=== PATIENT | female | born 1950 | race Caucasian/White ===

== ENCOUNTER → 2017-08-19 09:34 | Outpatient (CLI) | payer MEDICARE, SELFPAY ==
[2017-08-19 14:44] LABS: Absolute Lymphocyte Count 1.45 X10^3/ul (0.83-4.51); Absolute Neutrophil Count 2.8 X10^3/uL (2.0-7.7); Basophil# 0.02 X10^3/uL; Basophil% 0.4 % (0-1); Eosinophils% 2.1 % (0-5); Hematocrit 45.2 % (37-47); Hemoglobin 14.9 g/dl (12.0-15.0); Lymphocyte # 1.45 X10^3/ul (4.0); Lymphocyte % 30.1 % (19-41); Mean Corpuscular Volume 94.2 fL (81-99); Mean Platelet Vol. 11.3 fl (6.2-12.0); Monocyte# 0.48 X10^3/uL; Neutrophil # 2.75 X10^3/uL (2.7-7.7); Platelet Count 160 K/mm3 (150-450); RBC Distribution Width CV 14.2 % (11.6-14.6); RBC Distribution Width SD 47.1 fl (35.1-43.9); White Blood Count 4.8 K/mm3 (4.4-11.0)
[2017-08-19 14:47] LABS: POSITIVE COUNT NO; POSITIVE DIFFERENTIAL NO; POSITIVE MORPHOLOGY NO
[2017-08-19 15:00] LABS: Vitamin D,25 Hydroxy 31.3 ng/mL (19.95-100.01)
[2017-08-19 15:03] LABS: BUN 12 mg/dL (7-18); Creatinine, Serum 0.72 mg/dL (0.55-1.02); EST Glomerular Filtration Rate 86 mL/min (>60); Glucose 91 mg/dL (70-110)
[2017-08-19 15:04] LABS: ALB/GLOB Ratio 1.1 RATIO (0.9-2.4); AST(SGOT) 25 U/L (15-37); Alanine Aminotransfer ALT/SGPT 35 U/L (13-56); Albumin, Serum 3.5 g/dL (3.2-5.0); Alkaline Phosphatase 117 U/L (45-117); Anion Gap 7 (5-15); BUN/Creat Ratio 16.8 RATIO (10-20); Calcium,Total 8.7 mg/dL (8.5-10.1); Chloride 108 mmol/L (98-107); Est Glom Filt Rate - Afr Amer 104 mL/min (>60); Globulin 3.1 g/dL (2.2-4.2); Potassium 4.2 mmol/L (3.5-5.1); Protein, Total 6.6 g/dL (6.4-8.2); Sodium Level 145 mmol/L (136-145); Thyroid Stim Hormone (TSH) 0.68 uIU/mL (0.358-3.74)
[2017-08-20 12:15] LABS: Hep C Antibodies <0.1 s/co ratio (0.0-0.9)
== END ==
PROVIDERS: Family Provider Family Medicine Geriatric Medicine; PCP Family Medicine Geriatric Medicine; Visit Provider Family Medicine Geriatric Medicine
DX: R53.83 Other fatigue (principal); E55.9 Vitamin D deficiency, unspecified; Z13.89 Encounter for screening for other disorder
CPT/HCPCS: 36415; 80053; 82306; 84443; 85025; 86803

== ENCOUNTER 2017-09-09 05:15 | Observation (INO) | payer MEDICARE, SELFPAY ==
[2017-09-09] VITALS (25 sets, daily range): BP systolic 105–193; BP diastolic 58–109; PULSE 65–107; RESP 15–23; TEMP 36.3–38.2; O2SAT 93–100; BMI 29.5; BMI 29.8; BMI 29.7
--- NOTE | 2017-09-09 05:27 | ED.VISSUMM ---
- ER Visit Summary Date of Service: 09/09/17 Chief Complaint: Nausea History of Present Illness: The patient is a 66 F increasing nausea since yesterday afternoon. No vomiting. 3 days ago had diarrhea, symptoms resolving. No recent antibiotics. States that sweats. No fevers. States had mild transient left-sided abdominal pain intermittently over 3 days. No urinary symptoms. Occasional cough. Tried using Pepto-Bismol yesterday, however nausea continues. States able to sip oracio tanya. History of lap band surgery and hiatal hernia repair. Currently denies any abdominal pain. Patient is on methotrexate for history of inflammatory arthritis. Physical Examination: General: Alert and oriented ?3, mild sweats, uncomfortable HEENT: Normocephalic, atraumatic. Moist mucosa membranes Neck: supple, nontender. Cardiovascular: Regular tachycardic rate 104 and rhythm, no murmurs Respiratory: Normal breath sounds, symmetric, no distress Abdomen: Soft, nontender, nondistended. Normal bowel sounds. Negative Monson's or McBurney's tenderness. No guarding or rebound. Extremities: Nontender, no edema, pulses intact ?4 Neuro: no focal neurological deficits. Test Results: Abdominal labs normal. EKG: Sinus rate of 97, nonspecific ST depressions in V2, V3, leads I. T-wave inversion V1 to V4 and flattening in V5 V6. No ST elevations. Troponin [address] abdomen pelvis: No acute process. IVC filter in place. Emergency Department Course and Treatment: Patient presents with strictly nausea symptoms. She has no chest pains, shortness of breath, abdominal pain. IV was placed, given fluids and Zofran. Abdominal labs ordered it was normal. She had continued nausea therefore Phenergan was ordered along with a CT scan with her gastric history. Results returned negative. Noted IVC filter for which patient states she has never had a blood clot. States this was placed with her initial gastric surgery by the surgeon. Due to continued nausea symptoms, I did obtain an EKG noting new nonspecific findings however they are new changes. ST depressions anterior leads less than 1 mm. There is no elevation. Troponin was added which noted to be elevated at 0.71. Patient continues to deny any chest pains or shortness of breath. With elevated troponin, I did speak with Dr. Tan prior to report of the CT scan of the abdomen. He requested aspirin started. He said if the CT was negative for any acute pathology to start Brilinta and heparin bolus. This was started after negative read by radiology. Patient able to orally intake the medications. We discussed with cardiology, plan will be to take her to the [facility] from the emergency department. I did speak with hospitalist, Dr. Bowens for admission after cath. Treatment Plan: Heart catheterization Disposition: Admission Impression: 1. NSTEMI 2. Abnormal EKG 3. Intractable nausea This note was generated with [employer] dictation software. It may contain incorrect words, spelling, and punctuation that were not noted in review of the chart prior to signing ED Disposition - Plan for ED Patient: Disposition: Acute Care Hospital [facility] Chief Complaint: Abd Pain Diagnosis: NSTEMI (non-ST elevated myocardial infarction), Abnormal EKG, Intractable nausea Referrals: Tony Sethi Chi, MD [Primary Care Provider] -
--- NOTE | 2017-09-09 05:30 | ED.DCSUM_ITS ---
- ER Visit Summary Date of Service: 09/09/17 Chief Complaint: Nausea History of Present Illness: The patient is a 66 F increasing nausea since yesterday afternoon. No vomiting. 3 days ago had diarrhea, symptoms resolving. No recent antibiotics. States that sweats. No fevers. States had mild transient left-sided abdominal pain intermittently over 3 days. No urinary symptoms. Occasional cough. Tried using Pepto-Bismol yesterday, however nausea continues. States able to sip oracio tanya. History of lap band surgery and hiatal hernia repair. Currently denies any abdominal pain. Patient is on methotrexate for history of inflammatory arthritis. Physical Examination: General: Alert and oriented ?3, mild sweats, uncomfortable HEENT: Normocephalic, atraumatic. Moist mucosa membranes Neck: supple, nontender. Cardiovascular: Regular tachycardic rate 104 and rhythm, no murmurs Respiratory: Normal breath sounds, symmetric, no distress Abdomen: Soft, nontender, nondistended. Normal bowel sounds. Negative Monson' s or McBurney's tenderness. No guarding or rebound. Extremities: Nontender, no edema, pulses intact ?4 Neuro: no focal neurological deficits. Test Results: Abdominal labs normal. EKG: Sinus rate of 97, nonspecific ST depressions in V2, V3, leads I. T-wave inversion V1 to V4 and flattening in V5 V6. No ST elevations. Troponin [address] abdomen pelvis: No acute process. IVC filter in place. Emergency Department Course and Treatment: Patient presents with strictly nausea symptoms. She has no chest pains, shortness of breath, abdominal pain. IV was placed, given fluids and Zofran. Abdominal labs ordered it was normal. She had continued nausea therefore Phenergan was ordered along with a CT scan with her gastric history. Results returned negative. Noted IVC filter for which patient states she has never had a blood clot. States this was placed with her initial gastric surgery by the surgeon. Due to continued nausea symptoms, I did obtain an EKG noting new nonspecific findings however they are new changes. ST depressions anterior leads less than 1 mm. There is no elevation. Troponin was added which noted to be elevated at 0.71. Patient continues to deny any chest pains or shortness of breath. With elevated troponin, I did speak with Dr. Tan prior to report of the CT scan of the abdomen. He requested aspirin started. He said if the CT was negative for any acute pathology to start Brilinta and heparin bolus. This was started after negative read by radiology. Patient able to orally intake the medications. We discussed with cardiology, plan will be to take her to the [facility] from the emergency department. I did speak with hospitalist, Dr. Bowens for admission after cath. Treatment Plan: Heart catheterization Disposition: Admission Impression: 1. NSTEMI 2. Abnormal EKG 3. Intractable nausea This note was generated with [employer] dictation software. It may contain incorrect words, spelling, and punctuation that were not noted in review of the chart prior to signing ED Disposition - Plan for ED Patient: Disposition: Acute Care Hospital [facility] Chief Complaint: Abd Pain Diagnosis: NSTEMI (non-ST elevated myocardial infarction), Abnormal EKG, Intractable nausea Referrals: Tony Sethi Chi, MD [Primary Care Provider] -
[2017-09-09 05:40] LABS: Absolute Lymphocyte Count 1.01 X10^3/ul (0.83-4.51); Basophil# 0.01 X10^3/uL; Basophil% 0.1 % (0-1); Hematocrit 49.6 % (37-47); Hemoglobin 16.9 g/dl (12.0-15.0); Lymphocyte # 1.01 X10^3/ul (4.0); Lymphocyte % 13.3 % (19-41); Mean Corp Hgb Conc 34.1 g/gl (32-36); Mean Corpuscular Hgb 30.7 pg (27.0-32.0); Mean Platelet Vol. 10.5 fl (6.2-12.0); Monocyte# 0.58 X10^3/uL; Monocyte% 7.7 % (0-10); Neutrophil # 5.97 X10^3/uL (2.7-7.7); Neutrophil % 78.8 % (47-70); Platelet Count 174 K/mm3 (150-450); RBC Distribution Width CV 14.1 % (11.6-14.6); RBC Distribution Width SD 46.2 fl (35.1-43.9); Red Blood Count 5.51 M/mm3 (4.2-5.4); White Blood Count 7.6 K/mm3 (4.4-11.0)
[2017-09-09 05:41] LABS: POSITIVE COUNT NO; POSITIVE DIFFERENTIAL NO; POSITIVE MORPHOLOGY NO
[2017-09-09] MEDS: Ondansetron 4 MG/2 ML Vial IV ×2 (05:43→10:46)
[2017-09-09] MEDS: 0.9% Normal Saline 1,000 ML 1000 ML IV (05:43)
[2017-09-09 06:01] LABS: ALB/GLOB Ratio 1.1 RATIO (0.9-2.4); AST(SGOT) 31 U/L (15-37); Alanine Aminotransfer ALT/SGPT 34 U/L (13-56); Albumin, Serum 3.8 g/dL (3.2-5.0); Alkaline Phosphatase 98 U/L (45-117); Anion Gap 11 (5-15); BUN 18 mg/dL (7-18); BUN/Creat Ratio 20.6 RATIO (10-20); Calcium,Total 9.2 mg/dL (8.5-10.1); Chloride 105 mmol/L (98-107); Creatinine, Serum 0.87 mg/dL (0.55-1.02); EST Glomerular Filtration Rate 68 mL/min (>60); Est Glom Filt Rate - Afr Amer 83 mL/min (>60); Estimated Creatinine Clearance 64.68 ml/min; Globulin 3.6 g/dL (2.2-4.2); Glucose 193 mg/dL (74-106); Lipase 79 U/L (73-393); Potassium 3.5 mmol/L (3.5-5.1); Protein, Total 7.4 g/dL (6.4-8.2); Sodium Level 139 mmol/L (136-145)
--- NOTE | 2017-09-09 06:05 | CT_ITS ---
STUDY: CT ABDOMEN AND PELVIS WITHOUT CONTRAST REASON FOR EXAM: Female, 66 years old. Abdominal pain and nausea RADIATION DOSAGE (If Supplied By Facility): CTDIvol = ( 18.33 ) mGy, DLP = ( 888.42 ) mGycm TECHNIQUE: Transaxial images were obtained from the dome of the diaphragm to the symphysis pubis without oral contrast, and without intravenous contrast. Sagittal and coronal images were reconstructed. Individualized dose optimization techniques were used for this CT. COMPARISON: 04/10/2009 report only FINDINGS: The visualized lung bases are unremarkable. The visualized portions of the heart are within normal limits. Normal liver. Normal gallbladder and extrahepatic biliary system. There are multiple benign calcified granulomata of the spleen. Normal pancreas. Normal bilateral adrenal glands. Normal right kidney. Normal left kidney. A gastric banding device is present. Gaseous prominence of the stomach. Normal small intestine. There are multiple colonic diverticula consistent with diverticulosis. The appendix is visualized and appears normal. There is diffuse atherosclerotic calcification of the abdominal aorta, without a demonstrated aneurysm. There is an IVC filter in place. Normal retroperitoneum. Normal urinary bladder. Normal abdominal wall. There are diffuse degenerative changes of the visualized lumbar spine. Remote left rib trauma. CT/Abdomen/Pelvis without Cont IMPRESSION: Gaseous prominence of the stomach. No evidence of acute intestinal pathology or acute obstructive uropathy. Electronically Signed: Curt Bey MD at 6:59 EST Tel , Service support ,
--- NOTE | 2017-09-09 06:15 | EKG12_ITS ---
Test Reason : ABD PAIN Blood Pressure : / mmHG Vent. Rate : 097 BPM Atrial Rate : 097 BPM P-R Int : 196 ms QRS Dur : 096 ms QT Int : 368 ms P-R-T Axes : 033 059 067 degrees QTc Int : 467 ms Normal sinus rhythm Low voltage QRS ST & T wave abnormality, consider anterior ischemia Abnormal ECG Confirmed by LOLA ALBERT, EDVIN ([id number]), society editor [place] ([id number]) on 09/11/2017 1:07:06 PM Referred By: ESTEE Confirmed By:EDVIN DAVILA MD
--- NOTE | 2017-09-09 06:46 | NURSING ---
trop of 0.[address] Toledo
--- NOTE | 2017-09-09 06:52 | ED.RN ---
CT called to have CT read acute
[2017-09-09 07:09] LABS: Red Blood Cells-Urine 0 SEEN /hpf (0-5)
[2017-09-09] MEDS: Aspirin 81 MG TAB.CHEW 324 MG PO (07:10)
[2017-09-09] MEDS: TICAGRELOR 90 MG TABLET 180 MG PO (07:11)
[2017-09-09 07:13] LABS: Color, Urine Yellow (Yellow); Glucose, Dipstick 50 mg/dl (Normal); Leukocyte Esterase-Dipstick 25 /ul (Negative); Nitrite-Dipstick Negative (Negative); Occult Blood-Urine 50 /ul (Negative); Protein-Dipstick 100 mg/dl (Negative); Specific Gravity, Urine 1.025 (1.002-1.030); Urine Bilirubin Dipstick Negative (Negative); Urine Clarity Clear (Clear); Urine Urobilinogen Normal (Normal)
[2017-09-09] MEDS: Heparin Injection 5,000 UNITS/ML Syringe 4000 UNITS IV (07:13)
[2017-09-09 07:15] LABS: Ketone-Dipstick 150 mg/dl (Negative)
--- NOTE | 2017-09-09 07:21 | ED.RN ---
lab called with critical lab results. Urine ketones 150. Dr. Toledo made aware. no new orders at this time
[2017-09-09 07:34] LABS: White Blood Cells 0-5 SEEN /hpf (0-5)
[2017-09-09 07:35] LABS: Bacteria 2+ /hpf (None Seen); Fine Granular Cast- Urine 0-5 SEEN /lpf (0-5); Mucous, Urine 1+ /hpf (<or=2+)
[2017-09-09 07:37] LABS: Squamous Epithelial Cells - UA 0-5 SEEN /hpf (5-10)
--- NOTE | 2017-09-09 07:56 | NURSING ---
ICU [place] INTRACTABLE NAUSEA, ABNORMAL EKG, ELEVATED TROP
--- NOTE | 2017-09-09 07:57 | NURSING ---
CATHLAB [facility]
--- NOTE | 2017-09-09 08:41 | CL.D_ITS ---
Patient Name: KRIS JOHN Study Date: 09/09/2017 Performing: Omkar Tan MD Ht: 68.89 inches 175 cm : 1950 Wt: 200.62 lbs 91 kg Age: 66 Gender: female BSA: 2.07 PROCEDURE(S) PERFORMED [id number] CLINICAL PROFILE AND INDICATIONS INDICATIONS: Unstable Angina, Acute Coronary Syndrome, Unstable Angina Stress/Imaging Stress/Image Study Performed: No Angina Classification Anginal Classification w/in 2 Weeks: CCS IV CAD Presentations: Other: severe nausea with abnl EKG and abnl troponin Comorbidities/Risk Factors: Hypertension Dyslipidemia CONCLUSIONS Normal coronary arteries Normal Left Ventricular systolic function RECOMMENDATIONS Risk factor modification Management as per referring Treatment Plant Mechanic Consider surgical consult to evaluate gastric banding removal. DESCRIPTION OF PROCEDURE The patient arrived to the procedure lab. The risks and benefits of the procedure as well as a full d escription of our services here and current unavailability of surgical backup were fully explained to the patient and/or their significant other prior to the catheterization. The Timeout was completed, verifying the correct patient and procedure. The patient's procedural site was prepped and draped in the usual fashion. Local anesthetic was given subcutaneously to right groin region with Lidocaine 2%. Using a modified Seldinger technique, arterial access was obtained via the right femoral artery, a 4 Fr sheath was inserted Left Coronary Artery selective angiography was performed in multiple views us ing a 4 Fr. JL5 catheter. Right Coronary Artery selective angiography was then performed in multiple views using a 4 Fr. 3DRC catheter. Left Ventriculography was performed in BRANCH projection using a 4 Fr . Pigtail catheter. LV to AO pullback pressures were then recorded.The arterial sheath was pulled and manual compression applied until hemostasis is achieved. CORONARY ANGIOGRAPHY DOMINANCE: Right Dominant LEFT HEART ASSESSMENT Left Ventricular Ejection Fraction: by LV Gram 65 % Normal LV wall motion Normal Left Ventricular systolic function Normal Left Ventricular systolic function Normal Left Ventricular End Diastolic Pressure LEFT MAIN: Angiographically normal LEFT ANTERIOR DECENDING ARTERY: Angiographically normal CIRCUMFLEX ARTERY: Angiographically normal RIGHT CORONARY ARTERY: Angiographically normal COMPLICATIONS No Complications PROCEDURE MEDICATIONS Oxygen: 2 L/min via nasal cannula Zofran 4 mg IV 09/09/2017 08:28:42 SUMMARY OF HEMODYNAMIC DATA Time AIR REST ECG 08:11:31 AO 154/105 (129) SA 08:20:22 LV 173/-28, 1 08:26:17 LV 176/-27, 8 08:26:24 LVp 176/-30, 6 08:26:36 AOp 179/88 (126) 08:26:41 Signed By Omkar Tan MD On 09/09/2017 08:40:49 Omkar Tan MD
[2017-09-09 08:50] LABS: ACT Activated Clotting Time 158 sec (74-137)
[2017-09-09] MEDS: 0.9% Normal Saline 1,000 ML 150 ML IV (09:00)
--- NOTE | 2017-09-09 09:22 | PCM.HP.STD ---
Problem List (1) NSTEMI (non-ST elevated myocardial infarction) Status: Acute (2) Nausea Status: Acute History of Present Illness Date of Admission: 09/09/17 Chief Complaint: Nausea This is a 66F nausea who presented to the emergency room due to nausea, she reported that she has had flulike symptoms for the past 1 week, she was also started on an oral antibiotic. She denied associated abdominal pain, vomiting, diarrhea or constipation. In the emergency room her workup did not reveal any pathology to explain her intractable nausea , her troponin was elevated at 0.7 consistent with that an ST elevation myocardial infarction. The patient denies any chest pain shortness of breath palpitations or rapid heartbeat. Cardiology was consulted and the patient was taken for left heart catheterization that revealed angiographically normal coronaries the patient is being placed in the hospital for management of her symptoms. Past Medical History Allergies morphine Allergy (Verified 06/12/14 13:12) Vomiting Home Medications: Ambulatory Orders Medication Instructions Recorded ALPRAZolam [Xanax] 0.5 mg PO QHS 07/03/14 Atorvastatin Calcium [Lipitor] 40 mg PO QHS 07/03/14 Cevimeline HCl [Evoxac] 30 mg PO DAILY 07/03/14 Duloxetine Hcl [Cymbalta] 90 mg PO QHS 07/03/14 Esomeprazole Mag Trihydrate 40 mg PO DAILY 07/03/14 [Nexium] Flecainide [Tambocor] 100 mg PO BIDCM 07/03/14 Folic Acid 2 mg PO DAILY@0800 07/03/14 Methotrexate 12.5 mg PO MOTUWETHFR 07/03/14 Metoprolol(XL)Succ [Toprol Xl 50 mg PO QHS 07/03/14 (Beta Jess)] Montelukast [Singulair] 10 mg PO DAILY 07/03/14 Pregabalin [Lyrica] 150 mg PO DAILY 07/03/14 Cefadroxil Hydrate [Duricef] 500 mg PO BID #10 capsule 07/04/14 Docusate Sodium [Colace] 100 mg PO BID #30 capsule 07/04/14 Ergocalciferol [Vitamin D] 50,000 unit PO FR@1000 07/04/14 L. Acidophilus/Pectin, [place] 1 each PO BID #10 tablet 07/04/14 [Acidophilus-Pectin Captab] Oxycodone HCl/Acetaminophen 1 - 2 tablet PO QHS 09/09/17 [Percocet 5/325] Smoking Status: Never smoker VTE Information - Inpt Only VTE Present on Admission: No VTE Mechan Device Prophylaxis: SCD's VTE Pharm Prophylaxis ordered?: Yes Patient Problems: Active and Suspected Problems NSTEMI (non-ST elevated myocardial infarction) (Acute) Abnormal EKG (Acute) Nausea (Acute) - Physical Exam General: Alert, Oriented x3 HEENT: Atraumatic Oral: Moist Mucosa Neck: Supple Lungs: Clear to auscultation Cardiovascular: Regular rate, Normal S1, Normal S2 Abdomen: Bowel Sounds Present Extremities: No clubbing Vital Signs Temp Pulse Resp BP Pulse Ox 99.9 F H 76 17 173/94 H 97 09/09/17 09:00 09/09/17 09:00 09/09/17 09:00 09/09/17 09:00 09/09/17 09:00 Oxygen Flow Rate 2 Oxygen Delivery Method Nasal Cannula Weight: 90.718 kg Body Mass Index (BMI) 29.5 Laboratory Tests Past 24 Hrs 09/09/17 09/09/17 09/09/17 05:30 05:30 05:30 WBC 7.6 RBC 5.51 H Hgb 16.9 H Hct 49.6 H MCV 90.0 MCH 30.7 MCHC 34.1 RDW 14.1 RDW Differential 46.2 H Plt Count 174 MPV 10.5 Immature Gran % (Auto) 0.100 Neut % (Auto) 78.8 H Lymph % (Auto) 13.3 L [place] % (Auto) 7.7 Eos % (Auto) 0.0 Baso % (Auto) 0.1 Absolute Neuts (auto) 6.0 Absolute Lymphs (auto) 1.01 Total Counted Not Reportable Activated Clotting Time Sodium 139 Potassium 3.5 Chloride 105 Carbon Dioxide 23.0 Anion Gap 11 BUN 18 Creatinine 0.87 Estim Creat Clear Calc 64.68 Est GFR (MDRD) Af Amer 83 Est GFR (MDRD) Non-Af 68 BUN/Creatinine Ratio 20.6 H Glucose 193 H Calcium 9.2 Total Bilirubin 0.70 AST 31 ALT 34 Alkaline Phosphatase 98 Troponin I 0.71 H* Total Protein 7.4 Albumin 3.8 Globulin 3.6 Albumin/Globulin Ratio 1.1 Lipase 79 Urine Color Urine Clarity Urine pH Ur Specific [place] Urine Protein Urine Glucose (UA) Urine Ketones Urine Occult Blood Urine Nitrite Urine Bilirubin Urine Urobilinogen Ur Leukocyte Esterase Urine RBC Urine WBC Ur Squamous Epith Cells Urine Bacteria Fine Granular Casts Waxy Casts Urine Mucus 09/09/17 09/09/17 07:00 08:22 WBC RBC Hgb Hct MCV MCH MCHC RDW RDW Differential Plt Count MPV Immature Gran % (Auto) Neut % (Auto) Lymph % (Auto) [place] % (Auto) Eos % (Auto) Baso % (Auto) Absolute Neuts (auto) Absolute Lymphs (auto) Total Counted Activated Clotting Time 158 H Sodium Potassium Chloride Carbon Dioxide Anion Gap BUN Creatinine Estim Creat Clear Calc Est GFR (MDRD) Af Amer Est GFR (MDRD) Non-Af BUN/Creatinine Ratio Glucose Calcium Total Bilirubin AST ALT Alkaline Phosphatase Troponin I Total Protein Albumin Globulin Albumin/Globulin Ratio Lipase Urine Color Yellow Urine Clarity Clear Urine pH 5.0 Ur Specific [place] 1.025 Urine Protein 100 H Urine Glucose (UA) 50 H Urine Ketones 150 H Urine Occult Blood 50 H Urine Nitrite Negative Urine Bilirubin Negative Urine Urobilinogen Normal Ur Leukocyte Esterase 25 H Urine RBC 0 SEEN Urine WBC 0-5 SEEN Ur Squamous Epith Cells 0-5 SEEN Urine Bacteria 2+ Fine Granular Casts 0-5 SEEN Waxy Casts MACHINE MAINTENANCE Urine Mucus 1+ Assessment/Plan Active and Suspected Problems NSTEMI (non-ST elevated myocardial infarction) (Acute) Abnormal EKG (Acute) Nausea (Acute) 1. Intractable nausea; will place him on anti emetics and PPI, I will obtain lipase and amylase, she is status post gastric lap band and if her symptoms do not improve after 24 hours, I will have general surgery evaluate her for possible EGD. 2. Troponin elevation; likely type II NSTEMI, she actually underwent left heart catheterization that showed angiographically normal coronaries. 3. generalized weakness with nausea; likely post influenza syndrome, will continue supportive therapy for now. 4. dehydration; IV hydration. 5. DVT ppx with Lovenox. Code Visit OBSV E&M: 91383 Initial observation care L3
[2017-09-09 10:25] LABS: Lipase 76 U/L (73-393)
[2017-09-09] MEDS: ALPRAZolam 0.5 MG Tablet PO (10:42)
[2017-09-09] MEDS: Metoprolol(XL)Succ 50 MG Tablet PO ×2 (10:43→21:30)
[2017-09-09] MEDS: Losartan Potassium 25 MG Tablet PO (11:25)
[2017-09-09] MEDS: Flecainide 100 MG Tablet PO ×2 (11:25→21:32)
[2017-09-09] MEDS: Pregabalin 75 MG Capsule 150 MG PO ×2 (13:17→21:32)
[2017-09-09] MEDS: Dext 5%-0.45% NS 1,000 ML 60 ML IV (16:12)
[2017-09-09] MEDS: Atorvastatin Calcium 40 MG Tablet PO (21:31)
[2017-09-09] MEDS: DULoxetine Hcl 30 MG Capsule 90 MG PO (21:32)
[2017-09-09] MEDS: oxyCODONE 5 MG Tablet PO (21:32)
[2017-09-09] MEDS: 0.9% NaCl Peripheral Flush Adult/Peds IV (21:32)
[2017-09-10] VITALS (10 sets, daily range): BP systolic 87–116; BP diastolic 46–52; PULSE 67–82; RESP 12–18; TEMP 36.3–37.6; O2SAT 93–98
--- NOTE | 2017-09-10 04:53 | EKG12_ITS ---
Test Reason : AM EKG Blood Pressure : / mmHG Vent. Rate : 065 BPM Atrial Rate : 065 BPM P-R Int : 180 ms QRS Dur : 106 ms QT Int : 472 ms P-R-T Axes : 093 -03 072 degrees QTc Int : 490 ms Normal sinus rhythm Indeterminate axis Low voltage QRS Nonspecific T wave abnormality Prolonged QT Abnormal ECG Confirmed by LOLA ALBERT, EDVIN ([id number]), newspaper editor [place] ([id number]) on 09/11/2017 1:43:23 PM Referred By: EDEL Confirmed By:EDVIN DAVILA MD
[2017-09-10 05:06] LABS: Anion Gap 8 (5-15); BUN 11 mg/dL (7-18); BUN/Creat Ratio 18.3 RATIO (10-20); Calcium,Total 8.4 mg/dL (8.5-10.1); Chloride 107 mmol/L (98-107); EST Glomerular Filtration Rate 105 mL/min (>60); Est Glom Filt Rate - Afr Amer 128 mL/min (>60); Estimated Creatinine Clearance 56.27 ml/min; Glucose 108 mg/dL (74-106); Potassium 3.1 mmol/L (3.5-5.1); Sodium Level 142 mmol/L (136-145)
[2017-09-10] MEDS: Folic Acid 1 MG Tablet 2 MG PO (10:16)
[2017-09-10] MEDS: Pantoprazole Sodium 40 MG Tablet PO (10:17)
[2017-09-10] MEDS: Flecainide 100 MG Tablet PO (10:18)
[2017-09-10] MEDS: Pregabalin 75 MG Capsule 150 MG PO (10:24)
[2017-09-10] MEDS: 0.9% NaCl Peripheral Flush Adult/Peds IV (11:35)
--- NOTE | 2017-09-10 12:47 | DCINST_ITS ---
- Discharge Diagnoses Current Active Problems: Current Active and Chronic Problems NSTEMI (non-ST elevated myocardial infarction) (Acute) Abnormal EKG (Acute) Nausea (Acute) You will use the following diet at home:: No restrictions Discharge Activity: Return to Normal Activity Allergies/Adverse Reactions: Allergies morphine Allergy (Verified 06/12/14 13:12) Vomiting Medications to take at Discharge ALPRAZolam [Xanax] 0.5 mg PO QHS 07/03/14 Atorvastatin Calcium [Lipitor] 40 mg PO QHS 07/03/14 Cevimeline HCl [Evoxac] 30 mg PO DAILY 07/03/14 Duloxetine Hcl [Cymbalta] 90 mg PO QHS 07/03/14 Esomeprazole Mag Trihydrate [Nexium] 40 mg PO DAILY 07/03/14 Flecainide [Tambocor] 100 mg PO BIDCM 07/03/14 Folic Acid 2 mg PO DAILY@0800 07/03/14 Methotrexate 12.5 mg PO QWEEK 07/03/14 Montelukast [Singulair] 10 mg PO DAILY 07/03/14 Pregabalin [Lyrica] 150 mg PO BID 07/03/14 Docusate Sodium [Colace] 100 mg PO BID #30 capsule 07/04/14 Ergocalciferol [Vitamin D] 50,000 unit PO FR@1000 07/04/14 L. Acidophilus/Pectin, [place] [Acidophilus-Pectin Captab] 1 each PO BID #10 tablet 07/04/14 Oxycodone HCl/Acetaminophen [Percocet 5-325] 1 - 2 tablet PO QHS 09/09/17 Metoprolol(XL)Succ [Toprol Xl (Beta Jess)] 25 mg PO BID #60 tab 09/10/17 Ondansetron [Zofran Odt] 4 mg PO Q8H PRN PRN #20 tab 09/10/17 The following prescriptions were given: Ondansetron [Zofran Odt] 4 mg PO Q8H PRN PRN #20 tab PRN Reason: Nausea/Emesis Metoprolol(XL)Succ [Toprol Xl (Beta Jess)] 25 mg PO BID #60 tab Primary Care Physician: Tony Sethi Chi, MD [Primary Care Provider] - In 1 Week Proposed Discharge Date: 09/10/17
--- NOTE | 2017-09-10 12:48 | DS.PCM_ITS ---
Discharge Date and Diagnosis Date of Admission: 09/09/17 Date of Discharge: 09/10/17 - Primary Discharge Diagnosis Active and Suspected Problems NSTEMI (non-ST elevated myocardial infarction) (Acute) Abnormal EKG (Acute) Nausea (Acute) Hospital Course and Treatment Summary of Care Provided: This is a 66F nausea who presented to the emergency room due to nausea, she reported that she has had flulike symptoms for the past 1 week, she was also started on an oral antibiotic. She denied associated abdominal pain, vomiting , diarrhea or constipation. In the emergency room her workup did not reveal any pathology to explain her intractable nausea , her troponin was elevated at 0.[address] consistent with that an ST elevation myocardial infarction. The patient denies any chest pain shortness of breath palpitations or rapid heartbeat. Cardiology was consulted and the patient was taken for left heart catheterization that revealed angiographically normal coronaries the patient was placed in the hospital for management of her symptoms. She was placed on IV fluids and antibiotics, stool studies were negative for C. difficile influenza studies were negative. Her symptoms improved and she was discharged home in a stable condition. Discharge Diet: No Restrictions Discharge Activity: Return to Normal Activity Home Medications: Medications to take at Discharge RX: ALPRAZolam [Xanax] 0.5 mg PO QHS 07/03/14 RX: Atorvastatin Calcium [Lipitor] 40 mg PO QHS 07/03/14 RX: Cevimeline HCl [Evoxac] 30 mg PO DAILY 07/03/14 RX: Duloxetine Hcl [Cymbalta] 90 mg PO QHS 07/03/14 RX: Esomeprazole Mag Trihydrate [Nexium] 40 mg PO DAILY 07/03/14 RX: Flecainide [Tambocor] 100 mg PO BIDCM 07/03/14 RX: Folic Acid 2 mg PO DAILY@0800 07/03/14 RX: Methotrexate 12.5 mg PO QWEEK 07/03/14 RX: Montelukast [Singulair] 10 mg PO DAILY 07/03/14 RX: Pregabalin [Lyrica] 150 mg PO BID 07/03/14 RX: Docusate Sodium [Colace] 100 mg PO BID #30 capsule 07/04/14 RX: Ergocalciferol [Vitamin D] 50,000 unit PO FR@1000 07/04/14 RX: L. Acidophilus/Pectin, [place] [Acidophilus-Pectin [place]] 1 each PO BID #10 tablet 07/04/14 RX: Oxycodone HCl/Acetaminophen [Percocet 5-325] 1 - 2 tablet PO QHS 09/09/17 Ondansetron [Zofran Odt] 4 mg PO Q8H PRN PRN #20 tab 09/10/17 RX: Metoprolol(XL)Succ [Toprol Xl (Beta Jess)] 25 mg PO BID #60 tab 09/10/17 Following Prescrptions Were Given to Patient: Ondansetron [Zofran Odt] 4 mg PO Q8H PRN PRN #20 tab PRN Reason: Nausea/Emesis RX: Metoprolol(XL)Succ [Toprol Xl (Beta Jess)] 25 mg PO BID #60 tab Primary Care Physician: Tony Sethi Chi, MD [Primary Care Provider] - In 1 Week Meaningful Use Info Meaningful Use Diagnoses (Choose all that apply): None applicable Code Visit Inpatient E&M: 37585 Disch Hosp
--- NOTE | 2017-09-10 13:48 | CASEMGMT ---
RN CM Assessment. Pt to dc today, is independent, denies dc needs. Moy PISANON RN ACM
== END 2017-09-10 15:35 | disposition home or self-care (01) ==
LOC: ED 07:53 → CLSP 07:58 → ICU 08:40 → CLSP 09-14 13:21 → ICU 09-14 13:21
PROVIDERS: Internal Medicine Cardiovascular Disease; Admitting Provider Internal Medicine; Emergency Provider Emergency Medicine; Family Provider Family Medicine Geriatric Medicine; PCP Family Medicine Geriatric Medicine; Visit Provider Internal Medicine
DX: I21.4 Non-ST elevation (NSTEMI) myocardial infarction (principal); R94.31 Abnormal electrocardiogram [ECG] [EKG]; Z79.899 Other long term (current) drug therapy; R53.1 Weakness; I10 Essential (primary) hypertension; E78.5 Hyperlipidemia, unspecified; Z98.84 Bariatric surgery status; G47.33 Obstructive sleep apnea (adult) (pediatric); M13.88 Other specified arthritis, other site; K21.9 Gastro-esophageal reflux disease without esophagitis
CPT/HCPCS: 74176; 80048; 80053; 80299; 81001; 83690; 84484; 85025; 85347; 87804; 93005; 93458; 96361; 96365; 96366; 96375; 96376; 99218; 99284; J7030; J7040; A4216; C1769; G0378; J2405; J3490; J7799; Q9967

== ENCOUNTER → 2017-09-24 10:16 | Outpatient (CLI) | payer MEDICARE, SELFPAY ==
[2017-09-24 13:03] LABS: Absolute Lymphocyte Count 1.82 X10^3/ul (0.83-4.51); Absolute Neutrophil Count 4.3 X10^3/uL (2.0-7.7); Basophil# 0.01 X10^3/uL; Basophil% 0.1 % (0-1); Eosinophil# 0.08 X10^3/uL; Eosinophils% 1.2 % (0-5); Hematocrit 46.4 % (37-47); Hemoglobin 14.7 g/dl (12.0-15.0); Lymphocyte # 1.82 X10^3/ul (4.0); Lymphocyte % 27.1 % (19-41); Mean Corp Hgb Conc 31.7 g/gl (32-36); Mean Corpuscular Hgb 29.8 pg (27.0-32.0); Mean Corpuscular Volume 93.9 fL (81-99); Mean Platelet Vol. 10.9 fl (6.2-12.0); Monocyte# 0.53 X10^3/uL; Monocyte% 7.9 % (0-10); Neutrophil # 4.26 X10^3/uL (2.7-7.7); Neutrophil % 63.6 % (47-70); Platelet Count 178 K/mm3 (150-450); RBC Distribution Width CV 14.1 % (11.6-14.6); RBC Distribution Width SD 47.8 fl (35.1-43.9); Red Blood Count 4.94 M/mm3 (4.2-5.4); White Blood Count 6.7 K/mm3 (4.4-11.0)
[2017-09-24 13:12] LABS: POSITIVE COUNT NO; POSITIVE DIFFERENTIAL NO; POSITIVE MORPHOLOGY NO
[2017-09-24 13:42] LABS: Anion Gap 6 (5-15); BUN 10 mg/dL (7-18); BUN/Creat Ratio 15.6 RATIO (10-20); Chloride 107 mmol/L (98-107); Creatinine, Serum 0.64 mg/dL (0.55-1.02); EST Glomerular Filtration Rate 98 mL/min (>60); Est Glom Filt Rate - Afr Amer 118 mL/min (>60); Glucose 85 mg/dL (74-106); Magnesium 2.1 mg/dL (1.6-2.6); Potassium 4.4 mmol/L (3.5-5.1); Sodium Level 141 mmol/L (136-145); T4 Total, Thyroxin 9.1 ug/dL (4.8-13.9); Thyroid Stim Hormone (TSH) 0.43 uIU/mL (0.358-3.74)
== END ==
PROVIDERS: Family Provider Family Medicine Geriatric Medicine; PCP Family Medicine Geriatric Medicine; Visit Provider Physician Assistant Medical
DX: I10 Essential (primary) hypertension (principal); I48.0 Paroxysmal atrial fibrillation; R00.2 Palpitations; E78.5 Hyperlipidemia, unspecified
CPT/HCPCS: 80048; 83735; 84436; 84443; 85025

== ENCOUNTER → 2017-11-12 14:32 | Outpatient (CLI) | payer MEDICARE, SELFPAY ==
[2017-11-12 14:58] LABS: Absolute Lymphocyte Count 1.83 X10^3/ul (0.83-4.51); Absolute Neutrophil Count 3.7 X10^3/uL (2.0-7.7); Basophil# 0.01 X10^3/uL; Basophil% 0.2 % (0-1); Eosinophil# 0.14 X10^3/uL; Eosinophils% 2.3 % (0-5); Hematocrit 45.2 % (37-47); Hemoglobin 15.1 g/dl (12.0-15.0); Lymphocyte # 1.83 X10^3/ul (4.0); Lymphocyte % 29.5 % (19-41); Mean Corp Hgb Conc 33.4 g/gl (32-36); Mean Corpuscular Hgb 30.6 pg (27.0-32.0); Mean Corpuscular Volume 91.7 fL (81-99); Mean Platelet Vol. 10.8 fl (6.2-12.0); Monocyte# 0.55 X10^3/uL; Monocyte% 8.9 % (0-10); Neutrophil # 3.67 X10^3/uL (2.7-7.7); Neutrophil % 58.9 % (47-70); POSITIVE COUNT NO; POSITIVE DIFFERENTIAL NO; POSITIVE MORPHOLOGY NO; Platelet Count 154 K/mm3 (150-450); RBC Distribution Width CV 13.8 % (11.6-14.6); RBC Distribution Width SD 45.6 fl (35.1-43.9); Red Blood Count 4.93 M/mm3 (4.2-5.4); White Blood Count 6.2 K/mm3 (4.4-11.0)
[2017-11-12 15:19] LABS: ALB/GLOB Ratio 1.2 RATIO (0.9-2.4); AST(SGOT) 33 U/L (15-37); Alanine Aminotransfer ALT/SGPT 31 U/L (13-56); Albumin, Serum 3.8 g/dL (3.2-5.0); Alkaline Phosphatase 111 U/L (45-117); Anion Gap 4 (5-15); BUN 10 mg/dL (7-18); BUN/Creat Ratio 13.8 RATIO (10-20); Calcium,Total 9.4 mg/dL (8.5-10.1); Chloride 109 mmol/L (98-107); Creatinine, Serum 0.73 mg/dL (0.55-1.02); EST Glomerular Filtration Rate 84 mL/min (>60); Est Glom Filt Rate - Afr Amer 102 mL/min (>60); Globulin 3.2 g/dL (2.2-4.2); Glucose 96 mg/dL (74-106); Potassium 4.3 mmol/L (3.5-5.1); Sodium Level 140 mmol/L (136-145)
[2017-11-13 11:30] LABS: HEPATITIS B SURFACE AG Negative (Negative); Hep B Surface Antibodies Non Reactive (.)
== END ==
PROVIDERS: Family Provider Family Medicine Geriatric Medicine; PCP Family Medicine Geriatric Medicine; Visit Provider Internal Medicine Rheumatology
DX: M06.4 Inflammatory polyarthropathy (principal); M35.00 Sjogren syndrome, unspecified; M18.0 Bilateral primary osteoarthritis of first carpometacarpal joints; R51 Headache; G47.33 Obstructive sleep apnea (adult) (pediatric); M50.30 Other cervical disc degeneration, unspecified cervical region; H35.30 Unspecified macular degeneration; M72.0 Palmar fascial fibromatosis [Dupuytren]; Z79.899 Other long term (current) drug therapy
CPT/HCPCS: 36415; 80053; 85025; 86706; 87340

== ENCOUNTER → 2017-12-03 08:53 | Outpatient (CLI) | payer MEDICARE, SELFPAY ==
--- NOTE | 2017-12-03 14:12 | PFTCOMP_ITS ---
COMPLETE PULMONARY FUNCTION TEST INTERPRETATION Brief HPI: Patient is a 67 year old female, currently under the care of myself, who presents to [facility] for complete pulmonary function tests secondary to diagnosis of OLEKSANDR. Respiratory therapist reports good effort and reproducible results. Interpretation: Forced expiration spirometry shows no large airways obstructive ventilatory defect with an FEV1 of 87% predicted. There is no significant bronchodilator response by ATS criteria. Spirograms are of good quality and plateau normally. The respiratory flow volume loop shows a normal pattern. Lung volumes by body plethysmography show a decreased total lung capacity at 4.67 L, 80% predicted. All other lung volumes are reduced symmetrically. Diffusion capacity by carbon monoxide is normal at 79% predicted. The airway resistance is normal. No previous pulmonary function tests were available for review. Impression: Mild restrictive ventilatory defect with preserved diffusing capacity consistent with musculoskeletal limitation.
== END ==
PROVIDERS: Family Provider Family Medicine Geriatric Medicine; PCP Family Medicine Geriatric Medicine; Visit Provider Internal Medicine Critical Care Medicine
DX: D75.1 Secondary polycythemia (principal); G47.33 Obstructive sleep apnea (adult) (pediatric)
CPT/HCPCS: 94060; 94726; 94729

== ENCOUNTER → 2017-12-08 08:27 | Outpatient (CLI) | payer MEDICARE, SELFPAY ==
[2017-12-08 08:33] VITALS: PULSE 66; PULSE 67; PULSE 70; PULSE 72; PULSE 75; PULSE 76; O2SAT 95; O2SAT 96; O2SAT 98; O2SAT 99
--- NOTE | 2017-12-08 14:03 | WT_ITS ---
PSN 6 Minute Walk Test - 6 Minute Walk Test 6 Minute Walk Test: 6 Minute Walk Test PSN:6-Minute Walk Test Start: 12/08/17 08: 47 Freq: Status: Active Protocol: RESP.6MINW Document 12/08/17 08:33 [facility] [place] (Rec: 12/08/17 08:50 [facility] [place] [id number]) 6 Minute Walk Test Date Performed 12/08/17 Time Performed 08:33 Height 5 ft 9 in Weight: 199 lb Weight in Pounds 199.[address]: Milan Arnold Assistive device used: None Pre-test Oxygen Delivery Method Room Air Pulse Ox (%) 98 Pulse Rate (60-100 beats/min) 66 Dyspnea Rani Scale (0-10) 0 Exertion Rani Scale (6-20) 6 1st minute Oxygen Delivery Method Room Air Pulse Ox (%) 95 Pulse Rate (60-100 beats/min) 67 Number of Rests Taken 0 2nd minute Oxygen Delivery Method Room Air Pulse Ox (%) 96 Pulse Rate (60-100 beats/min) 72 Number of Rests Taken 0 3rd minute Oxygen Delivery Method Room Air Pulse Ox (%) 95 Pulse Rate (60-100 beats/min) 75 Number of Rests Taken 0 4th minute Oxygen Delivery Method Room Air Pulse Ox (%) 98 Pulse Rate (60-100 beats/min) 75 Number of Rests Taken 0 5th minute Oxygen Delivery Method Room Air Pulse Ox (%) 96 Pulse Rate (60-100 beats/min) 75 Number of Rests Taken 0 6th minute Oxygen Delivery Method Room Air Pulse Ox (%) 95 Pulse Rate (60-100 beats/min) 76 Number of Rests Taken 0 Post-test Oxygen Delivery Method Room Air Pulse Ox (%) 99 Pulse Rate (60-100 beats/min) 70 Dyspnea Rani Scale (0-10) 1 Exertion Rani Scale (6-20) 12 Full Laps Walked 14 Partial Lap, Number of Tiles Walked 17 Total Distance Walked (ft) 843 - Interpretation Interpretation: The patient ambulated 843 feet over the course of 6 minutes beginning on room air without assistive devices or breaks. Pretesting oxygen saturation was noted to be 98% on room air. With ambulation, the stephen oxygen saturation was 95%. There was no significant exertional oxygen desaturation. - Recommendations Recommendations: There is no indication for the use of supplemental oxygen at this time.
== END ==
PROVIDERS: Family Provider Family Medicine Geriatric Medicine; PCP Family Medicine Geriatric Medicine; Visit Provider Internal Medicine Critical Care Medicine
DX: D75.1 Secondary polycythemia (principal); G47.33 Obstructive sleep apnea (adult) (pediatric)
CPT/HCPCS: 94618

== ENCOUNTER → 2017-12-24 10:35 | Outpatient (CLI) | payer MEDICARE, SELFPAY ==
--- NOTE | 2017-12-24 10:35 | DT_ITS ---
This patient was seen during an EMR downtime December 21, 2017 - December 28, 2017. This patient may have a combination of paper and electronic documentation or all paper documentation. All documentation is viewable within the e-chart portion of [facility] for each patient visit.
--- NOTE | 2017-12-24 10:39 | RAD_ITS ---
STUDY: X-RAY - CERVICAL SPINE REASON FOR EXAM: Female, 67 years old. Left arm numbness. Previous neck surgery. TECHNIQUE: 5 view(s) of the cervical spine were obtained. COMPARISON: October 17, 2013. MRI cervical spine April 11, 2016. FINDINGS: Normal anterior atlantoaxial articulation. Normal odontoid process. There is straightening of the normal cervical lordosis. . Postoperative changes of anterior cervical fusion C4-5 with multilevel plate and screws. Bony fusion C5-6 and C6-7. Multilevel uncovertebral joint hypertrophy. 5 mm bony density posterior soft tissue at the level of the spinous processes of C6 and C7 compatible with an old avulsion fracture unchanged. The soft tissue structures are unremarkable. Carotid calcifications. RAD/Cerv Spine 2 or 3 Views IMPRESSION: Stable postoperative changes of the cervical spine. Electronically Signed: Jay Hardin MD at 3:55 EDT , Service support ,
--- NOTE | 2017-12-24 10:39 | RAD_ITS ---
STUDY: X-RAY - LEFT SHOULDER REASON FOR EXAM: Female, 67 years old. Left arm numbness. TECHNIQUE: 4 view(s) of the shoulder. COMPARISON: None. FINDINGS: Normal glenohumeral articulation. There is degenerative arthrosis of the acromioclavicular joint without inferior osseous spur formation. Normal acromion. Normal humeral head and visualized proximal humerus. The soft tissue structures are unremarkable. Normal visualized pulmonary apex. RAD/Shoulder min 2 Views IMPRESSION: Degenerative changes. Electronically Signed: Arlette Smith MD at 17:43 EDT Tel , Service support ,
== END ==
PROVIDERS: Family Provider Family Medicine Geriatric Medicine; PCP Family Medicine Geriatric Medicine; Visit Provider Family Medicine Geriatric Medicine
DX: M50.80 Other cervical disc disorders, unspecified cervical region (principal); M75.102 Unspecified rotator cuff tear or rupture of left shoulder, not specified as traumatic
CPT/HCPCS: 72040; 73030

== ENCOUNTER → 2018-01-07 20:18 | Outpatient (CLI) | payer MEDICARE, SELFPAY | PROVIDERS: Family Provider Family Medicine Geriatric Medicine; PCP Family Medicine Geriatric Medicine; Visit Provider Internal Medicine Critical Care Medicine | DX: G47.33 Obstructive sleep apnea (adult) (pediatric) (principal) | CPT/HCPCS: 95810 ==

== ENCOUNTER → 2018-02-08 12:32 | Outpatient (CLI) | payer MEDICARE, SELFPAY ==
[2018-02-08 13:07] LABS: Absolute Lymphocyte Count 1.73 X10^3/ul (0.83-4.51); Absolute Neutrophil Count 4.6 X10^3/uL (2.0-7.7); Basophil# 0.01 X10^3/uL; Basophil% 0.1 % (0-1); Eosinophil# 0.11 X10^3/uL; Eosinophils% 1.6 % (0-5); Hematocrit 45.9 % (37-47); Hemoglobin 15.2 g/dl (12.0-15.0); Lymphocyte # 1.73 X10^3/ul (4.0); Lymphocyte % 24.7 % (19-41); Mean Corp Hgb Conc 33.1 g/gl (32-36); Mean Corpuscular Hgb 30.6 pg (27.0-32.0); Mean Corpuscular Volume 92.5 fL (81-99); Mean Platelet Vol. 10.4 fl (6.2-12.0); Monocyte# 0.53 X10^3/uL; Monocyte% 7.6 % (0-10); Neutrophil # 4.61 X10^3/uL (2.7-7.7); Neutrophil % 65.7 % (47-70); Platelet Count 159 K/mm3 (150-450); RBC Distribution Width CV 14.4 % (11.6-14.6); RBC Distribution Width SD 47.6 fl (35.1-43.9); Red Blood Count 4.96 M/mm3 (4.2-5.4)
[2018-02-08 13:08] LABS: POSITIVE COUNT NO; POSITIVE DIFFERENTIAL NO; POSITIVE MORPHOLOGY NO
[2018-02-08 13:30] LABS: ALB/GLOB Ratio 1.1 RATIO (0.9-2.4); AST(SGOT) 32 U/L (15-37); Alanine Aminotransfer ALT/SGPT 50 U/L (13-56); Albumin, Serum 3.7 g/dL (3.2-5.0); Alkaline Phosphatase 112 U/L (45-117); Anion Gap 6 (5-15); BUN 12 mg/dL (7-18); BUN/Creat Ratio 16.5 RATIO (10-20); Calcium,Total 9.6 mg/dL (8.5-10.1); Chloride 107 mmol/L (98-107); Creatinine, Serum 0.73 mg/dL (0.55-1.02); EST Glomerular Filtration Rate 84 mL/min (>60); Est Glom Filt Rate - Afr Amer 102 mL/min (>60); Globulin 3.3 g/dL (2.2-4.2); Glucose 89 mg/dL (74-106); Potassium 4.3 mmol/L (3.5-5.1); Sodium Level 142 mmol/L (136-145)
== END ==
PROVIDERS: Family Provider Family Medicine Geriatric Medicine; PCP Family Medicine Geriatric Medicine; Visit Provider Internal Medicine Rheumatology
DX: M06.4 Inflammatory polyarthropathy (principal); M79.7 Fibromyalgia; M18.0 Bilateral primary osteoarthritis of first carpometacarpal joints; M35.00 Sjogren syndrome, unspecified; M72.0 Palmar fascial fibromatosis [Dupuytren]; H35.30 Unspecified macular degeneration; M50.30 Other cervical disc degeneration, unspecified cervical region; G47.33 Obstructive sleep apnea (adult) (pediatric); R51 Headache; Z79.899 Other long term (current) drug therapy
CPT/HCPCS: 36415; 80053; 85025

== ENCOUNTER → 2018-02-20 08:03 | Outpatient (CLI) | payer MEDICARE, SELFPAY ==
--- NOTE | 2018-02-20 08:30 | MRI_ITS ---
STUDY: MRI CERVICAL SPINE WITHOUT CONTRAST REASON FOR EXAM: Female, 67 years old. Neck pain TECHNIQUE: Standardized fat and water weighted pulse sequences were obtained in the sagittal and axial planes. COMPARISON: None FINDINGS: There is no tonsillar ectopia. This a normal cervicomedullary junction. The cervical spinal cord is normal. The cervical spine itself shows fusion at C4-C5 and C5-C6. The C4-C5 fusion is secured by a plate and screw. C2-3: Normal endplates. Normal disc height, signal and morphology. Normal central canal and intervertebral neural foramina. C3-4: Normal endplates. Normal disc height, signal and morphology. Normal central canal and intervertebral neural foramina. C4-5: Fusion of C4-C5. The procedure is secured by a plate and screws through C4 and C5. C5-6: Fused C5-C6. Old. C6-7: Normal endplates. Normal disc height, signal and morphology. Normal central canal and intervertebral neural foramina. C7-T1: Normal endplates. Normal disc height, signal and morphology. Normal central canal and intervertebral neural foramina. Normal cervical cord. Normal visualized soft tissue structures. MRI/Spine Cervical (Routine) IMPRESSION: The cervical spinal cord is normal. No tonsillar ectopia. Fusion of C4 and C5 and C5-C6.. No acute findings in the cervical spine Electronically Signed: Obey Elizabeth, at 5:46 EDT Tel , Service support ,
== END ==
PROVIDERS: Family Provider Family Medicine Geriatric Medicine; PCP Family Medicine Geriatric Medicine; Visit Provider Anesthesiology Pain Medicine
DX: M54.2 Cervicalgia (principal)
CPT/HCPCS: 72141

== ENCOUNTER → 2018-02-24 12:19 | Outpatient (CLI) | payer MEDICARE, SELFPAY ==
[2018-02-24 12:52] LABS: Absolute Lymphocyte Count 0.89 X10^3/ul (0.83-4.51); Absolute Neutrophil Count 7.6 X10^3/uL (2.0-7.7); Hematocrit 45.5 % (37-47); Lymphocyte # 0.89 X10^3/ul (4.0); Lymphocyte % 9.6 % (19-41); Mean Corpuscular Hgb 30.8 pg (27.0-32.0); Mean Corpuscular Volume 93.4 fL (81-99); Mean Platelet Vol. 10.9 fl (6.2-12.0); Monocyte# 0.84 X10^3/uL; Neutrophil # 7.56 X10^3/uL (2.7-7.7); Neutrophil % 81.3 % (47-70); Platelet Count 158 K/mm3 (150-450); RBC Distribution Width CV 14.8 % (11.6-14.6); Red Blood Count 4.87 M/mm3 (4.2-5.4); White Blood Count 9.3 K/mm3 (4.4-11.0)
[2018-02-24 13:02] LABS: POSITIVE COUNT NO; POSITIVE DIFFERENTIAL NO; POSITIVE MORPHOLOGY NO
[2018-02-24 13:29] LABS: Vitamin D,25 Hydroxy 63.5 ng/mL (29.95-100.01)
[2018-02-24 13:30] LABS: ALB/GLOB Ratio 1.1 RATIO (0.9-2.4); AST(SGOT) 28 U/L (15-37); Alanine Aminotransfer ALT/SGPT 45 U/L (13-56); Albumin, Serum 3.9 g/dL (3.2-5.0); Alkaline Phosphatase 111 U/L (45-117); Anion Gap 7 (5-15); BUN 13 mg/dL (7-18); Calcium,Total 9.6 mg/dL (8.5-10.1); Chloride 107 mmol/L (98-107); Creatinine, Serum 0.72 mg/dL (0.55-1.02); EST Glomerular Filtration Rate 85 mL/min (>60); Est Glom Filt Rate - Afr Amer 103 mL/min (>60); Globulin 3.5 g/dL (2.2-4.2); Glucose 99 mg/dL (74-106); Potassium 4.4 mmol/L (3.5-5.1); Protein, Total 7.4 g/dL (6.4-8.2); Sodium Level 144 mmol/L (136-145); Thyroid Stim Hormone (TSH) 0.23 uIU/mL (0.358-3.74)
[2018-03-01 14:19] LABS: T4 Free Direct 0.79 ng/dL (0.76-1.46)
== END ==
PROVIDERS: Family Provider Family Medicine Geriatric Medicine; PCP Family Medicine Geriatric Medicine; Visit Provider Family Medicine Geriatric Medicine
DX: E55.9 Vitamin D deficiency, unspecified (principal); R53.83 Other fatigue
CPT/HCPCS: 36415; 80053; 82306; 84439; 84443; 85025

== ENCOUNTER → 2018-03-03 11:45 | Outpatient (CLI) | payer MEDICARE, SELFPAY ==
[2018-03-03 12:51] LABS: T3 Uptake 35 % (30-39)
== END ==
PROVIDERS: Family Provider Family Medicine Geriatric Medicine; PCP Family Medicine Geriatric Medicine; Visit Provider Family Medicine Geriatric Medicine
DX: E03.9 Hypothyroidism, unspecified (principal)
CPT/HCPCS: 84479

== ENCOUNTER → 2018-05-07 08:57 | Outpatient (CLI) | payer MEDICARE, SELFPAY ==
[2018-05-07 09:39] LABS: Absolute Lymphocyte Count 1.93 X10^3/ul (0.83-4.51); Absolute Neutrophil Count 2.7 X10^3/uL (2.0-7.7); Basophil# 0.01 X10^3/uL; Basophil% 0.2 % (0-1); Eosinophil# 0.15 X10^3/uL; Eosinophils% 2.9 % (0-5); Hematocrit 47.3 % (37-47); Hemoglobin 15.5 g/dl (12.0-15.0); Lymphocyte # 1.93 X10^3/ul (4.0); Lymphocyte % 36.8 % (19-41); Mean Corp Hgb Conc 32.8 g/gl (32-36); Mean Corpuscular Hgb 31.8 pg (27.0-32.0); Mean Corpuscular Volume 96.9 fL (81-99); Mean Platelet Vol. 10.7 fl (6.2-12.0); Monocyte# 0.49 X10^3/uL; Monocyte% 9.3 % (0-10); Neutrophil # 2.65 X10^3/uL (2.7-7.7); Neutrophil % 50.4 % (47-70); Platelet Count 156 K/mm3 (150-450); RBC Distribution Width CV 14.2 % (11.6-14.6); RBC Distribution Width SD 50.2 fl (35.1-43.9); Red Blood Count 4.88 M/mm3 (4.2-5.4); White Blood Count 5.3 K/mm3 (4.4-11.0)
[2018-05-07 09:50] LABS: POSITIVE COUNT NO; POSITIVE DIFFERENTIAL NO; POSITIVE MORPHOLOGY NO
[2018-05-07 10:09] LABS: ALB/GLOB Ratio 1.1 RATIO (0.9-2.4); AST(SGOT) 30 U/L (15-37); Alanine Aminotransfer ALT/SGPT 41 U/L (13-56); Albumin, Serum 3.7 g/dL (3.2-5.0); Alkaline Phosphatase 122 U/L (45-117); Anion Gap 5 (5-15); BUN 10 mg/dL (7-18); BUN/Creat Ratio 12.8 RATIO (10-20); Calcium,Total 8.9 mg/dL (8.5-10.1); Chloride 108 mmol/L (98-107); Creatinine, Serum 0.78 mg/dL (0.55-1.02); EST Glomerular Filtration Rate 78 mL/min (>60); Est Glom Filt Rate - Afr Amer 94 mL/min (>60); Globulin 3.4 g/dL (2.2-4.2); Glucose 66 mg/dL (74-106); Potassium 3.7 mmol/L (3.5-5.1); Protein, Total 7.1 g/dL (6.4-8.2); Sodium Level 143 mmol/L (136-145)
== END ==
PROVIDERS: Family Provider Family Medicine Geriatric Medicine; PCP Family Medicine Geriatric Medicine; Referring Provider Internal Medicine Rheumatology; Visit Provider Internal Medicine Rheumatology
DX: M06.4 Inflammatory polyarthropathy (principal); M35.00 Sjogren syndrome, unspecified; M18.0 Bilateral primary osteoarthritis of first carpometacarpal joints; M72.0 Palmar fascial fibromatosis [Dupuytren]; M79.7 Fibromyalgia; Z79.899 Other long term (current) drug therapy
CPT/HCPCS: 36415; 80053; 85025

== ENCOUNTER → 2018-05-21 12:21 | Outpatient (CLI) | payer MEDICARE, SELFPAY ==
--- NOTE | 2018-05-21 13:00 | MRI_ITS ---
STUDY: MRI LUMBAR SPINE WITHOUT CONTRAST REASON FOR EXAM: Female, 67 years old. Low back pain and right leg pain TECHNIQUE: Standardized fat and water weighted pulse sequences were obtained in the sagittal and axial planes. COMPARISON: 08/11/2016 FINDINGS: T12-L1: Incompletely imaged left paracentral disc protrusion with moderate left foraminal stenosis. Normal lumbar lordosis. There is no substantial scoliosis. Normal conus medullaris that terminates at the L1 level. L1-2: Bulging annulus and bilateral facet hypertrophy with mild central canal and moderate bilateral foraminal stenoses. L2-3: Bulging annulus and bilateral facet and ligamentum flavum hypertrophy with moderate to severe central canal stenosis and moderate to severe bilateral foraminal stenoses. L3-4: Bulging annulus and bilateral facet and ligamentum flavum hypertrophy with moderate central canal stenosis and moderate to severe right and moderate left foraminal stenoses. L4-5: Disc osteophyte complex and bilateral facet hypertrophy with mild central canal stenosis, moderate bilateral lateral recess stenoses, and moderate bilateral foraminal stenoses. L5-S1: Disc osteophyte complex and bilateral facet hypertrophy with severe left lateral recess stenosis, mass effect on the transiting left S1 nerve root, and severe right and moderate to severe left foraminal stenoses. Normal visualized sacral ala. Normal visualized paraspinous soft tissue structures. MRI/Spine Lumbar (Routine) IMPRESSION: Multilevel degenerative disease as described. Severe left lateral recess stenosis at L5-S1 with mass effect on the transiting left S1 nerve root. Severe right foraminal stenosis at the L5-S1 level. Electronically Signed: Curt Bey MD at 0:59 EDT Tel , Service support ,
== END ==
PROVIDERS: Family Provider Family Medicine Geriatric Medicine; PCP Family Medicine Geriatric Medicine; Referring Provider Anesthesiology Pain Medicine; Visit Provider Anesthesiology Pain Medicine
DX: M54.9 Dorsalgia, unspecified (principal); M79.606 Pain in leg, unspecified
CPT/HCPCS: 72148

== ENCOUNTER → 2018-05-26 09:39 | Outpatient (CLI) | payer MEDICARE, SELFPAY ==
--- NOTE | 2018-05-26 13:37 | NEURO ---
NCS and/or EMG Patient Report Ordering Doctor: Tony Sethi Chi DATE OF SERVICE: 05/26/18 Va Xavier is a 67-year-old female presents for electrodiagnostic testing of the upper limbs. She reports numbness and tingling in both hands. Electrodiagnostic findings: The right median motor nerve demonstrates prolonged distal latency with normal amplitude and reduced conduction velocity. The left median motor nerve demonstrates prolonged distal latency with normal amplitude and conduction velocity. Normal ulnar motor response bilaterally. Prolonged median sensory latency bilaterally. Prolonged right and left median F waves. Needle EMG testing shows no evidence of denervation in any muscles tested in the upper limbs. Electrodiagnostic impression: This is an abnormal study in the upper limbs. 1. Electrodiagnostic findings demonstrate bilateral median mononeuropathy. This is consistent with a moderate left carpal tunnel syndrome and a moderate to advanced right carpal tunnel syndrome. If there are any further questions, please do not hesitate to contact me
== END ==
PROVIDERS: Family Provider Family Medicine Geriatric Medicine; PCP Family Medicine Geriatric Medicine; Referring Provider Family Medicine Geriatric Medicine; Visit Provider Family Medicine Geriatric Medicine
DX: G56.03 Carpal tunnel syndrome, bilateral upper limbs (principal)
CPT/HCPCS: 95886; 95912

== ENCOUNTER → 2018-07-14 15:08 | Outpatient (CLI) | payer MEDICARE, SELFPAY ==
[2018-03-15 14:58] VITALS: BMI 29.8
[2018-07-14 17:58] LABS: Absolute Lymphocyte Count 1.43 X10^3/ul (0.83-4.51); Absolute Neutrophil Count 2.3 X10^3/uL (2.0-7.7); Basophil# 0.01 X10^3/uL; Basophil% 0.2 % (0-1); Eosinophil# 0.12 X10^3/uL; Eosinophils% 2.8 % (0-5); Hematocrit 45.3 % (37-47); Hemoglobin 14.7 g/dl (12.0-15.0); Lymphocyte # 1.43 X10^3/ul (4.0); Lymphocyte % 33.5 % (19-41); Mean Corp Hgb Conc 32.5 g/gl (32-36); Mean Corpuscular Hgb 31.1 pg (27.0-32.0); Mean Platelet Vol. 11.4 fl (6.2-12.0); Monocyte% 9.4 % (0-10); Neutrophil # 2.31 X10^3/uL (2.7-7.7); Neutrophil % 54.1 % (47-70); Platelet Count 135 K/mm3 (150-450); RBC Distribution Width CV 13.6 % (11.6-14.6); RBC Distribution Width SD 47.2 fl (35.1-43.9); Red Blood Count 4.72 M/mm3 (4.2-5.4); White Blood Count 4.3 K/mm3 (4.4-11.0)
[2018-07-14 17:59] LABS: POSITIVE COUNT NO; POSITIVE DIFFERENTIAL NO; POSITIVE MORPHOLOGY NO
[2018-07-14 18:06] LABS: Anion Gap 9 (5-15); BUN 13 mg/dL (7-18); BUN/Creat Ratio 16.1 RATIO (10-20); Calcium,Total 9.7 mg/dL (8.5-10.1); Chloride 108 mmol/L (98-107); Creatinine, Serum 0.81 mg/dL (0.55-1.02); EST Glomerular Filtration Rate 75 mL/min (>60); Est Glom Filt Rate - Afr Amer 91 mL/min (>60); Glucose 83 mg/dL (74-106); Potassium 4.2 mmol/L (3.5-5.1); Sodium Level 143 mmol/L (136-145)
[2018-07-14 18:43] LABS: International Normalized Ratio 1.1; Prothrombin Time (Protime)PT. 13.8 SECONDS (11.7-14.9)
== END ==
PROVIDERS: Family Provider Family Medicine Geriatric Medicine; PCP Family Medicine Geriatric Medicine; Visit Provider Family Medicine Geriatric Medicine
DX: Z01.818 Encounter for other preprocedural examination (principal)
CPT/HCPCS: 36415; 80048; 85025; 85610

== ENCOUNTER → 2018-08-26 10:48 | Outpatient (CLI) | payer MEDICARE, SELFPAY ==
[2018-07-21 10:16] VITALS: BMI 31.6
[2018-08-26 11:54] LABS: Absolute Lymphocyte Count 0.94 X10^3/ul (0.83-4.51); Absolute Neutrophil Count 8.1 X10^3/uL (2.0-7.7); Hematocrit 46.9 % (37-47); Hemoglobin 15.5 g/dl (12.0-15.0); Lymphocyte # 0.94 X10^3/ul (4.0); Lymphocyte % 9.9 % (19-41); Mean Corpuscular Hgb 30.7 pg (27.0-32.0); Mean Corpuscular Volume 92.9 fL (81-99); Mean Platelet Vol. 11.3 fl (6.2-12.0); Monocyte# 0.43 X10^3/uL; Monocyte% 4.5 % (0-10); Neutrophil # 8.11 X10^3/uL (2.7-7.7); Neutrophil % 85.4 % (47-70); Platelet Count 184 K/mm3 (150-450); RBC Distribution Width CV 13.2 % (11.6-14.6); RBC Distribution Width SD 43.9 fl (35.1-43.9); Red Blood Count 5.05 M/mm3 (4.2-5.4); White Blood Count 9.5 K/mm3 (4.4-11.0)
[2018-08-26 11:59] LABS: POSITIVE COUNT NO; POSITIVE DIFFERENTIAL NO; POSITIVE MORPHOLOGY NO
[2018-08-26 12:50] LABS: ALB/GLOB Ratio 1.2 RATIO (0.9-2.4); AST(SGOT) 22 U/L (15-37); Alanine Aminotransfer ALT/SGPT 31 U/L (13-56); Alkaline Phosphatase 101 U/L (45-117); Anion Gap 11 (5-15); BUN 15 mg/dL (7-18); BUN/Creat Ratio 22.2 RATIO (10-20); Calcium,Total 9.5 mg/dL (8.5-10.1); Chloride 105 mmol/L (98-107); Creatinine, Serum 0.68 mg/dL (0.55-1.02); EST Glomerular Filtration Rate 92 mL/min (>60); Est Glom Filt Rate - Afr Amer 111 mL/min (>60); Globulin 3.3 g/dL (2.2-4.2); Glucose 107 mg/dL (74-106); Protein, Total 7.3 g/dL (6.4-8.2); Sodium Level 142 mmol/L (136-145); Thyroid Stim Hormone (TSH) 0.09 uIU/mL (0.358-3.74); Uric Acid 4.3 mg/dL (2.6-6.0)
== END ==
PROVIDERS: Family Provider Family Medicine Geriatric Medicine; PCP Family Medicine Geriatric Medicine; Referring Provider Internal Medicine Rheumatology; Visit Provider Internal Medicine Rheumatology
DX: M06.4 Inflammatory polyarthropathy (principal); M18.0 Bilateral primary osteoarthritis of first carpometacarpal joints; M72.0 Palmar fascial fibromatosis [Dupuytren]; M79.7 Fibromyalgia; M35.00 Sjogren syndrome, unspecified; R53.83 Other fatigue; Z79.899 Other long term (current) drug therapy
CPT/HCPCS: 36415; 80053; 84443; 84550; 85025

== ENCOUNTER → 2018-09-06 10:46 | Outpatient (CLI) | payer MEDICARE, SELFPAY ==
[2018-08-30 09:39] VITALS: BMI 31.6
[2018-09-06 11:57] LABS: Amphetamine Urine VISTA NEGATIVE (<1000 ng/mL); Barbiturate Urine VISTA NEGATIVE (< 200 ng/mL); Benzodiazepine Urine VISTA POSITIVE (< 200 ng/mL); Cocaine Urine VISTA NEGATIVE (< 300 ng/mL); Ecstacy Urine VISTA NEGATIVE (< 500 ng/mL); Methadone Urine VISTA NEGATIVE (< 300 ng/mL); PCP Urine VISTA NEGATIVE (< 25 ng/mL); THC Urine VISTA NEGATIVE (< 50 ng/mL); Vista UDS pH Range 5
== END ==
PROVIDERS: Family Provider Family Medicine Geriatric Medicine; PCP Family Medicine Geriatric Medicine; Referring Provider Anesthesiology Pain Medicine; Visit Provider Anesthesiology Pain Medicine
DX: F11.20 Opioid dependence, uncomplicated (principal)
CPT/HCPCS: 80307

== ENCOUNTER → 2018-09-14 12:31 | Outpatient (CLI) | payer MEDICARE, SELFPAY ==
[2018-08-30 09:39] VITALS: BMI 31.6
--- NOTE | 2018-09-15 13:07 | PFT ---
INTRODUCTION: The patient is a 67-year-old female that presents for pulmonary function studies secondary to a diagnosis of dyspnea. Respiratory therapy reports good patient effort. Bronchodilators were used during testing. INTERPRETATION: Forced expiration spirometry demonstrates no evidence of a large airways obstructive ventilatory defect. There was no significant response to aerosolized bronchodilators. Spirograms are of good quality and plateau normally. The respiratory flow volume loop appears normal. Body plethysmography was performed and reveals lung volumes to be within normal limits. Diffusing capacity by single breath CO is also still within normal limits at 74% of predicted. IMPRESSION: Grossly normal pulmonary function studies.
== END ==
PROVIDERS: Family Provider Family Medicine Geriatric Medicine; PCP Family Medicine Geriatric Medicine; Referring Provider Nurse Practitioner Acute Care; Visit Provider Nurse Practitioner Acute Care
DX: R06.00 Dyspnea, unspecified (principal)
CPT/HCPCS: 94060; 94726; 94729

== ENCOUNTER → 2018-09-20 13:26 | Outpatient (CLI) | payer MEDICARE, SELFPAY ==
[2018-08-30 09:39] VITALS: BMI 31.6
== END ==
PROVIDERS: Family Provider Family Medicine Geriatric Medicine; PCP Family Medicine Geriatric Medicine; Referring Provider Family Medicine Geriatric Medicine; Visit Provider Family Medicine Geriatric Medicine
DX: R68.83 Chills (without fever) (principal)
CPT/HCPCS: 87633

== ENCOUNTER → 2018-10-01 14:49 | Outpatient (CLI) | payer MEDICARE, SELFPAY ==
[2018-08-30 09:39] VITALS: BMI 31.6
[2018-10-01 16:13] LABS: Absolute Lymphocyte Count 2.11 X10^3/ul (0.83-4.51); Absolute Neutrophil Count 5.5 X10^3/uL (2.0-7.7); Basophil# 0.01 X10^3/uL; Basophil% 0.1 % (0-1); Eosinophil# 0.08 X10^3/uL; Eosinophils% 0.9 % (0-5); Hematocrit 47.1 % (37-47); Hemoglobin 15.2 g/dl (12.0-15.0); Lymphocyte # 2.11 X10^3/ul (4.0); Lymphocyte % 24.6 % (19-41); Mean Corp Hgb Conc 32.3 g/gl (32-36); Mean Corpuscular Hgb 31.1 pg (27.0-32.0); Mean Corpuscular Volume 96.3 fL (81-99); Mean Platelet Vol. 10.4 fl (6.2-12.0); Monocyte# 0.73 X10^3/uL; Monocyte% 8.5 % (0-10); Neutrophil # 5.52 X10^3/uL (2.7-7.7); Neutrophil % 64.6 % (47-70); Platelet Count 186 K/mm3 (150-450); RBC Distribution Width CV 14.5 % (11.6-14.6); RBC Distribution Width SD 49.5 fl (35.1-43.9); Red Blood Count 4.89 M/mm3 (4.2-5.4); White Blood Count 8.6 K/mm3 (4.4-11.0)
[2018-10-01 16:15] LABS: POSITIVE COUNT NO; POSITIVE DIFFERENTIAL NO; POSITIVE MORPHOLOGY NO
[2018-10-01 16:38] LABS: Anion Gap 2 (5-15); BUN 10 mg/dL (7-18); Calcium,Total 9.3 mg/dL (8.5-10.1); Chloride 106 mmol/L (98-107); Creatinine, Serum 0.72 mg/dL (0.55-1.02); EST Glomerular Filtration Rate 86 mL/min (>60); Est Glom Filt Rate - Afr Amer 104 mL/min (>60); Glucose 90 mg/dL (74-106); Sodium Level 138 mmol/L (136-145)
== END ==
PROVIDERS: Family Provider Family Medicine Geriatric Medicine; PCP Family Medicine Geriatric Medicine; Referring Provider Physician Assistant Surgical; Visit Provider Physician Assistant Surgical
DX: Z01.818 Encounter for other preprocedural examination (principal)
CPT/HCPCS: 36415; 80048; 85025

== ENCOUNTER → 2018-10-11 17:18 | Outpatient (CLI) | payer MEDICARE, SELFPAY ==
[2018-08-30 09:39] VITALS: BMI 31.6
== END ==
PROVIDERS: Family Provider Family Medicine Geriatric Medicine; PCP Family Medicine Geriatric Medicine; Referring Provider Family Medicine Geriatric Medicine; Visit Provider Family Medicine Geriatric Medicine
DX: R68.83 Chills (without fever) (principal)
CPT/HCPCS: 87633

== ENCOUNTER → 2018-11-09 10:38 | Outpatient (CLI) | payer MEDICARE, SELFPAY ==
[2018-08-30 09:39] VITALS: BMI 31.6
[2018-11-05 12:00] VITALS: BMI 31.6
[2018-11-09 11:00] VITALS: PULSE 71; PULSE 73; PULSE 77; PULSE 79; PULSE 81; PULSE 82; PULSE 83; O2SAT 95; O2SAT 96; O2SAT 97; O2SAT 98; O2SAT 99
--- NOTE | 2018-11-10 10:23 | WT_ITS ---
PSN 6 Minute Walk Test - 6 Minute Walk Test 6 Minute Walk Test: 6 Minute Walk Test PSN:6-Minute Walk Test Start: 11/09/18 11:11 Freq: Status: Active Protocol: RESP.6MINW Document 11/09/18 11:00 [facility] (Rec: 11/09/18 11:13 [facility] [id number]) 6 Minute Walk Test Date Performed 11/09/18 Time Performed 11:00 Height 5 ft 9 in Weight: 199 lb Weight in Pounds 199.[address]: Susanne Anguiano Assistive device used: None Pre-test Oxygen Delivery Method Room Air Pulse Ox (%) 99 Pulse Rate (60-100 beats/min) 71 Dyspnea Rani Scale (0-10) 0 Exertion Rani Scale (6-20) 6 1st minute Oxygen Delivery Method Room Air Pulse Ox (%) 95 Pulse Rate (60-100 beats/min) 82 Number of Rests Taken 0 2nd minute Oxygen Delivery Method Room Air Pulse Ox (%) 98 Pulse Rate (60-100 beats/min) 77 Number of Rests Taken 0 3rd minute Oxygen Delivery Method Room Air Pulse Ox (%) 96 Pulse Rate (60-100 beats/min) 79 Number of Rests Taken 0 4th minute Oxygen Delivery Method Room Air Pulse Ox (%) 98 Pulse Rate (60-100 beats/min) 81 Number of Rests Taken 0 5th minute Oxygen Delivery Method Room Air Pulse Ox (%) 96 Pulse Rate (60-100 beats/min) 83 Number of Rests Taken 0 6th minute Oxygen Delivery Method Room Air Pulse Ox (%) 97 Pulse Rate (60-100 beats/min) 81 Number of Rests Taken 0 Post-test Oxygen Delivery Method Room Air Pulse Ox (%) 98 Pulse Rate (60-100 beats/min) 73 Dyspnea Rani Scale (0-10) 1 Exertion Rani Scale (6-20) 12 Full Laps Walked 16 Partial Lap, Number of Tiles Walked 40 Total Distance Walked (ft) 984 - Interpretation Interpretation: The patient ambulated 984 feet over the course of 6 minutes beginning on room air without assistive devices or breaks. Pretesting oxygen saturation was noted to be 99% on room air. With ambulation, the stephen oxygen saturation was 95%. There was no significant exertional oxygen desaturation. - Recommendations Recommendations: There is no indication for the use of supplemental oxygen at this time.
== END ==
PROVIDERS: Family Provider Family Medicine Geriatric Medicine; PCP Family Medicine Geriatric Medicine; Referring Provider Nurse Practitioner Acute Care; Visit Provider Nurse Practitioner Acute Care
DX: R06.00 Dyspnea, unspecified (principal)
CPT/HCPCS: 94618

== ENCOUNTER 2018-11-12 05:52 | Day surgery (SDC) | payer MEDICARE, SELFPAY ==
[2018-11-05 12:00] VITALS: BMI 31.6
[2018-11-12] VITALS (8 sets, daily range): BP systolic 82–119; BP diastolic 45–104; PULSE 58–67; RESP 14–16; TEMP 36.1–36.4; O2SAT 97–100; BMI 29.5
--- NOTE | 2018-11-12 07:00 | COLBX_PTH ---
PATIENT: KRIS JOHN I LOC: EN U#:[id number] AGE/SX: 68/F ROOM: RE11/12/[address]: Dr. Thanh Cooper MD : 1950 BED: DIS: 11/12/2018 SPEC #: [id number] RECD: 11/12/18 09:58 STATUS: VANESSA REGIS #: [id number] GAGE: 11/12/18 07:[address]: Thanh Cooper DEPT: SURGICAL PATHOLOGY RECD BY: Shun Fritz ENTERED: 11/12/18 11:31 SP TYPE: COLON BX OT DR: Dr. Tony Sethi MD Tissues: Ascending colon Procedures: Surgery Specimen Level IV HEADER OPERATION: Colonoscopy (MOD) PRE-OP DIAGNOSIS: History of colon polyps; family history of colon cancer TISSUE SUBMITTED: Ascending colon polyp MICROSCOPIC DIAGNOSIS Ascending colon polyp, biopsy: Fragments of tubular adenoma. SJ:samira 11/15/18 MICROSCOPIC DESCRIPTION Slides are reviewed. GROSS DESCRIPTION Received in fixative is one container labeled with the patient's name and designated ascending colon polyp. The specimen consists of multiple irregular fragments of light gilbert soft tissue that in aggregate measure 0.8 x 0.3 x 0.2 cm. The specimen is totally submitted in one cassette. / SJ:rg 11/12/18 TC:1 CPT: 66020
--- NOTE | 2018-11-12 07:27 | OP.ENDO_ITS ---
11/12/2018 Tony Sethi MD [address] [place] [address] Re : Colonoscopy procedure for Va Xavier Dear Dr. Sethi This procedure was performed on Monday, November 12, 2018. My impressions and recommendations are as follows: Impressions : - Hemorrhoids found on perianal exam. - Diverticulosis in the sigmoid colon and in the descending colon. - One 7 mm polyp in the proximal ascending colon, removed with a hot snare. Resected and retrieved. Recommendations : - Await pathology results. - Repeat colonoscopy in 3 years for surveillance. - Telephone my office for pathology results in 1 week. - Discharge patient to home. - Resume previous diet. - Continue present medications. My findings are described in the full procedure note, which is enclosed. If I can be of further assistance, please feel free to contact me at Doctor phone number(s): Work: . Sincerely, Thanh Cooper MD 11/12/2018 7:26:42 AM This report has been signed electronically.
== END 2018-11-12 08:08 | disposition home or self-care (01) ==
LOC: EN 05:53 → AC 05:54
PROVIDERS: Family Provider Family Medicine Geriatric Medicine; PCP Family Medicine Geriatric Medicine; Referring Provider Family Medicine Geriatric Medicine; Visit Provider Surgery
PROC: 0DJD8ZZ Inspection of Lower Intestinal Tract, Via Natural or Artificial Opening Endoscopic (ICD-10-PCS; CPT 45378; principal; 2018-11-12 06:55)
DX: Z12.11 Encounter for screening for malignant neoplasm of colon (principal); D12.2 Benign neoplasm of ascending colon; K57.30 Diverticulosis of large intestine without perforation or abscess without bleeding; K64.9 Unspecified hemorrhoids; I48.0 Paroxysmal atrial fibrillation; M35.00 Sjogren syndrome, unspecified; M06.9 Rheumatoid arthritis, unspecified; I10 Essential (primary) hypertension; E78.5 Hyperlipidemia, unspecified; G47.33 Obstructive sleep apnea (adult) (pediatric); F32.9 Major depressive disorder, single episode, unspecified; Z79.899 Other long term (current) drug therapy; I25.2 Old myocardial infarction; Z78.0 Asymptomatic menopausal state; Z86.010 Personal history of colon polyps
CPT/HCPCS: 45385; 88305; 99152; 99153; J7120

== ENCOUNTER → 2018-11-23 10:37 | Outpatient (CLI) | payer MEDICARE, SELFPAY ==
[2018-11-12 06:08] VITALS: BMI 29.5
[2018-11-23 13:50] LABS: Absolute Neutrophil Count 6.1 X10^3/uL (2.0-7.7); Basophil# 0.01 X10^3/uL; Basophil% 0.1 % (0-1); Eosinophil# 0.15 X10^3/uL; Eosinophils% 1.8 % (0-5); Hematocrit 46.9 % (37-47); Hemoglobin 15.5 g/dl (12.0-15.0); Lymphocyte % 18.9 % (19-41); Mean Corpuscular Hgb 31.2 pg (27.0-32.0); Mean Corpuscular Volume 94.4 fL (81-99); Mean Platelet Vol. 10.5 fl (6.2-12.0); Monocyte# 0.65 X10^3/uL; Monocyte% 7.7 % (0-10); Neutrophil # 6.06 X10^3/uL (2.7-7.7); Neutrophil % 71.4 % (47-70); Platelet Count 171 K/mm3 (150-450); RBC Distribution Width CV 14.7 % (11.6-14.6); Red Blood Count 4.97 M/mm3 (4.2-5.4); White Blood Count 8.5 K/mm3 (4.4-11.0)
[2018-11-23 13:51] LABS: POSITIVE COUNT NO; POSITIVE DIFFERENTIAL NO; POSITIVE MORPHOLOGY NO
[2018-11-23 14:21] LABS: ALB/GLOB Ratio 1.3 RATIO (0.9-2.4); AST(SGOT) 35 U/L (15-37); Alanine Aminotransfer ALT/SGPT 34 U/L (13-56); Albumin, Serum 3.8 g/dL (3.2-5.0); Alkaline Phosphatase 99 U/L (45-117); Anion Gap 5 (5-15); BUN 15 mg/dL (7-18); Calcium,Total 9.3 mg/dL (8.5-10.1); Chloride 110 mmol/L (98-107); Creatinine, Serum 0.83 mg/dL (0.55-1.02); EST Glomerular Filtration Rate 72 mL/min (>60); Est Glom Filt Rate - Afr Amer 87 mL/min (>60); Glucose 113 mg/dL (74-106); Potassium 3.8 mmol/L (3.5-5.1); Protein, Total 6.8 g/dL (6.4-8.2); Sodium Level 142 mmol/L (136-145)
== END ==
PROVIDERS: Family Provider Family Medicine Geriatric Medicine; PCP Family Medicine Geriatric Medicine; Referring Provider Internal Medicine Rheumatology; Visit Provider Internal Medicine Rheumatology
DX: M06.4 Inflammatory polyarthropathy (principal); M79.7 Fibromyalgia; M18.0 Bilateral primary osteoarthritis of first carpometacarpal joints; M35.00 Sjogren syndrome, unspecified; M72.0 Palmar fascial fibromatosis [Dupuytren]; H35.30 Unspecified macular degeneration; M50.30 Other cervical disc degeneration, unspecified cervical region; R51 Headache; G47.33 Obstructive sleep apnea (adult) (pediatric); Z79.899 Other long term (current) drug therapy
CPT/HCPCS: 36415; 80053; 85025

== ENCOUNTER → 2018-12-09 14:02 | Outpatient (CLI) | payer MEDICARE, SELFPAY ==
[2018-07-21 10:16] VITALS: BMI 31.6
[2018-12-06 09:57] VITALS: BMI 29.9
--- NOTE | 2018-12-09 14:05 | BI_ITS ---
MAMMOGRAPHY - BILATERAL SCREENING REASON FOR EXAM: Female, 68 years old. Routine annual screening examination. PERTINENT HISTORY: Non-contributory. Remote bilateral breast reduction surgery. TECHNIQUE: Digital bilateral breast magda (3D mammographic acquisition) in the CC and MLO projections. 2-D mediolateral oblique (MLO) and craniocaudad (CC) views of both breasts were obtained. CAD: Full Field Digital Mammography with Computer Added Detection was performed. COMPARISON: Comparison is made with prior examination of September 16, 2016 and November 12, 2017. FINDINGS: Breast Composition: There are scattered areas of fibroglandular density. There are no dominant masses or suspicious calcifications. Stable appearance of the densely calcified nodules in both breasts. Stable appearance of the fat-containing bilateral axillary lymph nodes. No other significant abnormalities are identified. There has been no significant change since the prior study. BI/SCREENING MAMM (CAD), BILAT IMPRESSION: Stable bilateral screening mammogram. Yearly follow-up mammogram recommended. (A) ASSESSMENT CATEGORY: BIRADS Category 2: Benign. A letter regarding these results will be sent to the patient by the facility within 30 days. Approximately 10% of breast cancers are not detected by mammography. A normal mammogram should not delay biopsy of a clinically suspicious abnormality. [id number] Electronically Signed: Markos Purdy, at 15:20 EDT , Service support ,
== END ==
PROVIDERS: Family Provider Family Medicine Geriatric Medicine; PCP Family Medicine Geriatric Medicine; Referring Provider Family Medicine Geriatric Medicine; Visit Provider Family Medicine Geriatric Medicine
DX: Z12.31 Encounter for screening mammogram for malignant neoplasm of breast (principal)
CPT/HCPCS: 77063; 77067

== ENCOUNTER 2019-02-10 11:11 | Outpatient (RCR) | payer MEDICARE, SELFPAY ==
[2018-12-06 09:57] VITALS: BMI 29.9
[2019-02-10 11:57] LABS: Absolute Lymphocyte Count 1.85 X10^3/uL (0.83-4.51); Absolute Neutrophil Count 3.1 X10^3/uL (2.0-7.7); Basophil# 0.02 X10^3/uL; Basophil% 0.4 % (0-1); Eosinophil# 0.16 X10^3/uL; Eosinophils% 2.8 % (0-5); Hematocrit 47.4 % (37-47); Hemoglobin 15.6 g/dL (12.0-15.0); Lymphocyte # 1.85 X10^3/ul (4.0); Lymphocyte % 32.9 % (19-41); Mean Corp Hgb Conc 32.9 g/dL (32-36); Mean Corpuscular Hgb 31.5 pg (27.0-32.0); Mean Corpuscular Volume 95.6 fL (81-99); Mean Platelet Vol. 10.8 fl (6.2-12.0); Monocyte# 0.47 X10^3/uL; Monocyte% 8.4 % (0-10); NRBC Flagged by Analyzer 0 % (0-5); Neutrophil % 55.1 % (47-70); Platelet Count 165 K/mm3 (150-450); RBC Distribution Width CV 13.2 % (11.6-14.6); RBC Distribution Width SD 46.5 fl (35.1-43.9); Red Blood Count 4.96 M/mm3 (4.2-5.4); White Blood Count 5.6 K/mm3 (4.4-11.0)
[2019-02-10 12:48] LABS: ALB/GLOB Ratio 1.2 RATIO (0.9-2.4); AST(SGOT) 24 U/L (15-37); Alanine Aminotransfer ALT/SGPT 28 U/L (13-56); Albumin, Serum 3.6 g/dL (3.2-5.0); Alkaline Phosphatase 108 U/L (45-117); Anion Gap 8 (5-15); BUN 9 mg/dL (7-18); BUN/Creat Ratio 12.5 RATIO (10-20); Calcium,Total 9.2 mg/dL (8.5-10.1); Chloride 108 mmol/L (98-107); Creatinine, Serum 0.72 mg/dL (0.55-1.02); EST Glomerular Filtration Rate 85 mL/min (>60); Est Glom Filt Rate - Afr Amer 103 mL/min (>60); Glucose 96 mg/dL (74-106); Protein, Total 6.6 g/dL (6.4-8.2); Sodium Level 143 mmol/L (136-145)
== END 2019-02-16 16:00 | disposition home or self-care (01) ==
LOC: LAB 11:11
PROVIDERS: Family Provider Family Medicine Geriatric Medicine; PCP Family Medicine Geriatric Medicine; Referring Provider Internal Medicine Rheumatology; Visit Provider Internal Medicine Rheumatology
DX: M06.4 Inflammatory polyarthropathy (principal); Z79.899 Other long term (current) drug therapy; M79.7 Fibromyalgia; M35.00 Sjogren syndrome, unspecified; M18.12 Unilateral primary osteoarthritis of first carpometacarpal joint, left hand
CPT/HCPCS: 36415; 80053; 85025

== ENCOUNTER → 2019-02-24 11:19 | Outpatient (CLI) | payer MEDICARE, SELFPAY ==
[2018-12-06 09:57] VITALS: BMI 29.9
[2019-02-24 12:38] LABS: Absolute Lymphocyte Count 1.54 X10^3/uL (0.83-4.51); Absolute Neutrophil Count 3.4 X10^3/uL (2.0-7.7); Basophil# 0.02 X10^3/uL; Basophil% 0.4 % (0-1); Eosinophil# 0.12 X10^3/uL; Eosinophils% 2.2 % (0-5); Hematocrit 48.6 % (37-47); Hemoglobin 15.5 g/dL (12.0-15.0); Lymphocyte # 1.54 X10^3/ul (4.0); Lymphocyte % 27.9 % (19-41); Mean Corp Hgb Conc 31.9 g/dL (32-36); Mean Corpuscular Hgb 30.3 pg (27.0-32.0); Mean Corpuscular Volume 95.1 fL (81-99); Mean Platelet Vol. 11.3 fl (6.2-12.0); Monocyte# 0.43 X10^3/uL; Monocyte% 7.8 % (0-10); NRBC Flagged by Analyzer 0 % (0-5); Neutrophil # 3.38 X10^3/uL (2.7-7.7); Neutrophil % 61.2 % (47-70); Platelet Count 167 K/mm3 (150-450); RBC Distribution Width CV 13.4 % (11.6-14.6); RBC Distribution Width SD 46.5 fl (35.1-43.9); Red Blood Count 5.11 M/mm3 (4.2-5.4); White Blood Count 5.5 K/mm3 (4.4-11.0)
[2019-02-24 13:00] LABS: Vitamin D,25 Hydroxy 51.5 ng/mL (29.95-100.01)
[2019-02-24 13:05] LABS: ALB/GLOB Ratio 1.1 RATIO (0.9-2.4); AST(SGOT) 29 U/L (15-37); Alanine Aminotransfer ALT/SGPT 32 U/L (13-56); Albumin, Serum 3.6 g/dL (3.2-5.0); Alkaline Phosphatase 106 U/L (45-117); Anion Gap 9 (5-15); BUN 10 mg/dL (7-18); BUN/Creat Ratio 13.3 RATIO (10-20); Calcium,Total 9.1 mg/dL (8.5-10.1); Chloride 107 mmol/L (98-107); Creatinine, Serum 0.75 mg/dL (0.55-1.02); EST Glomerular Filtration Rate 81 mL/min (>60); Est Glom Filt Rate - Afr Amer 98 mL/min (>60); Globulin 3.3 g/dL (2.2-4.2); Glucose 94 mg/dL (74-106); Potassium 4.1 mmol/L (3.5-5.1); Protein, Total 6.9 g/dL (6.4-8.2); Sodium Level 144 mmol/L (136-145); Thyroid Stim Hormone (TSH) 0.62 uIU/mL (0.358-3.74); Uric Acid 5.7 mg/dL (2.6-6.0)
== END ==
PROVIDERS: Family Provider Family Medicine Geriatric Medicine; PCP Family Medicine Geriatric Medicine; Visit Provider Family Medicine Geriatric Medicine
DX: M10.9 Gout, unspecified (principal); E55.9 Vitamin D deficiency, unspecified; R53.83 Other fatigue
CPT/HCPCS: 36415; 80053; 82306; 84443; 84550; 85025

== ENCOUNTER 2019-03-21 19:41 | Emergency (ER) | payer MEDICARE, SELFPAY ==
[2019-03-17 10:12] VITALS: BMI 29.9
[2019-03-21 19:42] VITALS: BP 114/70; PULSE 88; RESP 16; TEMP 37.2; O2SAT 98; BMI 29.7
[2019-03-21 19:59] LABS: Mucous, Urine 0 SEEN /hpf (<or=2+)
[2019-03-21 20:03] LABS: Glucose, Dipstick Normal (Normal); Ketone-Dipstick Negative (Negative); Leukocyte Esterase-Dipstick 100 /ul (Negative); Nitrite-Dipstick Positive (Negative); Occult Blood-Urine 50 /ul (Negative); Protein-Dipstick 100 mg/dl (Negative); Urine Clarity Cloudy (Clear); Urine Urobilinogen 8 mg/dl (Normal)
--- NOTE | 2019-03-21 20:06 | ED.VIS.GEN ---
History of Present Illness Chief Complaint: Complaint Detail of Chief Complaint: Dysuria and frequency Informant: Patient Onset: Days - 3 days Current Severity: Mild Maximum Severity: Mild Narrative: Patient presents with urinary frequency and dysuria for the past 3 days. She is been taking Azo [id number]-[id number] to help with the burning. She denies fever or chills. She has no CVA back pain. Past Medical History - Allergies and Home Meds Allergies/Adverse Reactions: Allergies morphine Allergy (Verified 03/17/19 10:13) Vomiting Primary Care Physician: Tony Sethi Chi, MD [Primary Care Provider] - Prior records reviewed: Yes Past Medical History: - - Reviewed Lives: Spouse/ Significant Other Smoking Status: Never smoker Review of Systems General: Denies: Chills, Fever ENT: Denies: Sore throat Cardiovascular: Denies: Chest pain Respiratory: Denies: Dyspnea Gastrointestinal: Reports: Abdominal pain - Suprapubic Genitourinary: Reports: Dysuria, Frequency Musculoskeletal: Denies: Back pain Skin: Denies: Rash Neurological: Denies: Headache Allergy: Denies: Uticaria Physical Exam Vital Signs/Narrative: Vital Signs Temp Pulse Resp BP Pulse Ox 03/21/19 19:42 98.9 F 88 16 114/70 98 Inital Vital Signs reviewed: Yes General: Well nourished, Well developed Head: Normocephalic ENT: Moist mucous membranes Neck: Supple Cardiovascular: Regular rate, Tachycardia Respiratory: No distress, CTA bilaterally Abdomen: Soft, Nontender Back: Negative for: CVA tenderness Extremities: Nontender Skin: Normal color, No rash Neurological: Alert, Oriented x3 Psychological: Normal affect Diagnostic/Tx/Re-eval Laboratory Results 03/21/19 19:50 Urine Color SEE COMMENT BELOW Urine Clarity Cloudy Urine pH 5.0 Ur Specific [place] 1.030 Urine Protein 100 H Urine Glucose (UA) Normal Urine Ketones Negative Urine Occult Blood 50 H Urine Nitrite Positive H Urine Bilirubin 6 H Urine Urobilinogen 8 H Ur Leukocyte Esterase 100 H Urine RBC 5-10 SEEN Urine WBC 10-25 SEEN Ur Squamous Epith Cells 0-5 SEEN Amorphous Sediment 1+ URATE Urine Bacteria RARE Urine Mucus 0 SEEN - Medical Decision Making Patient urine was sent for culture. I reviewed labs that were obtained earlier this month with normal renal function. She will be treated with 3 days of Bactrim. ED Disposition - Plan for ED Patient: Disposition: Home or Assisted Living Diagnosis: Cystitis Instructions: Bladder Infection, Female (Adult) Prescriptions: Smz/Tmp Ds [Bactrim Ds] 1 tablet PO BID #6 tablet Referrals: Tony Sethi Chi, MD [Primary Care Provider] - 1 Week if not improving
[2019-03-21 20:14] LABS: Color, Urine SEE COMMENT BELOW (Yellow); Urine Bilirubin Dipstick 6 mg/dL (Negative)
[2019-03-21 20:20] LABS: Red Blood Cells-Urine 5-10 SEEN /hpf (0-5); Squamous Epithelial Cells - UA 0-5 SEEN /hpf (5-10); White Blood Cells 10-25 SEEN /hpf (0-5)
[2019-03-21 20:21] LABS: Amorphous Sediment 1+ URATE; Bacteria RARE /hpf (None Seen)
[2019-03-21] MEDS: Smz/Tmp Ds Tablet 1 TABLET PO (20:42)
== END 2019-03-21 20:44 | disposition home or self-care (01) ==
PROVIDERS: Emergency Provider Emergency Medicine; Family Provider Family Medicine Geriatric Medicine; PCP Family Medicine Geriatric Medicine
DX: N30.90 Cystitis, unspecified without hematuria (principal); Z79.899 Other long term (current) drug therapy; Z88.5 Allergy status to narcotic agent
CPT/HCPCS: 81001; 87086; 99281; 99282

== ENCOUNTER 2019-05-18 06:37 | Inpatient (IN) | payer MEDICARE, SELFPAY ==
[2019-05-02 11:22] VITALS: BP 119/73; PULSE 55; RESP 16; TEMP 36.4; O2SAT 100; BMI 29.9
[2019-05-02 12:50] LABS: Absolute Lymphocyte Count 1.59 X10^3/uL (0.83-4.51); Absolute Neutrophil Count 3.1 X10^3/uL (2.0-7.7); Basophil# 0.02 X10^3/uL; Basophil% 0.4 % (0-1); Eosinophils% 1.9 % (0-5); Hematocrit 46.5 % (37-47); Hemoglobin 15.4 g/dL (12.0-15.0); Lymphocyte # 1.59 X10^3/ul (4.0); Lymphocyte % 30.3 % (19-41); Mean Corp Hgb Conc 33.1 g/dL (32-36); Mean Corpuscular Hgb 31.4 pg (27.0-32.0); Mean Corpuscular Volume 94.7 fL (81-99); Mean Platelet Vol. 10.7 fl (6.2-12.0); Monocyte# 0.43 X10^3/uL; Monocyte% 8.2 % (0-10); NRBC Flagged by Analyzer 0 % (0-5); Neutrophil # 3.09 X10^3/uL (2.7-7.7); Neutrophil % 58.8 % (47-70); Platelet Count 154 K/mm3 (150-450); RBC Distribution Width CV 13.4 % (11.6-14.6); RBC Distribution Width SD 47.2 fl (35.1-43.9); Red Blood Count 4.91 M/mm3 (4.2-5.4); White Blood Count 5.3 K/mm3 (4.4-11.0)
[2019-05-02 13:16] LABS: ALB/GLOB Ratio 1.1 RATIO (0.9-2.4); AST(SGOT) 25 U/L (15-37); Alanine Aminotransfer ALT/SGPT 35 U/L (13-56); Albumin, Serum 3.6 g/dL (3.2-5.0); Alkaline Phosphatase 107 U/L (45-117); Anion Gap 3 (5-15); BUN 14 mg/dL (7-18); BUN/Creat Ratio 20.8 RATIO (10-20); Calcium,Total 9.6 mg/dL (8.5-10.1); Chloride 108 mmol/L (98-107); Creatinine, Serum 0.67 mg/dL (0.55-1.02); EST Glomerular Filtration Rate 92 mL/min (>60); Est Glom Filt Rate - Afr Amer 111 mL/min (>60); Estimated Creatinine Clearance 54.71 ml/min; Globulin 3.2 g/dL (2.2-4.2); Glucose 97 mg/dL (74-106); Potassium 3.9 mmol/L (3.5-5.1); Protein, Total 6.8 g/dL (6.4-8.2); Sodium Level 142 mmol/L (136-145)
--- NOTE | 2019-05-02 22:59 | HP.PCM_ITS ---
History and Physical Patient Name: Va Xavier : 1950 From: MIKAEL DEGROOT PA-C DATE OF SURGERY: 05/18/2019 SCHEDULED PROCEDURE: right reverse total shoulder arthroplasty with lipoma removal HISTORY OF PRESENT ILLNESS: Preoperative history and physical exam was performed on May 02, 2019. This is a 68-year-old female who has been having ongoing right shoulder pain for over 18 years. Patient was initially scheduled to undergo this procedure on October 12, 2018 but canceled for personal reasons and wishes to proceed with the surgery in the fall. Patient states her pain can still reach as high as an 8/10 with activity. Patient has had a large rotator cuff tear in the right shoulder. She has difficult time with activities overhead and reaching. Pain is over the anterior lateral shoulder. Patient has tried conservative measures consisting of oral medications as well as Percocet and when she sees pain management for the cervical/lumbar back pain. We'll obtain surgical clearance and patient's primary care physician. We also have clearance from the gun barrel finisher Dr. Ivan. Patient has medical history pertinent for fibromyalgia. Sjogren's disease, and heart arrhythmia. Right reverse total shoulder arthroplasty with lipoma removal. REVIEW OF SYSTEMS: ROS: Const: Reports anxiety, but denies anorexia, change in appetite, fever, difficulty sleeping, weight change. CV: Reports irregular heartbeat, but denies chest pain, heart murmur and peripheral vascular disease. Resp: Denies asthma, cough, pneumonia, sleep apnea, shortness of breath, tuberculosis and wheezing. GI: Reports rectal itching, but denies constipation, diarrhea, heartburn, nausea, bloody stools and vomiting. : Denies incontinence. Musculo: Reports weakness, but denies leg swelling, pain and trouble walking. Skin: Reports tattoo, but denies Raynaud's and history of shingles. Neuro: Reports difficulty with balance and dizziness but denies ambulatory dysfunction, numbness/tingling and tremor. Psych: Reports anxiety and depression, but denies insomnia, mental illness and stress. Scott/Lymph: Denies anemia, bleeding/bruising tendency and past transfusion. Reviewed, no changes. PAST MEDICAL HISTORY: Advance Care Plan: No Advance Directives Effective Date: 05/20/2018 PMH: Medical Problems: Arthritis, Fibromyalgia Sjogrens Disease - (1989) Heart Arrhythmia Accidents: RT Knee Cap Injury - (2000) Surgical Hx: Hernia Repair - 2006 & 2009 LT Foot Lap Band - 2006 & 2009 Tonsillectomy - (1954) ANN Bunion - (2009) CA & SERGIO Cervical Fusion - 1984, 1994, 2005 RT Knee Cap Repair - (2000) RT Shoulder - (2009) LT TKR - DR FROST/NORBERTO LT Foot Screw Removal - 2012 Deviated Septum - (2006) RT Foot & Toes - (2009) Bilateral Breast Reduction - (2013) Ablation - (2014) VERICOSE VEINS Breast Biopsy - (2015) Ivc Filter Removed - 08-17-2018 Carpal Tunnel Release RT - (09/07/2018) SAW@AO Anesthesia Complications: None Assistive Devices: Glasses Reviewed, no changes. SOCIAL HISTORY: SH: Marital: .Occupation: Disabled.Work Status: Not Working Currently.Hand Dominance: Right-handed. Personal Habits: Smoking: Patient has never smoked.Cigarette Use: Never Smoked Cigarettes.Smokeless Tobacco: Never Used Smokeless Tobacco.E-Cigarette Use: Never used.Alcohol: Denies use.Drug Use: Denies Use.Enjoy Exercising: Exercises 1-3 X/Week. Reviewed, no changes. VITALS: Ht: 69 Wt: 199lb Wt k.266 BMI: 29.4 BP: 132/80 Pulse: 74 Resp: 16 T: 97.0 T: 36.1C ALLERGIES: Morphine MEDICATIONS: Flecainide Acetate 100 mg 1po bid, Methotrexate 2.5 mg 4 tabs PO once weekly, Folic Acid 1 mg 2 po qdAY, Cymbalta 60 mg 1 po qdAY, Toprol XL 25 mg 1 tab PO bid, Celebrex 200 mg 1 po QDAY, Crestor 20 mg 1po qday, Singulair 10 mg 1 po qdAY, Preservision Areds 1 cap PO bid, Percocet 5-325 mg 1-2 tab S PO daily, Evoxac 30 mg 1 cap PO qam, Vitamin D (Ergocalciferol) 75431 Unit 1 cap PO once weekly, Melatonin 3 mg 1-3 caps PO qhs, Lyrica 200 mg one PO qhs, Calcium Soft Chews [id number] MG-Unt-mcg 1po qday PRE-OP EXAM: General appearance:NORMAL Other: Eyes: Conjunctivae and lids: NORMAL Pupils: ERR Ears, Nose, Mouth, and Throat: NORMAL Other: Inspection of lips, teeth and gums: NORMAL Other: Neck: Examination of neck: no masses noted. Respiratory: Assessment of respiratory effort: NORMAL Other: Auscultation of lungs: clear to auscultation no wheezes, rhonchi or rales. Cardiovascular: Auscultation of heart: regular rate and rhythm, no murmurs, gallops or rubs. Gastrointestinal: Exam of abdomen: soft, nontender, nondistended bowel sounds present. PHYSICAL EXAMINATION: Examination of the right shoulder reveals shoulder is cool to touch without erythema. Patient has active range of motion 150 on the left and 120 on the right, external rotation 10 on the right, 20 on the left, internal rotation to T7 bilaterally. There is scapular dyskinesia with range of motion. 3+/5 supraspinatus strength on the right, crepitus with range of motion. Sensation intact to light touch. There is a lipoma over the right shoulder at the upper trapezius region. IMAGING STUDIES: X-rays of the right shoulder reveal superior migration of the humeral head with mild glenohumeral wear. There is subchondral sclerosis on the lateral tuberosity and acromion consistent with chronic rotator cuff tear. Previous MRI 2013 shows a large retracted rotator cuff tear IMPRESSION: 1. Right shoulder glenohumeral osteoarthritis with chronic rotator cuff tear 2. Fibromyalgia 3. Sjogren's disease 4. Heart arrhythmia PLAN: Dr. Galdino Ross did discuss and review with the patient all treatment options including surgical versus nonsurgical options. Patient does wish to proceed with the above-stated procedure. Potential risks, benefits, and complications of the procedure were discussed in detail including but not limited to , infection, nerve and blood vessel damage, persistent pain, numbness, tingling, paresthesias, blood clot, pulmonary embolism, and requirement for possible further surgery. The patient expressed full understanding and has no further questions for the doctor. Patient does agree to proceed with the above-stated procedure and has signed the surgery consent form. This dictation was created using voice recognition software. Phonetic and/or grammatical errors may exist. ___ I have re-examined the patient. There are no clinical changes since date of exam. ___ See progress notes for changes. ___ Dictated on admission Date: Time: Signature:
[2019-05-18] VITALS (11 sets, daily range): BP systolic 93–118; BP diastolic 46–74; PULSE 63–74; RESP 14–18; TEMP 36.1–36.7; O2SAT 93–100; BMI 29.9
--- NOTE | 2019-05-18 07:05 | RAD_ITS ---
STUDY: X-RAY - RIGHT SHOULDER REASON FOR EXAM: Female, 68 years old. Right reverse shoulder replacement. TECHNIQUE: 2 view(s) of the shoulder. COMPARISON: Comparison is made with prior examination dated September 20, 2012. FINDINGS: The patient is status post right reverse shoulder replacement. There is good alignment. RAD/Shoulder min 2 Views IMPRESSION: Status post right shoulder replacement. There is good alignment. Electronically Signed: Markos Purdy, at 14:20 EDT , Service support ,
[2019-05-18] MEDS: Lactated Ringers 1,000 ML 999 ML IV (07:16)
[2019-05-18] MEDS: Magnesium Sulfate 4gm/100mL 4 GM/100 ML IV.SOLN. IV (07:16)
[2019-05-18] MEDS: Acetaminophen 500 MG Tablet 1000 MG PO ×3 (07:17→22:54)
[2019-05-18] MEDS: Celecoxib 200 MG Capsule 400 MG PO (07:17)
[2019-05-18] MEDS: Gabapentin 600 MG Tablet PO (07:18)
[2019-05-18 07:45] LABS: Bedside Glucose 101 mg/dL (70-110)
[2019-05-18] MEDS: Cefazolin 2 GM in 0.9% Normal Saline 100 ML IV (08:39)
--- NOTE | 2019-05-18 08:45 | LIP_PTH ---
PATIENT: KRIS JOHN I LOC: MS3 U#:[id number] AGE/SX: 68/F ROOM: MS311 RE05/18/[address]: Dr. Chance Kim DO : 1950 BED: 1 DIS: 05/19/2019 SPEC #: [id number] RECD: 05/18/19 16:03 STATUS: VANESSA REBisi #: [id number] GAGE: 05/18/19 08:[address]: Galdino Ross DEPT: SURGICAL PATHOLOGY RECD BY: Shun Fritz ENTERED: 05/19/19 08:56 SP TYPE: LIPOMA OTHR DR: DO Dr. Chance Breen DO Dr. 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 EMELY:samira 05/20/19 MICROSCOPIC DESCRIPTION Slides are reviewed. GROSS DESCRIPTION Received in fixative is one container labeled with the patient's name and designated right shoulder lipoma. The specimen consists of a lobulated fragment of yellow fatty tissue measuring 4 x 2 x 2 cm. Sections reveal homogenous yellow cut surfaces without areas of cyst formation, myxoid change or hemorrhage. Quarter Seamer sections are submitted in two cassettes. / AM:samira 05/19/19 TC:1 CPT: 70224
--- NOTE | 2019-05-18 10:04 | OP.PCM_ITS ---
Report of Operation Date of Procedure: 05/18/19 Pre-Operative Diagnosis: Right shoulder massive rotator cuff tear, cuff tear arthropathy. Right shoulder lipoma Post-Operative Diagnosis: Right shoulder massive rotator cuff tear, cuff tear arthropathy. Right shoulder lipoma Surgery/Procedure Performed:: Right reverse total shoulder replacement. Right shoulder lipoma resection 2 and half centimeters by 2 and half centimeters Description of Surgical Findings:: 2 and half centimeter by 2 and half centimeter lipoma was removed and sent to pathology Stable shoulder chief radiologic technologist: Jennifer Barnes Type of Anesthesia:: General Anesthesiologist: Logan Muse Special Medications: 2 g Ancef, 1 g TXA at incision, 1 g TXA closure, 10 mg Decadron, IV vancomycin Specimen's removed: Lipoma was sent for pathology, bony resections Estimated Blood Loss (mL): 250 Fluids Replaced: 1500 mL crystalloid Description of Procedure: Components used, Gary reunion reverse total shoulder 1. glenoid baseplate with 28 mm screw 2. 32 mm +2 mm mm Glenosphere 3. 32 mm, 4mm humeral liner 4. reverse TSA humeral adapter tray 4mm 5. humeral stem primary press-fit short 11 mm size Brief history/Operative indications: 68 yo f with history of r shoulder pain and cuff tear arthropathy. Patient also had chronic lipoma in the right shoulder she wished to have removed. Patient failed conservative measures as mentioned in the H&P. After discussion of risk and benefits of reverse total shoulder replacement including but not limited to blood loss, DVTs, PEs, nerve vessel damage, infection, general risk of anesthesia including loss of life, instability and stiffness patient demonstrating understanding wish to proceed was able to sign informed consent. Medical clearance was obtained. Procedure: On the date of the procedure, patient's R upper extremity was marked in the preoperative area. Patient was taken back to the operating room where they were placed on the table in the supine position. Anesthesia assumed control of the C-spine and airway, then administered anesthetic. All bony prominences were identified well-padded, the head was secured and the patient was placed in the beachchair position at about 35? inclination. Anesthesia remained in control of the C-spine airway throughout the remainder of the procedure. Patient was then appropriately fastened to the table and the R upper extremity was prepped in a sterile fashion. The surgeons then scrubbed. Upon reentering the room, the R upper extremity was draped in a sterile fashion and the incision was marked out. Timeout was called, everyone agreed upon the side, the site, the procedure to be performed, patient identity and antibiotics given. Incision was taken down through skin and subcutaneous tissue, fat down to fascia. The stripe of the deltopectoral interval and cephalic vein were identified and blunt dissection was used to retract the deltoid. The cephalic vein was retracted laterally. Clavipectoral fascia was then incised and a cobra retractor was placed in the wound. The proximal one third of the pectoralis major insertion was released. Pectoralis tendon insertion was used to tenodesed the biceps tendon which was identified in the bicipital groove. Tenodesis was done with #1 Vicryl. Proximally we followed the biceps tendon after transecting it into the rotator interval. The rotator interval was split and the arm was externally rotated. The split was 1 cm medial to the bicipital groove. Subscapularis tendon was released. We released down the anterior portion of the humeral head and a conti elevator was used to release the inferior portion of the humeral head. The arm was externally rotated and the shoulder was dislocated. The [facility] [place] humeral head cutting guide was used to make humeral cut. This was done at 20? retroversion. Once his humeral head cut was made humerus was retracted out of the way and the glenoid was exposed. After exposing the glenoid, the labrum and the remaining proximal biceps were debrided. At this time we are able to view the entire outer edge of the glenoid. A central pin was placed we sequentially reamed over this central pin to 32mm. Once this was completed the central pedicle was drilled. The glenoid baseplate was impacted into place. Wound was closely irrigated out with normal saline we then drilled sequentially for 2 screws. Screws were placed superiorly and inferiorly and tightened down the screws. a 32mm glenosphere was impacted into place engaging the Diehl taper. The central screw was then tightened into place. Attention was then turned towards the humerus. The humerus was again externally rotated exposing the proximal portion of the humerus. Central canal finder was then used to open up the canal. We reamed to a 11mm reamer. We then broached to a 11mm stem. We trialed the 4mm liner, with the 4mm humeral baseplate. We obtained an adequate reduction at this time with a nice stable shoulder. Good internal rotation to the gluteus, forward elevation to 140?, external rotation to 20?. Final components were then assembled on the back table, trials were removed and the wound was copiously irrigated with normal saline after dislocating the shoulder. Once the final components were assembled they were impacted into place. Shoulder was then reduced and found to be stable with good range of motion. Subscapularis tendon repaired with #2 FiberWire. The wound wa s then copiously irrigated out with a 1 L normal saline lavage. The deltopectoral fascia was then closed using #1 Vicryl skin was closed using 2-0 Vicryl interrupted sutures and final skin closure was done with 3-0 Monocryl. Steri-Strips are placed for final skin closure. Sterile dressing was placed patient was then placed in a sling and awakened by anesthesia. Patient was then transferred to the PACU for recovery. Postoperative plan: Patient will be admitted to the hospital overnight. They will get physical therapy starting in 2 weeks with normal postoperative regimen. Patient will be placed on aspirin daily for DVT prophylaxis. The first postoperative appointment will be in 2 weeks for wound check and initiation of phase 1 physical therapy. Grafts/Implants Used: [place] reunion reverse total shoulder - Complications No intraoperative complications - Admit VTE Documentation VTE Present on Admission: No VTE Mechan Device Prophylaxis: SCD's, Knee High RNADY Hose, Thigh High RANDY Hose VTE Pharm Prophylaxis ordered?: Yes
[2019-05-18] MEDS: Lactated Ringers 1,000 ML 125 ML IV ×2 (11:19→16:40)
--- NOTE | 2019-05-18 14:01 | PN_ITS ---
Subjective: Requested by Dr. Ross for postoperative medical management Patient underwent a right shoulder replacement as well as a lipoma resection. Postoperatively, patient is feeling well and has no pain. Vitals/I&O's: Vital Signs Temp Pulse Resp BP Pulse Ox 36.6 C 64 18 93/57 L 93 05/18/19 12:24 05/18/19 12:24 05/18/19 12:24 05/18/19 12:24 05/18/19 12:24 Oxygen Flow Rate (L/min) 6 Oxygen Delivery Method Room Air Weight: 92.2 kg Body Mass Index (BMI) 29.9 Intake and Output for Last 24 Hours 05/16/19 05/17/19 05/18/19 23:59 23:59 23:59 Intake Total 1959 Balance 1959 General: Alert, No apparent distress, - - up in bed HEENT: Atraumatic, Normocephalic Lungs: Clear to auscultation, Normal air movement, No rhonchi, No wheeze Cardiovascular: Regular rate, Regular Rhythm, Normal S1, Normal S2 Abdomen: Bowel Sounds Present, Soft, Non Tender, Non-Distended, No Hepato- splenomegaly Extremities: - - right arm immobilizer in place. Skin: No rashes, No breakdown Psych/Mental Status: Normal Affect, Appropriate Laboratory Results 05/18/19 07:13: POC Glucose 101 Current Medications Acetaminophen (Tylenol) 1,000 mg PO Q8 [facility] Aspirin (Aspirin) 325 mg PO DAILY@0800 [facility] Atorvastatin Calcium (Lipitor) 40 mg PO QHS [facility] Celecoxib (Celebrex) 200 mg PO DAILY [facility] Duloxetine HCl (Cymbalta) 60 mg PO QHS [facility] Enteral Nutritional Formula (Ensure Surgery) 237 ml PO TIDCM [facility] Last Admin: 05/18/19 13:12 Dose: Not Given Documented by: Famotidine (Pepcid) 20 mg PO DAILY [facility] Flecainide Acetate (Tambocor) 100 mg PO BID [facility] Last Admin: 05/18/19 13:11 Dose: Not Given Documented by: Folic Acid (Folic Acid) 1 mg PO DAILY@0800 [facility] Lactated Ringer's () 1,000 mls @ 125 mls/hr IV .Q8H [facility] Last Admin: 05/18/19 11:19 Dose: 125 mls/hr Documented by: Cefazolin Sodium () 1 gm in 50 mls @ 150 mls/hr IV Q8H [facility] Stop: 05/19/19 00:49 Ketorolac Tromethamine (Toradol) 15 mg IV Q6H PRN PRN PRN Reason: Pain Score 1-5/10 Stop: 05/20/19 07:06 Melatonin (Melatonin) 6 mg PO HS PRN PRN Reason: .INSOMNIA Methotrexate (Methotrexate) 15 mg PO MO [facility] Metoprolol Succinate (Toprol Xl (Beta Jess)) 25 mg PO BID [facility] Last Admin: 05/18/19 13:11 Dose: Not Given Documented by: Montelukast Sodium (Singulair) 10 mg PO QHS [facility] Non-Formulary Medication (Cevimeline Hcl) 30 mg PO DAILY [facility] Ondansetron HCl (Zofran) 4 mg IV Q8H PRN PRN PRN Reason: NAUSEA Oxycodone HCl (Oxyir) 2.5 mg PO Q4H PRN PRN PRN Reason: Pain Score 4-10/10 Pregabalin (Lyrica) 200 mg PO QHS [facility] Promethazine HCl (Phenergan) 12.5 mg IM Q6H PRN PRN; Protocol PRN Reason: NAUSEA/VOMITING Senna/Docusate Sodium (Senokot-S, Radha-Colace) 2 tablet PO BID [facility] STROKE Vital Signs/Narrative: Vital Signs Temp Pulse Resp BP Pulse Ox 05/18/19 12:24 36.6 C 64 18 93/57 L 93 05/18/19 11:45 36.6 C 67 17 100/66 100 05/18/19 11:30 67 17 100/64 100 05/18/19 11:15 67 16 99/56 L 100 05/18/19 10:58 36.6 C 66 14 96/74 100 Medical Necessity - Tobacco Use Smoking Status: Never smoker Tobacco Use: Non-smoker Assessment/Plan All Active Problems (Last Reviewed 03/17/19 @ 10:40 by Brooks Ivan MD) Sustained ventricular tachycardia (Resolved) Bronchitis (Resolved) 1. sjogren's syndrome * continue with Evoxac and eye gtt 2. s/p right shoulder replacement and lipoma resection: * mgmt per orthopaedics Thank you for the consult. The hospitalist service will follow along during the hospitalization. Medically stable for discharge when ok by the primary service. Code Visit Inpatient E&M: 44172 Subs Hosp L2
--- NOTE | 2019-05-18 14:01 | PCM.PN.HOSP ---
Subjective: Requested by Dr. Ross for postoperative medical management Patient underwent a right shoulder replacement as well as a lipoma resection. Postoperatively, patient is feeling well and has no pain. Vitals/I&O's: Vital Signs Temp Pulse Resp BP Pulse Ox 36.6 C 64 18 93/57 L 93 05/18/19 12:24 05/18/19 12:24 05/18/19 12:24 05/18/19 12:24 05/18/19 12:24 Oxygen Flow Rate (L/min) 6 Oxygen Delivery Method Room Air Weight: 92.2 kg Body Mass Index (BMI) 29.9 Intake and Output for Last 24 Hours 05/16/19 05/17/19 05/18/19 23:59 23:59 23:59 Intake Total 1959 Balance 1959 General: Alert, No apparent distress, - - up in bed HEENT: Atraumatic, Normocephalic Lungs: Clear to auscultation, Normal air movement, No rhonchi, No wheeze Cardiovascular: Regular rate, Regular Rhythm, Normal S1, Normal S2 Abdomen: Bowel Sounds Present, Soft, Non Tender, Non-Distended, No Hepato-splenomegaly Extremities: - - right arm immobilizer in place. Skin: No rashes, No breakdown Psych/Mental Status: Normal Affect, Appropriate Laboratory Results 05/18/19 07:13: POC Glucose 101 Current Medications Acetaminophen (Tylenol) 1,000 mg PO Q8 [facility] Aspirin (Aspirin) 325 mg PO DAILY@0800 [facility] Atorvastatin Calcium (Lipitor) 40 mg PO QHS [facility] Celecoxib (Celebrex) 200 mg PO DAILY [facility] Duloxetine HCl (Cymbalta) 60 mg PO QHS [facility] Enteral Nutritional Formula (Ensure Surgery) 237 ml PO TIDCM [facility] Last Admin: 05/18/19 13:12 Dose: Not Given Documented by: Famotidine (Pepcid) 20 mg PO DAILY [facility] Flecainide Acetate (Tambocor) 100 mg PO BID [facility] Last Admin: 05/18/19 13:11 Dose: Not Given Documented by: Folic Acid (Folic Acid) 1 mg PO DAILY@0800 [facility] Lactated Ringer's () 1,000 mls @ 125 mls/hr IV .Q8H [facility] Last Admin: 05/18/19 11:19 Dose: 125 mls/hr Documented by: Cefazolin Sodium () 1 gm in 50 mls @ 150 mls/hr IV Q8H [facility] Stop: 05/19/19 00:49 Ketorolac Tromethamine (Toradol) 15 mg IV Q6H PRN PRN PRN Reason: Pain Score 1-5/10 Stop: 05/20/19 07:06 Melatonin (Melatonin) 6 mg PO HS PRN PRN Reason: .INSOMNIA Methotrexate (Methotrexate) 15 mg PO MO [facility] Metoprolol Succinate (Toprol Xl (Beta Jess)) 25 mg PO BID [facility] Last Admin: 05/18/19 13:11 Dose: Not Given Documented by: Montelukast Sodium (Singulair) 10 mg PO QHS [facility] Non-Formulary Medication (Cevimeline Hcl) 30 mg PO DAILY [facility] Ondansetron HCl (Zofran) 4 mg IV Q8H PRN PRN PRN Reason: NAUSEA Oxycodone HCl (Oxyir) 2.5 mg PO Q4H PRN PRN PRN Reason: Pain Score 4-10/10 Pregabalin (Lyrica) 200 mg PO QHS [facility] Promethazine HCl (Phenergan) 12.5 mg IM Q6H PRN PRN; Protocol PRN Reason: NAUSEA/VOMITING Senna/Docusate Sodium (Senokot-S, Radha-Colace) 2 tablet PO BID [facility] STROKE Vital Signs/Narrative: Vital Signs Temp Pulse Resp BP Pulse Ox 05/18/19 12:24 36.6 C 64 18 93/57 L 93 05/18/19 11:45 36.6 C 67 17 100/66 100 05/18/19 11:30 67 17 100/64 100 05/18/19 11:15 67 16 99/56 L 100 05/18/19 10:58 36.6 C 66 14 96/74 100 Medical Necessity - Tobacco Use Smoking Status: Never smoker Tobacco Use: Non-smoker Assessment/Plan All Active Problems (Last Reviewed 03/17/19 @ 10:40 by Brooks Ivan MD) Sustained ventricular tachycardia (Resolved) Bronchitis (Resolved) 1. sjogren's syndrome continue with Evoxac and eye gtt 2. s/p right shoulder replacement and lipoma resection: mgmt per orthopaedics Thank you for the consult. The hospitalist service will follow along during the hospitalization. Medically stable for discharge when ok by the primary service. Code Visit Inpatient E&M: 37946 Subs Hosp L2
[2019-05-18] MEDS: Famotidine 20 MG Tablet PO (14:24)
[2019-05-18] MEDS: Senna/Docusate Sodium 1 Tablet 2 TABLET PO ×2 (14:24→22:48)
[2019-05-18] MEDS: Folic Acid 1 MG Tablet PO (14:24)
[2019-05-18] MEDS: Cefazolin 1 GM/50 ML BAG IV (16:41)
[2019-05-18] MEDS: Ketorolac 15 MG/ML Vial IV (16:43)
[2019-05-18] MEDS: Flecainide 100 MG Tablet PO (22:48)
[2019-05-18] MEDS: Atorvastatin Calcium 40 MG Tablet PO (22:48)
[2019-05-18] MEDS: Montelukast 10 MG Tablet PO (22:48)
[2019-05-18] MEDS: DULoxetine Hcl 60 MG Capsule PO (22:48)
[2019-05-18] MEDS: MELATONIN 3 MG TABLET 6 MG PO (22:53)
[2019-05-18] MEDS: Metoprolol(XL)Succ 25 MG Tablet PO (22:53)
[2019-05-18] MEDS: Pregabalin 50 MG Capsule 200 MG PO (22:53)
[2019-05-19] MEDS: Cefazolin 1 GM/50 ML BAG IV (00:27)
[2019-05-19] MEDS: Ketorolac 15 MG/ML Vial IV (01:52)
[2019-05-19 04:20] VITALS: BP 118/68; PULSE 56; RESP 18; TEMP 36.9; O2SAT 95
[2019-05-19] MEDS: 0.9% Saline Lock 10 ML Syringe IV ×2 (04:56→04:57)
[2019-05-19] MEDS: Acetaminophen 500 MG Tablet 1000 MG PO (05:00)
[2019-05-19 05:46] LABS: Hematocrit 40.6 % (37-47); Hemoglobin 13.2 g/dL (12.0-15.0); Mean Corp Hgb Conc 32.5 g/dL (32-36); Mean Corpuscular Hgb 30.6 pg (27.0-32.0); Mean Corpuscular Volume 94.2 fL (81-99); Mean Platelet Vol. 10.9 fl (6.2-12.0); Platelet Count 135 K/mm3 (150-450); RBC Distribution Width CV 13.2 % (11.6-14.6); RBC Distribution Width SD 45.7 fl (35.1-43.9); Red Blood Count 4.31 M/mm3 (4.2-5.4); White Blood Count 12.3 K/mm3 (4.4-11.0)
[2019-05-19 06:10] LABS: Anion Gap 7 (5-15); BUN 10 mg/dL (7-18); BUN/Creat Ratio 13.7 RATIO (10-20); Calcium,Total 8.3 mg/dL (8.5-10.1); Chloride 109 mmol/L (98-107); Creatinine, Serum 0.73 mg/dL (0.55-1.02); EST Glomerular Filtration Rate 84 mL/min (>60); Est Glom Filt Rate - Afr Amer 101 mL/min (>60); Estimated Creatinine Clearance 54.71 ml/min; Glucose 120 mg/dL (74-106); Potassium 4.1 mmol/L (3.5-5.1); Sodium Level 142 mmol/L (136-145)
[2019-05-19 08:25] VITALS: PULSE 60
[2019-05-19] MEDS: Metoprolol(XL)Succ 25 MG Tablet PO (08:25)
[2019-05-19] MEDS: Senna/Docusate Sodium 1 Tablet 2 TABLET PO (08:26)
[2019-05-19] MEDS: Flecainide 100 MG Tablet PO (08:26)
[2019-05-19] MEDS: Folic Acid 1 MG Tablet PO (08:27)
[2019-05-19] MEDS: Aspirin 325 MG Tablet PO (08:27)
[2019-05-19] MEDS: Famotidine 20 MG Tablet PO (08:27)
[2019-05-19] MEDS: Celecoxib 200 MG Capsule PO (08:27)
[2019-05-19 08:30] VITALS: PULSE 60
--- NOTE | 2019-05-19 08:54 | PN.ORTHO_ITS ---
Subjective: The patient was sitting in bedside chair upon examination. Patient denies any chest pain, shortness of breath, dizziness, lightheadedness, nausea or vomiting, or calf pain. Pain is controlled on medications. No adverse overnight events. Overall patient is doing well this morning. Her pain is well controlled. She denies any numbness and tingling in the right upper extremity. Patient does wish to try to go home today. Objective: Vital signs stable, afebrile Dressing is clean, dry, intact except with minimal drainage over the inferior one third with a few drops Ultra-sling fitting appropriately Sensation intact to axillary, radial, median, and ulnar distribution Motor intact to AIN, PIN, and ulnar nerve - Physical Exam Vitals/I&O's: Vital Signs Temp Pulse Resp BP Pulse Ox 98.4 F 60 18 118/68 95 05/19/19 04:20 05/19/19 08:25 05/19/19 04:20 05/19/19 04:20 05/19/19 04:20 Oxygen Flow Rate (L/min) 6 Oxygen Delivery Method Room Air Weight: 92.2 kg Body Mass Index (BMI) 29.9 Intake and Output for Last 24 Hours 05/17/19 05/18/19 05/19/19 23:59 23:59 23:59 Intake Total 3280.83 / 3630.83 1581.17 / 1581.17 Output Total 500 / 900 700 / 700 Balance 2780.83 / 2730.83 881.17 / 881.17 General: Alert, Oriented x3, Cooperative, No apparent distress Laboratory Results 05/19/19 05:06: WBC 12.3 H, RBC 4.31, Hgb 13.2, Hct 40.6, MCV 94.2, MCH 30.6, MCHC 32.5, RDW Std Deviation 45.7 H, RDW Coeff of Mauricio 13.2, Plt Count 135 L, MPV 10.9 05/19/19 05:06: Sodium 142, Potassium 4.1, Chloride 109 H, Carbon Dioxide 26.0, Anion Gap 7, BUN 10, Creatinine 0.73, Estim Creat Clear Calc 54.71, Est GFR (MDRD) Af Amer 101, Est GFR (MDRD) Non-Af 84, BUN/Creatinine Ratio 13.7, Glucose 120 H, Calcium 8.3 L Current Medications Acetaminophen (Tylenol) 1,000 mg PO Q8 [facility] Last Admin: 05/19/19 05:00 Dose: 1,000 mg Documented by: Aspirin (Aspirin) 325 mg PO DAILY@0800 [facility] Last Admin: 05/19/19 08:27 Dose: 325 mg Documented by: Atorvastatin Calcium (Lipitor) 40 mg PO QHS [facility] Last Admin: 05/18/19 22:48 Dose: 40 mg Documented by: Celecoxib (Celebrex) 200 mg PO DAILY [facility] Last Admin: 05/19/19 08:27 Dose: 200 mg Documented by: Duloxetine HCl (Cymbalta) 60 mg PO QHS [facility] Last Admin: 05/18/19 22:48 Dose: 60 mg Documented by: Famotidine (Pepcid) 20 mg PO DAILY [facility] Last Admin: 05/19/19 08:27 Dose: 20 mg Documented by: Flecainide Acetate (Tambocor) 100 mg PO BID [facility] Last Admin: 05/19/19 08:26 Dose: 100 mg Documented by: Folic Acid (Folic Acid) 1 mg PO DAILY@0800 [facility] Last Admin: 05/19/19 08:27 Dose: 1 mg Documented by: Sodium Chloride () 250 mls @ 15 mls/hr IV .[id number] PRN PRN Reason: Saline Flush Ketorolac Tromethamine (Toradol) 15 mg IV Q6H PRN PRN PRN Reason: Pain Score 1-5/10 Stop: 05/20/19 07:06 Last Admin: 05/19/19 01:52 Dose: 15 mg Documented by: Melatonin (Melatonin) 6 mg PO HS PRN PRN Reason: .INSOMNIA Last Admin: 05/18/19 22:53 Dose: 6 mg Documented by: Methotrexate (Methotrexate) 15 mg PO MO [facility] Metoprolol Succinate (Toprol Xl (Beta Jess)) 25 mg PO BID [facility] Last Admin: 05/19/19 08:25 Dose: 25 mg Documented by: Montelukast Sodium (Singulair) 10 mg PO QHS [facility] Last Admin: 05/18/19 22:48 Dose: 10 mg Documented by: Non-Formulary Medication (Cevimeline Hcl) 30 mg PO DAILY [facility] Ondansetron HCl (Zofran) 4 mg IV Q8H PRN PRN PRN Reason: NAUSEA Oxycodone HCl (Oxyir) 2.5 mg PO Q4H PRN PRN PRN Reason: Pain Score 4-10/10 Pregabalin (Lyrica) 200 mg PO QHS [facility] Last Admin: 05/18/19 22:53 Dose: 200 mg Documented by: Promethazine HCl (Phenergan) 12.5 mg IM Q6H PRN PRN; Protocol PRN Reason: NAUSEA/VOMITING Senna/Docusate Sodium (Senokot-S, Radha-Colace) 2 tablet PO BID [facility] Last Admin: 05/19/19 08:26 Dose: 2 tablet Documented by: Sodium Chloride () 10 - 40 ml IV UD PRN PRN Reason: SALINE FLUSH Last Admin: 05/19/19 04:57 Dose: 10 ml Documented by: Medical Necessity - Tobacco Use Smoking Status: Never smoker Tobacco Use: Non-smoker Assessment/Plan All Active Problems (Last Reviewed 03/17/19 @ 10:40 by Brooks Ivan MD) Sustained ventricular tachycardia (Resolved) Bronchitis (Resolved) 1. S/P right reverse total shoulder arthroplasty with resection of lipoma POD #1 2. Continue Pain Medications: Tylenol and OxyIR. Patient does see Dr. Malave and uses Percocet at home on occasion for neck pain and occipital headaches. 3. DVT Prophylaxis: Aspirin 325 mg once daily for 2 weeks postoperatively 4. PT/OT: Continue with UltraSling at all times. Okay for physical therapy to show elbow, wrist, hand range of motion as well as pendulum exercises only. Formal physical therapy will begin 2 weeks postoperatively. 5. H & H: 13.2/40.6, asymptomatic 6. Reactive leukocytosis: Currently 12.3, afebrile. Patient did receive Decadron intraoperatively 7. Continue postoperative medical management per medicine: Appreciate consult 8. Encouraged Incentive Spirometry 9. Disposition: Orthopedically stable, plan will be for discharge home today. Patient will have prescription attached to chart. She will follow-up per postop instructions. Outpatient formal physical therapy has already been established to begin 2 weeks postoperatively.
--- NOTE | 2019-05-19 09:06 | DCINST_ITS ---
Discharge Diet: No Restrictions Discharge Activity: May Not Drive May shower in (days): 1 Ice area for (Minutes): 20 - Every 1-2 hours while awake Weight Bearing Status: No weight bearing - Right upper extremity Call your doctor if your incision/area has: Continuous Slow Oozing, Sudden Increased Bleeding, Increased Pain/ Swelling, Increased Redness, Foul Smelling Discharge Call your doctor if you observe: Fever of 101 or Higher, Coldness, Increased Pain, Numbness or Tingling, Change in Color Additional Instructions: Follow orthopedic postop instructions Allergies/Adverse Reactions: Allergies morphine Adverse Reaction (Verified 05/18/19 07:03) Vomiting Medications to take at Discharge Cevimeline HCl [Evoxac] 30 mg PO DAILY 07/03/14 Montelukast [Singulair] 10 mg PO DAILY 07/03/14 calcium carbonate 500 mg (1,250 mg)-vitamin D3 125 unit tablet 1 tab PO BID 11/26/17 celecoxib 200 mg capsule 200 mg PO QDAY 11/26/17 ergocalciferol (vitamin D2) 50,000 unit capsule 50,000 unit PO QWEEK cap 11/26/17 folic acid 1 mg tablet 1 mg PO DAILY@0800 tab 11/26/17 methotrexate sodium 2.5 mg tablet 15 mg PO MO tab 11/26/17 vit C 150 mg-vit E 30 unit-lutein 5 wm-nyxhvnbr-qelik 3 150 mg capsule 1 cap PO BID 11/26/17 rosuvastatin 20 mg tablet 20 mg PO QHS 03/15/18 melatonin 3 mg tablet 6 mg PO HS PRN tab 06/03/18 pregabalin 200 mg capsule 200 mg PO QHS cap 08/30/18 duloxetine 60 mg capsule,delayed release 60 mg PO QHS #90 cap 03/17/19 Flecainide [Tambocor] 100 mg PO BID 05/02/19 Metoprolol(XL)Succ [Toprol Xl (Beta Jess)] 25 mg PO BID 05/02/19 Acetaminophen [Tylenol] 1,000 mg PO Q8 #100 tab 05/19/19 Aspirin 325 mg PO DAILY@0800 14 Days tablet 05/19/19 Famotidine [Pepcid] 20 mg PO DAILY #14 tab 05/19/19 Oxycodone [Oxyir] 5 mg PO Q4H PRN PRN 5 Days #30 tablet 05/19/19 The following prescriptions were given: Oxycodone [Oxyir] 5 mg PO Q4H PRN PRN 5 Days #30 tablet PRN Reason: Pain Score 4-04/28 Transmission Status: Sent to [facility] Famotidine [Pepcid] 20 mg PO DAILY #14 tab Transmission Status: Pending to [facility] Acetaminophen [Tylenol] 1,000 mg PO Q8 #100 tab Transmission Status: Pending to [facility] Primary Care Physician: Tony Sethi Chi, MD [Primary Care Provider] - Test Results: Test results from this visit will be discussed in further detail at your follow- up appointment, if applicable. Please Follow Up With: Jass Little PA-C When: 06/01/19 @ 10:30 am Please Follow Up With: [facility] When: 06/01/19 @ 11:00 am
--- NOTE | 2019-05-19 10:00 | CASEMGMT ---
RN CM Face to Face with patient for initial transition planning/care coordination assessment. RN CM introduced self and role at [facility]. Patient sitting in chair, alert and oriented, friend at bedside. Patient willing to participate in assessment and is able to answer all questions appropriately. Care providers, pharmacy, and demographics verified. Patient wishes to discharge home, denies need for home health at this time. Patient states she has no further needs or concerns at this time. CM to follow for discharge planning needs that may arise. PCP: Navdeep Specialists: [facility]; Moncho, finish painter; Meredith, banana expert; Gaudencio, ENT Preferred Pharmacy: [facility] Insurance: [facility] Prescription Benefit: yes Living Will/HPOA: yes, Jean-Paul CONNOLLY: son Living Arrangements: Patient lives with in 2 story home with with bed and bath on 2nd floor with railing. Patient able to ambulate steps. Transportation: DME/HHC: Patient states she has shower chair, raised toilet, cane, walker, grab bars at home. Disposition Plan: Patient to discharge home with family support and follow-up plans in place. Faye MATTHEWS, RN, CM
[2019-05-19 10:01] VITALS: BP 98/57; PULSE 59; RESP 18; TEMP 35.7; O2SAT 96
[2019-05-19 10:10] VITALS: O2SAT 96
[2019-05-19 10:33] VITALS: BP 97/64; PULSE 52; RESP 18; TEMP 36.9; O2SAT 96
== END 2019-05-19 11:20 | disposition home or self-care (01) | DRG 465 ==
LOC: ACINP 06:38 → MS3 07:22
PROVIDERS: Admitting Provider Specialist; Family Provider Family Medicine Geriatric Medicine; PCP Family Medicine Geriatric Medicine; Referring Provider Specialist; Visit Provider Internal Medicine
PROC: 0RRJ00Z Replacement of Right Shoulder Joint with Reverse Ball and Socket Synthetic Substitute, Open Approach (ICD-10-PCS; CPT 23472; principal; 2019-05-18 08:15)
DX: M13.811 Other specified arthritis, right shoulder (principal); M75.101 Unspecified rotator cuff tear or rupture of right shoulder, not specified as traumatic; M79.7 Fibromyalgia; M35.00 Sjogren syndrome, unspecified; Z79.899 Other long term (current) drug therapy
CPT/HCPCS: 36415; 73030; 80048; 80053; 82962; 85025; 85027; 87081; 88304; 97166; 99251; C1776; J7040; J7120; A4216; G0463; J2405

== ENCOUNTER → 2019-07-25 15:06 | Outpatient (CLI) | payer MEDICARE, SELFPAY ==
[2019-05-18 12:24] VITALS: BMI 29.9
[2019-07-25 15:29] LABS: Absolute Lymphocyte Count 1.78 X10^3/uL (0.83-4.51); Basophil# 0.02 X10^3/uL; Basophil% 0.3 % (0-1); Eosinophil# 0.13 X10^3/uL; Hematocrit 48.7 % (37-47); Hemoglobin 15.9 g/dL (12.0-15.0); Lymphocyte # 1.78 X10^3/ul (4.0); Lymphocyte % 27.1 % (19-41); Mean Corp Hgb Conc 32.6 g/dL (32-36); Mean Corpuscular Hgb 30.6 pg (27.0-32.0); Mean Corpuscular Volume 93.8 fL (81-99); Mean Platelet Vol. 10.7 fl (6.2-12.0); Monocyte# 0.62 X10^3/uL; Monocyte% 9.4 % (0-10); NRBC Flagged by Analyzer 0 % (0-5); Neutrophil # 3.99 X10^3/uL (2.7-7.7); Neutrophil % 60.6 % (47-70); Platelet Count 185 K/mm3 (150-450); RBC Distribution Width CV 13.5 % (11.6-14.6); RBC Distribution Width SD 46.1 fl (35.1-43.9); Red Blood Count 5.19 M/mm3 (4.2-5.4); White Blood Count 6.6 K/mm3 (4.4-11.0)
[2019-07-25 16:04] LABS: ALB/GLOB Ratio 1.1 RATIO (0.9-2.4); AST(SGOT) 29 U/L (15-37); Alanine Aminotransfer ALT/SGPT 36 U/L (13-56); Albumin, Serum 3.8 g/dL (3.2-5.0); Alkaline Phosphatase 126 U/L (45-117); Anion Gap 5 (5-15); BUN 11 mg/dL (7-18); BUN/Creat Ratio 13.8 RATIO (10-20); Chloride 106 mmol/L (98-107); EST Glomerular Filtration Rate 76 mL/min (>60); Est Glom Filt Rate - Afr Amer 92 mL/min (>60); Globulin 3.6 g/dL (2.2-4.2); Glucose 93 mg/dL (74-106); Potassium 4.5 mmol/L (3.5-5.1); Protein, Total 7.4 g/dL (6.4-8.2); Sodium Level 140 mmol/L (136-145)
== END ==
PROVIDERS: Family Provider Family Medicine Geriatric Medicine; PCP Family Medicine Geriatric Medicine; Referring Provider Internal Medicine Rheumatology; Visit Provider Internal Medicine Rheumatology
DX: M06.4 Inflammatory polyarthropathy (principal); M79.7 Fibromyalgia; M35.00 Sjogren syndrome, unspecified; M65.342 Trigger finger, left ring finger; M18.0 Bilateral primary osteoarthritis of first carpometacarpal joints; M72.0 Palmar fascial fibromatosis [Dupuytren]; H35.30 Unspecified macular degeneration; M50.30 Other cervical disc degeneration, unspecified cervical region; G47.33 Obstructive sleep apnea (adult) (pediatric); R51 Headache; Z79.899 Other long term (current) drug therapy
CPT/HCPCS: 36415; 80053; 85025

== ENCOUNTER → 2019-08-29 11:13 | Outpatient (CLI) | payer MEDICARE, SELFPAY ==
[2019-05-18 12:24] VITALS: BMI 29.9
[2019-08-29 12:18] LABS: Absolute Lymphocyte Count 1.53 X10^3/uL (0.83-4.51); Absolute Neutrophil Count 5.4 X10^3/uL (2.0-7.7); Basophil# 0.02 X10^3/uL; Basophil% 0.3 % (0-1); Eosinophil# 0.15 X10^3/uL; Hematocrit 49.9 % (37-47); Hemoglobin 16.2 g/dL (12.0-15.0); Lymphocyte # 1.53 X10^3/ul (4.0); Lymphocyte % 19.9 % (19-41); Mean Corp Hgb Conc 32.5 g/dL (32-36); Mean Corpuscular Hgb 30.6 pg (27.0-32.0); Mean Corpuscular Volume 94.3 fL (81-99); Mean Platelet Vol. 10.4 fl (6.2-12.0); Monocyte# 0.58 X10^3/uL; Monocyte% 7.6 % (0-10); NRBC Flagged by Analyzer 0 % (0-5); Neutrophil # 5.36 X10^3/uL (2.7-7.7); Neutrophil % 69.7 % (47-70); Platelet Count 198 K/mm3 (150-450); RBC Distribution Width CV 14.2 % (11.6-14.6); RBC Distribution Width SD 48.7 fl (35.1-43.9); Red Blood Count 5.29 M/mm3 (4.2-5.4); White Blood Count 7.7 K/mm3 (4.4-11.0)
[2019-08-29 12:37] LABS: Vitamin D,25 Hydroxy 56.3 ng/mL (29.95-100.01)
[2019-08-29 12:50] LABS: AST(SGOT) 28 U/L (15-37); Alanine Aminotransfer ALT/SGPT 57 U/L (13-56); Albumin, Serum 3.6 g/dL (3.2-5.0); Alkaline Phosphatase 116 U/L (45-117); Anion Gap 4 (5-15); BUN 12 mg/dL (7-18); Calcium,Total 9.6 mg/dL (8.5-10.1); Chloride 111 mmol/L (98-107); Creatinine, Serum 0.92 mg/dL (0.55-1.02); EST Glomerular Filtration Rate 64 mL/min (>60); Est Glom Filt Rate - Afr Amer 77 mL/min (>60); Globulin 3.7 g/dL (2.2-4.2); Glucose 95 mg/dL (74-106); Potassium 3.7 mmol/L (3.5-5.1); Protein, Total 7.3 g/dL (6.4-8.2); Sodium Level 142 mmol/L (136-145); Thyroid Stim Hormone (TSH) 0.68 uIU/mL (0.358-3.74); Uric Acid 5.7 mg/dL (2.6-6.0)
== END ==
PROVIDERS: PCP Family Medicine Geriatric Medicine; Visit Provider Family Medicine Geriatric Medicine
DX: E55.9 Vitamin D deficiency, unspecified (principal); M10.9 Gout, unspecified; R53.83 Other fatigue
CPT/HCPCS: 36415; 80053; 82306; 84443; 84550; 85025

== ENCOUNTER → 2019-10-11 11:04 | Outpatient (CLI) | payer MEDICARE, SELFPAY ==
[2019-10-11 10:22] VITALS: BMI 29.3
[2019-10-11 12:07] LABS: Absolute Lymphocyte Count 1.51 X10^3/uL (0.83-4.51); Absolute Neutrophil Count 4.7 X10^3/uL (2.0-7.7); Basophil# 0.01 X10^3/uL; Basophil% 0.1 % (0-1); Eosinophils% 1.4 % (0-5); Hematocrit 50.5 % (37-47); Hemoglobin 16.3 g/dL (12.0-15.0); Lymphocyte # 1.51 X10^3/ul (4.0); Lymphocyte % 21.5 % (19-41); Mean Corp Hgb Conc 32.3 g/dL (32-36); Mean Corpuscular Hgb 30.8 pg (27.0-32.0); Mean Corpuscular Volume 95.3 fL (81-99); Mean Platelet Vol. 10.5 fl (6.2-12.0); Monocyte# 0.65 X10^3/uL; Monocyte% 9.3 % (0-10); NRBC Flagged by Analyzer 0 % (0-5); Neutrophil % 67.1 % (47-70); Platelet Count 188 K/mm3 (150-450); RBC Distribution Width CV 14.4 % (11.6-14.6); RBC Distribution Width SD 50.2 fl (35.1-43.9)
[2019-10-11 13:09] LABS: ALB/GLOB Ratio 0.9 RATIO (0.9-2.4); AST(SGOT) 34 U/L (15-37); Alanine Aminotransfer ALT/SGPT 46 U/L (13-56); Albumin, Serum 3.5 g/dL (3.2-5.0); Alkaline Phosphatase 118 U/L (45-117); Anion Gap 6 (5-15); BUN 14 mg/dL (7-18); BUN/Creat Ratio 21.6 RATIO (10-20); Calcium,Total 9.8 mg/dL (8.5-10.1); Chloride 105 mmol/L (98-107); Creatinine, Serum 0.65 mg/dL (0.55-1.02); EST Glomerular Filtration Rate 96 mL/min (>60); Est Glom Filt Rate - Afr Amer 116 mL/min (>60); Globulin 3.7 g/dL (2.2-4.2); Glucose 103 mg/dL (74-106); Potassium 4.1 mmol/L (3.5-5.1); Protein, Total 7.2 g/dL (6.4-8.2); Sodium Level 140 mmol/L (136-145)
== END ==
PROVIDERS: PCP Family Medicine Geriatric Medicine; Visit Provider Internal Medicine Rheumatology
DX: M06.4 Inflammatory polyarthropathy (principal); M79.7 Fibromyalgia; M35.00 Sjogren syndrome, unspecified; M18.0 Bilateral primary osteoarthritis of first carpometacarpal joints; M72.0 Palmar fascial fibromatosis [Dupuytren]; H35.30 Unspecified macular degeneration; M50.30 Other cervical disc degeneration, unspecified cervical region; G47.33 Obstructive sleep apnea (adult) (pediatric); R51 Headache; Z79.899 Other long term (current) drug therapy
CPT/HCPCS: 36415; 80053; 85025

== ENCOUNTER → 2019-12-13 10:26 | Outpatient (CLI) | payer MEDICARE, SELFPAY ==
[2019-05-18 12:24] VITALS: BMI 29.9
[2019-11-29 07:43] VITALS: BMI 29.3
--- NOTE | 2019-12-13 10:28 | BI_ITS ---
MAMMOGRAPHY - BILATERAL SCREENING REASON FOR EXAM: Female, 69 years old. Routine annual screening examination. PERTINENT HISTORY: Non-contributory. History of prior bilateral breast reduction surgery as well as ultrasound-guided left breast biopsy. TECHNIQUE: Digital bilateral breast lul (3D mammographic acquisition) in the CC and MLO projections. 2-D mediolateral oblique (MLO) and craniocaudad (CC) views of both breasts were obtained. CAD: Full Field Digital Mammography with Computer Added Detection was performed. COMPARISON: Comparison is made with prior examination dated December 09, 2018 and September 16, 2016. FINDINGS: Breast Composition: There are scattered areas of fibroglandular density. There are no dominant masses or suspicious calcifications. Stable appearance of the densely calcified nodules in both breasts. No other significant abnormalities are identified. There has been no significant change since the prior study. BI/SCREEN MAMM (CAD) W/LUL BILAT IMPRESSION: Stable bilateral screening mammogram. Yearly follow-up mammogram recommended. (A) ASSESSMENT CATEGORY: BIRADS Category 2: Benign. A letter regarding these results will be sent to the patient by the facility within 30 days. Approximately 10% of breast cancers are not detected by mammography. A normal mammogram should not delay biopsy of a clinically suspicious abnormality. [id number] Electronically Signed: Markos Purdy, at 14:46 EDT , Service support ,
== END ==
PROVIDERS: PCP Family Medicine Geriatric Medicine; Referring Provider Family Medicine Geriatric Medicine; Visit Provider Family Medicine Geriatric Medicine
DX: Z12.31 Encounter for screening mammogram for malignant neoplasm of breast (principal)
CPT/HCPCS: 77063; 77067

== ENCOUNTER → 2020-01-05 10:30 | Outpatient (CLI) | payer MEDICARE, SELFPAY ==
[2019-10-11 10:22] VITALS: BMI 29.3
[2019-11-29 07:43] VITALS: BMI 29.3
[2020-01-05 10:51] LABS: Absolute Lymphocyte Count 1.71 X10^3/uL (0.83-4.51); Absolute Neutrophil Count 3.2 X10^3/uL (2.0-7.7); Basophil# 0.01 X10^3/uL; Basophil% 0.2 % (0-1); Eosinophil# 0.15 X10^3/uL; Eosinophils% 2.6 % (0-5); Hematocrit 49.1 % (37-47); Hemoglobin 15.6 g/dL (12.0-15.0); Lymphocyte # 1.71 X10^3/ul (4.0); Mean Corp Hgb Conc 31.8 g/dL (32-36); Mean Corpuscular Hgb 30.6 pg (27.0-32.0); Mean Corpuscular Volume 96.5 fL (81-99); Mean Platelet Vol. 10.7 fl (6.2-12.0); Monocyte# 0.57 X10^3/uL; NRBC Flagged by Analyzer 0 % (0-5); Neutrophil # 3.24 X10^3/uL (2.7-7.7); Neutrophil % 56.8 % (47-70); Platelet Count 179 K/mm3 (150-450); RBC Distribution Width CV 12.6 % (11.6-14.6); RBC Distribution Width SD 44.9 fl (35.1-43.9); Red Blood Count 5.09 M/mm3 (4.2-5.4); White Blood Count 5.7 K/mm3 (4.4-11.0)
[2020-01-05 11:15] LABS: ALB/GLOB Ratio 0.9 RATIO (0.9-2.4); AST(SGOT) 28 U/L (15-37); Alanine Aminotransfer ALT/SGPT 31 U/L (13-56); Albumin, Serum 3.5 g/dL (3.2-5.0); Alkaline Phosphatase 116 U/L (45-117); Anion Gap 6 (5-15); BUN 13 mg/dL (7-18); BUN/Creat Ratio 17.9 RATIO (10-20); Calcium,Total 10.3 mg/dL (8.5-10.1); Chloride 107 mmol/L (98-107); Creatinine, Serum 0.73 mg/dL (0.55-1.02); EST Glomerular Filtration Rate 84 mL/min (>60); Est Glom Filt Rate - Afr Amer 102 mL/min (>60); Globulin 3.7 g/dL (2.2-4.2); Glucose 108 mg/dL (74-106); Protein, Total 7.2 g/dL (6.4-8.2); Sodium Level 143 mmol/L (136-145)
== END ==
PROVIDERS: PCP Family Medicine Geriatric Medicine; Referring Provider Internal Medicine Rheumatology; Visit Provider Internal Medicine Rheumatology
DX: M06.4 Inflammatory polyarthropathy (principal); M79.7 Fibromyalgia; M35.00 Sjogren syndrome, unspecified; M65.341 Trigger finger, right ring finger; M18.0 Bilateral primary osteoarthritis of first carpometacarpal joints; M72.0 Palmar fascial fibromatosis [Dupuytren]; Z79.899 Other long term (current) drug therapy
CPT/HCPCS: 36415; 80053; 85025

== ENCOUNTER → 2020-01-17 11:46 | Outpatient (CLI) | payer MEDICARE, SELFPAY ==
[2019-11-29 07:43] VITALS: BMI 29.3
--- NOTE | 2020-01-17 11:49 | RAD_ITS ---
STUDY: X-RAY - RIGHT KNEE REASON FOR EXAM: Female, 69 years old. right knee pain, hx of fx patella in 2000 TECHNIQUE: 3 view(s) of the knee. COMPARISON: None. FINDINGS: There is mild medial compartment arthrosis and chondrocalcinosis. Mild lateral compartment arthrosis and chondrocalcinosis. Mild patellofemoral joint arthrosis. There are superior and inferior patellar poles spurs. Small joint effusion. No acute fracture or dislocation. The soft tissue structures are unremarkable. RAD/Knee 4 or More Views IMPRESSION: Tricompartmental mild arthrosis. Small joint effusion. Electronically Signed: Tristen Banks, at 13:28 EDT Tel , Service support ,
== END ==
PROVIDERS: PCP Family Medicine Geriatric Medicine; Referring Provider Internal Medicine Rheumatology; Visit Provider Internal Medicine Rheumatology
DX: M17.11 Unilateral primary osteoarthritis, right knee (principal); M06.4 Inflammatory polyarthropathy; M79.7 Fibromyalgia; M35.00 Sjogren syndrome, unspecified; M65.341 Trigger finger, right ring finger; M18.0 Bilateral primary osteoarthritis of first carpometacarpal joints; M72.0 Palmar fascial fibromatosis [Dupuytren]; H35.30 Unspecified macular degeneration; M50.30 Other cervical disc degeneration, unspecified cervical region; G47.33 Obstructive sleep apnea (adult) (pediatric); R51 Headache; Z79.899 Other long term (current) drug therapy
CPT/HCPCS: 73564

== ENCOUNTER → 2020-02-21 10:29 | Outpatient (CLI) | payer MEDICARE, SELFPAY ==
[2019-11-29 07:43] VITALS: BMI 29.3
[2020-02-21 11:00] VITALS: PULSE 71; PULSE 76; PULSE 78; PULSE 80; PULSE 81; PULSE 82; PULSE 83; O2SAT 93; O2SAT 94; O2SAT 95; O2SAT 96; O2SAT 98
--- NOTE | 2020-02-21 14:51 | PCM.PSN.6M ---
PSN 6 Minute Walk Test - 6 Minute Walk Test 6 Minute Walk Test: 6 Minute Walk Test PSN:6-Minute Walk Test Start: 02/21/20 11:29 Freq: Status: Active Protocol: RESP.6MINW Document 02/21/20 11:00 [facility] (Rec: 02/21/20 11:35 [facility] [id number]) 6 Minute Walk Test Date Performed 02/21/20 Time Performed 11:00 Height 5 ft 9 in Weight: 85.275 kg Weight in Pounds 188.[address]: DR POOLE Assistive device used: None Pre-test Oxygen Delivery Method Room Air Pulse Ox (%) 95 Pulse Rate (60-100 beats/min) 71 Dyspnea Rani Scale (0-10) 0 Exertion Rani Scale (6-20) 6 1st minute Oxygen Delivery Method Room Air Pulse Ox (%) 98 Pulse Rate (60-100 beats/min) 78 2nd minute Oxygen Delivery Method Room Air Pulse Ox (%) 96 Pulse Rate (60-100 beats/min) 81 3rd minute Oxygen Delivery Method Room Air Pulse Ox (%) 93 Pulse Rate (60-100 beats/min) 83 4th minute Oxygen Delivery Method Room Air Pulse Ox (%) 94 Pulse Rate (60-100 beats/min) 83 5th minute Oxygen Delivery Method Room Air Pulse Ox (%) 94 Pulse Rate (60-100 beats/min) 82 6th minute Oxygen Delivery Method Room Air Pulse Ox (%) 93 Pulse Rate (60-100 beats/min) 80 Dyspnea Rani Scale (0-10) 0.5 Exertion Rani Scale (6-20) 11 Post-test Oxygen Delivery Method Room Air Pulse Ox (%) 95 Pulse Rate (60-100 beats/min) 76 Full Laps Walked 18 Partial Lap, Number of Tiles Walked 0 Total Distance Walked (ft) 1062 - Interpretation Interpretation: The patient was able to ambulate 1062 feet over the course of 6 minutes on room air with no assistive devices or breaks. The patient did experience significant desaturation as low as 93%. No significant tachycardia was noted. These findings are consistent with a respiratory limitation exercise tolerance. - Recommendations Recommendations: No supplemental oxygen is indicated at this time.
== END ==
PROVIDERS: PCP Family Medicine Geriatric Medicine; Referring Provider Nurse Practitioner Acute Care; Visit Provider Nurse Practitioner Acute Care
DX: R06.02 Shortness of breath (principal)
CPT/HCPCS: 94618

== ENCOUNTER → 2020-02-23 09:48 | Outpatient (CLI) | payer MEDICARE, SELFPAY ==
[2019-11-29 07:43] VITALS: BMI 29.3
--- NOTE | 2020-02-23 15:30 | PFTCOMP ---
COMPLETE PULMONARY FUNCTION TEST INTERPRETATION Brief HPI: Patient is a 69 year old female, currently under the care of Susanne Anguiano, who presents to [facility] for complete pulmonary function tests secondary to diagnosis of dyspnea. Respiratory therapist reports good effort and reproducible results. Interpretation: Forced expiration spirometry shows no large airways obstructive ventilatory defect with an FEV1 of 93% predicted. There is no significant bronchodilator response by strict ATS criteria. Spirograms are of good quality and plateau normally. The respiratory flow volume loop shows a normal pattern. Lung volumes by body plethysmography show a normal total lung capacity at 5.55 L, 96% predicted. All other lung volumes are within normal limits. Diffusion capacity by carbon monoxide is normal at 76% predicted. The airway resistance is slightly elevated. Compared to previous pulmonary function tests from 09/14/2018, there has been no significant change. Impression: Grossly normal pulmonary function test with no change compared to previous.
== END ==
PROVIDERS: PCP Family Medicine Geriatric Medicine; Referring Provider Nurse Practitioner Acute Care; Visit Provider Nurse Practitioner Acute Care
DX: R06.02 Shortness of breath (principal)
CPT/HCPCS: 94060; 94726; 94729

== ENCOUNTER → 2020-02-28 11:02 | Outpatient (CLI) | payer MEDICARE, SELFPAY ==
[2019-11-29 07:43] VITALS: BMI 29.3
[2020-02-28 13:24] LABS: Absolute Lymphocyte Count 1.41 X10^3/uL (0.83-4.51); Absolute Neutrophil Count 3.5 X10^3/uL (2.0-7.7); Basophil# 0.01 X10^3/uL; Basophil% 0.2 % (0-1); Eosinophil# 0.14 X10^3/uL; Eosinophils% 2.6 % (0-5); Hematocrit 47.3 % (37-47); Hemoglobin 15.2 g/dL (12.0-15.0); Lymphocyte # 1.41 X10^3/ul (4.0); Lymphocyte % 25.7 % (19-41); Mean Corp Hgb Conc 32.1 g/dL (32-36); Mean Corpuscular Hgb 30.2 pg (27.0-32.0); Mean Platelet Vol. 10.8 fl (6.2-12.0); Monocyte# 0.41 X10^3/uL; Monocyte% 7.5 % (0-10); NRBC Flagged by Analyzer 0 % (0-5); Neutrophil # 3.48 X10^3/uL (2.7-7.7); Neutrophil % 63.3 % (47-70); Platelet Count 208 K/mm3 (150-450); RBC Distribution Width CV 13.8 % (11.6-14.6); Red Blood Count 5.03 M/mm3 (4.2-5.4); White Blood Count 5.5 K/mm3 (4.4-11.0)
[2020-02-28 13:41] LABS: Vitamin D,25 Hydroxy 71.4 ng/mL
[2020-02-28 13:49] LABS: ALB/GLOB Ratio 1.1 RATIO (0.9-2.4); AST(SGOT) 41 U/L (15-37); Alanine Aminotransfer ALT/SGPT 61 U/L (13-56); Albumin, Serum 3.5 g/dL (3.2-5.0); Alkaline Phosphatase 115 U/L (45-117); Anion Gap 7 (5-15); BUN 10 mg/dL (7-18); BUN/Creat Ratio 14.3 RATIO (10-20); Calcium,Total 9.5 mg/dL (8.5-10.1); Chloride 110 mmol/L (98-107); EST Glomerular Filtration Rate 88 mL/min (>60); Est Glom Filt Rate - Afr Amer 106 mL/min (>60); Globulin 3.3 g/dL (2.2-4.2); Glucose 115 mg/dL (74-106); Potassium 3.8 mmol/L (3.5-5.1); Protein, Total 6.8 g/dL (6.4-8.2); Sodium Level 144 mmol/L (136-145); Thyroid Stim Hormone (TSH) 0.97 uIU/mL (0.358-3.74); Uric Acid 5.6 mg/dL (2.6-6.0)
== END ==
PROVIDERS: PCP Family Medicine Geriatric Medicine; Visit Provider Family Medicine Geriatric Medicine
DX: E55.9 Vitamin D deficiency, unspecified (principal); M10.9 Gout, unspecified; R53.83 Other fatigue
CPT/HCPCS: 36415; 80053; 82306; 84443; 84550; 85025

== ENCOUNTER → 2020-04-04 12:20 | Outpatient (CLI) | payer MEDICARE, SELFPAY ==
[2020-02-29 05:49] VITALS: BMI 28.5
[2020-04-04 13:00] LABS: Absolute Lymphocyte Count 1.47 X10^3/uL (0.83-4.51); Absolute Neutrophil Count 5.4 X10^3/uL (2.0-7.7); Basophil# 0.02 X10^3/uL; Basophil% 0.3 % (0-1); Eosinophil# 0.11 X10^3/uL; Eosinophils% 1.4 % (0-5); Hematocrit 47.2 % (37-47); Lymphocyte # 1.47 X10^3/ul (4.0); Mean Corp Hgb Conc 31.8 g/dL (32-36); Mean Corpuscular Hgb 30.5 pg (27.0-32.0); Mean Corpuscular Volume 96.1 fL (81-99); Mean Platelet Vol. 10.4 fl (6.2-12.0); Monocyte# 0.71 X10^3/uL; Monocyte% 9.2 % (0-10); NRBC Flagged by Analyzer 0 % (0-5); Neutrophil # 5.37 X10^3/uL (2.7-7.7); Neutrophil % 69.5 % (47-70); Platelet Count 196 K/mm3 (150-450); RBC Distribution Width CV 14.9 % (11.6-14.6); RBC Distribution Width SD 52.9 fl (35.1-43.9); Red Blood Count 4.91 M/mm3 (4.2-5.4); White Blood Count 7.7 K/mm3 (4.4-11.0)
[2020-04-04 13:29] LABS: ALB/GLOB Ratio 1.2 RATIO (0.9-2.4); AST(SGOT) 30 U/L (15-37); Alanine Aminotransfer ALT/SGPT 57 U/L (13-56); Albumin, Serum 3.7 g/dL (3.2-5.0); Alkaline Phosphatase 105 U/L (45-117); Anion Gap 5 (5-15); BUN 10 mg/dL (7-18); BUN/Creat Ratio 13.6 RATIO (10-20); Calcium,Total 9.4 mg/dL (8.5-10.1); Chloride 106 mmol/L (98-107); Creatinine, Serum 0.74 mg/dL (0.55-1.02); EST Glomerular Filtration Rate 83 mL/min (>60); Est Glom Filt Rate - Afr Amer 100 mL/min (>60); Globulin 3.2 g/dL (2.2-4.2); Glucose 85 mg/dL (74-106); Potassium 3.6 mmol/L (3.5-5.1); Protein, Total 6.9 g/dL (6.4-8.2); Sodium Level 142 mmol/L (136-145)
== END ==
PROVIDERS: PCP Family Medicine Geriatric Medicine; Referring Provider Internal Medicine Rheumatology; Visit Provider Internal Medicine Rheumatology
DX: M06.4 Inflammatory polyarthropathy (principal); M79.7 Fibromyalgia; M35.00 Sjogren syndrome, unspecified; M65.341 Trigger finger, right ring finger; M18.0 Bilateral primary osteoarthritis of first carpometacarpal joints; M72.0 Palmar fascial fibromatosis [Dupuytren]; H35.30 Unspecified macular degeneration; M50.30 Other cervical disc degeneration, unspecified cervical region; G47.33 Obstructive sleep apnea (adult) (pediatric); R51 Headache; Z79.899 Other long term (current) drug therapy
CPT/HCPCS: 36415; 80053; 85025

== ENCOUNTER → 2020-06-04 08:56 | Outpatient (CLI) | payer MEDICARE, SELFPAY ==
[2020-05-21 14:23] VITALS: BMI 29.2
[2020-06-04 09:21] LABS: Absolute Lymphocyte Count 1.75 X10^3/uL (0.83-4.51); Absolute Neutrophil Count 3.6 X10^3/uL (2.0-7.7); Basophil# 0.02 X10^3/uL; Basophil% 0.3 % (0-1); Eosinophil# 0.14 X10^3/uL; Eosinophils% 2.3 % (0-5); Hematocrit 49.5 % (37-47); Hemoglobin 15.7 g/dL (12.0-15.0); Lymphocyte # 1.75 X10^3/ul (4.0); Lymphocyte % 28.9 % (19-41); Mean Corp Hgb Conc 31.7 g/dL (32-36); Mean Corpuscular Hgb 31.2 pg (27.0-32.0); Mean Corpuscular Volume 98.2 fL (81-99); Mean Platelet Vol. 10.5 fl (6.2-12.0); Monocyte# 0.45 X10^3/uL; Monocyte% 7.4 % (0-10); NRBC Flagged by Analyzer 0 % (0-5); Neutrophil # 3.63 X10^3/uL (2.7-7.7); Neutrophil % 60.1 % (47-70); Platelet Count 196 K/mm3 (150-450); RBC Distribution Width CV 13.7 % (11.6-14.6); RBC Distribution Width SD 48.3 fl (35.1-43.9); Red Blood Count 5.04 M/mm3 (4.2-5.4); White Blood Count 6.1 K/mm3 (4.4-11.0)
[2020-06-04 10:22] LABS: ALB/GLOB Ratio 1.1 RATIO (0.9-2.4); AST(SGOT) 26 U/L (15-37); Alanine Aminotransfer ALT/SGPT 43 U/L (13-56); Albumin, Serum 3.6 g/dL (3.2-5.0); Alkaline Phosphatase 116 U/L (45-117); Anion Gap 5 (5-15); BUN 11 mg/dL (7-18); BUN/Creat Ratio 15.6 RATIO (10-20); Calcium,Total 9.1 mg/dL (8.5-10.1); Chloride 108 mmol/L (98-107); EST Glomerular Filtration Rate 87 mL/min (>60); Est Glom Filt Rate - Afr Amer 105 mL/min (>60); Globulin 3.4 g/dL (2.2-4.2); Glucose 112 mg/dL (74-106); Potassium 3.8 mmol/L (3.5-5.1); Sodium Level 142 mmol/L (136-145)
== END ==
PROVIDERS: PCP Family Medicine Geriatric Medicine; Referring Provider Internal Medicine Rheumatology; Visit Provider Internal Medicine Rheumatology
DX: M06.4 Inflammatory polyarthropathy (principal); M35.00 Sjogren syndrome, unspecified; M17.0 Bilateral primary osteoarthritis of knee; M18.0 Bilateral primary osteoarthritis of first carpometacarpal joints; M65.341 Trigger finger, right ring finger; M72.0 Palmar fascial fibromatosis [Dupuytren]; H35.30 Unspecified macular degeneration; M50.30 Other cervical disc degeneration, unspecified cervical region; G47.33 Obstructive sleep apnea (adult) (pediatric); M79.7 Fibromyalgia; R51.9 Headache, unspecified; Z79.899 Other long term (current) drug therapy
CPT/HCPCS: 36415; 80053; 85025

== ENCOUNTER → 2020-08-10 12:48 | Outpatient (CLI) | payer MEDICARE, SELFPAY ==
[2020-05-21 14:23] VITALS: BMI 29.2
[2020-08-10 14:52] LABS: Basophil# 0.01 X10^3/uL; Basophil% 0.1 % (0-1); Eosinophil# 0.15 X10^3/uL; Eosinophils% 2.1 % (0-5); Hematocrit 50.5 % (37-47); Hemoglobin 15.7 g/dL (12.0-15.0); Lymphocyte % 20.9 % (19-41); Mean Corp Hgb Conc 31.1 g/dL (32-36); Mean Corpuscular Volume 96.4 fL (81-99); Monocyte# 0.52 X10^3/uL; Monocyte% 7.2 % (0-10); NRBC Flagged by Analyzer 0 % (0-5); Neutrophil # 4.98 X10^3/uL (2.7-7.7); Neutrophil % 69.3 % (47-70); Platelet Count 162 K/mm3 (150-450); Red Blood Count 5.24 M/mm3 (4.2-5.4); White Blood Count 7.2 K/mm3 (4.4-11.0)
[2020-08-10 15:58] LABS: ALB/GLOB Ratio 1.1 RATIO (0.9-2.4); AST(SGOT) 30 U/L (15-37); Alanine Aminotransfer ALT/SGPT 53 U/L (13-56); Albumin, Serum 3.5 g/dL (3.2-5.0); Alkaline Phosphatase 113 U/L (45-117); Anion Gap 6 (5-15); BUN 10 mg/dL (7-18); Calcium,Total 9.3 mg/dL (8.5-10.1); Chloride 106 mmol/L (98-107); Creatinine, Serum 0.72 mg/dL (0.55-1.02); EST Glomerular Filtration Rate 85 mL/min (>60); Est Glom Filt Rate - Afr Amer 103 mL/min (>60); Globulin 3.3 g/dL (2.2-4.2); Glucose 80 mg/dL (74-106); Potassium 3.5 mmol/L (3.5-5.1); Protein, Total 6.8 g/dL (6.4-8.2); Sodium Level 141 mmol/L (136-145)
== END ==
PROVIDERS: PCP Family Medicine Geriatric Medicine; Referring Provider Internal Medicine Rheumatology; Visit Provider Internal Medicine Rheumatology
DX: M06.4 Inflammatory polyarthropathy (principal); M79.7 Fibromyalgia; M35.00 Sjogren syndrome, unspecified; M25.561 Pain in right knee; M17.0 Bilateral primary osteoarthritis of knee; M18.0 Bilateral primary osteoarthritis of first carpometacarpal joints; M65.341 Trigger finger, right ring finger; M72.0 Palmar fascial fibromatosis [Dupuytren]; H35.30 Unspecified macular degeneration; M50.30 Other cervical disc degeneration, unspecified cervical region; G47.33 Obstructive sleep apnea (adult) (pediatric); R51.9 Headache, unspecified; Z79.899 Other long term (current) drug therapy
CPT/HCPCS: 36415; 80053; 85025

== ENCOUNTER → 2020-09-05 14:41 | Outpatient (CLI) | payer MEDICARE, SELFPAY ==
[2020-05-21 14:23] VITALS: BMI 29.2
[2020-09-05 17:54] LABS: Absolute Lymphocyte Count 1.65 X10^3/uL (0.83-4.51); Absolute Neutrophil Count 3.3 X10^3/uL (2.0-7.7); Basophil# 0.02 X10^3/uL; Basophil% 0.4 % (0-1); Eosinophil# 0.09 X10^3/uL; Eosinophils% 1.6 % (0-5); Hematocrit 48.7 % (37-47); Hemoglobin 15.4 g/dL (12.0-15.0); Lymphocyte # 1.65 X10^3/ul (4.0); Lymphocyte % 29.4 % (19-41); Mean Corp Hgb Conc 31.6 g/dL (32-36); Mean Corpuscular Hgb 30.3 pg (27.0-32.0); Mean Corpuscular Volume 95.9 fL (81-99); Mean Platelet Vol. 11.5 fl (6.2-12.0); Monocyte# 0.51 X10^3/uL; Monocyte% 9.1 % (0-10); NRBC Flagged by Analyzer 0 % (0-5); Neutrophil % 58.8 % (47-70); Platelet Count 213 K/mm3 (150-450); RBC Distribution Width CV 13.9 % (11.6-14.6); RBC Distribution Width SD 48.8 fl (35.1-43.9); Red Blood Count 5.08 M/mm3 (4.2-5.4); White Blood Count 5.6 K/mm3 (4.4-11.0)
[2020-09-05 18:09] LABS: Erythrocyte Sedimentation Rate 3 mm/hr (0-30)
[2020-09-05 18:12] LABS: Vitamin D,25 Hydroxy 26.6 ng/mL
[2020-09-05 18:27] LABS: AST(SGOT) 33 U/L (15-37); Alanine Aminotransfer ALT/SGPT 38 U/L (13-56); Albumin, Serum 3.4 g/dL (3.2-5.0); Alkaline Phosphatase 138 U/L (45-117); Anion Gap 6 (5-15); BUN 12 mg/dL (7-18); BUN/Creat Ratio 16.7 RATIO (10-20); CRP < 2.90 mg/L (0.0-3.0); Chloride 110 mmol/L (98-107); Creatinine, Serum 0.72 mg/dL (0.55-1.02); EST Glomerular Filtration Rate 85 mL/min (>60); Est Glom Filt Rate - Afr Amer 102 mL/min (>60); Globulin 3.3 g/dL (2.2-4.2); Glucose 99 mg/dL (74-106); Potassium 3.6 mmol/L (3.5-5.1); Protein, Total 6.7 g/dL (6.4-8.2); Sodium Level 142 mmol/L (136-145); Thyroid Stim Hormone (TSH) 0.65 uIU/mL (0.358-3.74)
== END ==
PROVIDERS: PCP Family Medicine Geriatric Medicine; Visit Provider Family Medicine Geriatric Medicine
DX: M10.9 Gout, unspecified (principal); E55.9 Vitamin D deficiency, unspecified; R53.83 Other fatigue; G50.0 Trigeminal neuralgia
CPT/HCPCS: 80053; 82306; 84443; 84550; 85025; 85652; 86140

== ENCOUNTER 2020-10-12 10:30 | Outpatient (RCR) | payer MEDICARE, SELFPAY ==
[2020-05-21 14:23] VITALS: BMI 29.2
--- NOTE | 2020-09-14 12:23 | HP.OTEVAL_ITS ---
Patient's Visit Information KRIS JOHN is a 69 year old F, referred to Occupational Therapy by Dr. Tony Sethi MD, with a diagnosis of left unilateral primary osteoarthritis of 1st carpometacarpal joint. Date of Evaluation: 09/14/20 Occupational Therapist: Caroline Bryson, ELSA/Sohail, CHT - Subjective This 69 year old female was seen for OT eval with dx with unilateral primary osteoarthritis of 1st carpometacarpal joint left hand. Pt underwent a left CMC arthroplasty 2020. pt is currently 4 weeks s/p. pt arrives with orthoplast thumb spica. she reports she is wearing it at all times. pt states she is limited with all ADls and IADLs at this time. Pt also states she watched her grandchild who is 4. pt is hopeful she will return to perform ALDs and IADls at IND. level - Pain left hand 4 Pain Intensity Range: 0, 4 - Objective Concerns: pt demo with hyperextension of left MP with general finger motion- therapist ed. pt on not to allow for MP hyperextions and reasoning behind- pt demo. understanding - ROM Wrist: left 50/ 25 right 65/55 CMC: left 15 right 20 MP: left 25 right 45 IP: left 70 right 60 Radial Abduction: left 40 right 40 - Strength Associate Creative Director: left NT right 35# Lateral Pinch: left NT right 10# Tripod Pinch: left NT right 10# Strength Comments: pts right grants director and pinch strength will be tested at later date - Sensation Sensation Comments: denies - Quick DASH-Disab of Arm,Shoulder& Hand Quick DASH Score: 34.0900 - Goals Goal:100% adherence to protocol: Yes Comment: Dr. Bright 1st CMC arthroplasty protocol Goal:Daily scar massage when approriate: Yes Goal:ROM equal to unaffected hand: Yes Goal:Associate Creative Director/Pinch strength at least 75% of unaffected hand: Yes Comment: not initiated until s/p week 10 Goal:No pain with affected hand use: Yes Goal:Full use of affected hand in daily activities including: Yes Goal:Decrease scar hypersensitivity: Yes Other Goal: pt demo understanding of joint protection and ad. devices for ADLs and IADLs. - Rehabilitation General Assessment: Pt arrives 4 weeks s/p from Dr. Bright 1st CMC arthroplasty with FCR tendon interposition and 1st dorsal compartment tenosynovectomy, partial trapezoid excision and endoscopic CTR,DOS 08/17/20 . pt demo with good ROM, pain with increase activity and limited with progression due to healing structures. pt would benefit from skilled OT services 1x week for 8 week to assist pt in following Dr. Turner, and increasing pts ROM and strength to return to PLOF with ADLs and IADLs. Today therapist ed. pt on week 4 protocol, begin MP and IP thumb flex and extension with cmc supported. Pt tends to hyperextend at MP- therapsit ed. pt on not to allow for hyperextension. pt demo understanding and agree to POC. therapist will follow orders of no carpometacarpal moiton follow prot op protocol Rehabilitation Potential: Excellent - Anticipated Interventions A/AAROM/PROM, Strengthening, Scar Care, Triggerpoint Release, Modalities, Orthoses, Joint Protection/Energy Conservation, Ergonomic Education - Visit Plan Frequency: 1x/Week Duration: 6 Weeks General Plan: WEEK 4- being MP and IP thumb Flexion and extension WITH CMC SUPPORTED. Ok for full wrist AROM. WEEK 6- begin gentle thumb CMC ROM. PROM of wrist. Prefabricated hand-based thumb orthosis of pts. choice for daytime. Begin retraining of stable thumb CMC position. week 7 - 20-30 degrees of MP flexion is adequate. Dr. Bright does NOT want hyperextension at the MP. If the is less than 20-30* of MP flexion, can begin gentle PROM of MP flexion ONLY SUPPORTING the CMC. week 10 if pt is progressing with finger and wrist motion and can demonstrate ability to maintain a stable thumb, may begin hand strengthening. if thumb stability is not achieved at this time, HOLD strengthening until 12 weeks. all strengthening is to be performed as tolerated and pain free TEXT: Thank you for the opportunity to evaluate your patient. For Medicare and Medicare HMO plans, please review the plan of care and approve it. It will need to be FAXED BACK to us at [phone] for Medicare purposes. Please let me know if there are questions or concerns regarding this plan of care. Physician Signature: Date:
--- NOTE | 2020-10-12 11:08 | HP.OTDCSUM_ITS ---
It has been my pleasure to treat KRIS JOHN under orders from Dr. Tony Sethi MD, for the diagnosis of left unilateral primary osteoarthritis of 1st carpometacarpal joint for a total of 4 visit(s). Please see the following information for a summary of their discharge status. % Improvement: 90 Objective/Function: right strength 37#. left assembler piano strength 30#. left lateral pinch 4#. left tripod pinch 5#. left wrist ROM 60/55. left CMC 25. left MP 25. left IP 75. pt has been ed. thumb postures and continues to demo with t humb instability ( MP hyper-ext with grasps) pt has been ed. to avoid such postures- she was given HEP of thumb stabilization exercises- ed. to use supportive thumb brace with heavy tasks. pt demo understanding and agree to HEP for D/C Patient Goals: Regain Mobility, Decrease Pain, Use Hand/Wrist/Arm Normally Again Goal:100% adherence to protocol: Yes Goal:Daily scar massage when approriate: Yes Goal:ROM equal to unaffected hand: Yes Goal:[place]man/Pinch strength at least 75% of unaffected hand: Yes Goal:No pain with affected hand use: Yes Goal:Full use of affected hand in daily activities including: Yes Goal:Decrease scar hypersensitivity: Yes Other Goal: pt demo understanding of joint protection and ad. devices for ADLs and IADLs. Plan: cont with CMC protocol Discharge Comments: pt is reporting 90% IND with ADLs and IADLs and would like D/C with HEP. please see above for detains on pts ROM and strength If there are questions or concerns regarding this patient's occupational therapy, please fell free to call me at [phone]. Thank you for the referral of this patient. Sincerely, Caroline Bryson, OTR/L, CHT
== END 2020-10-12 19:00 | disposition home or self-care (01) ==
LOC: OT 10:30
PROVIDERS: PCP Family Medicine Geriatric Medicine; Referring Provider Family Medicine Geriatric Medicine; Visit Provider Family Medicine Geriatric Medicine
DX: M18.12 Unilateral primary osteoarthritis of first carpometacarpal joint, left hand (principal); G56.02 Carpal tunnel syndrome, left upper limb
CPT/HCPCS: 97110; 97140; 97166; 97530

== ENCOUNTER → 2020-11-02 12:11 | Outpatient (CLI) | payer MEDICARE, SELFPAY ==
[2020-05-21 14:23] VITALS: BMI 29.2
[2020-11-02 13:17] LABS: Absolute Lymphocyte Count 1.63 X10^3/uL (0.83-4.51); Absolute Neutrophil Count 3.8 X10^3/uL (2.0-7.7); Basophil# 0.02 X10^3/uL; Basophil% 0.3 % (0-1); Eosinophil# 0.19 X10^3/uL; Lymphocyte # 1.63 X10^3/ul (0.83-4.51); Lymphocyte % 25.8 % (19-41); Mean Corp Hgb Conc 31.9 g/dL (32-36); Mean Corpuscular Hgb 30.2 pg (27.0-32.0); Mean Corpuscular Volume 94.8 fL (81-99); Monocyte# 0.64 X10^3/uL; Monocyte% 10.1 % (0-10); NRBC Flagged by Analyzer 0 % (0-5); Neutrophil # 3.82 X10^3/uL (2.7-7.7); Neutrophil % 60.5 % (47-70); Platelet Count 181 K/mm3 (150-450); RBC Distribution Width CV 13.2 % (11.6-14.6); RBC Distribution Width SD 46.3 fl (35.1-43.9); Red Blood Count 4.96 M/mm3 (4.2-5.4); White Blood Count 6.3 K/mm3 (4.4-11.0)
[2020-11-02 13:44] LABS: ALB/GLOB Ratio 1.2 RATIO (0.9-2.4); AST(SGOT) 29 U/L (15-37); Alanine Aminotransfer ALT/SGPT 36 U/L (13-56); Albumin, Serum 3.7 g/dL (3.2-5.0); Alkaline Phosphatase 107 U/L (45-117); BUN 12 mg/dL (7-18); BUN/Creat Ratio 17.4 RATIO (10-20); Calcium,Total 9.3 mg/dL (8.5-10.1); Chloride 107 mmol/L (98-107); Creatinine, Serum 0.69 mg/dL (0.55-1.02); EST Glomerular Filtration Rate 89 mL/min (>60); Est Glom Filt Rate - Afr Amer 108 mL/min (>60); Globulin 3.1 g/dL (2.2-4.2); Glucose 90 mg/dL (74-106); Potassium 3.8 mmol/L (3.5-5.1); Protein, Total 6.8 g/dL (6.4-8.2); Sodium Level 141 mmol/L (136-145)
[2020-11-02 13:45] LABS: Anion Gap 0 (5-15)
== END ==
PROVIDERS: PCP Family Medicine Geriatric Medicine; Referring Provider Internal Medicine Rheumatology; Visit Provider Internal Medicine Rheumatology
DX: M06.4 Inflammatory polyarthropathy (principal); M79.7 Fibromyalgia; M35.00 Sjogren syndrome, unspecified; M25.561 Pain in right knee; M17.0 Bilateral primary osteoarthritis of knee; M18.0 Bilateral primary osteoarthritis of first carpometacarpal joints; M65.341 Trigger finger, right ring finger; M72.0 Palmar fascial fibromatosis [Dupuytren]; H35.30 Unspecified macular degeneration; M50.30 Other cervical disc degeneration, unspecified cervical region; G47.33 Obstructive sleep apnea (adult) (pediatric); R51.9 Headache, unspecified; Z79.899 Other long term (current) drug therapy
CPT/HCPCS: 36415; 80053; 85025

== ENCOUNTER → 2020-12-14 12:00 | Outpatient (CLI) | payer MEDICARE, SELFPAY ==
[2020-11-28 12:43] VITALS: BMI 29.8
--- NOTE | 2020-12-14 12:02 | BI_ITS ---
MAMMOGRAPHY - BILATERAL SCREENING REASON FOR EXAM: Female, 70 years old. Routine annual screening examination. PERTINENT HISTORY: Non-contributory. History of prior bilateral breast reduction surgery and left ultrasound-guided breast biopsy. TECHNIQUE: Digital bilateral breast lul (3D mammographic acquisition) in the CC and MLO projections. 2-D mediolateral oblique (MLO) and craniocaudad (CC) views of both breasts were obtained. CAD: Full Field Digital Mammography with Computer Added Detection was performed. COMPARISON: Comparison is made with prior examination dated 12/13/2019 and 12/09/2018. FINDINGS: Breast Composition: The breasts are almost entirely fatty. There are no dominant masses or suspicious calcifications. Stable calcified nodules in both breasts. Stable appearance of the bilateral axillary lymph nodes. No other significant abnormalities are identified. There has been no significant change since the prior study. BI/SCRN MAMM (CAD)W/LUL BILAT IMPRESSION: Stable bilateral screening mammogram. Yearly follow-up mammogram recommended. (A) ASSESSMENT CATEGORY: BIRADS Category 2: Benign. A letter regarding these results will be sent to the patient by the facility within 30 days. Approximately 10% of breast cancers are not detected by mammography. A normal mammogram should not delay biopsy of a clinically suspicious abnormality. [id number] Electronically Signed: Markos Purdy MD at 13:08 EDT , Service support ,
== END ==
PROVIDERS: PCP Family Medicine Geriatric Medicine; Referring Provider Family Medicine Geriatric Medicine; Visit Provider Family Medicine Geriatric Medicine
DX: Z12.31 Encounter for screening mammogram for malignant neoplasm of breast (principal)
CPT/HCPCS: 77063; 77067

== ENCOUNTER → 2020-12-21 14:04 | Outpatient (CLI) | payer MEDICARE, SELFPAY ==
[2020-11-28 12:43] VITALS: BMI 29.8
== END ==
PROVIDERS: PCP Family Medicine Geriatric Medicine; Referring Provider Family Medicine Geriatric Medicine; Visit Provider Family Medicine Geriatric Medicine
DX: R68.83 Chills (without fever) (principal)
CPT/HCPCS: 87635; C9803; U0005; U0003

== ENCOUNTER → 2020-12-26 10:40 | Outpatient (CLI) | payer MEDICARE, SELFPAY ==
[2020-11-28 12:43] VITALS: BMI 29.8
--- NOTE | 2020-12-26 10:50 | EKG12_ITS ---
Test Reason : PREOP Blood Pressure : / mmHG Vent. Rate : 073 BPM Atrial Rate : 073 BPM P-R Int : 188 ms QRS Dur : 100 ms QT Int : 436 ms P-R-T Axes : 113 -47 021 degrees QTc Int : 480 ms Normal sinus rhythm Left axis deviation Nonspecific T wave abnormality Abnormal ECG Confirmed by ARTEMIO ALBERT, PURVI ([id number]), marketing editor JULIA OCONNOR ([id number]) on 12/28/2020 8:07:19 AM Referred By: Sukhjinder Peacock Confirmed By:PURVI ULLOA MD
[2020-12-26 11:31] LABS: Hematocrit 45.2 % (37-47); Hemoglobin 14.9 g/dL (12.0-15.0); Mean Corpuscular Hgb 30.3 pg (27.0-32.0); Mean Corpuscular Volume 92.1 fL (81-99); Mean Platelet Vol. 9.7 fl (6.2-12.0); Platelet Count 223 K/mm3 (150-450); RBC Distribution Width CV 13.4 % (11.6-14.6); RBC Distribution Width SD 45.7 fl (35.1-43.9); Red Blood Count 4.91 M/mm3 (4.2-5.4); White Blood Count 7.1 K/mm3 (4.4-11.0)
[2020-12-26 11:54] LABS: Anion Gap 8 (5-15); BUN 15 mg/dL (7-18); BUN/Creat Ratio 18.6 RATIO (10-20); Chloride 105 mmol/L (98-107); Creatinine, Serum 0.81 mg/dL (0.55-1.02); EST Glomerular Filtration Rate 74 mL/min (>60); Est Glom Filt Rate - Afr Amer 90 mL/min (>60); Glucose 109 mg/dL (74-106); Potassium 3.6 mmol/L (3.5-5.1); Sodium Level 141 mmol/L (136-145)
== END ==
PROVIDERS: PCP Family Medicine Geriatric Medicine; Referring Provider Physician Assistant; Visit Provider Physician Assistant
DX: Z01.818 Encounter for other preprocedural examination (principal); Z01.810 Encounter for preprocedural cardiovascular examination; R94.31 Abnormal electrocardiogram [ECG] [EKG]
CPT/HCPCS: 36415; 80048; 85027; 93005

== ENCOUNTER → 2021-02-04 12:39 | Outpatient (CLI) | payer MEDICARE, SELFPAY ==
[2020-11-28 12:43] VITALS: BMI 29.8
[2021-02-04 13:38] LABS: Absolute Lymphocyte Count 1.41 X10^3/uL (0.83-4.51); Absolute Neutrophil Count 2.9 X10^3/uL (2.0-7.7); Basophil# 0.01 X10^3/uL; Basophil% 0.2 % (0-1); Hematocrit 44.3 % (37-47); Hemoglobin 14.5 g/dL (12.0-15.0); Lymphocyte # 1.41 X10^3/ul (0.83-4.51); Lymphocyte % 27.9 % (19-41); Mean Corp Hgb Conc 32.7 g/dL (32-36); Mean Corpuscular Hgb 30.3 pg (27.0-32.0); Mean Corpuscular Volume 92.5 fL (81-99); Mean Platelet Vol. 10.7 fl (6.2-12.0); Monocyte# 0.53 X10^3/uL; Monocyte% 10.5 % (0-10); NRBC Flagged by Analyzer 0 % (0-5); Neutrophil # 2.89 X10^3/uL (2.7-7.7); Platelet Count 180 K/mm3 (150-450); RBC Distribution Width CV 14.2 % (11.6-14.6); RBC Distribution Width SD 48.2 fl (35.1-43.9); Red Blood Count 4.79 M/mm3 (4.2-5.4); White Blood Count 5.1 K/mm3 (4.4-11.0)
[2021-02-04 14:09] LABS: ALB/GLOB Ratio 1.2 RATIO (0.9-2.4); AST(SGOT) 28 U/L (15-37); Alanine Aminotransfer ALT/SGPT 25 U/L (13-56); Albumin, Serum 3.7 g/dL (3.2-5.0); Alkaline Phosphatase 107 U/L (45-117); Anion Gap 7 (5-15); BUN 12 mg/dL (7-18); BUN/Creat Ratio 17.2 RATIO (10-20); Calcium,Total 9.4 mg/dL (8.5-10.1); Chloride 107 mmol/L (98-107); EST Glomerular Filtration Rate 88 mL/min (>60); Est Glom Filt Rate - Afr Amer 106 mL/min (>60); Globulin 3.1 g/dL (2.2-4.2); Glucose 104 mg/dL (74-106); Potassium 3.4 mmol/L (3.5-5.1); Protein, Total 6.8 g/dL (6.4-8.2); Sodium Level 141 mmol/L (136-145)
== END ==
PROVIDERS: PCP Family Medicine Geriatric Medicine; Referring Provider Internal Medicine Rheumatology; Visit Provider Internal Medicine Rheumatology
DX: M06.4 Inflammatory polyarthropathy (principal); M79.7 Fibromyalgia; M35.00 Sjogren syndrome, unspecified; M17.0 Bilateral primary osteoarthritis of knee; M18.0 Bilateral primary osteoarthritis of first carpometacarpal joints; M65.341 Trigger finger, right ring finger; M72.0 Palmar fascial fibromatosis [Dupuytren]; H35.30 Unspecified macular degeneration; M50.30 Other cervical disc degeneration, unspecified cervical region; G47.33 Obstructive sleep apnea (adult) (pediatric); R51.9 Headache, unspecified; Z79.899 Other long term (current) drug therapy
CPT/HCPCS: 36415; 80053; 85025

== ENCOUNTER → 2021-03-06 11:37 | Outpatient (CLI) | payer MEDICARE, SELFPAY ==
[2021-03-06 12:53] LABS: Absolute Lymphocyte Count 1.47 X10^3/uL (0.83-4.51); Absolute Neutrophil Count 2.8 X10^3/uL (2.0-7.7); Basophil# 0.01 X10^3/uL; Basophil% 0.2 % (0-1); Eosinophil# 0.23 X10^3/uL; Eosinophils% 4.5 % (0-5); Hematocrit 44.4 % (37-47); Hemoglobin 14.3 g/dL (12.0-15.0); Lymphocyte # 1.47 X10^3/ul (0.83-4.51); Lymphocyte % 28.6 % (19-41); Mean Corp Hgb Conc 32.2 g/dL (32-36); Mean Corpuscular Hgb 30.6 pg (27.0-32.0); Mean Corpuscular Volume 94.9 fL (81-99); Mean Platelet Vol. 10.8 fl (6.2-12.0); Monocyte# 0.59 X10^3/uL; Monocyte% 11.5 % (0-10); NRBC Flagged by Analyzer 0 % (0-5); Neutrophil # 2.82 X10^3/uL (2.7-7.7); Neutrophil % 54.8 % (47-70); Platelet Count 169 K/mm3 (150-450); RBC Distribution Width CV 14.6 % (11.6-14.6); RBC Distribution Width SD 50.1 fl (35.1-43.9); Red Blood Count 4.68 M/mm3 (4.2-5.4); White Blood Count 5.1 K/mm3 (4.4-11.0)
[2021-03-06 13:23] LABS: Vitamin D,25 Hydroxy 49.6 ng/mL
[2021-03-06 13:30] LABS: ALB/GLOB Ratio 1.1 RATIO (0.9-2.4); AST(SGOT) 28 U/L (15-37); Alanine Aminotransfer ALT/SGPT 35 U/L (13-56); Albumin, Serum 3.6 g/dL (3.2-5.0); Alkaline Phosphatase 128 U/L (45-117); Anion Gap 9 (5-15); BUN 13 mg/dL (7-18); BUN/Creat Ratio 18.6 RATIO (10-20); Chloride 107 mmol/L (98-107); EST Glomerular Filtration Rate 88 mL/min (>60); Est Glom Filt Rate - Afr Amer 106 mL/min (>60); Globulin 3.2 g/dL (2.2-4.2); Glucose 96 mg/dL (74-106); Potassium 4.1 mmol/L (3.5-5.1); Protein, Total 6.8 g/dL (6.4-8.2); Sodium Level 142 mmol/L (136-145); Thyroid Stim Hormone (TSH) 0.81 uIU/mL (0.358-3.74); Uric Acid 6.4 mg/dL (2.6-6.0)
== END ==
PROVIDERS: PCP Family Medicine Geriatric Medicine; Visit Provider Family Medicine Geriatric Medicine
DX: E55.9 Vitamin D deficiency, unspecified (principal); M10.9 Gout, unspecified; R53.83 Other fatigue
CPT/HCPCS: 36415; 80053; 82306; 84443; 84550; 85025

== ENCOUNTER → 2021-04-01 12:21 | Outpatient (CLI) | payer MEDICARE, SELFPAY ==
[2021-04-01 13:56] LABS: Absolute Neutrophil Count 3.8 X10^3/uL (2.0-7.7); Basophil# 0.01 X10^3/uL; Basophil% 0.2 % (0-1); Eosinophil# 0.12 X10^3/uL; Eosinophils% 1.9 % (0-5); Hematocrit 43.6 % (37-47); Hemoglobin 14.2 g/dL (12.0-15.0); Lymphocyte % 30.7 % (19-41); Mean Corp Hgb Conc 32.6 g/dL (32-36); Mean Corpuscular Hgb 31.1 pg (27.0-32.0); Mean Corpuscular Volume 95.6 fL (81-99); Monocyte# 0.37 X10^3/uL; NRBC Flagged by Analyzer 0 % (0-5); Neutrophil # 3.75 X10^3/uL (2.7-7.7); Neutrophil % 60.7 % (47-70); Platelet Count 172 K/mm3 (150-450); RBC Distribution Width CV 13.8 % (11.6-14.6); RBC Distribution Width SD 48.5 fl (35.1-43.9); Red Blood Count 4.56 M/mm3 (4.2-5.4); White Blood Count 6.2 K/mm3 (4.4-11.0)
[2021-04-01 14:29] LABS: AST(SGOT) 22 U/L (15-37); Alanine Aminotransfer ALT/SGPT 34 U/L (13-56); Albumin, Serum 3.4 g/dL (3.2-5.0); Alkaline Phosphatase 111 U/L (45-117); Anion Gap 7 (5-15); BUN 14 mg/dL (7-18); Calcium,Total 9.1 mg/dL (8.5-10.1); Chloride 109 mmol/L (98-107); Creatinine, Serum 0.67 mg/dL (0.55-1.02); EST Glomerular Filtration Rate 93 mL/min (>60); Est Glom Filt Rate - Afr Amer 112 mL/min (>60); Globulin 3.4 g/dL (2.2-4.2); Glucose 82 mg/dL (74-106); Potassium 3.6 mmol/L (3.5-5.1); Protein, Total 6.8 g/dL (6.4-8.2); Sodium Level 142 mmol/L (136-145)
[2021-04-05 05:07] LABS: QNTFERON TB Mitogen Value > 10.00 IU/mL (.); QNTFERON TB Nil Value 0.08 IU/mL (.); QNTFERON TB1+ Ag Value 0.09 IU/mL (.); QNTFERON TB2+ Ag Value 0.05 IU/mL (.)
[2021-04-05 08:35] LABS: QNTIFERON TB Positive Criteria Negative (Negative)
== END ==
PROVIDERS: PCP Family Medicine Geriatric Medicine; Referring Provider Internal Medicine Rheumatology; Visit Provider Internal Medicine Rheumatology
DX: M06.4 Inflammatory polyarthropathy (principal); M79.7 Fibromyalgia; M35.00 Sjogren syndrome, unspecified; M17.0 Bilateral primary osteoarthritis of knee; M18.0 Bilateral primary osteoarthritis of first carpometacarpal joints; M65.341 Trigger finger, right ring finger; M72.0 Palmar fascial fibromatosis [Dupuytren]; M50.30 Other cervical disc degeneration, unspecified cervical region; H35.30 Unspecified macular degeneration; G47.33 Obstructive sleep apnea (adult) (pediatric); R51.9 Headache, unspecified; Z79.899 Other long term (current) drug therapy
CPT/HCPCS: 36415; 80053; 85025; 86480

== ENCOUNTER → 2021-06-17 08:28 | Outpatient (CLI) | payer MEDICARE, SELFPAY ==
[2021-06-17 09:10] LABS: Hemoglobin 14.8 g/dL (12.0-15.0); Mean Corp Hgb Conc 32.9 g/dL (32-36); Mean Corpuscular Hgb 31.4 pg (27.0-32.0); Mean Corpuscular Volume 95.3 fL (81-99); Mean Platelet Vol. 9.5 fl (6.2-12.0); POSITIVE COUNT YES; POSITIVE MORPHOLOGY YES; Platelet Count 212 K/mm3 (150-450); RBC Distribution Width CV 14.3 % (11.6-14.6); RBC Distribution Width SD 50.1 fl (35.1-43.9); Red Blood Count 4.72 M/mm3 (4.2-5.4); White Blood Count 8.6 K/mm3 (4.4-11.0)
[2021-06-17 09:11] LABS: Differential Indicated MANUAL DIFF
[2021-06-17 09:50] LABS: ALB/GLOB Ratio 0.7 RATIO (0.9-2.4); AST(SGOT) 28 U/L (15-37); Alanine Aminotransfer ALT/SGPT 80 U/L (13-56); Albumin, Serum 2.7 g/dL (3.2-5.0); Alkaline Phosphatase 136 U/L (45-117); Anion Gap 4 (5-15); BUN 15 mg/dL (7-18); BUN/Creat Ratio 23.7 RATIO (10-20); Calcium,Total 9.3 mg/dL (8.5-10.1); Chloride 108 mmol/L (98-107); Creatinine, Serum 0.63 mg/dL (0.55-1.02); EST Glomerular Filtration Rate 98 mL/min (>60); Est Glom Filt Rate - Afr Amer 119 mL/min (>60); Glucose 107 mg/dL (74-106); Potassium 3.9 mmol/L (3.5-5.1); Protein, Total 6.7 g/dL (6.4-8.2); Sodium Level 138 mmol/L (136-145)
[2021-06-17 09:53] LABS: Eosinophil 2 % (0-5); Lymphocyte 28 % (19-41); Metamyelocyte 1 % (0-1); Monocyte 7 % (0-10); Myelocyte 2 % (0-0); Neutrophil-Segmented 60 % (47-70); Platelet Estimate ADEQUATE (ADEQ); Red Cell Morphology NORM C+C NORMAL (NORM C&C); Total Cells Counted 100 (MANUAL DIFF)
[2021-06-17 09:54] LABS: Absolute Neutrophil Count 5.2 X10^3/uL (2.0-7.7)
[2021-06-17 15:52] LABS: Pathologist Review Reviewed
== END ==
PROVIDERS: PCP Family Medicine Geriatric Medicine; Referring Provider Internal Medicine Rheumatology; Visit Provider Internal Medicine Rheumatology
DX: M06.4 Inflammatory polyarthropathy (principal); M79.7 Fibromyalgia; M35.00 Sjogren syndrome, unspecified; M17.0 Bilateral primary osteoarthritis of knee; M18.0 Bilateral primary osteoarthritis of first carpometacarpal joints; M65.341 Trigger finger, right ring finger; M72.0 Palmar fascial fibromatosis [Dupuytren]; H35.3130 Nonexudative age-related macular degeneration, bilateral, stage unspecified; M50.30 Other cervical disc degeneration, unspecified cervical region; G47.33 Obstructive sleep apnea (adult) (pediatric); R51.9 Headache, unspecified; H43.813 Vitreous degeneration, bilateral; Z79.899 Other long term (current) drug therapy
CPT/HCPCS: 36415; 80053; 85025

== ENCOUNTER → 2021-07-04 14:01 | Outpatient (CLI) | payer MEDICARE, SELFPAY ==
[2021-07-04 15:28] LABS: Vitamin B12 389 pg/mL (211-911)
[2021-07-04 17:05] LABS: Folates, (Folic Acid) > 100.00 ng/mL (3.1-55.4)
== END ==
PROVIDERS: PCP Family Medicine Geriatric Medicine; Referring Provider Internal Medicine Rheumatology; Visit Provider Internal Medicine Rheumatology
DX: M06.4 Inflammatory polyarthropathy (principal); M79.7 Fibromyalgia; M35.00 Sjogren syndrome, unspecified; M17.0 Bilateral primary osteoarthritis of knee; M18.0 Bilateral primary osteoarthritis of first carpometacarpal joints; M65.341 Trigger finger, right ring finger; M72.0 Palmar fascial fibromatosis [Dupuytren]; H35.3130 Nonexudative age-related macular degeneration, bilateral, stage unspecified; H43.813 Vitreous degeneration, bilateral; M50.30 Other cervical disc degeneration, unspecified cervical region; G47.33 Obstructive sleep apnea (adult) (pediatric); R51.9 Headache, unspecified; Z96.652 Presence of left artificial knee joint; Z79.899 Other long term (current) drug therapy
CPT/HCPCS: 36415; 82607; 82746

== ENCOUNTER → 2021-07-10 12:07 | Outpatient (CLI) | payer MEDICARE, SELFPAY ==
[2021-07-10 13:03] LABS: AST(SGOT) 26 U/L (15-37); Alanine Aminotransfer ALT/SGPT 42 U/L (13-56); Albumin, Serum 3.8 g/dL (3.2-5.0); Alkaline Phosphatase 121 U/L (45-117); Anion Gap 10 (5-15); BUN 16 mg/dL (7-18); BUN/Creat Ratio 21.1 RATIO (10-20); Calcium,Total 9.7 mg/dL (8.5-10.1); Chloride 105 mmol/L (98-107); Creatinine, Serum 0.76 mg/dL (0.55-1.02); EST Glomerular Filtration Rate 80 mL/min (>60); Est Glom Filt Rate - Afr Amer 96 mL/min (>60); Globulin 3.7 g/dL (2.2-4.2); Glucose 98 mg/dL (74-106); Protein, Total 7.5 g/dL (6.4-8.2); Sodium Level 141 mmol/L (136-145)
== END ==
PROVIDERS: PCP Family Medicine Geriatric Medicine; Referring Provider Internal Medicine Rheumatology; Visit Provider Internal Medicine Rheumatology
DX: M06.4 Inflammatory polyarthropathy (principal); M79.7 Fibromyalgia; M35.00 Sjogren syndrome, unspecified; M17.0 Bilateral primary osteoarthritis of knee; M18.0 Bilateral primary osteoarthritis of first carpometacarpal joints; M65.341 Trigger finger, right ring finger; M72.0 Palmar fascial fibromatosis [Dupuytren]; M50.30 Other cervical disc degeneration, unspecified cervical region; G47.33 Obstructive sleep apnea (adult) (pediatric); H43.813 Vitreous degeneration, bilateral; R51.9 Headache, unspecified; Z79.899 Other long term (current) drug therapy
CPT/HCPCS: 36415; 80053

== ENCOUNTER 2021-08-20 10:19 | Outpatient (CLI) | payer MEDICARE, SELFPAY ==
--- NOTE | 2021-08-20 10:21 | MRI_ITS ---
STUDY: MRI BRAIN WITH AND WITHOUT CONTRAST (ATTENTION INTERNAL AUDITORY CANALS - I.A.C.''s) REASON FOR EXAM: Female, 70 years old. Vertigo TECHNIQUE: Standardized multiplanar fat and water weighted pulse sequences were obtained. IV 17ml Dotarem was administered for the contrast portion of the examination. COMPARISON: None. FINDINGS: Normal bilateral temporal bones. Normal bilateral internal auditory canals. There is no demonstrated intracanalicular or cisternal vestibular schwannoma (acoustic neuroma). There is no enhancement of the bilateral VIIth or VIIIth cranial nerves. Normal bilateral cochlea, vestibules and semicircular canals. There is mild cerebral atrophy with widening of the extra-axial spaces and ventricular dilatation. There are a limited number of small white matter hyperintensities, distributed throughout the deep white matter tracts of the cerebral hemispheres, consistent with mild chronic white matter ischemic changes. There is no evidence for recent intracranial ischemia or other cause of cytotoxic edema on diffusion weighted imaging (DWI). Normal bilateral basal ganglia. Normal thalami. Normal flow voids within the major intracranial circulation suggesting patency by spin echo criteria. Normal venous enhancement. There is no enhancing intra-axial or extra-axial abnormality. There is no extra-axial fluid accumulation. Normal sella turcica, pituitary gland, infundibular stalk, optic chiasm and hypothalamus. Normal tectal plate and pineal gland. There are chronic white matter ischemic changes of the renee. The midbrain and medulla are otherwise normal. Normal cerebellum. Normal basal cisterns. There are bilateral ocular lens implants with otherwise normal intraorbital contents. Normal visualized paranasal sinuses. Normal calvarium and skull base. Normal visualized soft tissue structures. Normal visualized upper cervical spine. MRI/Brain W/WO Contrast IMPRESSION: Involutional changes of the brain, as described above. Electronically Signed: Austin Navas MD at 12:45 EST ,
[2021-08-20 11:15] LABS: CREATININE FINGERSTICK < 0.6 mg/dL (0.55-1.02); EGFR FINGERSTICK > 60.0000 mL/min (>60)
== END 2021-08-20 23:59 | disposition short-term general hospital (02) ==
PROVIDERS: PCP Family Medicine Geriatric Medicine; Referring Provider Psychiatry & Neurology Neurology; Visit Provider Psychiatry & Neurology Neurology
DX: R42 Dizziness and giddiness (principal)
CPT/HCPCS: 70553; A9575

== ENCOUNTER 2021-09-12 09:28 | Outpatient (CLI) | payer MEDICARE, SELFPAY ==
[2021-09-12 10:51] LABS: Absolute Lymphocyte Count 2.05 X10^3/uL (0.83-4.51); Absolute Neutrophil Count 4.2 X10^3/uL (2.0-7.7); Basophil# 0.03 X10^3/uL; Basophil% 0.4 % (0-1); Eosinophil# 0.19 X10^3/uL; Eosinophils% 2.7 % (0-5); Hemoglobin 16.9 g/dL (12.0-15.0); Lymphocyte # 2.05 X10^3/ul (0.83-4.51); Lymphocyte % 29.2 % (19-41); Mean Corp Hgb Conc 32.5 g/dL (32-36); Mean Corpuscular Hgb 31.2 pg (27.0-32.0); Mean Corpuscular Volume 96.1 fL (81-99); Mean Platelet Vol. 10.5 fl (6.2-12.0); Monocyte# 0.51 X10^3/uL; Monocyte% 7.3 % (0-10); NRBC Flagged by Analyzer 0 % (0-5); Neutrophil % 59.8 % (47-70); Platelet Count 210 K/mm3 (150-450); RBC Distribution Width CV 13.2 % (11.6-14.6); Red Blood Count 5.41 M/mm3 (4.2-5.4)
[2021-09-12 11:23] LABS: AST(SGOT) 25 U/L (15-37); Alanine Aminotransfer ALT/SGPT 44 U/L (13-56); Albumin, Serum 3.7 g/dL (3.2-5.0); Alkaline Phosphatase 106 U/L (45-117); Anion Gap 3 (5-15); BUN 13 mg/dL (7-18); BUN/Creat Ratio 17.2 RATIO (10-20); Calcium,Total 9.7 mg/dL (8.5-10.1); Chloride 109 mmol/L (98-107); Creatinine, Serum 0.76 mg/dL (0.55-1.02); EST Glomerular Filtration Rate 80 mL/min (>60); Est Glom Filt Rate - Afr Amer 97 mL/min (>60); Globulin 3.6 g/dL (2.2-4.2); Glucose 66 mg/dL (74-106); Potassium 3.7 mmol/L (3.5-5.1); Protein, Total 7.3 g/dL (6.4-8.2); Sodium Level 141 mmol/L (136-145)
== END 2021-09-12 23:59 | disposition home or self-care (01) ==
LOC: LAB 09:31
PROVIDERS: PCP Family Medicine Geriatric Medicine; Referring Provider Internal Medicine Rheumatology; Visit Provider Internal Medicine Rheumatology
DX: M06.4 Inflammatory polyarthropathy (principal); M35.00 Sjogren syndrome, unspecified; M79.7 Fibromyalgia; M17.0 Bilateral primary osteoarthritis of knee; M18.0 Bilateral primary osteoarthritis of first carpometacarpal joints; M65.341 Trigger finger, right ring finger; M72.0 Palmar fascial fibromatosis [Dupuytren]; H35.3130 Nonexudative age-related macular degeneration, bilateral, stage unspecified; M50.30 Other cervical disc degeneration, unspecified cervical region; G47.33 Obstructive sleep apnea (adult) (pediatric); R51.9 Headache, unspecified; H43.813 Vitreous degeneration, bilateral; Z96.652 Presence of left artificial knee joint; Z79.899 Other long term (current) drug therapy
CPT/HCPCS: 36415; 80053; 85025

== ENCOUNTER 2021-09-16 13:09 | Outpatient (CLI) | payer MEDICARE, SELFPAY ==
[2021-09-16 17:21] LABS: Absolute Lymphocyte Count 1.62 X10^3/uL (0.83-4.51); Absolute Neutrophil Count 3.8 X10^3/uL (2.0-7.7); Basophil# 0.02 X10^3/uL; Basophil% 0.3 % (0-1); Eosinophil# 0.11 X10^3/uL; Eosinophils% 1.8 % (0-5); Hematocrit 48.8 % (37-47); Hemoglobin 15.9 g/dL (12.0-15.0); Lymphocyte # 1.62 X10^3/ul (0.83-4.51); Lymphocyte % 26.6 % (19-41); Mean Corp Hgb Conc 32.6 g/dL (32-36); Mean Corpuscular Hgb 30.8 pg (27.0-32.0); Mean Corpuscular Volume 94.6 fL (81-99); Mean Platelet Vol. 10.9 fl (6.2-12.0); Monocyte# 0.56 X10^3/uL; Monocyte% 9.2 % (0-10); NRBC Flagged by Analyzer 0 % (0-5); Neutrophil # 3.76 X10^3/uL (2.7-7.7); Neutrophil % 61.8 % (47-70); Platelet Count 187 K/mm3 (150-450); RBC Distribution Width CV 13.4 % (11.6-14.6); RBC Distribution Width SD 46.5 fl (35.1-43.9); Red Blood Count 5.16 M/mm3 (4.2-5.4); White Blood Count 6.1 K/mm3 (4.4-11.0)
[2021-09-16 17:56] LABS: ALB/GLOB Ratio 1.1 RATIO (0.9-2.4); AST(SGOT) 35 U/L (15-37); Alanine Aminotransfer ALT/SGPT 53 U/L (13-56); Albumin, Serum 3.7 g/dL (3.2-5.0); Alkaline Phosphatase 113 U/L (45-117); Anion Gap 4 (5-15); BUN 12 mg/dL (7-18); BUN/Creat Ratio 14.8 RATIO (10-20); Calcium,Total 9.6 mg/dL (8.5-10.1); Chloride 109 mmol/L (98-107); Creatinine, Serum 0.81 mg/dL (0.55-1.02); EST Glomerular Filtration Rate 74 mL/min (>60); Est Glom Filt Rate - Afr Amer 89 mL/min (>60); Globulin 3.5 g/dL (2.2-4.2); Glucose 88 mg/dL (74-106); Protein, Total 7.2 g/dL (6.4-8.2); Sodium Level 140 mmol/L (136-145); Thyroid Stim Hormone (TSH) 1.11 uIU/mL (0.358-3.74); Uric Acid 4.7 mg/dL (2.6-6.0)
[2021-09-16 18:15] LABS: Vitamin D,25 Hydroxy 26.5 ng/mL
== END 2021-09-16 23:59 | disposition home or self-care (01) ==
LOC: POLAB3 13:11
PROVIDERS: PCP Family Medicine Geriatric Medicine; Visit Provider Family Medicine Geriatric Medicine
DX: E55.9 Vitamin D deficiency, unspecified (principal); M10.9 Gout, unspecified; R53.83 Other fatigue
CPT/HCPCS: 36415; 80053; 82306; 84443; 84550; 85025

== ENCOUNTER 2021-09-21 09:45 | Outpatient (CLI) | payer MEDICARE, SELFPAY ==
--- NOTE | 2021-09-21 10:00 | US_ITS ---
STUDY: ABDOMINAL ULTRASOUND - RIGHT UPPER QUADRANT REASON FOR VISIT: Female, 70 years old RUQ PAIN TECHNIQUE: Ultrasound evaluation of the right upper quadrant was performed with real-time and static choudhury-scale imaging. TECHNICAL QUALITY: Adequate. COMPARISON: CT abdomen and pelvis September 09, 2017 FINDINGS: Liver: The liver measures 17.3 cm. There is an elongated appearance of the left hepatic lobe. There is normal echogenicity of the liver. The bile ducts are within normal limits. There is hepatic color flow. The direction of portal flow is hepatopetal. There is no demonstrated mass lesion. Gallbladder: Normal distended gallbladder. The gallbladder wall measures 1.6 mm. There is a negative sonographic Monson''s sign. There is no pericholecystic fluid. There are no gallstones. Common Bile Duct (C.B.D.): The common bile duct measures 6-8 mm. Pancreas: Not well-visualized due to overlying bowel gas. Right Kidney: Normal size of the right kidney. The right kidney measures 11 x 4.8 x 4.6 cm. Normal renal cortex. The right cortex measures 1.3 cm. There is no demonstrated renal mass or cyst. There is no right hydronephrosis. US/Abdomen Limited IMPRESSION: Distended gallbladder without visualized stones or evidence of cholecystitis. Borderline distention of the common duct. No hydronephrosis. Electronically Signed: Padmaja Mcfarlane MD at 12:44 EST ,
== END 2021-09-21 23:59 | disposition home or self-care (01) ==
LOC: US 09:45
PROVIDERS: PCP Family Medicine Geriatric Medicine; Visit Provider Family Medicine Geriatric Medicine
DX: R10.9 Unspecified abdominal pain (principal)
CPT/HCPCS: 76705

== ENCOUNTER 2021-10-28 14:42 | Outpatient (CLI) | payer MEDICARE, SELFPAY ==
--- NOTE | 2021-10-28 15:00 | RAD_ITS ---
STUDY: X-RAY CHEST REASON FOR EXAM: Female, 71 years old. 2 week history of cough. TECHNIQUE: PA and lateral views of the chest. COMPARISON: None. FINDINGS: There is hyperinflation of the lungs consistent with chronic obstructive lung disease (COPD). There is no demonstrated pleural abnormality. Normal size heart. Normal mediastinum and shady. Normal visualized pulmonary arteries. There is atherosclerotic calcification of the aortic arch with tortuosity. There are diffuse degenerative changes of the visualized thoracic spine. Prior right total shoulder replacement. Prior fusion of the lower cervical spine. There is no demonstrated abnormality of the visualized soft tissue structures of the upper abdomen. RAD/Chest PA and Lateral IMPRESSION: Hyperinflation. The lungs are clear. Electronically Signed: Markos Purdy MD at 14:57 EDT ,
== END 2021-10-28 23:59 | disposition home or self-care (01) ==
LOC: RAD 14:45
PROVIDERS: PCP Family Medicine Geriatric Medicine; Visit Provider Family Medicine Geriatric Medicine
DX: R05.9 Cough, unspecified (principal)
CPT/HCPCS: 71046

== ENCOUNTER 2021-10-29 09:07 | Outpatient (CLI) | payer MEDICARE, SELFPAY | END 2021-10-29 23:59 | disposition home or self-care (01) | LOC: PSN 09:09 | PROVIDERS: PCP Family Medicine Geriatric Medicine; Referring Provider Family Medicine Geriatric Medicine; Visit Provider Family Medicine Geriatric Medicine | DX: R68.83 Chills (without fever) (principal); Z20.822 Contact with and (suspected) exposure to COVID-19 | CPT/HCPCS: 87635; 87804; 87807; C9803; U0003; U0005 ==

== ENCOUNTER → 2021-12-17 | Outpatient (CLI) | payer MEDICARE, SELFPAY ==
[2021-12-17 10:26] LABS: Absolute Lymphocyte Count 2.02 X10^3/uL (0.83-4.51); Absolute Neutrophil Count 3.2 X10^3/uL (2.0-7.7); Basophil# 0.02 X10^3/uL; Basophil% 0.3 % (0-1); Eosinophil# 0.22 X10^3/uL; Eosinophils% 3.6 % (0-5); Hematocrit 46.7 % (37-47); Hemoglobin 15.4 g/dL (12.0-15.0); Lymphocyte # 2.02 X10^3/ul (0.83-4.51); Lymphocyte % 32.7 % (19-41); Mean Corpuscular Hgb 31.2 pg (27.0-32.0); Mean Corpuscular Volume 94.5 fL (81-99); Monocyte# 0.66 X10^3/uL; Monocyte% 10.7 % (0-10); NRBC Flagged by Analyzer 0 % (0-5); Neutrophil # 3.22 X10^3/uL (2.7-7.7); Neutrophil % 52.2 % (47-70); Platelet Count 179 K/mm3 (150-450); RBC Distribution Width CV 13.6 % (11.6-14.6); RBC Distribution Width SD 46.9 fl (35.1-43.9); Red Blood Count 4.94 M/mm3 (4.2-5.4); White Blood Count 6.2 K/mm3 (4.4-11.0)
[2021-12-17 11:06] LABS: ALB/GLOB Ratio 1.2 RATIO (0.9-2.4); AST(SGOT) 31 U/L (15-37); Alanine Aminotransfer ALT/SGPT 33 U/L (13-56); Albumin, Serum 3.7 g/dL (3.2-5.0); Alkaline Phosphatase 107 U/L (45-117); Anion Gap 7 (5-15); BUN 14 mg/dL (7-18); BUN/Creat Ratio 18.7 RATIO (10-20); Calcium,Total 9.8 mg/dL (8.5-10.1); Chloride 108 mmol/L (98-107); Creatinine, Serum 0.75 mg/dL (0.55-1.02); EST Glomerular Filtration Rate 81 mL/min (>60); Est Glom Filt Rate - Afr Amer 98 mL/min (>60); Globulin 3.2 g/dL (2.2-4.2); Glucose 101 mg/dL (74-106); Potassium 3.7 mmol/L (3.5-5.1); Protein, Total 6.9 g/dL (6.4-8.2); Sodium Level 140 mmol/L (136-145)
== END | disposition home or self-care (01) ==
LOC: LAB 09:14
PROVIDERS: PCP Family Medicine Geriatric Medicine; Referring Provider Internal Medicine Rheumatology; Visit Provider Internal Medicine Rheumatology
DX: M06.4 Inflammatory polyarthropathy (principal); M35.00 Sjogren syndrome, unspecified; M79.7 Fibromyalgia; M17.0 Bilateral primary osteoarthritis of knee; M18.0 Bilateral primary osteoarthritis of first carpometacarpal joints; M65.341 Trigger finger, right ring finger; M72.0 Palmar fascial fibromatosis [Dupuytren]; H35.3130 Nonexudative age-related macular degeneration, bilateral, stage unspecified; M50.30 Other cervical disc degeneration, unspecified cervical region; Z79.899 Other long term (current) drug therapy
CPT/HCPCS: 36415; 80053; 85025

== ENCOUNTER 2022-01-18 14:04 | Emergency (ER) | payer MEDICARE, SELFPAY ==
[2022-01-18 14:05] VITALS: BP 140/116; PULSE 67; RESP 14; TEMP 36.6; O2SAT 97; BMI 28.8
--- NOTE | 2022-01-18 14:21 | RAD_ITS ---
EXAM: XR LEFT WRIST COMPLETE, 3 OR MORE VIEWS CLINICAL INDICATION: trauma TECHNIQUE: Frontal, lateral and oblique views of the left wrist. This report was created using [employer] report generation technology. COMPARISON: Left hand December 19, 2013 FINDINGS: BONES/JOINTS: Surgical resection of the greater multangular noted. No acute fracture or subluxation. No sclerotic or destructive changes observed. SOFT TISSUES: Unremarkable. No soft tissue swelling or gas. No radiopaque foreign body. RAD/Wrist min 3 Views IMPRESSION: No acute abnormality. Electronically Signed: Robby Perales MD at 15:12 EDT ,
--- NOTE | 2022-01-18 14:23 | EDS_ITS ---
HPI History of Present Illness Chief Complaint: Upper Extremity Injury Informant: patient Narrative Narrative: Patient fell on her left wrist yesterday when her feet slipped in a pair of rubber shoes. These were a flip-flop in her feet just slid out of them. She fell onto her left hand. No other injury. It is sore when she rotates her wrist or bends it. Rest makes it better. She does have history of the lot of arthritis. She is not on any blood thinners. [facility] Medical History BMI 30.0-30.9,adult Bronchitis Depression Essential (primary) hypertension Family history of colon cancer GERD (gastroesophageal reflux disease) History of non-ST elevation myocardial infarction (NSTEMI) (09/09/17) HLD (hyperlipidemia) Incomplete right bundle branch block Nonsustained ventricular tachycardia OLEKSANRD (obstructive sleep apnea) Osteoarthritis Paroxysmal atrial fibrillation Personal history of colonic polyps Polycythemia secondary to hypoxia Prolonged QT interval Rheumatoid arthritis Sjogren's disease Sustained ventricular tachycardia Home Medications montelukast 10 mg tablet 10 mg PO DAILY Allergies 07/03/14 [History Last Taken 09/08/17] calcium carbonate 500 mg-vitamin D3 3.125 mcg (125 unit) tablet 1 tab PO BID supplement 11/26/17 [History Last Taken Unknown] celecoxib 200 mg capsule (Celebrex) 200 mg PO QDAY arthritis 11/26/17 [History Last Taken Unknown] folic acid 1 mg tablet 1 mg PO DAILY@0800 Supplement 11/26/17 [History Last Taken Unknown] vit C 150 mg-vit E 30 unit-lutein 5 jb-nkkzjnag-xvvca 3 150 mg capsule (Ocuvite) 1 cap PO BID eye vitamin 11/26/17 [History Last Taken Unknown] rosuvastatin 20 mg tablet (Crestor) 20 mg PO QHS cholesterol 03/15/18 [History Last Taken Unknown] pregabalin 200 mg capsule (Lyrica) 200 mg PO QHS fibromyalgia 08/30/18 [History Last Taken Unknown] duloxetine 60 mg capsule,delayed release 60 mg PO QHS fibromyalgia #90 caps 03/17/19 [History Last Taken Unknown] acetaminophen 500 mg tablet 1,000 mg PO Q8 #100 tabs 05/19/19 [Rx Last Taken Unknown] Mouth device #1 ea 04/23/20 [Rx Last Taken Unknown] flecainide 100 mg tablet See Rx Instructions .Route .COMPLEX #180 tabs 06/24/21 [Rx Last Taken Unknown] methotrexate sodium 2.5 mg tablet 15 mg PO MO arthritis 08/08/21 [History Last Taken Unknown] aspirin 81 mg tablet,delayed release 81 mg PO DAILY #30 tabs 09/19/21 [Rx Last Taken Unknown] cevimeline 30 mg capsule 30 mg PO BID Dry mouth 09/19/21 [History Last Taken Unknown] melatonin 3 mg tablet 6 mg PO HS Insomnia 09/19/21 [History Last Taken Unknown] metoprolol succinate 25 mg tablet,extended release 24 hr 25 mg PO BID bp #180 tabs 10/14/21 [Rx Last Taken Unknown] Allergy/AdvReac Type Severity Reaction Status Date / Time morphine AdvReac Vomiting Verified 01/18/22 14:07 Family History Brother Colon cancer Diabetes Hypertension Sister Hypertension Sister Diabetes Hypertension Son Afib Surgical History deviated septum repair History of electrophysiologic study (10/26/86) History of left heart catheterization (09/09/17) History of left knee replacement History of repair of hiatal hernia History of right shoulder replacement (04/2019) LAP-BAND surgery status Right knee cap repair S/P cervical spinal fusion S/P foot surgery, left S/P right rotator cuff repair Social History household members: spouse housing: house pets and animals: Yes pets and animals: dog(s) Smoking Status: Never smoker Electronic Cigarette Use: not used second hand exposure: No alcohol intake: never substance use type: does not use caffeine: No what type of physical activity do you participate in: walking frequency: 1-2 times per week duration: 15-30 minutes/day seatbelt use: always do you feel safe at home: Yes ROS ROS ED Constitutional Constitutional ED: Denies fever(s) Cardiovascular Cardiovascular: Denies chest pain Respiratory/Chest Respiratory/Chest: Denies cough Gastrointestinal Gastrointestinal: Denies nausea or vomiting Musculoskeletal Musculoskeletal: Reports other Details: Left wrist pain. See history of present illness. ; Denies back pain or neck pain Neurologic Neurologic: Denies paresthesias or weakness Hematologic/Lymphatic Hematologic/Lymphatic: Denies easy bleeding or easy bruising Allergic/Immunologic Allergic/Immunologic ED: Denies urticaria EXAM Physical Exam Const Vital Signs: 01/18/22 14:05 Temperature 97.9 F Temperature Source Temporal Pulse Rate 67 Respiratory Rate 14 Blood Pressure 140/116 H Blood Pressure Mean 124 Pulse Ox 97 Oxygen Delivery Method Room Air Positive well nourished and well developed General Appearance ED: well developed and NAD HEENT atraumatic Resp normal respiratory effort Extremity Extremity Narrative: There is some mild swelling diffusely mostly across the dorsum of her left wrist. Range of motion is actually intact. Sensation is intact. Neuro no focal motor deficits and no sensory deficits noted Sensorium / Orientation: alert Psych mental status grossly normal Skin Rashes: no rashes MDM MDM MDM Narrative Medical decision making narrative: Three-view x-ray of the wrist looked at by me and read by radiology shows arthritis but no sign of acute fracture. Patient came in with a Velcro wrist splint. She states it fits her and it helps. Since this works well for her we will continue this. She can ice and rested. If it still hurting in a week or so it might need repeat imaging to make sure there is not an occult fracture. Discharge Plan Triage Chief Complaint: Upper Extremity Injury ED Provider: Anmol Abdul Dx/Rx/DC Orders Clinical Impression: Left wrist injury, Fall from slip, trip, or stumble Instructions: ED Wrist Sprain Prescriptions: No Action vit C 150 mg-vit E 30 unit-lutein 5 vz-nunzejcx-syrkm 3 150 mg capsule [id number] uo-jtio-ll-mg capsule 1 cap PO BID celecoxib [Celebrex] 200 mg capsule 200 mg PO QDAY calcium carbonate 500 mg (1,250 mg)-vitamin D3 125 unit tablet 500 mg(1,250mg) -125 unit tablet 1 tab PO BID rosuvastatin [Crestor] 20 mg tablet 20 mg PO QHS melatonin 3 mg tablet 6 mg PO HS Lyrica 200 mg capsule 200 mg PO QHS duloxetine 60 mg capsule,delayed release(DR/EC) 60 mg PO QHS Qty: 90 aspirin 81 mg tablet,delayed release (DR/EC) 81 mg PO DAILY Qty: 30 0RF montelukast 10 MG tablet 10 mg PO DAILY Label Comments: allergies folic acid 1 mg tablet 1 mg PO DAILY@0800 Label Comments: mineral supplement methotrexate sodium 2.5 mg tablet 15 mg PO MO Label Comments: appetite simulant Pt takes on Thursday cevimeline 30 mg capsule 30 mg PO BID Label Comments: increase saliva in dry mouth acetaminophen 500 MG tablet 1,000 mg PO Q8 Qty: 100 0RF Rx Instructions: Do not exceed 3000 mg of Tylenol in 24-hour. (DME) Mouth device Qty: 1 0RF Rx Instructions: As directed flecainide 100 mg tablet See Rx Instructions .ROUTE .COMPLEX Qty: 180 3RF Dose Instruction: TAKE 1 TABLET TWICE A DAY FOR HEART Rx Instructions: TAKE 1 TABLET TWICE A DAY FOR HEART metoprolol succinate 25 mg tablet extended release 24 hr 25 mg PO BID Qty: 180 3RF Primary Care Provider: Tony Sethi Chi Referrals: Tony Sethi Chi, MD [Primary Care Provider] - 1 Week if not improving Disposition Disposition: Home, Self Care
== END 2022-01-18 15:44 | disposition home or self-care (01) ==
PROVIDERS: Emergency Provider Emergency Medicine; PCP Family Medicine Geriatric Medicine; Visit Provider Emergency Medicine
DX: S69.92XA Unspecified injury of left wrist, hand and finger(s), initial encounter (principal); M06.9 Rheumatoid arthritis, unspecified; I48.0 Paroxysmal atrial fibrillation; W01.0XXA Fall on same level from slipping, tripping and stumbling without subsequent striking against object, initial encounter; I10 Essential (primary) hypertension; I25.2 Old myocardial infarction; E78.5 Hyperlipidemia, unspecified; K21.9 Gastro-esophageal reflux disease without esophagitis; Z79.82 Long term (current) use of aspirin; Z79.899 Other long term (current) drug therapy
CPT/HCPCS: 73110; 99282

== ENCOUNTER → 2022-02-27 | Outpatient (CLI) | payer MEDICARE, SELFPAY ==
[2022-02-27 16:47] LABS: Absolute Lymphocyte Count 1.53 X10^3/uL (0.83-4.51); Absolute Neutrophil Count 4.2 X10^3/uL (2.0-7.7); Basophil# 0.01 X10^3/uL; Basophil% 0.2 % (0-1); Eosinophil# 0.15 X10^3/uL; Eosinophils% 2.4 % (0-5); Hematocrit 48.2 % (37-47); Lymphocyte # 1.53 X10^3/ul (0.83-4.51); Lymphocyte % 24.1 % (19-41); Mean Corp Hgb Conc 33.2 g/dL (32-36); Mean Corpuscular Hgb 31.2 pg (27.0-32.0); Mean Platelet Vol. 11.4 fl (6.2-12.0); Monocyte# 0.47 X10^3/uL; Monocyte% 7.4 % (0-10); NRBC Flagged by Analyzer 0 % (0-5); Neutrophil # 4.17 X10^3/uL (2.7-7.7); Neutrophil % 65.6 % (47-70); Platelet Count 149 K/mm3 (150-450); RBC Distribution Width CV 12.5 % (11.6-14.6); RBC Distribution Width SD 43.4 fl (35.1-43.9); Red Blood Count 5.13 M/mm3 (4.2-5.4); White Blood Count 6.4 K/mm3 (4.4-11.0)
[2022-02-27 17:20] LABS: ALB/GLOB Ratio 1.3 RATIO (0.9-2.4); AST(SGOT) 26 U/L (15-37); Alanine Aminotransfer ALT/SGPT 28 U/L (13-56); Albumin, Serum 3.9 g/dL (3.2-5.0); Alkaline Phosphatase 104 U/L (45-117); Anion Gap 5 (5-15); BUN 11 mg/dL (7-18); BUN/Creat Ratio 17.3 RATIO (10-20); Calcium,Total 10.6 mg/dL (8.5-10.1); Chloride 107 mmol/L (98-107); Creatinine, Serum 0.64 mg/dL (0.55-1.02); EST Glomerular Filtration Rate 98 mL/min (>60); Est Glom Filt Rate - Afr Amer 118 mL/min (>60); Globulin 3.1 g/dL (2.2-4.2); Glucose 117 mg/dL (74-106); Potassium 4.1 mmol/L (3.5-5.1); Sodium Level 140 mmol/L (136-145)
== END | disposition home or self-care (01) ==
LOC: LAB 15:40
PROVIDERS: PCP Family Medicine Geriatric Medicine; Visit Provider Internal Medicine Rheumatology
DX: M06.4 Inflammatory polyarthropathy (principal); M35.00 Sjogren syndrome, unspecified; M17.0 Bilateral primary osteoarthritis of knee; M18.0 Bilateral primary osteoarthritis of first carpometacarpal joints; M72.0 Palmar fascial fibromatosis [Dupuytren]; H35.3130 Nonexudative age-related macular degeneration, bilateral, stage unspecified; Z79.899 Other long term (current) drug therapy
CPT/HCPCS: 36415; 80053; 85025

== ENCOUNTER → 2022-03-04 | Outpatient (CLI) | payer MEDICARE, SELFPAY ==
[2022-03-04 13:48] LABS: PTHIN 65.6 pg/mL (18.4-80.1)
[2022-03-04 13:51] LABS: Vitamin D,25 Hydroxy 35.8 ng/mL
== END | disposition home or self-care (01) ==
LOC: LAB 12:45
PROVIDERS: PCP Family Medicine Geriatric Medicine; Referring Provider Internal Medicine Rheumatology; Visit Provider Internal Medicine Rheumatology
DX: M06.4 Inflammatory polyarthropathy (principal); M35.00 Sjogren syndrome, unspecified; M79.7 Fibromyalgia; M17.0 Bilateral primary osteoarthritis of knee; M18.0 Bilateral primary osteoarthritis of first carpometacarpal joints; M65.341 Trigger finger, right ring finger; M72.0 Palmar fascial fibromatosis [Dupuytren]; H35.3130 Nonexudative age-related macular degeneration, bilateral, stage unspecified; M50.30 Other cervical disc degeneration, unspecified cervical region; G47.33 Obstructive sleep apnea (adult) (pediatric); R51.9 Headache, unspecified; H43.813 Vitreous degeneration, bilateral; Z96.652 Presence of left artificial knee joint; Z79.899 Other long term (current) drug therapy
CPT/HCPCS: 36415; 82306; 83970

== ENCOUNTER → 2022-03-05 | Outpatient (CLI) | payer MEDICARE, SELFPAY ==
[2022-03-05 13:18] LABS: T3 Uptake 30 % (30-39); T4 Free Direct 0.77 ng/dL (0.76-1.46); Thyroid Stim Hormone (TSH) 0.79 uIU/mL (0.358-3.74)
== END | disposition home or self-care (01) ==
LOC: POLAB3 09:30
PROVIDERS: PCP Family Medicine Geriatric Medicine; Visit Provider Family Medicine Geriatric Medicine
DX: E04.9 Nontoxic goiter, unspecified (principal)
CPT/HCPCS: 36415; 84439; 84443; 84479

== ENCOUNTER → 2022-03-13 | Outpatient (CLI) | payer MEDICARE, SELFPAY ==
--- NOTE | 2022-03-13 13:07 | US_ITS ---
STUDY: THYROID ULTRASOUND REASON FOR EXAM: Female, 71 years old. GOITER TECHNIQUE: Ultrasound evaluation of the thyroid was performed with real-time and static choudhury-scale imaging. COMPARISON: Comparison is made with prior CT scan done earlier today. FINDINGS: RIGHT LOBE: The right lobe of the thyroid gland measures 4.4 cm x 1.5 cm x 1.4 cm. There is a heterogeneous echotexture. There is an 8 mm x 7 mm x 4 mm solid/cystic nodule in the lower pole. LEFT LOBE: The left lobe of the thyroid gland is enlarged and measures 5.6 cm x 3.4 cm x 3.3 cm. There is a heterogeneous echotexture. There is a dominant complex solid and cystic nodule measuring 3.3 cm x 3 cm x 2.6 cm in the mid inferior aspect of the left lobe. Biopsy recommended. ISTHMUS: The isthmus measures 1.1 mm. The regional lymph nodes are normal. US/Thyroid IMPRESSION: Heterogeneous appearance of both lobes of the thyroid gland. Enlargement of the left lobe of the thyroid with a dominant complex solid and cystic mass in the lower pole measuring 3.3 cm x 3 cm x 2.6 cm. Biopsy recommended. Electronically Signed: Markos Purdy MD at 14:44 EDT ,
--- NOTE | 2022-03-13 13:18 | CT_ITS ---
STUDY: CT SOFT TISSUE NECK WITH CONTRAST REASON FOR EXAM: Female, 71 years old. GOITER RADIATION DOSAGE (If Supplied By Facility): CTDIvol = ( 15.62 ) mGy, DLP = ( 460.39 ) mGycm TECHNIQUE: The patient was scanned in a multi-detector CT scanner. High resolution transaxial imaging was performed following intravenous administration of IV 75mL Isovue-370. Sagittal and coronal images were reconstructed. Individualized dose optimization techniques were used for this CT. COMPARISON: None. FINDINGS: Normal bilateral parotid glands. Normal bilateral landscaping supervisor spaces. Normal bilateral parapharyngeal spaces. Normal bilateral carotid spaces. Normal bilateral sublingual and submandibular glands and spaces. Normal visualized nasopharynx. Normal retropharyngeal space. Normal perivertebral space. Normal visualized bilateral faucial tonsils. The visualized tongue, tongue base and oropharynx are normal. There are minimally enlarged lymph nodes of the neck, with preservation of normal abran architecture, consistent with a reactive lymph hyperplasia. There is no demonstrated solid or cystic mass lesion. There is no abnormal contrast enhancement. Normal epiglottis, bilateral vallecula and hypopharynx. The pre-epiglottic and paraglottic adipose spaces are normal. Normal visualized bilateral piriform sinuses, aryepiglottic folds, vocal cords, and arytenoid-cricoid articulations. Normal subglottic trachea. Heterogeneous enlargement of the left lobe of the thyroid with a substernal extension.. There is a 2.6 cm x 2.7 cm hypodense nodule along its inferior aspect. Normal visualized pulmonary apices. Normal visualized paranasal sinuses. There is multilevel degenerative changes of the cervical spine. CT/Soft Tissue Neck WITH Contrast IMPRESSION: Heterogeneous enlargement of the left lobe of the thyroid gland with the hypodense nodule. There is a substernal extension. Electronically Signed: Markos Purdy MD at 14:14 EDT ,
== END | disposition home or self-care (01) ==
LOC: CT 13:04
PROVIDERS: PCP Family Medicine Geriatric Medicine; Referring Provider Family Medicine Geriatric Medicine; Visit Provider Family Medicine Geriatric Medicine
DX: E04.9 Nontoxic goiter, unspecified (principal)
CPT/HCPCS: 70491; 76536; Q9967

== ENCOUNTER → 2022-03-14 | Outpatient (CLI) | payer MEDICARE, SELFPAY ==
[2022-03-14 11:37] LABS: Anion Gap 4 (5-15); BUN 8 mg/dL (7-18); BUN/Creat Ratio 12.2 RATIO (10-20); Calcium,Total 9.3 mg/dL (8.5-10.1); Chloride 110 mmol/L (98-107); Creatinine, Serum 0.66 mg/dL (0.55-1.02); EST Glomerular Filtration Rate 94 mL/min (>60); Est Glom Filt Rate - Afr Amer 114 mL/min (>60); Glucose 108 mg/dL (74-106); Potassium 3.9 mmol/L (3.5-5.1); Sodium Level 143 mmol/L (136-145)
== END | disposition home or self-care (01) ==
LOC: LAB 10:45
PROVIDERS: PCP Family Medicine Geriatric Medicine; Visit Provider Family Medicine Geriatric Medicine
DX: E83.52 Hypercalcemia (principal)
CPT/HCPCS: 36415; 80048

== ENCOUNTER → 2022-03-17 | Outpatient (CLI) | payer MEDICARE, SELFPAY ==
[2022-03-17 16:30] LABS: Absolute Lymphocyte Count 1.74 X10^3/uL (0.83-4.51); Absolute Neutrophil Count 3.9 X10^3/uL (2.0-7.7); Basophil# 0.02 X10^3/uL; Basophil% 0.3 % (0-1); Eosinophil# 0.17 X10^3/uL; Eosinophils% 2.6 % (0-5); Hemoglobin 15.4 g/dL (12.0-15.0); Lymphocyte # 1.74 X10^3/ul (0.83-4.51); Lymphocyte % 26.8 % (19-41); Mean Corp Hgb Conc 32.8 g/dL (32-36); Mean Corpuscular Volume 94.8 fL (81-99); Monocyte# 0.62 X10^3/uL; Monocyte% 9.6 % (0-10); NRBC Flagged by Analyzer 0 % (0-5); Neutrophil # 3.91 X10^3/uL (2.7-7.7); Neutrophil % 60.2 % (47-70); Platelet Count 197 K/mm3 (150-450); RBC Distribution Width CV 13.5 % (11.6-14.6); RBC Distribution Width SD 46.7 fl (35.1-43.9); Red Blood Count 4.96 M/mm3 (4.2-5.4); White Blood Count 6.5 K/mm3 (4.4-11.0)
[2022-03-17 16:47] LABS: Vitamin D,25 Hydroxy 31.2 ng/mL
[2022-03-17 16:55] LABS: ALB/GLOB Ratio 1.1 RATIO (0.9-2.4); AST(SGOT) 25 U/L (15-37); Alanine Aminotransfer ALT/SGPT 29 U/L (13-56); Albumin, Serum 3.7 g/dL (3.2-5.0); Alkaline Phosphatase 100 U/L (45-117); Anion Gap 7 (5-15); BUN 12 mg/dL (7-18); BUN/Creat Ratio 17.2 RATIO (10-20); Calcium,Total 9.6 mg/dL (8.5-10.1); Chloride 108 mmol/L (98-107); EST Glomerular Filtration Rate 88 mL/min (>60); Est Glom Filt Rate - Afr Amer 106 mL/min (>60); Globulin 3.4 g/dL (2.2-4.2); Glucose 51 mg/dL (74-106); Potassium 3.9 mmol/L (3.5-5.1); Protein, Total 7.1 g/dL (6.4-8.2); Sodium Level 142 mmol/L (136-145); Thyroid Stim Hormone (TSH) 1.21 uIU/mL (0.358-3.74); Uric Acid 5.2 mg/dL (2.6-6.0)
== END | disposition home or self-care (01) ==
LOC: POLAB3 10:51
PROVIDERS: PCP Family Medicine Geriatric Medicine; Visit Provider Family Medicine Geriatric Medicine
DX: E55.9 Vitamin D deficiency, unspecified (principal); M10.9 Gout, unspecified; R53.83 Other fatigue
CPT/HCPCS: 36415; 80053; 82306; 84443; 84550; 85025

== ENCOUNTER → 2022-03-28 | Outpatient (CLI) | payer MEDICARE, SELFPAY ==
--- NOTE | 2022-03-28 18:02 | STRESSREP ---
Stress Test Report Pharmacologic myocardial perfusion stress test. 71-year-old lady with a history of atrial fibrillation. Stress protocol: Resting EKG demonstrates normal sinus rhythm with a rate of 66 bpm normal intervals are noted resting blood pressure is 142/102 mmHg. Right bundle branch block pattern is noted. 0.4 mg of regadenoson was infused per usual protocol followed by rapid intravenous saline flush injection continuous EKG monitoring was performed. The maximum heart rate attained was 77 bpm which was 52% of max impacted heart rate the maximum workload was 1 metabolic equivalent. At rest there were no ST or T wave changes noted to suggest abnormal flow reserve and at peak infusion nonspecific ST changes were noted with did not meet the criteria for ischemia. No clinical angina was noted. Myocardial perfusion protocol. 14.1 mCi of technetium 99m sestamibi was injected at rest. 0.4 mg of regadenoson was infused per usual protocol. At peak infusion 44.8 mCi of technetium 99m sestamibi was injected stress images were obtained stress and rest images were reconstructed in comparing the short axis vertical long and horizontal long axis. Gated images were also obtained. Perfusion SPECT analysis: Review of the stress images demonstrate normal uptake of tracer noted in all areas of the myocardium. The resting images similarly demonstrate normal uptake of tracer noted in all areas of the myocardium. No areas of reversibility are noted to suggest ischemia and no previous infarct is noted. Gated SPECT analysis: The gated ejection fraction is 64%. Conclusion: Normal pharmacologic myocardial perfusion stress test. Preserved ejection fraction.
== END | disposition home or self-care (01) ==
PROVIDERS: PCP Family Medicine Geriatric Medicine; Referring Provider Internal Medicine Cardiovascular Disease; Visit Provider Internal Medicine Cardiovascular Disease
DX: I45.10 Unspecified right bundle-branch block (principal); I48.0 Paroxysmal atrial fibrillation; R94.31 Abnormal electrocardiogram [ECG] [EKG]; I10 Essential (primary) hypertension; E78.00 Pure hypercholesterolemia, unspecified; Z79.899 Other long term (current) drug therapy; Z51.81 Encounter for therapeutic drug level monitoring
CPT/HCPCS: 78452; 93017; A9500; A4216; J2785

== ENCOUNTER → 2022-04-14 | Outpatient (CLI) | payer MEDICARE, SELFPAY ==
--- NOTE | 2022-04-14 13:20 | ASPS_PTH ---
PATIENT: KRIS JOHN I LOC: [facility] U#:[id number] AGE/SX: 71/F ROOM: RE04/14/[address]: Dr. Thanh Cooper MD : 1950 BED: DIS: 04/14/2022 SPEC #: [id number] RECD: 04/14/22 14:50 STATUS: VANESSA REBisi #: [id number] GAGE: 04/14/22 13:[address]: Thanh Cooper DEPT: CYTOLOGY RECD BY: Deirdre Posadas ENTERED: 04/15/22 08:49 SP TYPE: ASPIRATION OTHR DR: Dr. Tony Sethi MD Tissues: Thyroid gland, NOS Procedures: Special Stain Group II Cytology Other HEADER OPERATION: Left thyroid fine needle aspiration PRE-OP DIAGNOSIS: Left thyroid nodule TISSUE SUBMITTED: Left thyroid nodules x12 slides DIAGNOSIS CYTOLOGY Left thyroid nodule, fine needle aspiration (smears): Consistent with benign follicular/colloid nodule with focal cystic changes (Heidrick category II). Adequate for evaluation. See comment. SJ:samira 04/16/2022 COMMENT Correlation with clinical, radiologic findings and appropriate follow up are necessary. CYTOLOGY STUDY Slides are reviewed. CYTOLOGY GROSS Received are 12 smears labeled with the patient's name and designated per the requisition as left thyroid nodule. Submitted for staining. / samira 04/15/2022 TC:5 CPT: 43147
== END | disposition home or self-care (01) ==
LOC: LABSPEC 15:16
PROVIDERS: PCP Family Medicine Geriatric Medicine; Visit Provider Surgery
DX: E04.1 Nontoxic single thyroid nodule (principal)
CPT/HCPCS: 88161; 88313

== ENCOUNTER → 2022-05-05 | Outpatient (CLI) | payer MEDICARE, SELFPAY ==
[2022-05-05 13:10] LABS: Absolute Lymphocyte Count 1.34 X10^3/uL (0.83-4.51); Absolute Neutrophil Count 3.2 X10^3/uL (2.0-7.7); Basophil# 0.02 X10^3/uL; Basophil% 0.4 % (0-1); Eosinophil# 0.16 X10^3/uL; Eosinophils% 3.1 % (0-5); Hematocrit 46.2 % (37-47); Hemoglobin 15.1 g/dL (12.0-15.0); Lymphocyte # 1.34 X10^3/ul (0.83-4.51); Lymphocyte % 25.7 % (19-41); Mean Corp Hgb Conc 32.7 g/dL (32-36); Mean Corpuscular Hgb 30.3 pg (27.0-32.0); Mean Corpuscular Volume 92.8 fL (81-99); Mean Platelet Vol. 11.1 fl (6.2-12.0); Monocyte# 0.44 X10^3/uL; Monocyte% 8.4 % (0-10); NRBC Flagged by Analyzer 0 % (0-5); Neutrophil # 3.23 X10^3/uL (2.7-7.7); Platelet Count 153 K/mm3 (150-450); RBC Distribution Width CV 13.6 % (11.6-14.6); RBC Distribution Width SD 45.9 fl (35.1-43.9); Red Blood Count 4.98 M/mm3 (4.2-5.4); White Blood Count 5.2 K/mm3 (4.4-11.0)
[2022-05-05 13:32] LABS: Anion Gap 7 (5-15); BUN 12 mg/dL (7-18); BUN/Creat Ratio 18.1 RATIO (10-20); Calcium,Total 9.5 mg/dL (8.5-10.1); Chloride 109 mmol/L (98-107); Creatinine, Serum 0.66 mg/dL (0.55-1.02); EST Glomerular Filtration Rate 93 mL/min (>60); Est Glom Filt Rate - Afr Amer 112 mL/min (>60); Glucose 82 mg/dL (74-106); Potassium 3.9 mmol/L (3.5-5.1); Sodium Level 142 mmol/L (136-145)
== END | disposition home or self-care (01) ==
LOC: POLAB3 12:09
PROVIDERS: PCP Family Medicine Geriatric Medicine; Visit Provider Family Medicine Geriatric Medicine
DX: Z01.812 Encounter for preprocedural laboratory examination (principal)
CPT/HCPCS: 36415; 80048; 85025

== ENCOUNTER → 2022-05-13 | Outpatient (CLI) | payer MEDICARE, SELFPAY | END | disposition home or self-care (01) | LOC: PSN 13:47 | PROVIDERS: PCP Family Medicine Geriatric Medicine; Referring Provider Family Medicine Geriatric Medicine; Visit Provider Family Medicine Geriatric Medicine | DX: R68.83 Chills (without fever) (principal) | CPT/HCPCS: 87635; 87804; 87807; C9803; U0003; U0005 ==

== ENCOUNTER → 2022-06-02 | Outpatient (CLI) | payer MEDICARE, SELFPAY ==
[2022-06-02 10:21] LABS: Absolute Neutrophil Count 2.6 X10^3/uL (2.0-7.7); Basophil# 0.02 X10^3/uL; Basophil% 0.4 % (0-1); Eosinophil# 0.18 X10^3/uL; Eosinophils% 3.6 % (0-5); Hematocrit 46.5 % (37-47); Hemoglobin 15.3 g/dL (12.0-15.0); Lymphocyte % 34.2 % (19-41); Mean Corp Hgb Conc 32.9 g/dL (32-36); Mean Corpuscular Hgb 30.6 pg (27.0-32.0); Mean Platelet Vol. 10.6 fl (6.2-12.0); Monocyte# 0.45 X10^3/uL; Monocyte% 9.1 % (0-10); NRBC Flagged by Analyzer 0 % (0-5); Neutrophil # 2.61 X10^3/uL (2.7-7.7); Neutrophil % 52.5 % (47-70); Platelet Count 166 K/mm3 (150-450); RBC Distribution Width CV 13.5 % (11.6-14.6); RBC Distribution Width SD 45.9 fl (35.1-43.9)
[2022-06-02 11:07] LABS: ALB/GLOB Ratio 1.1 RATIO (0.9-2.4); AST(SGOT) 24 U/L (15-37); Alanine Aminotransfer ALT/SGPT 31 U/L (13-56); Albumin, Serum 3.4 g/dL (3.2-5.0); Alkaline Phosphatase 110 U/L (45-117); Anion Gap 7 (5-15); BUN 11 mg/dL (7-18); BUN/Creat Ratio 14.8 RATIO (10-20); Calcium,Total 9.1 mg/dL (8.5-10.1); Chloride 106 mmol/L (98-107); Creatinine, Serum 0.74 mg/dL (0.55-1.02); EST Glomerular Filtration Rate 82 mL/min (>60); Est Glom Filt Rate - Afr Amer 99 mL/min (>60); Globulin 3.2 g/dL (2.2-4.2); Glucose 117 mg/dL (74-106); Potassium 3.9 mmol/L (3.5-5.1); Protein, Total 6.6 g/dL (6.4-8.2); Sodium Level 141 mmol/L (136-145)
== END | disposition home or self-care (01) ==
PROVIDERS: PCP Family Medicine Geriatric Medicine; Referring Provider Internal Medicine Rheumatology; Visit Provider Internal Medicine Rheumatology
DX: M06.4 Inflammatory polyarthropathy (principal); M35.00 Sjogren syndrome, unspecified; M17.0 Bilateral primary osteoarthritis of knee; M18.0 Bilateral primary osteoarthritis of first carpometacarpal joints; M18.12 Unilateral primary osteoarthritis of first carpometacarpal joint, left hand; M18.11 Unilateral primary osteoarthritis of first carpometacarpal joint, right hand; M72.0 Palmar fascial fibromatosis [Dupuytren]; H35.3130 Nonexudative age-related macular degeneration, bilateral, stage unspecified; M50.30 Other cervical disc degeneration, unspecified cervical region; Z79.899 Other long term (current) drug therapy
CPT/HCPCS: 36415; 80053; 85025

== ENCOUNTER → 2022-06-23 | Outpatient (CLI) | payer MEDICARE, SELFPAY ==
--- NOTE | 2022-06-23 15:55 | RAD_ITS ---
STUDY: X-RAY - ABDOMEN/PELVIS REASON FOR EXAM: Female, 71 years old. DIARRHEA TECHNIQUE: AP supine and upright views of the abdomen and pelvis. COMPARISON: 09/09/2017 CT FINDINGS: Normal visualized lung bases. Midline raymundo. Lap band and tubing remain. There is a nonobstructive bowel gas pattern. There is no demonstrated free abdominal air. The visualized liver, spleen and kidneys are grossly normal in size and morphology. Normal soft tissue structures. There are diffuse degenerative changes of the visualized lumbar spine. RAD/Abd Inc Decub and/or Erect IMPRESSION: Midline raymundo. No other acute abnormal finding in the abdomen or pelvis. Electronically Signed: Boaz Mcgraw MD at 16:33 EST ,
== END | disposition home or self-care (01) ==
LOC: RAD 15:53
PROVIDERS: PCP Family Medicine Geriatric Medicine; Referring Provider Family Medicine Geriatric Medicine; Visit Provider Family Medicine Geriatric Medicine
DX: R19.7 Diarrhea, unspecified (principal); K56.41 Fecal impaction
CPT/HCPCS: 74019

== ENCOUNTER → 2022-07-08 | Outpatient (CLI) | payer MEDICARE, SELFPAY | END | disposition home or self-care (01) | LOC: PSN 12:03 | PROVIDERS: PCP Family Medicine Geriatric Medicine; Visit Provider Family Medicine Geriatric Medicine | DX: R68.83 Chills (without fever) (principal); Z20.822 Contact with and (suspected) exposure to COVID-19 | CPT/HCPCS: 87635; 87804; 87807; C9803; U0003; U0005 ==

== ENCOUNTER 2022-08-08 08:47 | Day surgery (SDC) | payer MEDICARE, SELFPAY ==
[2022-08-08] VITALS (7 sets, daily range): BP systolic 78–137; BP diastolic 45–104; PULSE 66–79; RESP 16–18; TEMP 36.1–36.4; O2SAT 94–100; BMI 27.4
--- NOTE | 2022-08-08 09:08 | HP.PCM_ITS ---
History and Physical Date of Admission: 08/08/22 Visit Reasons:?CSCOPE/CONSTIPATION Chief Complaint: cscope/constipation Is patient in pain?: No Allergies morphine Adverse Reaction (Verified 07/25/22 14:24) Vomiting Medications montelukast 10 mg tablet 10 mg PO DAILY Allergies 07/03/14 [History Confirmed 07/25/22] calcium carbonate 500 mg-vitamin D3 3.125 mcg (125 unit) tablet 1 tab PO BID supplement 11/26/17 [History Confirmed 07/25/22] folic acid 1 mg tablet 1 mg PO DAILY@0800 Supplement 11/26/17 [History Confirmed 07/25/22] vit C 150 mg-vit E 30 unit-lutein 5 eb-mlwifnqv-wjxdk 3 150 mg capsule (Ocuvite) 1 cap PO BID eye vitamin 11/26/17 [History Confirmed 07/25/22] rosuvastatin 20 mg tablet (Crestor) 20 mg PO QHS cholesterol 03/15/18 [History Confirmed 07/25/22] pregabalin 200 mg capsule (Lyrica) 200 mg PO QHS fibromyalgia 08/30/18 [History Confirmed 07/25/22] duloxetine 60 mg capsule,delayed release 60 mg PO QHS fibromyalgia #90 caps 03/17/19 [History Confirmed 07/25/22] acetaminophen 500 mg tablet 1,000 mg PO Q8 #100 tabs 05/19/19 [Rx Confirmed 07/25/22] Mouth device #1 ea 04/23/20 [Rx Confirmed 07/25/22] aspirin 81 mg tablet,delayed release 81 mg PO DAILY #30 tabs 09/19/21 [Rx Confirmed 07/25/22] cevimeline 30 mg capsule 30 mg PO BID Dry mouth 09/19/21 [History Confirmed 07/25/22] melatonin 3 mg tablet 6 mg PO HS Insomnia 09/19/21 [History Confirmed 07/25/22] metoprolol succinate 25 mg tablet,extended release 24 hr 25 mg PO BID bp #180 tabs 10/14/21 [Rx Confirmed 07/25/22] celecoxib 100 mg capsule 100 mg PO DAILY 03/04/22 [History Confirmed 07/25/22] cholecalciferol (vitamin D3) 25 mcg (1,000 unit) tablet (Vitamin D3) 25 mcg PO DAILY 03/04/22 [History Confirmed 07/25/22] methotrexate sodium 2.5 mg tablet 15 mg PO QWEEK arthritis 03/04/22 [History Confirmed 07/25/22] flecainide 100 mg tablet See Rx Instructions .Route .COMPLEX #180 tabs 06/19/22 [Rx Confirmed 07/25/22] PFSH Medical History?(Updated 07/25/22 @ 14:[address] Thanh Cooper MD) BMI 30.0-30.9,adult Bronchitis Depression Essential (primary) hypertension Family history of colon cancer GERD (gastroesophageal reflux disease) History of non-ST elevation myocardial infarction (NSTEMI) (09/09/17) HLD (hyperlipidemia) Incomplete right bundle branch block Nonsustained ventricular tachycardia OLEKSANDR (obstructive sleep apnea) Osteoarthritis Paroxysmal atrial fibrillation Peripheral vestibulopathy Personal history of colonic polyps Polycythemia secondary to hypoxia Prolonged QT interval Rheumatoid arthritis Sjogren's disease Sustained ventricular tachycardia Vertigo Surgical History? deviated septum repair History of electrophysiologic study (10/26/86) History of left heart catheterization (09/09/17) History of left knee replacement History of repair of hiatal hernia History of right shoulder replacement (04/2019) LAP-BAND surgery status Right knee cap repair S/P cervical spinal fusion S/P foot surgery, left S/P right rotator cuff repair Family History? Brother Colon cancer Diabetes HypertensionSister HypertensionSister Diabetes HypertensionSon Afib Social History? household members:? spouse housing:? house pets and animals:? Yes pets and animals: dog(s) Smoking Status:? Never smoker Electronic Cigarette Use:? not used second hand exposure:? No alcohol intake:? never substance use type:? does not use caffeine:? No what type of physical activity do you participate in:? walking frequency:? 1-2 times per week duration:? 15-30 minutes/day seatbelt use:? always do you feel safe at home:? Yes HPI HPI HPI: 71-year-old female is being referred for constipation.? She is being referred by Dr. Tony Sethi and a written copy my surgical consult recommendations will return to him.? The patient had back surgery and then constipation.? She had the spinal surgery on June 04, 2022.? She was seen by Dr. Sethi on July 08, 2022.? There was concerns about fecal impaction.? KUB was obtained and was unremarkable.It is of note that on April 14, 2022 I assisted her with a ultrasound-guided left thyroid fine-needle aspiration with cytology benign. The patient notes that she had a previous colonoscopy early in 2019.? Claims that she had a polyp at that time.? She is now noting that she has numbness of her perineum area subsequent to her back surgery.? Although she does constantly have chronic constipation this seemingly has worsened.? She states that she takes MiraLAX as needed.? She apparently that earlier this week tried a couple enemas but said that the fluid would not go anywhere.? She has no fever chills no nausea or vomiting.? No abdominal pain. Just last week she had the raymundo removed from her back surgery. ROS General General: No weight change, appetite, fatigue, colon cancer, breast cancer or weakness HEENT HEENT: No difficulty swallowing, eye injury, eye surgery, swollen glands or hoarseness Endo Endocrine: No thyroid disease, diabetes mellitus, thyroid cancer, Hair loss, heat intolerance or cold intolerance Skin Skin: No rash or changing moles Musc Musculoskeletal: Yes back problems and arthritis; No rheumatoid arthritis, gout or joint pain Cardio Cardiovascular: Yes atrial fibrillation and heart attack; No murmur, pacemaker, heart disease, high blood pressure, heart stent, palpitations, shortness of breat with exertion or chest pain Psych Psychiatric: No depression, anxiety or hearing voices Resp Respiratory: No shortness of breath, Yes sleep apnea, Yes cough, No COPD, No asthma, No emphysema and No wheezing Gastro Gastrointestinal: Yes abdominal pain, No nausea or vomiting, No diarrhea, Yes constipation, No blood in stool, No acid reflux, No hemorrhoids, No ulcers, No gallbladder problem and No black,tarry stools Scott Hematologic: No blood thinners, No blood disorders, No bleeding, No anemia and No blood clots Neuro Neurologic: No system reviewed and no additional complaints, except as documented, No as per HPI, No abnormal gait, No abnormal hearing, No abnormal movements, No abnormal speech, No behavioral changes, No burning sensations, No confusion, No convulsions, No disequilibrium, No dizziness, No localized weakness, No frequent falls, No headache(s), No lack of coordination, No loss of vision, No memory loss, No numbness, No other visual disturbances, No radicular pain, No restless legs, No sensory deficit, No syncope, No tingling, No tremor(s), No weakness and No other Exam Const General: cooperative, healthy appearing and comfortable [facility] Head: normal to inspection Chest Chest palpation & inspection: normal inspection of the chest Resp Effort & Inspection: normal respiratory effort Auscultation: clear to auscultation bilaterally Cardio Rate: regular rate Rhythm: regular rhythm GI Palpation: soft and no hepatosplenomegaly Other: Overweight Skin General: no rashes or lesions noted Neuro General: patient alert and patient awake Extrem General: no calf tenderness Psych Appearance: grossly normal Assessment and Plan Assessment and Plan (1) Constipation: ?Status:?Acute (2) Personal history of colonic polyps: ?Status:?Acute Plan Personal history of colon polyps and chronic constipation aggravated by recent spinal surgery.? Clinically I think there is a lower suspicion for colonic obstruction.? I suspect that she simply has postsurgical aggravation of her chronic condition.? It is of note that she does have a personal history of colon polyps.? She is having progressive difficulties however symptomatically with constipation so I have recommended to her colonoscopy with possible biopsy or polypectomy as indicated.? We will perform this with monitored anesthesia care.? She has had an opportunity to ask and have questions answered.? We will schedule and proceed as timing permits. Copy: Dr. Tony Cooper M.D., F.A.C.S. I have examined the patient and the H&P has been reviewed. There are no clinical changes since date of exam. Thanh Cooper M.D., F.A.C.S.
[2022-08-08] MEDS: Lactated Ringers 1,000 ML 15 ML IV (09:33)
--- NOTE | 2022-08-08 10:00 | COLBX_PTH ---
PATIENT: KRIS JOHN I LOC: [facility] U#:[id number] AGE/SX: 71/F ROOM: RE08/08/[address]: Dr. Thanh Cooper MD : 1950 BED: DIS: 08/08/2022 SPEC #: [id number] RECD: 08/08/22 12:58 STATUS: VANESSA REBisi #: [id number] GAGE: 08/08/22 10:[address]: Thanh Cooper DEPT: SURGICAL PATHOLOGY RECD BY: Deirdre Posadas ENTERED: 08/11/22 11:16 SP TYPE: COLON BX OTHR DR: Dr. Tony Sethi MD Tissues: A - Ascending colon B - Transverse colon Procedures: Surgery Specimen Level IV HEADER OPERATION: Colonoscopy with polypectomy (MAC) PRE-OP DIAGNOSIS: Constipation, history of colonic polyps TISSUE SUBMITTED: A ? Ascending colon polyp biopsy x2, B ? Mid transverse colon polyp biopsy MICROSCOPIC DIAGNOSIS A. Ascending colon polyp, biopsy: Fragments of tubular adenoma. B. Mid transverse colon polyp, biopsy: Fragments of benign colonic mucosa. See comment. AM:samira 08/12/2022 COMMENT B. Neither hyperplastic nor adenomatous change is identified. Clinical correlation is suggested. MICROSCOPIC DESCRIPTION Slides are reviewed. GROSS DESCRIPTION A - Received in fixative is one container labeled with the patient's name and designated ascending colon polyp biopsy x2. The specimen consists of two irregular fragments of light gilbert soft tissue that in aggregate measure 0.6 x 0.3 x 0.1 cm. The specimen is totally submitted in one cassette. B - Received in fixative is one container labeled with the patient's name and designated mid transverse colon polyp biopsy. The specimen consists of multiple irregular fragments of light gilbert soft tissue that in aggregate measure 0.6 x 0.4 x 0.1 cm. The specimen is totally submitted in one cassette. / SJ:samira 08/11/2022 TC:5 CPT: 81615 x2
--- NOTE | 2022-08-08 10:55 | OP.COLON_ITS ---
Patient Name: Va Xavier Procedure Date: 08/08/2022 10:14 AM Date of : 1950 Age: 71 Procedure: Colonoscopy Indications: Constipation Providers: Thanh Cooper MD Medicines: See the Anesthesia note for documentation of the administered medications Patient Profile: Last Colonoscopy: 2018. Complications: No immediate complications. Procedure: Pre-Anesthesia Assessment: - Prior to the procedure, a History and Physical was performed, and patient medications and allergies were reviewed. The patient's tolerance of previous anesthesia was also reviewed. The risks and benefits of the procedure and the sedation options and risks were discussed with the patient. All questions were answered, and informed consent was obtained. Prior Anticoagulants: The patient has taken no previous anticoagulant or antiplatelet agents. ASA Grade Assessment: III - A patient with severe systemic disease. After reviewing the risks and benefits, the patient was deemed in satisfactory condition to undergo the procedure. After I obtained informed consent, the scope was passed under direct vision. Throughout the procedure, the patient's blood pressure, pulse, and oxygen saturations were monitored continuously. The colonoscope was introduced through the anus and advanced to the cecum, identified by appendiceal orifice and ileocecal valve. The colonoscopy was somewhat difficult due to a tortuous colon. The patient tolerated the procedure well. The quality of the bowel preparation was adequate to identify polyps. The ileocecal valve and the appendiceal orifice were photographed. Scope In: 10:23:11 AM Scope Withdrawal Time 0 hours 13 minutes 27 seconds Scope Out: 10:45:33 AM Total Procedure Duration Time 0 hours 22 minutes 22 seconds Findings: The digital rectal exam findings include non-thrombosed external hemorrhoids, non-thrombosed internal hemorrhoids and internal hemorrhoids that prolapse with straining, but spontaneously regress to the resting position (Grade II). Two sessile polyps were found in the ascending colon and proximal ascending colon. The polyps were 2 to 3 mm in size. These polyps were removed with a cold biopsy forceps. Resection and retrieval were complete. Multiple diverticula were found in the sigmoid colon. A 3 mm polyp was found in the mid transverse colon. The polyp was sessile. The polyp was removed with a cold biopsy forceps. Resection and retrieval were complete. Impression: - Non-thrombosed external hemorrhoids, non-thrombosed internal hemorrhoids and internal hemorrhoids that prolapse with straining, but spontaneously regress to the resting position (Grade II) found on digital rectal exam. - Two 2 to 3 mm polyps in the ascending colon and in the proximal ascending colon, removed with a cold biopsy forceps. Resected and retrieved. Single small polyp in the mid transverse colon. Cold forcep resected. Pathology pending - Diverticulosis in the sigmoid colon. Recommendation: - Discharge patient to home. - Resume previous diet. - Continue present medications. - Telephone my office for pathology results in 1 week. - Repeat colonoscopy in 5 years for surveillance. Procedure Code(s): --- Professional --- 42717, Colonoscopy, flexible; with biopsy, single or multiple Diagnosis Code(s): --- Professional --- K64.1, Second degree hemorrhoids K64.4, Residual hemorrhoidal skin tags D12.2, Benign neoplasm of ascending colon K59.00, Constipation, unspecified K57.30, Diverticulosis of large intestine without perforation or abscess without bleeding CPT copyright 2017 [employer]. All rights reserved. The codes documented in this report are preliminary and upon paper coating supervisor review may be revised to meet current compliance requirements. Thanh Cooper MD 08/08/2022 10:54:33 AM This report has been signed electronically. Number of Addenda: 0 Note Initiated On: 08/08/2022 10:14 AM
--- NOTE | 2022-08-08 10:56 | OP.CCLET_ITS ---
08/08/2022 Tony Sethi MD [address] [place] [address] Re : Colonoscopy procedure for Va Xavier Dear Dr. Sethi This procedure was performed on Monday, August 08, 2022. My impressions and recommendations are as follows: Impressions : - Non-thrombosed external hemorrhoids, non-thrombosed internal hemorrhoids and internal hemorrhoids that prolapse with straining, but spontaneously regress to the resting position (Grade II) found on digital rectal exam. - Two 2 to 3 mm polyps in the ascending colon and in the proximal ascending colon, removed with a cold biopsy forceps. Resected and retrieved. Single small polyp in the mid transverse colon. Cold forcep resected. Pathology pending - Diverticulosis in the sigmoid colon. Recommendations : - Discharge patient to home. - Resume previous diet. - Continue present medications. - Telephone my office for pathology results in 1 week. - Repeat colonoscopy in 5 years for surveillance. My findings are described in the full procedure note, which is enclosed. If I can be of further assistance, please feel free to contact me at Doctor phone number(s): Work: . Sincerely, Thanh Cooper MD 08/08/2022 10:54:33 AM This report has been signed electronically.
== END 2022-08-08 11:40 | disposition home or self-care (01) ==
LOC: EN 08:49 → AC 08:53
PROVIDERS: PCP Family Medicine Geriatric Medicine; Referring Provider Family Medicine Geriatric Medicine; Visit Provider Surgery
PROC: 0DJD8ZZ Inspection of Lower Intestinal Tract, Via Natural or Artificial Opening Endoscopic (ICD-10-PCS; CPT 45378; principal; 2022-08-08 09:55)
DX: Z12.11 Encounter for screening for malignant neoplasm of colon (principal); I48.0 Paroxysmal atrial fibrillation; D12.2 Benign neoplasm of ascending colon; K64.1 Second degree hemorrhoids; K57.30 Diverticulosis of large intestine without perforation or abscess without bleeding; K64.4 Residual hemorrhoidal skin tags; I25.2 Old myocardial infarction; G47.33 Obstructive sleep apnea (adult) (pediatric); I10 Essential (primary) hypertension; E78.00 Pure hypercholesterolemia, unspecified; Z79.82 Long term (current) use of aspirin; Z79.899 Other long term (current) drug therapy; Z86.010 Personal history of colon polyps; Z80.0 Family history of malignant neoplasm of digestive organs
CPT/HCPCS: 45380; 88305; J7120; J2405

== ENCOUNTER → 2022-08-20 | Outpatient (CLI) | payer MEDICARE, SELFPAY ==
[2022-08-20 13:34] LABS: Absolute Lymphocyte Count 1.55 X10^3/uL (0.83-4.51); Absolute Neutrophil Count 4.1 X10^3/uL (2.0-7.7); Basophil# 0.01 X10^3/uL; Basophil% 0.2 % (0-1); Eosinophil# 0.23 X10^3/uL; Eosinophils% 3.7 % (0-5); Hematocrit 45.8 % (37-47); Hemoglobin 14.6 g/dL (12.0-15.0); Lymphocyte # 1.55 X10^3/ul (0.83-4.51); Lymphocyte % 24.7 % (19-41); Mean Corp Hgb Conc 31.9 g/dL (32-36); Mean Corpuscular Hgb 28.9 pg (27.0-32.0); Mean Corpuscular Volume 90.5 fL (81-99); Mean Platelet Vol. 11.2 fl (6.2-12.0); Monocyte# 0.42 X10^3/uL; Monocyte% 6.7 % (0-10); NRBC Flagged by Analyzer 0 % (0-5); Neutrophil # 4.05 X10^3/uL (2.7-7.7); Neutrophil % 64.5 % (47-70); Platelet Count 160 K/mm3 (150-450); RBC Distribution Width CV 13.6 % (11.6-14.6); RBC Distribution Width SD 44.8 fl (35.1-43.9); Red Blood Count 5.06 M/mm3 (4.2-5.4); White Blood Count 6.3 K/mm3 (4.4-11.0)
[2022-08-20 14:27] LABS: ALB/GLOB Ratio 1.2 RATIO (0.9-2.4); AST(SGOT) 36 U/L (15-37); Alanine Aminotransfer ALT/SGPT 38 U/L (13-56); Albumin, Serum 3.7 g/dL (3.2-5.0); Alkaline Phosphatase 117 U/L (45-117); Anion Gap 7 (5-15); BUN 8 mg/dL (7-18); BUN/Creat Ratio 11.1 RATIO (10-20); Calcium,Total 9.2 mg/dL (8.5-10.1); Chloride 110 mmol/L (98-107); Creatinine, Serum 0.72 mg/dL (0.55-1.02); EST Glomerular Filtration Rate 85 mL/min (>60); Est Glom Filt Rate - Afr Amer 102 mL/min (>60); Globulin 3.2 g/dL (2.2-4.2); Glucose 158 mg/dL (74-106); Potassium 4.5 mmol/L (3.5-5.1); Protein, Total 6.9 g/dL (6.4-8.2); Sodium Level 141 mmol/L (136-145)
== END | disposition home or self-care (01) ==
LOC: LAB 08-27 14:57
PROVIDERS: PCP Family Medicine Geriatric Medicine; Referring Provider Internal Medicine Rheumatology; Visit Provider Internal Medicine Rheumatology
DX: M06.4 Inflammatory polyarthropathy (principal); M35.00 Sjogren syndrome, unspecified; M79.7 Fibromyalgia; M17.0 Bilateral primary osteoarthritis of knee; M18.0 Bilateral primary osteoarthritis of first carpometacarpal joints; M72.0 Palmar fascial fibromatosis [Dupuytren]; H35.3130 Nonexudative age-related macular degeneration, bilateral, stage unspecified; M50.30 Other cervical disc degeneration, unspecified cervical region; G47.33 Obstructive sleep apnea (adult) (pediatric); Z79.899 Other long term (current) drug therapy
CPT/HCPCS: 36415; 80053; 85025

== ENCOUNTER → 2022-09-25 | Outpatient (CLI) | payer MEDICARE, SELFPAY | END | disposition home or self-care (01) | LOC: PSN 11:45 | PROVIDERS: PCP Family Medicine Geriatric Medicine; Visit Provider Family Medicine Geriatric Medicine | DX: R68.83 Chills (without fever) (principal) | CPT/HCPCS: 87635; 87804; 87807; C9803; U0003; U0005 ==

== ENCOUNTER → 2022-10-06 | Outpatient (CLI) | payer MEDICARE, SELFPAY ==
[2022-10-06 17:03] LABS: Absolute Lymphocyte Count 1.77 X10^3/uL (0.83-4.51); Absolute Neutrophil Count 3.2 X10^3/uL (2.0-7.7); Basophil# 0.01 X10^3/uL; Basophil% 0.2 % (0-1); Eosinophils% 3.5 % (0-5); Hematocrit 48.9 % (37-47); Hemoglobin 15.5 g/dL (12.0-15.0); Lymphocyte # 1.77 X10^3/ul (0.83-4.51); Lymphocyte % 31.3 % (19-41); Mean Corp Hgb Conc 31.7 g/dL (32-36); Mean Corpuscular Hgb 28.2 pg (27.0-32.0); Mean Corpuscular Volume 88.9 fL (81-99); Monocyte# 0.45 X10^3/uL; NRBC Flagged by Analyzer 0 % (0-5); Neutrophil % 56.6 % (47-70); Platelet Count 178 K/mm3 (150-450); RBC Distribution Width CV 14.9 % (11.6-14.6); RBC Distribution Width SD 48.7 fl (35.1-43.9); White Blood Count 5.7 K/mm3 (4.4-11.0)
[2022-10-06 17:54] LABS: ALB/GLOB Ratio 1.3 RATIO (0.9-2.4); AST(SGOT) 25 U/L (15-37); Alanine Aminotransfer ALT/SGPT 26 U/L (13-56); Albumin, Serum 3.9 g/dL (3.2-5.0); Alkaline Phosphatase 134 U/L (45-117); Anion Gap 7 (5-15); BUN 11 mg/dL (7-18); BUN/Creat Ratio 19.2 RATIO (10-20); Calcium,Total 9.6 mg/dL (8.5-10.1); Chloride 109 mmol/L (98-107); Creatinine, Serum 0.57 mg/dL (0.55-1.02); EST Glomerular Filtration Rate 110 mL/min (>60); Est Glom Filt Rate - Afr Amer 133 mL/min (>60); Glucose 98 mg/dL (74-106); Potassium 4.2 mmol/L (3.5-5.1); Protein, Total 6.9 g/dL (6.4-8.2); Sodium Level 142 mmol/L (136-145); Thyroid Stim Hormone (TSH) 0.83 uIU/mL (0.358-3.74)
== END | disposition home or self-care (01) ==
LOC: POLAB3 13:07
PROVIDERS: PCP Family Medicine Geriatric Medicine; Visit Provider Family Medicine Geriatric Medicine
DX: E55.9 Vitamin D deficiency, unspecified (principal); R53.83 Other fatigue
CPT/HCPCS: 36415; 80053; 82306; 84443; 85025

== ENCOUNTER → 2022-11-10 | Outpatient (CLI) | payer MEDICARE, SELFPAY ==
[2022-11-10 11:56] LABS: Absolute Neutrophil Count 4.4 X10^3/uL (2.0-7.7); Basophil# 0.02 X10^3/uL; Basophil% 0.3 % (0-1); Hematocrit 48.6 % (37-47); Hemoglobin 15.7 g/dL (12.0-15.0); Lymphocyte % 22.7 % (19-41); Mean Corp Hgb Conc 32.3 g/dL (32-36); Mean Corpuscular Hgb 29.1 pg (27.0-32.0); Mean Platelet Vol. 10.5 fl (6.2-12.0); Monocyte# 0.49 X10^3/uL; Monocyte% 7.4 % (0-10); NRBC Flagged by Analyzer 0 % (0-5); Neutrophil # 4.37 X10^3/uL (2.7-7.7); Neutrophil % 66.3 % (47-70); Platelet Count 173 K/mm3 (150-450); RBC Distribution Width CV 15.3 % (11.6-14.6); RBC Distribution Width SD 50.4 fl (35.1-43.9); White Blood Count 6.6 K/mm3 (4.4-11.0)
[2022-11-10 12:51] LABS: ALB/GLOB Ratio 1.2 RATIO (0.9-2.4); AST(SGOT) 22 U/L (15-37); Alanine Aminotransfer ALT/SGPT 30 U/L (13-56); Albumin, Serum 3.7 g/dL (3.2-5.0); Alkaline Phosphatase 141 U/L (45-117); Anion Gap 1 (5-15); BUN 12 mg/dL (7-18); BUN/Creat Ratio 17.6 RATIO (10-20); Calcium,Total 9.3 mg/dL (8.5-10.1); Chloride 110 mmol/L (98-107); Creatinine, Serum 0.68 mg/dL (0.55-1.02); EST Glomerular Filtration Rate 90 mL/min (>60); Est Glom Filt Rate - Afr Amer 109 mL/min (>60); Glucose 90 mg/dL (74-106); Potassium 3.7 mmol/L (3.5-5.1); Protein, Total 6.7 g/dL (6.4-8.2); Sodium Level 138 mmol/L (136-145)
== END | disposition home or self-care (01) ==
PROVIDERS: PCP Family Medicine Geriatric Medicine; Referring Provider Internal Medicine Rheumatology; Visit Provider Internal Medicine Rheumatology
DX: M06.4 Inflammatory polyarthropathy (principal); M35.00 Sjogren syndrome, unspecified; M79.7 Fibromyalgia; M17.0 Bilateral primary osteoarthritis of knee; M18.0 Bilateral primary osteoarthritis of first carpometacarpal joints; M65.341 Trigger finger, right ring finger; M72.0 Palmar fascial fibromatosis [Dupuytren]; H35.3130 Nonexudative age-related macular degeneration, bilateral, stage unspecified; M50.30 Other cervical disc degeneration, unspecified cervical region; G47.33 Obstructive sleep apnea (adult) (pediatric); Z79.899 Other long term (current) drug therapy
CPT/HCPCS: 36415; 80053; 85025

== ENCOUNTER → 2022-12-10 | Outpatient (CLI) | payer MEDICARE, SELFPAY | END | disposition home or self-care (01) | LOC: SL 20:24 | PROVIDERS: PCP Family Medicine Geriatric Medicine; Referring Provider Internal Medicine; Visit Provider Internal Medicine | DX: G47.33 Obstructive sleep apnea (adult) (pediatric) (principal) | CPT/HCPCS: 95810 ==

== ENCOUNTER → 2023-02-05 | Outpatient (CLI) | payer MEDICARE, SELFPAY ==
[2023-02-05 16:02] LABS: Absolute Lymphocyte Count 1.75 X10^3/uL (0.83-4.51); Absolute Neutrophil Count 2.4 X10^3/uL (2.0-7.7); Basophil# 0.01 X10^3/uL; Basophil% 0.2 % (0-1); Eosinophil# 0.19 X10^3/uL; Hematocrit 40.4 % (37-47); Hemoglobin 13.2 g/dL (12.0-15.0); Lymphocyte # 1.75 X10^3/ul (0.83-4.51); Lymphocyte % 36.8 % (19-41); Mean Corp Hgb Conc 32.7 g/dL (32-36); Mean Corpuscular Hgb 29.7 pg (27.0-32.0); Mean Corpuscular Volume 90.8 fL (81-99); Mean Platelet Vol. 10.6 fl (6.2-12.0); Monocyte# 0.42 X10^3/uL; Monocyte% 8.8 % (0-10); NRBC Flagged by Analyzer 0 % (0-5); Neutrophil # 2.37 X10^3/uL (2.7-7.7); Neutrophil % 49.8 % (47-70); Platelet Count 173 K/mm3 (150-450); RBC Distribution Width CV 13.7 % (11.6-14.6); RBC Distribution Width SD 45.1 fl (35.1-43.9); Red Blood Count 4.45 M/mm3 (4.2-5.4); White Blood Count 4.8 K/mm3 (4.4-11.0)
[2023-02-05 16:30] LABS: AST(SGOT) 29 U/L (15-37); Alanine Aminotransfer ALT/SGPT 24 U/L (13-56); Albumin, Serum 3.2 g/dL (3.2-5.0); Alkaline Phosphatase 123 U/L (45-117); Anion Gap 4 (5-15); BUN 11 mg/dL (7-18); BUN/Creat Ratio 16.6 RATIO (10-20); Calcium,Total 8.8 mg/dL (8.5-10.1); Chloride 112 mmol/L (98-107); Creatinine, Serum 0.66 mg/dL (0.55-1.02); EST Glomerular Filtration Rate 93 mL/min (>60); Est Glom Filt Rate - Afr Amer 112 mL/min (>60); Globulin 3.1 g/dL (2.2-4.2); Glucose 98 mg/dL (74-106); Potassium 4.3 mmol/L (3.5-5.1); Protein, Total 6.3 g/dL (6.4-8.2); Sodium Level 141 mmol/L (136-145)
== END | disposition home or self-care (01) ==
LOC: LAB 15:21
PROVIDERS: PCP Family Medicine Geriatric Medicine; Referring Provider Internal Medicine Rheumatology; Visit Provider Internal Medicine Rheumatology
DX: M06.4 Inflammatory polyarthropathy (principal); M35.00 Sjogren syndrome, unspecified; M79.7 Fibromyalgia; Z79.899 Other long term (current) drug therapy
CPT/HCPCS: 36415; 80053; 85025

== ENCOUNTER → 2023-03-31 | Outpatient (CLI) | payer MEDICARE, SELFPAY ==
[2023-03-31 12:16] LABS: Absolute Lymphocyte Count 1.35 X10^3/uL (0.83-4.51); Absolute Neutrophil Count 2.9 X10^3/uL (2.0-7.7); Basophil# 0.02 X10^3/uL; Basophil% 0.4 % (0-1); Eosinophil# 0.18 X10^3/uL; Eosinophils% 3.7 % (0-5); Hematocrit 44.9 % (37-47); Hemoglobin 14.5 g/dL (12.0-15.0); Lymphocyte # 1.35 X10^3/ul (0.83-4.51); Mean Corp Hgb Conc 32.3 g/dL (32-36); Mean Corpuscular Hgb 29.6 pg (27.0-32.0); Mean Corpuscular Volume 91.6 fL (81-99); Mean Platelet Vol. 11.5 fl (6.2-12.0); Monocyte# 0.42 X10^3/uL; Monocyte% 8.7 % (0-10); NRBC Flagged by Analyzer 0 % (0-5); Neutrophil # 2.85 X10^3/uL (2.7-7.7); Platelet Count 153 K/mm3 (150-450); RBC Distribution Width CV 13.9 % (11.6-14.6); RBC Distribution Width SD 46.9 fl (35.1-43.9); White Blood Count 4.8 K/mm3 (4.4-11.0)
[2023-03-31 12:30] LABS: Vitamin D,25 Hydroxy 33.4 ng/mL
[2023-03-31 12:52] LABS: AST(SGOT) 24 U/L (15-37); Alanine Aminotransfer ALT/SGPT 26 U/L (13-56); Albumin, Serum 3.4 g/dL (3.2-5.0); Alkaline Phosphatase 144 U/L (45-117); Anion Gap 6 (5-15); BUN 11 mg/dL (7-18); Calcium,Total 9.1 mg/dL (8.5-10.1); Chloride 108 mmol/L (98-107); Creatinine, Serum 0.61 mg/dL (0.55-1.02); EST Glomerular Filtration Rate 102 mL/min (>60); Est Glom Filt Rate - Afr Amer 123 mL/min (>60); Globulin 3.3 g/dL (2.2-4.2); Glucose 101 mg/dL (74-106); Potassium 4.2 mmol/L (3.5-5.1); Protein, Total 6.7 g/dL (6.4-8.2); Sodium Level 140 mmol/L (136-145); Thyroid Stim Hormone (TSH) 0.76 uIU/mL (0.358-3.74)
== END | disposition home or self-care (01) ==
LOC: POLAB3 10:54
PROVIDERS: PCP Family Medicine Geriatric Medicine; Visit Provider Family Medicine Geriatric Medicine
DX: E55.9 Vitamin D deficiency, unspecified (principal); R53.83 Other fatigue
CPT/HCPCS: 36415; 80053; 82306; 84443; 85025

== ENCOUNTER → 2023-04-17 | Outpatient (CLI) | payer MEDICARE, SELFPAY ==
--- NOTE | 2023-04-17 11:44 | US_ITS ---
STUDY: THYROID ULTRASOUND REASON FOR EXAM: Female, 72 years old. Thyroid nodule TECHNIQUE: Ultrasound evaluation of the thyroid was performed with real-time and static choudhury-scale imaging. COMPARISON: Comparison is made with prior study March 13, 2022. FINDINGS: RIGHT LOBE: The right lobe of the thyroid gland measures 4 cm x 1.4 cm x 1.4 cm. There is a homogeneous echotexture. Stable 8 mm x 5 mm x 7 mm solid/cystic nodule in the lower pole of the right lobe. LEFT LOBE: The left lobe of the thyroid gland measures 4.3 cm x 2.6 x 3.2 cm. There is a homogeneous echotexture. Once again, there is a dominant 3.4 cm x 3.1 cm x 2.7 cm complex solid and cystic nodule in the inferior pole of the left lobe. Biopsy is recommended if not already performed. ISTHMUS: The isthmus measures 9.5 mm. The regional lymph nodes are normal. US/Thyroid IMPRESSION: Stable complex solid and cystic nodule in the lower pole of the left lobe of the thyroid. Biopsy is recommended if not already performed. Electronically Signed: Markos Purdy MD at 15:03 EDT ,
== END | disposition home or self-care (01) ==
PROVIDERS: PCP Family Medicine Geriatric Medicine; Referring Provider Surgery; Visit Provider Surgery
DX: E04.1 Nontoxic single thyroid nodule (principal)
CPT/HCPCS: 76536

== ENCOUNTER → 2023-04-27 | Outpatient (CLI) | payer MEDICARE, SELFPAY ==
[2023-04-27 13:44] LABS: Absolute Lymphocyte Count 1.66 X10^3/uL (0.83-4.51); Absolute Neutrophil Count 2.9 X10^3/uL (2.0-7.7); Basophil# 0.01 X10^3/uL; Basophil% 0.2 % (0-1); Eosinophil# 0.16 X10^3/uL; Eosinophils% 3.1 % (0-5); Hematocrit 44.6 % (37-47); Hemoglobin 14.2 g/dL (12.0-15.0); Lymphocyte # 1.66 X10^3/ul (0.83-4.51); Lymphocyte % 32.5 % (19-41); Mean Corp Hgb Conc 31.8 g/dL (32-36); Mean Corpuscular Hgb 29.8 pg (27.0-32.0); Mean Corpuscular Volume 93.5 fL (81-99); Monocyte# 0.35 X10^3/uL; Monocyte% 6.8 % (0-10); NRBC Flagged by Analyzer 0 % (0-5); Neutrophil # 2.91 X10^3/uL (2.7-7.7); Platelet Count 144 K/mm3 (150-450); RBC Distribution Width CV 14.5 % (11.6-14.6); Red Blood Count 4.77 M/mm3 (4.2-5.4); White Blood Count 5.1 K/mm3 (4.4-11.0)
[2023-04-27 14:24] LABS: ALB/GLOB Ratio 1.3 RATIO (0.9-2.4); AST(SGOT) 21 U/L (15-37); Alanine Aminotransfer ALT/SGPT 29 U/L (13-56); Albumin, Serum 3.7 g/dL (3.2-5.0); Alkaline Phosphatase 131 U/L (45-117); Anion Gap 4 (5-15); BUN 11 mg/dL (7-18); BUN/Creat Ratio 16.6 RATIO (10-20); Calcium,Total 9.3 mg/dL (8.5-10.1); Chloride 109 mmol/L (98-107); Creatinine, Serum 0.66 mg/dL (0.55-1.02); EST Glomerular Filtration Rate 92 mL/min (>60); Est Glom Filt Rate - Afr Amer 112 mL/min (>60); Globulin 2.9 g/dL (2.2-4.2); Glucose 97 mg/dL (74-106); Potassium 3.6 mmol/L (3.5-5.1); Protein, Total 6.6 g/dL (6.4-8.2); Sodium Level 141 mmol/L (136-145)
== END | disposition home or self-care (01) ==
LOC: LAB 13:08
PROVIDERS: PCP Family Medicine Geriatric Medicine; Referring Provider Internal Medicine Rheumatology; Visit Provider Internal Medicine Rheumatology
DX: M06.4 Inflammatory polyarthropathy (principal); M79.7 Fibromyalgia; Z79.899 Other long term (current) drug therapy
CPT/HCPCS: 36415; 80053; 85025

== ENCOUNTER → 2023-05-11 | Outpatient (CLI) | payer MEDICARE, SELFPAY ==
--- NOTE | 2023-05-11 12:05 | BI_ITS ---
MAMMOGRAPHY - BILATERAL SCREENING REASON FOR EXAM: Female, 72 years old. Routine annual screening examination. PERTINENT HISTORY: Non-contributory. History of prior left ultrasound-guided breast biopsy and bilateral breast reduction surgery. TECHNIQUE: Digital bilateral breast lul (3D mammographic acquisition) in the CC and MLO projections. 2-D mediolateral oblique (MLO) and craniocaudad (CC) views of both breasts were obtained. CAD: Full Field Digital Mammography with Computer Added Detection was performed. COMPARISON: Comparison is made with prior study December 14, 2020 and December 13, 2019. FINDINGS: Breast Composition: The breasts are almost entirely fatty. Stable bilateral densely calcified nodules. Stable fat-containing bilateral axillary lymph nodes. No other significant abnormalities are identified. There has been no significant change since the prior study. BI/SCRN MAMM (CAD)W/LUL BILAT IMPRESSION: Stable bilateral screening mammogram. Yearly follow-up mammogram recommended. (A) ASSESSMENT CATEGORY: BIRADS Category 2: Benign. A letter regarding these results will be sent to the patient by the facility within 30 days. Approximately 10% of breast cancers are not detected by mammography. A normal mammogram should not delay biopsy of a clinically suspicious abnormality. [id number] Electronically Signed: Markos Purdy MD at 14:04 EDT ,
== END | disposition home or self-care (01) ==
LOC: OPBI 12:03
PROVIDERS: PCP Family Medicine Geriatric Medicine; Referring Provider Family Medicine Geriatric Medicine; Visit Provider Family Medicine Geriatric Medicine
DX: Z12.31 Encounter for screening mammogram for malignant neoplasm of breast (principal)
CPT/HCPCS: 77063; 77067

== ENCOUNTER → 2023-06-05 | Outpatient (CLI) | payer MEDICARE, SELFPAY | END | disposition home or self-care (01) | LOC: PSN 11:54 | PROVIDERS: PCP Family Medicine Geriatric Medicine; Referring Provider Family Medicine Geriatric Medicine; Visit Provider Family Medicine Geriatric Medicine | DX: R68.83 Chills (without fever) (principal) | CPT/HCPCS: 87635; 87804; 87807; C9803 ==

== ENCOUNTER → 2023-06-25 | Outpatient (CLI) | payer MEDICARE, SELFPAY | END | disposition home or self-care (01) | LOC: PSN 09:57 | PROVIDERS: PCP Family Medicine Geriatric Medicine; Referring Provider Family Medicine Geriatric Medicine; Visit Provider Family Medicine Geriatric Medicine | DX: R68.83 Chills (without fever) (principal) | CPT/HCPCS: 87635; 87804; 87807 ==

== ENCOUNTER → 2023-07-30 | Outpatient (CLI) | payer MEDICARE, SELFPAY ==
[2023-07-30 11:39] LABS: Absolute Lymphocyte Count 1.85 X10^3/uL (0.83-4.51); Absolute Neutrophil Count 4.8 X10^3/uL (2.0-7.7); Basophil# 0.04 X10^3/uL; Basophil% 0.5 % (0-1); Eosinophil# 0.14 X10^3/uL; Eosinophils% 1.8 % (0-5); Hematocrit 49.4 % (37-47); Lymphocyte # 1.85 X10^3/ul (0.83-4.51); Lymphocyte % 24.4 % (19-41); Mean Corp Hgb Conc 32.4 g/dL (32-36); Mean Corpuscular Hgb 30.1 pg (27.0-32.0); Mean Platelet Vol. 10.3 fl (6.2-12.0); Monocyte% 9.2 % (0-10); NRBC Flagged by Analyzer 0 % (0-5); Neutrophil # 4.76 X10^3/uL (2.7-7.7); Neutrophil % 62.9 % (47-70); Platelet Count 191 K/mm3 (150-450); RBC Distribution Width CV 15.1 % (11.6-14.6); RBC Distribution Width SD 51.6 fl (35.1-43.9); Red Blood Count 5.31 M/mm3 (4.2-5.4); White Blood Count 7.6 K/mm3 (4.4-11.0)
[2023-07-30 11:54] LABS: AST(SGOT) 45 U/L (15-37); Alanine Aminotransfer ALT/SGPT 97 U/L (13-56); Albumin, Serum 3.7 g/dL (3.2-5.0); Alkaline Phosphatase 140 U/L (45-117); Anion Gap 4 (5-15); BUN 18 mg/dL (7-18); Calcium,Total 10.1 mg/dL (8.5-10.1); Chloride 106 mmol/L (98-107); Creatinine, Serum 0.86 mg/dL (0.55-1.02); EST Glomerular Filtration Rate 69 mL/min (>60); Est Glom Filt Rate - Afr Amer 83 mL/min (>60); Globulin 3.7 g/dL (2.2-4.2); Glucose 97 mg/dL (74-106); Potassium 4.2 mmol/L (3.5-5.1); Protein, Total 7.4 g/dL (6.4-8.2); Sodium Level 140 mmol/L (136-145)
--- OUTSIDE RECORDS SUMMARY | 2023-07-30 12:48 | XMS RPT_ITS | CCD ---
Author Name Unknown Address [address] [place] [address] Organization [facility] Care Team Providers Care Dock Operator Name Role Phone Kerrie Jimenez Chi Primary Care Provider BARBARA, KERRIE CHI Primary Care Unavailable CHARLENE JR., HARLEY Attending Unavailable BARBARA, KERRIE CHI Primary Care Unavailable CHARLENE JR., HARLEY Attending Unavailable BARBARA, KERRIE CHI Primary Care Unavailable CHARLENE JR., HARLEY Referring Unavailable CHARLENE JR., HARLEY Admitting Unavailable CHARLENE JR., HARLEY Admitting Unavailable BARBARA, KERRIE CHI Primary Care Unavailable CAHRLENE JR., HARLEY Referring Unavailable JULIEN ALBERT, DR GEOVANY Warren Attending Tamica Piña MD, DR SYNERY Primary Care Celia JIMENEZ MD, DR SYNERY Primary Care Unavailable JULIEN ALBERT, DR GEOVANY Warren Attending Tamica Piña MD, DR FRANKLIN Primary Care Unavailable JULIEN ALBERT, DR GEOVANY Warren Attending Tamica Piña MD, [facility] Primary Care Provider Allergies Allergy Classification Reported Allergen(s) Allergy Type Date of Onset Reaction(s) Facility (7 sources) Morphine; Translations: [MORPHINE] Drug Allergy 08-22-2005 GI Upset, GI Intolerance [facility] (7 sources) rosuvastatin; Translations: [ROSUVASTATIN] Drug Allergy 11-11-2013 Myalgia, Unknown [facility] Medications Current Medications Medication Drug Class(es) Dates Sig (Normalized) Sig (Original) acetaminophen 500 mg oral tablet (2 sources) Start: 05-19-2019 acetaminophen (TYLENOL) 500 MG tablet Take 6 (six) tablets (3,000 mg total) by mouth . 0 05/19/2019 Active [id number] 200 actuat albuterol 0.09 mg/actuat metered dose inhaler (2 sources) beta2-Adrenergic Agonist Start: 08-22-2022 albuterol 90 mcg/actuation inhaler celecoxib 100 mg oral capsule (6 sources) Nonsteroidal Anti-inflammatory Drug Start: 08-22-2022 celecoxib (CELEBREX) 100 MG capsule Completed/Discontinued Medications Medication Drug Class(es) Dates Sig (Normalized) Sig (Original) cevimeline 30 mg oral capsule (4 sources) Cholinergic Receptor Agonist cevimeline (EVOXAC) 30 mg capsule Take 30 mg by mouth three times daily. Per pt - only taking once daily 0 Active Problems Active Problems Problem Classification Problem Date Documented Da te Episodic/Chronic Abdominal pain (4 sources) Abdominal pain; Translations: [Unspecified abdominal pain] 03-02-2008 Episodic Acute myocardial infarction (4 sources) Myocardial infarction; Translations: [Acute myocardial infarction, unspecified] Onset: 11-12-2017 11-12-2017 Chronic Coronary atherosclerosis and other heart disease (4 sources) Coronary atherosclerosis; Translations: [Atherosclerotic heart disease of [place] coronary artery without angina pectoris] Onset: 06-04-2018 06-04-2018 Chronic Menopausal disorders (8 sources) Atrophic vaginitis; Translations: [Postmenopausal atrophic vaginitis] Onset: 03-17-2012 03-17-2012 Chronic Nausea and vomiting (4 sources) Nausea; Translations: [Nausea] 03-02-2008 Episodic Osteoarthritis (10 sources) 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; Translations: [Post-traumatic osteoarthritis, right ankle and foot] Onset: 08-27-2022 05-27-2023 Chronic Other circulatory disease (4 sources) Inferior vena cava filter in situ; Translations: [Presence of other vascular implants and grafts] Onset: 08-05-2016 06-04-2018 Chronic Other connective tissue disease (2 sources) Dysfunction of posterior tibial tendon of left foot; Translations: [Posterior tibial tendinitis, left leg] 05-27-2023 Episodic Other connective tissue disease (1 source) Pain in left foot; Translations: [Pain in left foot] 05-27-2023 Episodic Other connective tissue disease (2 sources) Pain in right foot; Translations: [Pain in right foot] Onset: 05-27-2023 Episodic Other connective tissue disease (2 sources) Pain in left foot; Translations: [Pain in left foot] Onset: 05-27-2023 Episodic Other gastrointestinal disorders (4 sources) Dysphagia, unspecified; Translations: [Dysphagia, unspecified] 03-02-2008 Episodic Other screening for suspected conditions (not mental disorders or infectious disease) (2 sources) Patient encounter status; Translations: [Encounter for screening mammogram for malignant neoplasm of breast] Episodic Other skin disorders (4 sources) Lichen sclerosus et atrophicus; Translations: [Circumscribed scleroderma] Onset: 08-16-2012 08-16-2012 Chronic Spondylosis; intervertebral disc disorders; other back problems (5 sources) Lumbar radiculopathy; Translations: [Radiculopathy, lumbar region] Onset: 03-03-2022 Episodic Past or Other Problems Problem Classification Problem Date Documented Da te Episodic/Chronic Nonmalignant breast conditions (4 sources) Breast lump; Translations: [Unspecified lump in unspecified breast] Onset: 07-21-2015 07-21-2015 Episodic Other and unspecified benign neoplasm (4 sources) Benign neoplasm of colon; Translations: [Benign neoplasm of colon, unspecified] Onset: 02-06-2012 02-06-2012 Episodic Other and unspecified benign neoplasm (4 sources) History of polyp of colon; Translations: [Personal history of colonic polyps] Onset: 09-10-2015 09-10-2015 Episodic Other connective tissue disease (2 sources) Posterior tibial tendinitis, left leg; Translations: [Posterior tibial tendinitis, left leg] Onset: 08-27-2022 Episodic Results Test Name Value Interpretation Reference Range Facil ity Vital Signs Date Time Vital Sign Value Performing Clinician Khalidai melba 07-29-2023 10:29-0500 Body temperature 97.3 [degF] Harley Byrd Jr., DPM Work Phone: [facility] 07-29-2023 10:29-0500 Diastolic blood pressure 79 mm[Hg] Harley Byrd Jr., DPM Work Phone: [facility] 07-29-2023 10:29-0500 Heart rate 67 /min Harley Byrd Jr., DPM Work Phone: [facility] 07-29-2023 10:29-0500 Systolic blood pressure 137 mm[Hg] Harley Byrd Jr., DPM Work Phone: [facility] 05-27-2023 13:58-0500 Diastolic blood pressure 72 mm[Hg] Harley Byrd Jr., DPM Work Phone: [facility] 05-27-2023 13:58-0500 Heart rate 57 /min Harley Byrd Jr., DPM Work Phone: [facility] 05-27-2023 13:58-0500 Systolic blood pressure 120 mm[Hg] Harley Byrd Jr., DPM Work Phone: [facility] 05-27-2023 13:53-0500 Body temperature 98.2 [degF] Harley Byrd Jr., DPM Work Phone: [facility] Encounters Encounter Date Encounter Type Care Provider Facility Start: 07-29-2023 End: 07-29-2023 Office outpatient visit 15 minutes Harley Byrd DPM Work Phone: [facility] Procedures Date Procedure Procedure Detail Performing Clinician Start: 08-08-2022 Colonoscopy MERI Boykin Jr.M Work Phone: Start: 03-06-2022 End: 03-06-2022 Screening mammography bi 2-view breast inc cad Anjelica Renteria APRN.HOT ROLL INSPECTOR Work Phone: Start: 12-14-2020 Mammography Xr Super[employer] Start: 11-12-2018 Colonoscopy Xr Super[employer] Plan of Treatment Date Care Activity Detail Author Start: 08-08-2032 Screening for malignant neoplasm of colon [facility] Start: 07-29-2023 End: 07-29-2023 Patient encounter procedure 07/29/2023 10:15 AM EST Office Visit [facility] [address] [place] [id number] Harley Byrd Jr., DPM [address] [place] [address] [facility] Start: 03-20-2023 COVID-19 Vaccine ( season) COVID-19 Vaccine () [facility] Start: 03-20-2023 Influenza vaccination Sequential Influenza Vaccine (#1) [facility] Start: 03-06-2023 Mammography MAMMOGRAM [facility] Start: 03-06-2023 Screening for malignant neoplasm of breast Mammogram [facility] Start: 03-20-2022 Influenza vaccination INFLUENZA (#1) [facility] Start: 12-14-2021 Mammography MAMMOGRAM [facility] Start: 11-12-2021 Colonoscopy COLONOSCOPY [facility] Start: 11-12-2021 COLORECTAL CANCER SCREENING COLORECTAL CANCER SCREENING [facility] Start: 09-12-2021 COVID-19 VACCINE (4 - Booster for Moderna series) COVID-19 VACCINE (4 - Booster for Moderna series) [facility] Start: 07-20-2021 ADVANCE DIRECTIVE DISCUSSION ADVANCE DIRECTIVE DISCUSSION [facility] Start: 2013 Fall risk assessment Falls Risk Assessment [facility] Start: 1998 Screening for malignant neoplasm of colon Flexible sigmoidoscopy [facility] Start: 1993 COLOGUARD (FIT-DNA) COLOGUARD (FIT-DNA) [facility] Start: [address] COLONOGRAPHY [facility] Start: 1993 FECAL OCCULT BLOOD FECAL OCCULT BLOOD [facility] Start: 1993 SIGMOIDOSCOPY SIGMOIDOSCOPY [facility] Start: 10-07-1967 SHINGRIX VACCINE (1 of 2) SHINGRIX VACCINE (1 of 2) [facility] Start: 10-07-1967 Urine microalbumin profile DTAP,TDAP,TD (1 - Tdap) [facility] Start: 1966 ANNUAL PCP TEAM CHRONIC DISEASE VISIT ANNUAL PCP TEAM CHRONIC DISEASE VISIT [facility] Start: 1966 Hepatitis B surface antibody level LDL CHOLESTEROL [facility] Start: 1966 HEPATITIS C SCREENING HEPATITIS C SCREENING [facility] Start: 1966 Hepatitis C screening Hepatitis C Screening [facility] Start: 1960 Adult depression screening assessment [facility] Start: 1958 3 comp foot exam completed DIABETIC FOOT EXAM [facility] Start: 1958 Hepatitis B screening URINE ALBUMIN:CREATININE RATIO [facility] Start: 1958 Hepatitis C antibody, confirmatory test DILATED RETINAL EXAM [facility] Start: 1954 PNEUMOCOCCAL: 65+ (1 - PCV) PNEUMOCOCCAL: 65+ (1 - PCV) [facility] Start: 1953 Hemoglobin A1c/Hemoglobin.total in Blood HBA1C [facility] Start: 10-07-1951 History and physical examination, annual for health maintenance Wellness Visit [facility] Start: 1948 Screening for malignant neoplasm of colon [facility] Start: 1948 Screening for osteoporosis Dexa Scan [facility] Start: 1948 Tetanus vaccination Tetanus: Every 10yrs [facility] End: 03-03-2022 Radex spine lumbosacral minimum 4 views [facility] Work Phone: Immunizations Immunization Date Immunization Notes Care Provider Fa ana 06-20-2021 Moderna SARS-CoV-2 Vaccination Harley Byrd Jr., DPM Work Phone: [facility] 03-06-2021 influenza, injectabl e, quadrivalent, contains preservative Harley Byrd Jr., DPM Work Phone: [facility] 02-28-2020 influenza, injectabl e, quadrivalent, contains preservative Harley Byrd Jr., DPM Work Phone: [facility] 05-02-2019 zoster vaccine recombinant Dada Byrd Jr., DPM Work Phone: [facility] 02-28-2019 influenza, seasonal, injectable, preservative free Harley Byrd Jr., DPM Work Phone: [facility] 02-24-2019 influenza, injectabl e, quadrivalent, contains preservative Harley Byrd Jr., DPM Work Phone: [facility] 12-16-2018 zoster vaccine recombinant Dada Byrd Jr., DPM Work Phone: [facility] 03-30-2017 influenza, injectabl e, quadrivalent, contains preservative Harley Byrd Jr., DPM Work Phone: [facility] 06-19-2014 pneumococcal polysac charide vaccine, 23 valent Harley Charlene Dickson., DPM Work Phone: [facility] 06-19-2014 pneumococcal vaccine , unspecified formulation Harley Gavinzari Dickson., DPM Work Phone: [facility] 04-19-2014 influenza, seasonal, injectable, preservative free Harley Gavinzari Dickson., DPM Work Phone: [facility] 08-02-2013 pneumococcal conjuga te vaccine, 13 valent Harley Charlene Dickson., DPM Work Phone: [facility] 06-04-2009 novel influenza-H1N1 -09, preservative-free, injectable Harley Rangelbob Dickson., DPM Work Phone: [facility] Payers Date Payer Category Payer Private Health Insurance [id number] 2021 Medicare [id number] 2021 Medicare [id number] 1950 Unknown [id number] [id number] 1950 Unknown [id number] [id number]. [id number] 1950 Unknown [id number] 2.16. [id number] 1950 Unknown [id number] 2.16. 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) [facility] Start: 1950 Sex Assigned At Not on file C [facility] Start: 02-21-2022 End: 03-03-2022 Exposure to SARS-CoV-2 (event) Not sure [facility] Start: 05-27-2023 End: 07-29-2023 Alcohol intake Lifetime non-drinker (finding) [facility] Start: 08-27-2022 End: 05-27-2023 History of Social function [facility] Start: 08-27-2022 End: 05-27-2023 Tobacco use panel [facility] Clinical Notes 03-17-2012 to 07-29-2023 Harley Byrd Jr., DPM - 07/29/2023 10:46 AM Harley Kinciad Jr., DPM - 05/27/2023 2:24 PM MAOLetter - Bienvenido Coordinator - 03/06/2022 4:26 PM EDT Note Date & Type Note Facility 07-29-2023 History of Presen t illness Narrative Foot pain follow-up. Patient is a pleasant 72-year-old female following up today on her new custom orthotics. She states that they are fitting extremely well and her pain is literally gone. She cannot believe how it is. Physical Vascular: DP PT pulses are easily palpable 2-4. CFT is fair no edema. Musculoskeletal: Today with palpation no pain across her posterior tibial complex bilaterally, Mild pain across the midtarsal joint though substantially better with the orthotics. Assessment plan: Patient is a pleasant 72-year-old female with bilateral midfoot osteoarthritis and bilateral posterior tibial tendinitis. Today the orthotics are fitting and feeling amazing. No changes required. Additionally no injection required. Follow-up in 2 years for updated orthotics. There are no that she can get the top-cover fixed at her cost as fast is reasonable when it breaks down. Low medical complexity decision making as this will be chronic in nature. documented in this encounter [facility] 05-27-2023 History of Presen t illness Narrative Bilateral foot pain Patient is a 72-year-old female who comes in today for bilateral foot pain. She states she still feels very achy very sore and very uncomfortable in general. 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 Additionally she is still on a pretty good optimization dose of NSAIDs including her Celebrex and Aleve. She was asked not to take this by her regular provider and states that she still likes taking both. Physical Vascular: DP PT pulses are easily palpable 2-4. CFT is normal no edema. Derm: No open wounds no ulcers no rashes no deep nodules. Neuro: Light touch is normal Babinski's is normal. Musculoskeletal: Muscle strength is 5 out of 5. He is able toes. Does have pain across the midtarsal joint and plantar fascia. Otherwise ankle subtalar is full and pain-free can easily wiggle toes. Updated x-rays performed. Assessment and plan: Patient is a 72-year-old female with bilateral midfoot osteoarthritis, bilateral midfoot posterior tibial tendon dysfunction after reconstruction and continued foot pain bilaterally. -At this time, I did get her new prescription for custom functional orthotics with a deep-seated heel cup. -The patient's anatomy is not amenable to an [id number] or prefabricated device and requires a custom device. Continue taking the Celebrex as prescribed but I did recommend she down titrate the Aleve this is a lot of NSAIDs. Follow-up in 3-6 months to review orthotics and pain. Additionally could consider injectable dexamethasone to her midtarsal joint today but she declined. documented in this encounter [facility] 03-06-2022 Miscellaneous Notes March 06, 2022 PID: [id number] Va Xavier [address] [place] [address] [address] [place] [address] Dear Ms. Xavier, We are pleased to inform you that the results of your recent breast imaging exam on 03/06/2022 are normal. Early detection of cancer is very important. We also understand recommendations regarding breast cancer screening are controversial. Please discuss with your primary care provider which strategy is best for you and whether a mammogram is right for you. Your imaging studies and report will be kept on file at [facility] as part of your permanent medical record and are available for your continuing care. Thank you for allowing us to help in meeting your health care needs. Sincerely, Dr. Santamaria Interpreting Radiologist [facility] (Normal over 40) documented in this encounter [facility] 03-06-2022 Note HNO ID: [id number] Author: RT Greg(R) Service: ? Author Type: Technologist Type: Progress Notes Filed: 03/06/2022 9:56 AM Note Text: Radiology Service Progress Note PATIENT NAME: Va Xavier DATE OF SERVICE: March 06, 2022 TIME: 9:56 AM PATIENT IDENTITY VERIFICATION COMPLETED USING TWO (2) IDENTIFIERS: Name and Date of confirmed by patient verbally. FALL SCREENING: Has the patient had 2 falls in the last year or 1 fall with injury or currently using an Ambulatory Assistive Device (Walker, Cane, Wheelchair, Crutches, etc.)? No PATIENT GENDER DATA: Female. status: : No status: NO. PATIENT RELEVANT IMPLANT DATA REVIEWED: Not Applicable RADIOLOGY DEPARTMENT: Mammography PERIPHERAL IV DATA: Not applicable SIGNED BY: RT Greg(R) March 06, 2022 9:56 AM [facility] 03-06-2022 History of Presen t illness Narrative Radiology Service Progress Note PATIENT NAME: Va Xavier DATE OF SERVICE: March 06, 2022 TIME: 9:56 AM PATIENT IDENTITY VERIFICATION COMPLETED USING TWO (2) IDENTIFIERS: Name and Date of confirmed by patient verbally. FALL SCREENING: Has the patient had 2 falls in the last year or 1 fall with injury or currently using an Ambulatory Assistive Device (Walker, Cane, Wheelchair, Crutches, etc.)? No PATIENT GENDER DATA: Female. status: : No status: NO. PATIENT RELEVANT IMPLANT DATA REVIEWED: Not Applicable RADIOLOGY DEPARTMENT: Mammography PERIPHERAL IV DATA: Not applicable SIGNED BY: RT Greg(R) March 06, 2022 9:56 AM documented in this encounter [facility] 03-05-2022 Miscellaneous Notes Please file order for screening mammogram. Appt tomorrow 03/06. Thank you. documented in this encounter [facility] 03-03-2022 Note HNO ID: [id number] Author: Faye Mg I, MD Service: ? Author Type: Physician Type: Progress Notes Filed: 03/03/2022 2:35 PM Note Text: NEUROSURGERY CONSULT NOTE Faye Mg MD Chair, Clinical Neurosciences Director, Spinal Neurosurgery [facility] Date of visit: March 03, 2022 Patient Name: Ms.Nancy Obed Xavier Date of : 1950 Current Age: [age] year old Sex: female MRN/E# [id number] Last Office Visit: Visit date not found Chief Complaint: Patient presents with: New Patient Evaluation Past Medical/Surgical History: Va Xavier is a 71 year old female who is referred by Dr. Trae Walls for neurosurgical evaluation of lumbar spine. The patient has a history of Fibromyalgia, sjogren's disease, heart arrhythmia Obesity, thoracic scoliosis, CTS and trigger finger s/p thumb and CTR 2020. +METHOTREXATE, +ASA Smoking: Denies Alcohol Use: Denies HISTORY OF PRESENT ILLNESS : The patient presents to the office today as a new patient with MRI and x-ray imaging of the lumbar spine. She states that she has a long standing history of right low back pain that acutely worsened 4-6 weeks prior with new leg symptoms. She states since that time the leg symptoms have improved with rest and oral medications but the back pain has remained. She has participated in PT in the past that exacerbated her pain in the past. She underwent lumbar SOHAIL over the summer that provided no relief. She does complain of intermittent leg weakness while ambulating. She discussed SCS with Dr. Walls but feels this would be masking her symptoms. Wants to discuss surgical options. Her leg symptoms consistent of anterior leg numbness/tingling. She denies any bowel/bladder issues. She is here for image review, evaluation and plan of care. Symptoms: right low back pain OTHER DIAGNOSTIC TESTING: DEXA scan obtained 09/10/2020 -Osteopenia in the left hip PREVIOUS CONSERVATIVE TREATMENTS: NSAIDs; celebrex, ibuprofen Lyrica Prednisone Tylenol Pain Management; Dr. Houston Lumbar SOHAIL SCS discussion with Dr. Walls PT> 1 year ago; unable to tolerate PREVIOUS SURGERY: prior ACDF surgeries PAIN EVALUATION 03/03/2022 1403 Pain Level: 2 Pain Location: Back-Lower BLE Description: Radiating;Numbness;Tingling;Ach ing;Dull Duration Units: Months Frequency: Continuous Intervention/Comfort measure: Medication;Reposition;Positioni ng PAST MEDICAL HISTORY Diagnosis Date Arrhythmia Cardiac dysrhythmia, unspecified rare heart arthrymia Coronary artery disease involving [place] coronary artery of [place] heart 06/04/2018 Diaphragmatic hernia without mention of obstruction or gangrene Hiatal hernia Dysphagia, unspecified(787.20) [place] (myocardial infarction) (HCC) Myalgia and myositis, unspecified Myocardial infarct (HCC) 11/12/2017 Neuralgia headaches Osteoarthritis Other and unspecified disc disorder of unspecified region T11-S1 Other and unspecified hyperlipidemia PMH - PAST MEDICAL HISTORY OF DIABETIS BORDERLINE Reflux esophagitis Ruptured, tendon, Achilles Left Sjogren's syndrome (HCC) Inflammed joint Snoring OLEKSANDR on CPAP Torn rotator cuff right Unspecified asthma(493.90) PAST SURGICAL HISTORY Procedure Laterality Date ARTHRP KNE CONDYLEANDPLATU MEDIALANDLAT COMPARTMENTS 03/2011 Left knee BX BREAST W/DEVICE 1ST LESION ULTRASOUND GUID Left 07/21/2015 U/S core bx left breast x 2 CATARACT SURGERY, COMPLEX 2019 COLONOSCOPY FLX DX W/COLLJ SPEC WHEN PFRMD 2006 Colonoscopy COLONOSCOPY FLX DX W/COLLJ SPEC WHEN PFRMD 09/21/2015 COLONOSCOPY SCREENING 2019 3 yr interval EGD REMOVAL TUMOR POLYP/OTHER LESION SNARE TECH 02/06/2012 FOOT LEFT OP SURGERY Left 05/2016 FOOT RIGHT OP SURGERY 11/2009 Dr. Price in [place] FOOT SURGERY HX Left 05/2016 toes straightened- hardware place hiatal hernia repair 09/2009 Dr. Hilliard in [place] IR ENDO ABLATION VARICOSE VEIN 03/01/2015 Bilaterally IVC FILTER PLACEMENT/REMOVAL 04/01/2007 placement prior to bariatric surgery PAST SURGICAL HISTORY OF CERVICAL FUSIONX3 PAST SURGICAL HISTORY OF R KNEE FRACTURE REPAIR PAST SURGICAL HISTORY OF 08/05/06 AND 09/23 FOOT SURGERY ON THE LEFT FOOT PAST SURGICAL HISTORY OF 03/2007 bariatric lapband PAST SURGICAL HISTORY OF 05/03/2015 Right Foot, bunion removal RECONSTRUCTION ROTATOR CUFF AVULSION CHRONIC 06/2009 right shoulder-Dr. Kirk in [place] REDUCTION OF LARGE BREAST 07/03/2014 REDUCTION OF LARGE BREAST Bilateral 07/03/2014 Breast reduction SEPTOPLASTY/SUBMUCOUS RESECJ W/WO CARTILAGE GRF Septoplasty SHOULDER SURGERY HX Right 2019 TONSILLECTOMY PRIMARY/SECONDARY Tonsillectomy FAMILY HISTORY Problem Relation Age of Onset Osteoporosis Mother other (PARKINSONS) Mother Heart Father other (Other) Sister other (SARCOID) Sister Half-sister Diabetes Sister HALF SIS Diabetes Brother Colon Cancer Brother (more content not included)... [facility] 08-08-2021 Note HNO ID: [id number] Author: Anjelica Renteria APRN.HOT ROLL INSPECTOR Service: ? Author Type: Nurse Practitioner Type: Progress Notes Filed: 08/08/2021 2:06 PM Note Text: Va is a 70 year old who presents for an annual gynecologic exam without complaints. Postmenopausal:?Yes since age?early 50s. ?No PMB. HRT use:?No. Last Pap:?2011?normal?? HPV:?2011?negative History of abnormal pap:?No Last mammogram:??2020, normal [facility] [place] History of abnormal mammogram:?No?normal after additional imaging Sexually active:?No Hot flashes:?Flushing related to her morning medication Night sweats:Some, always has sweated a lot Vaginal dryness:?No Documentation from previous visit of 06/06/2020 was copied and pasted, documentation has been reviewed and edited as necessary for today's visit. 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 [employer] History LMP: Postmenopausal Age at Menarche: Age at First : Age at Menopause: [employer] History Comments: Sexual Activity: Not Currently; Male; HUBANDS VASECTOMY Contraception: Surgical PAST MEDICAL HISTORY Diagnosis Date - Arrhythmia - Cardiac dysrhythmia, unspecified rare heart arthrymia - Coronary artery disease involving [place] coronary artery of [place] heart 06/04/2018 - Diaphragmatic hernia without mention of obstruction or gangrene Hiatal hernia - Dysphagia, unspecified(787.20) - [place] (myocardial infarction) (HCC) - Myalgia and myositis, unspecified - Myocardial infarct (HCC) 11/12/2017 - Neuralgia headaches - Osteoarthritis - Other and unspecified disc disorder of unspecified region T11-S1 - Other and unspecified hyperlipidemia - PMH - PAST MEDICAL HISTORY OF DIABETIS BORDERLINE - Reflux esophagitis - Ruptured, tendon, Achilles Left - Sjogren's syndrome (HCC) Inflammed joint - Snoring OLEKSANDR on CPAP - Torn rotator cuff right - Unspecified asthma(493.90) PAST SURGICAL HISTORY Procedure Laterality Date - ARTHRP KNE CONDYLEANDPLATU MEDIALANDLAT COMPARTMENTS 03/2011 Left knee - BX BREAST W/DEVICE 1ST LESION ULTRASOUND GUID Left 07/21/15 U/S core bx left breast x 2 - CATARACT SURGERY, COMPLEX 2019 - COLONOSCOPY FLX DX W/COLLJ SPEC WHEN PFRMD 2006 Colonoscopy - COLONOSCOPY FLX DX W/COLLJ SPEC WHEN PFRMD 09-21-15 - EGD REMOVAL TUMOR POLYP/OTHER LESION SNARE TECH 02/06/12 - FOOT LEFT OP SURGERY Left 05/2016 - FOOT RIGHT OP SURGERY 11/2009 Dr. Price in [place] - FOOT SURGERY HX Left 05/2016 toes straightened- hardware place - hiatal hernia repair 09/2009 Dr. Hilliard in [place] - IR ENDO ABLATION VARICOSE VEIN 03/01/15 Bilaterally - IVC FILTER PLACEMENT/REMOVAL 04/01/2007 placement prior to bariatric surgery - PAST SURGICAL HISTORY OF CERVICAL FUSIONX3 - PAST SURGICAL HISTORY OF R KNEE FRACTURE REPAIR - PAST SURGICAL HISTORY OF 08/05/06 AND 09/23 FOOT SURGERY ON THE LEFT FOOT - PAST SURGICAL HISTORY OF 03/26 bariatric lapband - PAST SURGICAL HISTORY OF 05/03/15 Right Foot, bunion removal - RECONSTRUCTION ROTATOR CUFF AVULSION CHRONIC 06/2009 right shoulder-Dr. Kirk in [place] - REDUCTION OF LARGE BREAST 07/03/14 - REDUCTION OF LARGE BREAST Bilateral 07-03-2014 Breast reduction - SEPTOPLASTY/SUBMUCOUS RESECJ W/WO CARTILAGE GRF Septoplasty - SHOULDER SURGERY HX Right 2019 - TONSILLECTOMY PRIMARY/SECONDARY Tonsillectomy FAMILY HISTORY Problem Relation Age of Onset - Osteoporosis Mother - other (PARKINSONS) Mother - Heart Father - other (Other) Sister - other (SARCOID) Sister Half-sister - Diabetes Sister HALF SIS - Diabetes Brother - Colon Cancer Brother Half-brother SOCIAL HISTORY Social History Tobacco Use - Smoking status: Never Smoker - Smokeless tobacco: Never Used Vaping Use - Vaping Use: Never used Substance Use Topics - Alcohol use: No - Drug use: No REVIEW OF SYSTEMS Abdomen: No abdominal pain, nausea, vomiting, diarrhea, or constipation. No bloating, early satiety, indigestion, or increased flatulence. Bladder: No dysuria, gross hematuria, urinary frequency, urinary urgency, or incontinence Breast: No breast lumps, nipple d/c, overlying skin changes, redness or skin retraction Allergies and current medication updated:Yes EXAM: BP 110/60 Ht 5' 8 (1.73m) Wt 192 lb 3.2 oz (87.2kg) BMI 29.23 kg/(m2). GENERAL: pleasant, female in no apparent distress HEENT: Normocephalic, atraumatic, mucus membranes moist and no lesions NECK: Supple, full range of motion, no adenopathy and thyroid normal DERMATOLOGY: Normal, without lesions, non-icteric and non-hirsute BREAST: soft, non-tender, symmetric, no dominant mass, normal nipple-areolar complex, no lymphadenopathy and no nipple discharge CHEST: Normal inspiratory effort ABDOMEN: soft, non-tender and no masses PELVIC: external genitalia normal, normal Bartholin's glands, urethra, [place]'s glands, no vulvar lesions, no cervical lesions, physiologic (more content not included)... [facility] documented as of this encounter (statuses as of 03/04/2022) [facility]08-29-2012 History of Past illness Narrative* Problem Noted Date Resolved Date Dyspareunia 03/17/2012 11/12/2017 Postcoital bleeding 03/17/2012 07/06/2015 documented as of this encounter (statuses as of 03/05/2022) [facility]08-29-2012 History of Past illness Narrative* Problem Noted Date Resolved Date Dyspareunia 03/17/2012 11/12/2017 Postcoital bleeding 03/17/2012 07/06/2015 documented as of this encounter (statuses as of 03/07/2022) [facility]08-29-2012 History of Past illness Narrative* Problem Noted Date Resolved Date Dyspareunia 03/17/2012 11/12/2017 Postcoital bleeding 03/17/2012 07/06/2015 documented as of this encounter (statuses as of 03/08/2022) [facility] note* Diagnosis Radiculopathy, lumbar region Thoracic or lumbosacral neuritis or radiculitis, unspecified documented in this encounter [facility] note* Diagnosis Encounter for screening mammogram for malignant neoplasm of breast- Primary Other screening mammogram documented in this encounter [facility] note* Diagnosis Encounter for screening mammogram for malignant neoplasm of breast Other screening mammogram documented in this encounter [facility] note* Diagnosis Post-traumatic osteoarthritis of both feet- Primary Posterior tibial tendon dysfunction (PTTD) of left lower extremity Left foot pain Pain in soft tissues of limb Arthritis of foot, left documented in this encounter [facility] note* Diagnosis Arthritis of foot, left- Primary Post-traumatic osteoarthritis of both feet Posterior tibial tendon dysfunction (PTTD) of left lower extremity documented in this encounter [facility] for referral (narrative)* Diagnostic Procedure Only (Routine) - Closed Specialty Diagnoses / Procedures Referred By Parvez verde Referred To Contact XR IMAGING Diagnoses Radiculopathy, lumbar region Procedures XR LUMBAR MOTION 4V AP/LAT/ FLEX/EXT RADEX SPINE LUMBOSACRAL MINIMUM 4 VIEWS Faye Mg I, MD [address] [place] [address] Xr Imaging Referral ID Status Reason Start Date Expiration Date V isits Requested Visits Authorized [id number] Closed Auto-Generate d Referral 02/20/2022 03/22/2023 1 1 [facility] for referral (narrative)* Diagnostic Procedure Only (Routine) - Pending Review Specialty Diagnoses / Procedures Referred By Parvez verde Referred To Contact BR IMAGING Diagnoses Encounter for screening mammogram for malignant neoplasm of breast Procedures BARBARA SCREENING SCREENING MAMMOGRAPHY BI 2-VIEW BREAST INC CAD Anjelica Renteria APRN.HOT ROLL INSPECTOR [address] [place] [address] [facility] [address] [place] [address] Referral ID Status Reason Start Date Expiration Date Visits Requested Visits Authorized [id number] Pending Review Auto-Generat ed Referral 03/05/2022 04/04/2023 1 1 [facility] for referral (narrative)* Diagnostic Procedure Only (Routine) - Closed Specialty Diagnoses / Procedures Referred By Contac t Referred To Contact BR IMAGING Diagnoses Encounter for screening mammogram for malignant neoplasm of breast Procedures BARBARA SCREENING SCREENING MAMMOGRAPHY BI 2-VIEW BREAST INC CAD Anjelica Renteria APRN.HOT ROLL INSPECTOR [address] [place] [place] [address] [facility] [address] [place] [address] Referral ID Status Reason Start Date Expiration Date V isits Requested Visits Authorized [id number] Closed Auto-Generate d Referral 03/05/2022 04/04/2023 1 1 [facility] for visit Narrative* Diagnostic Procedure Only (Routine) - Closed Specialty Diagnoses / Procedures Referred By Contac t Referred To Contact XR IMAGING Diagnoses Radiculopathy, lumbar region Procedures XR LUMBAR MOTION 4V AP/LAT/ FLEX/EXT RADEX SPINE LUMBOSACRAL MINIMUM 4 VIEWS Faye Mg I, MD [address] [place] [address] Xr Imaging Referral ID Status Reason Start Date Expiration Date V isits Requested Visits Authorized [id number] Closed Auto-Generate d Referral 02/20/2022 03/22/2023 1 1 [facility] for visit Narrative* Diagnostic Procedure Only (Routine) - Closed Specialty Diagnoses / Procedures Referred By Contac t Referred To Contact BR IMAGING Diagnoses Encounter for screening mammogram for malignant neoplasm of breast Procedures BARBARA SCREENING SCREENING MAMMOGRAPHY BI 2-VIEW BREAST INC CAD Anjelica Renteria, SCIENTIFIC PUBLICATIONS EDITOR.HOT ROLL INSPECTOR [address] [place] [address] [facility] [address] [place] [address] Referral ID Status Reason Start Date Expiration Date V isits Requested Visits Authorized [id number] Closed Auto-Generate d Referral 03/05/2022 04/04/2023 1 1 [facility] Advance Directives Documents on File Type Date Recorded 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 Advance Directive(s) 08/16/2018 2:12 PM Documents on File Type Date Recorded 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 Advance Directive(s) 08/16/2018 2:12 PM Summary Purpose Family History No Family History Records FoundNo Family History Records FoundNo Family History Records FoundNo Family History Records Found Additional Source Comments Source Comments (unrecognize d section and content) In the event this informatio n is protected by the Federal Confidentiality of Alcohol and Drug Abuse Patient Records regulations: The Federal rules restrict any use of the information to criminally investigate or prosecute any alcohol or drug abuse patient.[facility] the event this information is protected by the Federal Confidentiality of Alcohol and Drug Abuse Patient Records regulations: The Federal rules restrict any use of the information to criminally investigate or prosecute any alcohol or drug abuse patient.[facility] the event this information is protected by the Federal Confidentiality of Alcohol and Drug Abuse Patient Records regulations: The Federal rules restrict any use of the information to criminally investigate or prosecute any alcohol or drug abuse patient.[facility] the event this information is protected by the Federal Confidentiality of Alcohol and Drug Abuse Patient Records regulations: The Federal rules restrict any use of the information to criminally investigate or prosecute any alcohol or drug abuse patient.[facility] Care Teams (unrecognized sec tion and content) Dock Operator Relationship Specialty Start Date End Date Kerrie Jimenez Chi PCP - General Family Practice 03/24/13 Dock Operator Relationship Specialty Start Date End Date Kerrie Jimenez Chi PCP - General Family Practice 03/24/13 Dock Operator Relationship Specialty Start Date End Date Kerrie Jimenez Chi, MD [address] [facility] [address] [place] [address] PCP - General Geriatric Medicine 08/27/22 Dock Operator Relationship Specialty Start Date End Date Kerrie Jimenez Chi, MD [address] [facility] [address] [place] [address] PCP - General Geriatric Medicine 08/27/22 Reason for Visit (unrecogniz ed section and content) Reason Comments Foot Pain Right foot cramps an d arch, heel and ankle pain. Base of great nail has burning pain. Left foot has pain in the back of heel and around the ankle. Occasional muscle spasms. Reason Comments Foot Orthotics Patient is here for an orthotic check. INFORMATION SOURCE (unrecogn ized section and content) DATE CREATED AUTHOR AUTHOR'S NITISH ATSALOME 03/12/2022 [facility] DATE CREATED AUTHOR AUTHOR'S ORGANLEONELA ATION 05/31/2023 [facility] DATE CREATED AUTHOR AUTHOR'S ORGANIZ ATION 07/02/2023 [facility] [place]) FOR RECORDS PERTAINING TO PATIENTS WHO ARE OR HAVE BEEN ENROLLED IN A CHEMICAL DEPENDENCY/SUBSTANCEABUSE PROGRAM, SOME INFORMATION MAY BE OMITTED. This clinical summary was aggregated from multiple sources. Caution should be exercised in using it in the provision of clinical care. This summary normalizes information from multiple sources, and as a consequence, information in this document may materially change the coding, format and clinical context of patient data. In addition, data may be omitted in some cases. CLINICAL DECISIONS SHOULD BE BASED ON THE PRIMARY CLINICAL RECORDS. [facility]. provides no warranty or guarantee of the accuracy or completeness of information in this document.
== END | disposition home or self-care (01) ==
PROVIDERS: PCP Family Medicine Geriatric Medicine; Referring Provider Internal Medicine Rheumatology; Visit Provider Internal Medicine Rheumatology
DX: M06.4 Inflammatory polyarthropathy (principal); M79.7 Fibromyalgia; Z79.899 Other long term (current) drug therapy
CPT/HCPCS: 36415; 80053; 85025

== ENCOUNTER → 2023-08-13 | Outpatient (CLI) | payer MEDICARE, SELFPAY ==
--- NOTE | 2023-08-13 09:39 | US_ITS ---
STUDY: ABDOMINAL ULTRASOUND - RIGHT UPPER QUADRANT REASON FOR VISIT: Female, 72 years old ELEVATED LIVER ENZYMES TECHNIQUE: Ultrasound evaluation of the right upper quadrant was performed with real-time and static choudhury-scale imaging. TECHNICAL QUALITY: Adequate. COMPARISON: None. FINDINGS: Liver: The liver measures 15.1 cm. There is increased echogenicity consistent with fatty infiltration. The bile ducts are within normal limits. There is hepatic color flow. The direction of portal flow is hepatopetal. There is no demonstrated mass lesion. Gallbladder: Normal distended gallbladder. The gallbladder wall measures 1.6 mm. There is a negative sonographic Monson''s sign. There is no pericholecystic fluid. There are no gallstones. Common Bile Duct (C.B.D.): The common bile duct measures 7.2 mm. Pancreas: Normal size of the head, body of the pancreas. The tail portion of the pancreas is obscured due to overlying bowel gas. There is normal echogenicity of the pancreas. There is no demonstrated pancreatic mass or cyst. Right Kidney: Normal size of the right kidney. The right kidney measures 11.8 cm x 6 cm x 4.9 cm. Normal renal cortex. The right cortex measures 1.6 cm. There is no demonstrated renal mass or cyst. There is no right hydronephrosis. US/Liver IMPRESSION: Normal right upper quadrant ultrasound examination. Electronically Signed: Markos Purdy MD at 10:39 EST ,
--- OUTSIDE RECORDS SUMMARY | 2023-08-13 10:06 | XMS RPT_ITS | CCD ---
Author Name Unknown Address [address] [place] [address] Organization [facility] Care Team Providers Care Certified Nurse Practitioner Name Role Phone Kerrie Jimenez Chi Primary Care Provider CHARLENE JR., HARLEY Admitting Unavailable BARBARA, KERRIE CHI Primary Care Unavailable CHARLENE JR., HARLEY Referring Unavailable CHARLENE JR., HARLEY Admitting Unavailable BARBARA, KERRIE CHI Primary Care Unavailable CHARLENE JR., HARLEY Referring Unavailable BARBARA, KERRIE CHI Primary Care Unavailable CHARLENE JR., HARLEY Attending Unavailable BARBARA, KERRIE CHI Primary Care Unavailable CHARLENE JR., HARLEY Attending Unavailable BARBARA, KERRIE CHI Primary Care Unavailable CHARLENE JR., HARLEY Attending Celia JIMENEZ MD, DR FRANKLIN Primary Care Unavailable JULIEN ALBERT, DR GEOVANY Warren Attending Tamica Perry MD, DR GEOVANY Warren Attending Tamica Morales MD, DR FRANKLIN Primary Care Unavailable BARBARA ALBERT, DR FRANKLIN Primary Care Celia VICTORIA MD, DR GEOVANY Warren Attending Tamica silva Allergies Allergy Classification Reported Allergen(s) Allergy Type Date of Onset Reaction(s) Facility (7 sources) Morphine; Translations: [MORPHINE] Drug Allergy 08-22-2005 GI Upset, GI Intolerance [facility] (7 sources) rosuvastatin; Translations: [ROSUVASTATIN] Drug Allergy 11-11-2013 Myalgia, Unknown [facility] Medications Current Medications Medication Drug Class(es) Dates Sig (Normalized) Sig (Original) acetaminophen 500 mg oral tablet (2 sources) Start: 05-19-2019 acetaminophen (TYLENOL) 500 MG tablet Take 6 (six) tablets (3,000 mg total) by mouth . 0 05/19/2019 Active [id number] 200 actuat albuterol 0.09 mg/actuat metered dose [...] Coronary atherosclerosis; Translations: [Atherosclerotic heart disease of ho-chunk coronary artery without angina pectoris] Onset: 06-04-2018 [...] Translations: [Radiculopathy, lumbar region] Onset: 03-03-2022 Episodic Unclassified (2 sources) Foot Orthotics Onset: 07-29-2023 Past or Other Problems Problem Classification Problem [...] Date Time Vital Sign Value Performing Clinician Faci lity 07-29-2023 10:29-0500 Body temperature 97.3 [degF] Harley Byrd Jr., DPM Work Phone: [facility] 07-29-2023 10:29-0500 Diastolic blood pressure 79 mm[Hg] Harley Byrd Jr., DPM Work Phone: [facility] 07-29-2023 10:29-0500 Heart rate 67 /min Harley Byrd Jr., DPM Work Phone: [facility] 07-29-2023 10:29-0500 Systolic blood pressure 137 mm[Hg] Harley Byrd Jr., DPM Work Phone: [facility] 05-27-2023 13:58-0500 Diastolic blood pressure 72 mm[Hg] Harley Byrd Jr., DPM Work Phone: [facility] 05-27-2023 13:58-0500 Heart rate 57 /min Harley Byrd Jr., DPM Work Phone: [facility] 05-27-2023 13:58-0500 Systolic blood pressure 120 mm[Hg] Harley Byrd Jr., DPM Work Phone: [facility] 05-27-2023 13:53-0500 Body temperature 98.2 [degF] Harley Byrd Jr., DPM Work Phone: [facility] Encounters Encounter Date Encounter Type Care Provider Facility Start: 08-10-[address] GEOVANY VICTORIA MD F acility:B Start: 07-29-2023 End: 07-29-2023 ambulatory [employer] [facility] Amb[facility] Start: 07-29-2023 End: 07-29-2023 Office outpatient visit 15 minutes Harley Byrd DPM Work Phone: [facility] Procedures Date Procedure Procedure Detail Performing Clinician Start: 08-08-2022 Colonoscopy Harley murdock Jr., DPM Work Phone: Start: 03-06-2022 End: 03-06-2022 Screening mammography bi 2-view breast inc cad Anjelica Renteria APRN.DRY GOODS CLERK Work Phone: Start: 12-14-2020 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 Start: 11-12-2018 Colonoscopy 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 Plan of Treatment Date Care Activity Detail Author Start: 08-08-2032 Screening for malignant neoplasm of colon [facility] Start: 07-29-2023 End: 07-29-2023 Patient encounter procedure 07/29/2023 10:15 AM EST Office Visit [facility] [address] [place] [address] Harley Byrd Jr., DPM [address] [place] [address] [facility] Start: 03-20-2023 COVID-19 Vaccine ( season) COVID-19 Vaccine () [facility] Start: 03-20-2023 Influenza vaccination Sequential Influenza Vaccine (#1) [facility] Start: 03-06-2023 Mammography MAMMOGRAM [facility] Start: 03-06-2023 Screening for malignant neoplasm of breast Mammogram [facility] Start: 03-20-2022 Influenza vaccination INFLUENZA (#1) [facility] Start: 12-14-2021 Mammography MAMMOGRAM [facility] Start: 11-12-2021 Colonoscopy COLONOSCOPY [facility] Start: 11-12-2021 COLORECTAL CANCER SCREENING COLORECTAL CANCER SCREENING [facility] Start: 09-12-2021 COVID-19 VACCINE (4 - Booster for Moderna series) COVID-19 VACCINE (4 - Booster for Moderna series) [facility] Start: 07-20-2021 ADVANCE DIRECTIVE DISCUSSION ADVANCE DIRECTIVE DISCUSSION [facility] Start: 2013 Fall risk assessment Falls Risk Assessment [facility] Start: 1998 Screening for malignant neoplasm of colon Flexible sigmoidoscopy [facility] Start: 1993 COLOGUARD (FIT-DNA) COLOGUARD (FIT-DNA) [facility] Start: [address] COLONOGRAPHY [facility] Start: 1993 FECAL OCCULT BLOOD FECAL OCCULT BLOOD [facility] Start: 1993 SIGMOIDOSCOPY SIGMOIDOSCOPY [facility] Start: 10-07-1967 SHINGRIX VACCINE (1 of 2) SHINGRIX VACCINE (1 of 2) [facility] Start: 10-07-1967 Urine microalbumin profile DTAP,TDAP,TD (1 - Tdap) [facility] Start: 1966 ANNUAL PCP TEAM CHRONIC DISEASE VISIT ANNUAL PCP TEAM CHRONIC DISEASE VISIT [facility] Start: 1966 Hepatitis B surface antibody level LDL CHOLESTEROL [facility] Start: 1966 HEPATITIS C SCREENING HEPATITIS C SCREENING [facility] Start: 03-20-1967 Hepatitis C screening Hepatitis C Screening [facility] Start: 1960 Adult depression screening assessment [facility] Start: 1958 3 comp foot exam completed DIABETIC FOOT EXAM [facility] Start: 1958 Hepatitis B screening URINE ALBUMIN:CREATININE RATIO [facility] Start: 1958 Hepatitis C antibody, confirmatory test DILATED RETINAL EXAM [facility] Start: 1954 PNEUMOCOCCAL: 65+ (1 - PCV) PNEUMOCOCCAL: 65+ (1 - PCV) [facility] Start: 1953 Hemoglobin A1c/Hemoglobin.total in Blood HBA1C [facility] Start: 10-07-1951 History and physical examination, annual for health maintenance Wellness Visit [facility] Start: 1948 Screening for malignant neoplasm of colon [facility] Start: 1948 Screening for osteoporosis Dexa Scan [facility] Start: 1948 Tetanus vaccination Tetanus: Every 10yrs [facility] End: 03-03-2022 Radex spine lumbosacral minimum 4 views [facility] Work Phone: Immunizations Immunization Date Immunization Notes Care Provider Fa cilinaveed 06-20-2021 Moderna SARS-CoV-2 Vaccination Harley Byrd Jr., DPM Work Phone: [facility] 03-06-2021 influenza, injectabl e, quadrivalent, contains preservative Harley Bryd Jr., DPM Work Phone: [facility] 02-28-2020 influenza, injectabl e, quadrivalent, contains preservative Harley Byrd Jr., DPM Work Phone: [facility] 05-02-2019 zoster vaccine recombinant Dada Byrd Jr., DPM Work Phone: [facility] 02-28-2019 influenza, seasonal, injectable, preservative free Harley Byrd Jr., DPM Work Phone: [facility] 02-24-2019 influenza, injectabl e, quadrivalent, contains preservative Harley Byrd Jr., DPM Work Phone: [facility] 12-16-2018 zoster vaccine recombinant J kerrie Byrd Jr., DPM Work Phone: [facility] 03-30-2017 influenza, injectabl e, quadrivalent, contains preservative Harley Byrd Jr., DPM Work Phone: [facility] 06-19-2014 pneumococcal polysac charide vaccine, 23 valent Harley Byrd Jr., DPM Work Phone: [facility] 06-19-2014 pneumococcal vaccine , unspecified formulation Harley Byrd Jr., DPM Work Phone: [facility] 04-19-2014 influenza, seasonal, injectable, preservative free Harley Byrd Jr., DPM Work Phone: [facility] 08-02-2013 pneumococcal conjuga te vaccine, 13 valent Harley Byrd Jr., DPM Work Phone: [facility] 06-04-2009 novel influenza-H1N1 -09, preservative-free, injectable Harley Byrd Jr., DPM Work Phone: [facility] Payers Date Payer Category Payer Private Health Insurance [id number] 2021 Medicare [id number] 2021 Medicare [id number] 1950 Unknown [id number] 2. [id number] 1950 Unknown [id number] 2. [id number] 1950 Unknown [id number] 2.. [id number] 1950 Unknown [id number] 2.16. [id number] 1950 Unknown [id number] 2.16 [id number] 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) [facility] Start: 1950 Sex Assigned At Not on file [facility] Start: 02-21-2022 End: 03-03-2022 Exposure to SARS-CoV-2 (event) Not sure [facility] Start: 05-27-2023 End: 07-29-2023 Alcohol intake Lifetime non-drinker (finding) [facility] Start: 08-27-2022 End: 05-27-2023 History of Social function [facility] Start: 08-27-2022 End: 05-27-2023 Tobacco use panel [facility] Clinical Notes 03-17-2012 to 07-29-2023 Harley Byrd Jr., DP - 07/29/2023 10:46 AM Harley Kincaid Jr., DP - 05/27/2023 2:[address] [facility] - 03/06/2022 4:26 PM EDT Note [...] chronic in nature. documented in this encounter [facility] 05-27-2023 History of Presen t illness Narrative Bilateral foot pain Patient is a 72-year-old female who comes in today for bilateral foot pain. She states she still feels very achy very sore and very uncomfortable in general. 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 Continue taking the Celebrex as prescribed but I did recommend she down titrate the Aleve this is a lot of NSAIDs. Follow-up in 3-6 months to review orthotics and pain. Additionally could consider injectable dexamethasone to her midtarsal joint today but she declined. documented in this encounter [facility] 03-06-2022 Miscellaneous Notes March 06, 2022 PID: [id number] Va John [address] [place] [address] [address] [place] [address] Dear Ms. John, We are pleased to inform you that [...] report will be kept on file at [facility] as part of your permanent medical record and are available for your continuing care. Thank you for allowing us to help in meeting your health care needs. Sincerely, Dr. Santamaria Interpreting Radiologist [facility] (Normal over 40) documented in this encounter [facility] 03-06-2022 History of Presen t illness Narrative Radiology Service Progress Note PATIENT NAME: Va John DATE OF SERVICE: March 06, 2022 TIME: [...] 2022 9:56 AM documented in this encounter [facility] 03-05-2022 Miscellaneous Notes Please file order for screening mammogram. Appt tomorrow 03/06. Thank you. documented in this encounter [facility] 03-03-2022 Note HNO ID: [id number] Author: Faye Mg I, MD Service: ? Author Type: Physician Type: Progress Notes Filed: 03/03/2022 2:35 PM Note Text: NEUROSURGERY CONSULT NOTE Faye Mg MD Chair, Clinical Neurosciences Director, Spinal Neurosurgery [facility] Date of visit: March 03, 2022 Patient Name: Ms.Nancy Obed John Date of : 1950 Current Age: [age] year old Sex: female MRN/E# [id number] Last Office Visit: Visit date not found Chief Complaint: Patient presents with: New Patient Evaluation Past Medical/Surgical History: Va John is a 71 year old female who [...] rare heart arthrymia Coronary artery disease involving ho-chunk coronary artery of ho-chunk heart 06/04/2018 Diaphragmatic hernia without mention of obstruction or gangrene Hiatal hernia Dysphagia, unspecified(787.20) [place] (myocardial infarction) ([facility]) Myalgia and myositis, unspecified Myocardial infarct (HCC) [...] RIGHT OP SURGERY 11/2009 Dr. Price in [place] FOOT SURGERY HX Left 05/2016 toes straightened- hardware place hiatal hernia repair 09/2009 Dr. 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 Kirk in [place] REDUCTION OF LARGE BREAST 07/03/2014 REDUCTION OF LARGE BREAST Bilateral 07/03/2014 Breast reduction SEPTOPLASTY/SUBMUCOUS RESECJ W/WO CARTILAGE GRF Septoplasty SHOULDER SURGERY HX Right 2019 TONSILLECTOMY PRIMARY/SECONDARY Tonsillectomy FAMILY HISTORY Problem Relation Age of Onset Osteoporosis Mother other (PARKINSONS) Mother Heart Father other (Other) Sister other (SARCOID) Sister Half-sister Diabetes Sister HALF SIS Diabetes Brother Colon Cancer Brother (more content not included)... [facility] documented as of this encounter (statuses as of 03/04/2022) [facility]08-29-2012 History of Past illness Narrative* Problem Noted Date Resolved Date Dyspareunia 03/17/2012 11/12/2017 Postcoital bleeding 03/17/2012 07/06/2015 documented as of this encounter (statuses as of 03/05/2022) [facility] History of Past illness Narrative* Problem Noted Date Resolved Date Dyspareunia 03/17/2012 11/12/2017 Postcoital bleeding 03/17/2012 07/06/2015 documented as of this encounter (statuses as of 03/07/2022) [facility] History of Past illness Narrative* Problem Noted Date Resolved Date Dyspareunia 03/17/2012 11/12/2017 Postcoital bleeding 03/17/2012 07/06/2015 documented as of this encounter (statuses as of 03/08/2022) [facility] Diagnosis Radiculopathy, lumbar region Thoracic or lumbosacral neuritis or radiculitis, unspecified [facility] Diagnosis Encounter for screening mammogram for malignant neoplasm of breast- Primary Other screening mammogram [facility] Diagnosis Encounter for screening mammogram for malignant neoplasm of breast Other screening mammogram [facility] Diagnosis Post-traumatic osteoarthritis of both feet- Primary Posterior tibial tendon dysfunction (PTTD) of left lower extremity Left foot pain Pain in soft tissues of limb Arthritis of foot, left [facility] Diagnosis Arthritis of foot, left- Primary Post-traumatic osteoarthritis of both feet Posterior tibial tendon dysfunction (PTTD) of left lower extremity documented in this encounter [facility] for referral (narrative)* Diagnostic Procedure Only (Routine) - Closed Specialty Diagnoses / Procedures Referred By Contac t Referred To Contact XR IMAGING Diagnoses Radiculopathy, lumbar region Procedures XR LUMBAR MOTION 4V AP/LAT/ FLEX/EXT RADEX SPINE LUMBOSACRAL MINIMUM 4 VIEWS Faye Mg I, MD [address] [place] [address] Xr Imaging Referral ID Status Reason Start Date Expiration Date V isits Requested Visits Authorized [id number] Closed Auto-Generate d Referral 02/20/2022 03/22/2023 1 1 [facility] for referral (narrative)* Diagnostic Procedure Only (Routine) - Pending Review Specialty Diagnoses / Procedures Referred By Contac t Referred To Contact BR IMAGING Diagnoses Encounter for screening mammogram for malignant neoplasm of breast Procedures BARBARA SCREENING SCREENING MAMMOGRAPHY BI 2-VIEW BREAST INC Anjelica Velarde APRN.DRY GOODS CLERK [address] [place] [address] [facility] [address] [place] [address] Referral ID Status Reason Start Date Expiration Date Visits Requested Visits Authorized [id number] Pending Review Auto-Generat ed Referral 03/05/2022 04/04/2023 1 1 [facility] for referral (narrative)* Diagnostic Procedure Only (Routine) - Closed Specialty Diagnoses / Procedures Referred By Contac t Referred To Contact BR IMAGING Diagnoses Encounter for screening mammogram for malignant neoplasm of breast Procedures BARBARA SCREENING SCREENING MAMMOGRAPHY BI 2-VIEW BREAST INC Anjelica Velarde APRN.DRY GOODS CLERK [address] [place] [address] [facility] [address] [place] [address] Referral ID Status Reason Start Date Expiration Date V isits Requested Visits Authorized [id number] Closed Auto-Generate d Referral 03/05/2022 04/04/2023 1 1 [facility] for visit Narrative* Diagnostic Procedure Only (Routine) - Closed Specialty Diagnoses / Procedures Referred By Contac t Referred To Contact XR IMAGING Diagnoses Radiculopathy, lumbar region Procedures XR LUMBAR MOTION 4V AP/LAT/ FLEX/EXT RADEX SPINE LUMBOSACRAL MINIMUM 4 VIEWS Faye Mg I, [address] [place] [address] Xr Imaging Referral ID Status Reason Start Date Expiration Date V isits Requested Visits Authorized [id number] Closed Auto-Generate d Referral 02/20/2022 03/22/2023 1 1 [facility] for visit Narrative* Diagnostic Procedure Only (Routine) - Closed Specialty Diagnoses / Procedures Referred By Contac t Referred To Contact BR IMAGING Diagnoses Encounter for screening mammogram for malignant neoplasm of breast Procedures BARBARA SCREENING SCREENING MAMMOGRAPHY BI 2-VIEW BREAST INC Anjelica Velarde APRN.DRY GOODS CLERK [address] [place] [address] [facility] [address] [place] [address] Referral ID Status Reason Start Date Expiration Date V isits Requested Visits Authorized [id number] Closed Auto-Generate d Referral 03/05/2022 04/04/2023 1 1 [facility] Advance Directives No Advanced Directives Records FoundDocuments on File Type Date Recorded 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 Advance Directive(s) 08/16/2018 2:12 PM Documents on File Type Date Recorded 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 Advance Directive(s) 08/16/2018 2:12 PM [...] or prosecute any alcohol or drug abuse patient.[facility] the event this information is protected by the Federal Confidentiality of Alcohol and Drug Abuse Patient Records regulations: The Federal rules restrict any use of the information to criminally investigate or prosecute any alcohol or drug abuse patient.[facility] the event this information is protected by the Federal Confidentiality of Alcohol and Drug Abuse Patient Records regulations: The Federal rules restrict any use of the information to criminally investigate or prosecute any alcohol or drug abuse patient.[facility] the event this information is protected by the Federal Confidentiality of Alcohol and Drug Abuse Patient Records regulations: The Federal rules restrict any use of the information to criminally investigate or prosecute any alcohol or drug abuse patient.[facility] Care Teams (unrecognized sec tion and content) Certified Nurse Practitioner Relationship Specialty Start Date End Date Kerrie Jimenez Chi PCP - General Family Practice 03/24/13 Certified Nurse Practitioner Relationship Specialty Start Date End Date Barbara Kerrie Cano PCP - General Family Practice 03/24/13 Certified Nurse Practitioner Relationship Specialty Start Date End Date Kerrie Jimenez Chi, MD [address] [facility] [address] [place] [address] PCP - General Geriatric Medicine 08/27/22 Certified Nurse Practitioner Relationship Specialty Start Date End Date Kerrie Jimenez Chi, MD [address] [facility] [address] [place] [address] PCP - General Geriatric Medicine 08/27/22 Reason [...] section and content) DATE CREATED AUTHOR AUTHOR'S ORGANIZ ATION 08/02/2023 [facility] DATE CREATED AUTHOR AUTHOR'S ORGANIZ ATION 08/04/2023 [facility] DATE CREATED AUTHOR AUTHOR'S ORGANIZ ATION 08/11/2023 [facility] FOR RECORDS PERTAINING TO PATIENTS WHO ARE [...] BE BASED ON THE PRIMARY CLINICAL RECORDS. [facility]. provides no warranty or guarantee of the accuracy or completeness of information in this document.
== END | disposition home or self-care (01) ==
LOC: US 09:37
PROVIDERS: PCP Family Medicine Geriatric Medicine; Referring Provider Internal Medicine Rheumatology; Visit Provider Internal Medicine Rheumatology
DX: R74.01 Elevation of levels of liver transaminase levels (principal); Z79.899 Other long term (current) drug therapy
CPT/HCPCS: 76705

== ENCOUNTER → 2023-09-10 | Outpatient (CLI) | payer MEDICARE, SELFPAY ==
[2023-09-10 12:03] LABS: Absolute Lymphocyte Count 1.21 X10^3/uL (0.83-4.51); Absolute Neutrophil Count 5.2 X10^3/uL (2.0-7.7); Basophil# 0.02 X10^3/uL; Basophil% 0.3 % (0-1); Eosinophil# 0.13 X10^3/uL; Eosinophils% 1.8 % (0-5); Hematocrit 47.3 % (37-47); Hemoglobin 14.7 g/dL (12.0-15.0); Lymphocyte # 1.21 X10^3/ul (0.83-4.51); Lymphocyte % 17.2 % (19-41); Mean Corp Hgb Conc 31.1 g/dL (32-36); Mean Corpuscular Hgb 29.7 pg (27.0-32.0); Mean Corpuscular Volume 95.6 fL (81-99); Mean Platelet Vol. 10.5 fl (6.2-12.0); Monocyte# 0.43 X10^3/uL; Monocyte% 6.1 % (0-10); NRBC Flagged by Analyzer 0 % (0-5); Neutrophil # 5.21 X10^3/uL (2.7-7.7); Neutrophil % 74.2 % (47-70); Platelet Count 154 K/mm3 (150-450); RBC Distribution Width CV 14.4 % (11.6-14.6); RBC Distribution Width SD 50.4 fl (35.1-43.9); Red Blood Count 4.95 M/mm3 (4.2-5.4)
--- OUTSIDE RECORDS SUMMARY | 2023-09-10 12:07 | XMS RPT_ITS | CCD ---
Author Name Unknown Address [address] [facility] [address] [place] [address] Organization [facility] Care Team Providers Care Food Products Tester Name Role Phone Barbara, Kerrie Chi Primary Care Provider [phone] CHARLENE JR., HARLEY Admitting Unavailable BARBARA, KERRIE [...] Primary Care Unavailable CHARLENE JR., HARLEY Attending Celai JIMENEZ MD, DR FRANKLIN Primary Care Unavailable JULIEN ALBERT, DR GEOVANY Warren Attending Tamica Perry MD, DR GEOVANY Warren Attending Tamica Piña MD, DR FRANKLIN Primary Care Unavailable BARBARA ALBERT, DR FRANKLIN Primary Care Unavailable JULIEN ALBERT, DR GEOVANY Warren Attending Tamica Piña, Kerrie Chi Primary Care Provider BARBARA, KERRIE CHI Primary Care Unavailable LIZETH RAMIREZ Attending Unavailable Allergies Allergy Classification Reported Allergen(s) Allergy Type Date of Onset Reaction(s) Facility (9 sources) Morphine; Translations: [MORPHINE] Drug Allergy 08-22-2005 GI Upset, GI Intolerance [place] (9 sources) rosuvastatin; Translations: [ROSUVASTATIN] Drug Allergy 11-11-2013 Myalgia, Unknown [place] Medications Current Medications Medication Drug Class(es) Dates Sig (Normalized) Sig (Original) acetaminophen 500 mg oral tablet (2 sources) Start: 05-19-2019 acetaminophen (TYLENOL) 500 MG tablet Take 6 (six) tablets (3,000 mg total) by mouth . 0 05/19/2019 Active [id number] 200 actuat albuterol 0.09 mg/actuat metered dose inhaler (2 sources) beta2-Adrenergic Agonist Start: 08-22-2022 albuterol 90 mcg/actuation inhaler celecoxib 100 mg oral capsule (7 sources) Nonsteroidal Anti-inflammatory Drug Start: 08-22-2022 celecoxib (CELEBREX) 100 MG capsule Completed/Discontinued Medications Medication Drug Class(es) Dates Sig (Normalized) Sig (Original) cevimeline 30 mg oral capsule (5 sources) Cholinergic Receptor Agonist End: 09-03-2023 cevimeline (EVOXAC) 30 mg capsule Take 30 mg by mouth three times daily. Per pt - only taking once daily 0 09/03/2023 Discontinued (Discontinued by another Health Care Provider) Problems Active Problems Problem Classification Problem Date Documented Da te Episodic/Chronic Abdominal pain (5 sources) Abdominal pain; Translations: [Unspecified abdominal pain] 03-02-2008 Episodic Acute myocardial infarction (5 sources) Myocardial infarction; Translations: [Acute myocardial infarction, unspecified] Onset: 11-12-2017 11-12-2017 Chronic Coronary atherosclerosis and other heart disease (5 sources) Coronary atherosclerosis; Translations: [Atherosclerotic heart disease of [place] coronary artery without angina pectoris] Onset: 06-04-2018 06-04-2018 Chronic Menopausal disorders (11 sources) Atrophic vaginitis; Translations: [Postmenopausal atrophic vaginitis] Onset: 03-17-2012 03-17-2012 Chronic Nausea and vomiting (5 sources) Nausea; Translations: [Nausea] 03-02-2008 Episodic Osteoarthritis (10 sources) 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; Translations: [Post-traumatic osteoarthritis, right ankle and foot] Onset: 08-27-2022 05-27-2023 Chronic Other bone disease and musculoskeletal deformities (1 source) Osteopenia; Translations: [Other specified disorders of bone density and structure, left thigh] 09-03-2023 Episodic Other circulatory disease (5 sources) Inferior vena cava filter in situ; [...] foot] Onset: 05-27-2023 Episodic Other gastrointestinal disorders (5 sources) Dysphagia, unspecified; Translations: [Dysphagia, unspecified] 03-02-2008 Episodic Other screening for suspected conditions (not mental disorders or infectious disease) (3 sources) Patient encounter status; Translations: [Encounter for screening mammogram for malignant neoplasm of breast] Episodic Other skin disorders (5 sources) Lichen sclerosus et atrophicus; Translations: [Circumscribed scleroderma] Onset: 08-16-2012 08-16-2012 Chronic Unclassified (2 sources) Foot Orthotics Onset: 07-29-2023 Past or Other Problems Problem Classification Problem Date Documented Da te Episodic/Chronic Nonmalignant breast conditions (5 sources) Breast lump; Translations: [Unspecified lump in unspecified breast] Onset: 07-21-2015 07-21-2015 Episodic Other and unspecified benign neoplasm (5 sources) Benign neoplasm of colon; Translations: [Benign neoplasm of colon, unspecified] Onset: 02-06-2012 02-06-2012 Episodic Other and unspecified benign neoplasm (5 sources) History of polyp of colon; Translations: [Personal history of colonic polyps] Onset: 09-10-2015 09-10-2015 Episodic Other connective tissue disease (2 sources) Posterior tibial tendinitis, left leg; Translations: [Posterior tibial tendinitis, left leg] Onset: 08-27-2022 Episodic Spondylosis; intervertebral disc disorders; other back problems (6 sources) Lumbar radiculopathy; Translations: [Radiculopathy, lumbar region] Onset: 03-03-2022 Episodic Results Test Name Value Interpretation Reference Range Facil ity Vital Signs Date Time Vital Sign Value Performing Clinician Rina reilly 09-03-2023 15:38-0500 Body height 175.3 cm Lizeth Ramirez APRN.SIGN LANGUAGE TEACHER Work Phone: [place] 09-03-2023 15:38-0500 Body weight 94.17 kg Lizeth Ramirez TELEPHONE STATION INSTALLER.SIGN LANGUAGE TEACHER Work Phone: [place] 09-03-2023 15:38-0500 Diastolic blood pressure 80 mm[Hg] Lizeth Ramirez TELEPHONE STATION INSTALLER.SIGN LANGUAGE TEACHER Work Phone: [place] 09-03-2023 15:38-0500 Systolic blood pressure 120 mm[Hg] Lizeth Ramirez TELEPHONE STATION INSTALLER.SIGN LANGUAGE TEACHER Work Phone: [place] 07-29-2023 10:29-0500 Body temperature 97.3 [degF] Harley Charlene Jr., DPM Work Phone: [facility] 07-29-2023 10:29-0500 Diastolic blood pressure 79 mm[Hg] Harley Charlene Jr., DPM Work Phone: [facility] 07-29-2023 10:29-0500 Heart rate 67 /min Harley Charlene Jr., DPM Work Phone: [facility] 07-29-2023 10:29-0500 Systolic blood pressure 137 mm[Hg] Harley Charlene Jr., DPM Work Phone: [facility] 05-27-2023 13:58-0500 Diastolic blood pressure 72 mm[Hg] Harley Charlene Jr., DPM Work Phone: [facility] 05-27-2023 13:58-0500 Heart rate 57 /min Harley Charlene Jr., DPM Work Phone: [facility] 05-27-2023 13:58-0500 Systolic blood pressure 120 mm[Hg] Harley Charlene Jr., DPM Work Phone: [facility] 05-27-2023 13:53-0500 Body temperature 98.2 [degF] Harley Charlene Jr., DPM Work Phone: [facility] Encounters Encounter Date Encounter Type Care Provider Facility Start: 09-03-2023 End: 09-03-2023 ambulatory KERRIE CHI BARBARA Facility:[facility] Start: 09-03-2023 End: 09-03-2023 Patient encounter procedure Lizeth Ramirez CHRIS.SIGN LANGUAGE TEACHER Work Phone: OB/Gynecology Procedures Date Procedure Procedure Detail Performing Clinician Start: 08-08-2022 Colonoscopy Harley murdock Jr., DPM Work Phone: Start: 03-06-2022 End: 03-06-2022 Screening mammography bi 2-view breast inc cad Anjelica Renteria SIGN LANGUAGE TEACHER Work Phone: Start: 12-14-2020 Mammography 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 Start: 11-12-2018 Colonoscopy 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 Plan of Treatment Date Care Activity Detail Author Start: 08-08-2032 Screening for malignant neoplasm of colon [facility] Start: 07-29-2023 End: 07-29-2023 Patient encounter procedure 07/29/2023 10:15 AM EST Office Visit [facility] [address] [place] [id number] Harley Byrd Jr., DPM [address] [place] [address] [facility] Start: 07-20-2023 Advance Directive Discussion Advance Directive Discussion [place] Start: 07-20-2023 Depression Assessment Depression Assessment [place] Start: 03-20-2023 COVID-19 Vaccine () COVID-19 Vaccine () [facility] Start: 03-20-2023 Influenza vaccination [facility] Start: 03-06-2023 Mammography MAMMOGRAM [place] Start: 03-06-2023 Screening for malignant neoplasm of breast [facility] Start: 03-20-2022 Influenza vaccination INFLUENZA (#1) [place] Start: 12-14-2021 Mammography MAMMOGRAM [place] Start: 11-12-2021 Colonoscopy COLONOSCOPY [place] Start: 11-12-2021 COLORECTAL CANCER SCREENING COLORECTAL CANCER SCREENING [place] Start: 11-12-2021 Screening for malignant neoplasm of colon [place] Start: 09-12-2021 COVID-19 VACCINE (4 - Booster for Moderna series) COVID-19 VACCINE (4 - Booster for Moderna series) [place] Start: 07-20-2021 ADVANCE DIRECTIVE DISCUSSION ADVANCE DIRECTIVE DISCUSSION [place] Start: 2013 Fall risk assessment Falls Risk Assessment [facility] Start: 2008 RSV Vaccine (1 - 1-dose 60+ series) RSV Vaccine (1 - 1-dose 60+ series) [place] Start: 1998 Screening for malignant neoplasm of colon Flexible sigmoidoscopy [facility] Start: 1993 COLOGUARD (FIT-DNA) COLOGUARD (FIT-DNA) [place] Start: [address] COLONOGRAPHY [place] Start: 1993 FECAL OCCULT BLOOD FECAL OCCULT BLOOD [place] Start: 1993 Screening for malignant neoplasm of colon [place] Start: 1993 SIGMOIDOSCOPY SIGMOIDOSCOPY [place] Start: 10-07-1967 SHINGRIX VACCINE (1 of 2) SHINGRIX VACCINE (1 of 2) [place] Start: 10-07-1967 Urine microalbumin profile [facility] Start: 1966 ANNUAL PCP TEAM CHRONIC DISEASE VISIT ANNUAL PCP TEAM CHRONIC DISEASE VISIT [place] Start: 1966 Hepatitis B surface antibody level LDL CHOLESTEROL [place] Start: 1966 HEPATITIS C SCREENING HEPATITIS C SCREENING [place] Start: 1966 Hepatitis C screening Hepatitis C Screening [facility] Start: 1960 Adult depression screening assessment [place] Start: 1958 3 comp foot exam completed DIABETIC FOOT EXAM [place] Start: 1958 Diabetic foot examination Diabetic Foot Exam [facility] Start: 1958 Glaucoma screening Dilated Retinal Exam [facility] Start: 1958 Hepatitis B screening URINE ALBUMIN:CREATININE RATIO [facility] Start: 1958 Hepatitis C antibody, confirmatory test DILATED RETINAL EXAM [place] Start: 1954 PNEUMOCOCCAL: 65+ (1 - PCV) PNEUMOCOCCAL: 65+ (1 - PCV) [place] Start: 1953 Hemoglobin A1c measurement HbA1C [facility] Start: 1953 Hemoglobin A1c/Hemoglobin.total in Blood HBA1C [place] Start: 10-07-1951 History and physical examination, annual for health maintenance Wellness Visit [facility] Start: 1948 Screening for malignant neoplasm of colon [facility] Start: 1948 Screening for osteoporosis Dexa Scan [facility] Start: 1948 Tetanus vaccination Tetanus: Every 10yrs [facility] End: 10-02-2024 BD DXA TRABECULAR BONE SCORE (TBS) BD DXA TRABECULAR BONE SCORE (TBS) Radiology Routine Osteopenia of left hip 1 Occurrences starting 09/03/2023 until 10/02/2024 [facility] Work Phone: Immunizations Immunization Date Immunization Notes Care Provider Fernando perez 06-20-2021 Moderna SARS-CoV-2 Vaccination Harley Byrd Jr., DPM Work Phone: [facility] 03-06-2021 influenza, injectabl e, quadrivalent, contains preservative Harley Byrd Jr., DPM Work Phone: [facility] 03-06-2021 influenza virus vacc ine, unspecified formulation Lizeth Ramirez APRN.SIGN LANGUAGE TEACHER Work Phone: [place] 02-28-2020 influenza, injectabl e, quadrivalent, contains preservative Harley Byrd Jr., DPM Work Phone: [facility] 05-02-2019 zoster vaccine recombinant Harley Byrd Jr., DPM Work Phone: [facility] 02-28-2019 influenza, seasonal, injectable, preservative free Harley Byrd Jr., DPM Work Phone: [facility] 02-24-2019 influenza, injectabl e, quadrivalent, contains preservative Harley Byrd Jr., DPM Work Phone: [facility] 12-16-2018 zoster vaccine recombinant Harley Byrd Jr., DPM Work Phone: [facility] 03-30-2017 influenza, injectabl e, quadrivalent, contains preservative Harley Byrd Jr., DPM Work Phone: [facility] 06-19-2014 pneumococcal polysaccharide vaccine, 23 valent Harley Byrd Jr., DPM Work Phone: [facility] 06-19-2014 pneumococcal vaccine , unspecified formulation Harley Rangelbob Lehman, DPM Work Phone: [facility] 04-19-2014 influenza, seasonal, injectable, preservative free Harley Rangelbob Lehman, DPM Work Phone: [facility] 08-02-2013 pneumococcal conjuga te vaccine, 13 valent Harleyrae Byrd Jr., DPM Work Phone: [facility] 06-04-2009 novel influenza-H1N1 -09, preservative-free, injectable Harley Charlene Lehman, DPM Work Phone: [facility] Payers Date Payer Category Payer Private Health Insurance [id number] 2021 Medicare [id number] 2021 Medicare [id number] 1950 Unknown [id number] 2.16. [id number] 1948 Unknown [id number] 2.16. [id number] 1948 Unknown [id number] 2.16. [id number] 1950 Unknown [id number] 2.16. [id number] 1948 Unknown [id number] 2.16. [id number] 1948 Unknown [id number] [id number] 1948 Unknown [id number] [id number] 1948 Unknown [id number] [id number] Social History Date Type Detail Facility Start: 03-03-2022 End: 08-27-2022 Tobacco smoking status NHIS Never smoked tobacco [place] Start: 03-03-2022 End: 08-27-2022 Tobacco use and exposure Smokeless tobacco non-user [facility] Start: 03-03-2022 End: 09-03-2023 Alcohol intake Current non-drinker of alcohol (finding) [place] Start: 1950 Sex Assigned At Not on file C [facility] Start: 02-21-2022 End: 03-03-2022 Exposure to SARS-CoV-2 (event) Not sure [facility] Start: 05-27-2023 End: 07-29-2023 Alcohol intake Lifetime non-drinker (finding) [facility] Start: 06-24-2020 End: 08-27-2022 History of Social function [facility] Start: 06-24-2020 End: 08-27-2022 Tobacco use panel [facility] National Score (1-10 0), lower number is lower risk Not on file [place] Clinical Notes 03-17-2012 to 09-03-2023 Patient InstructionsLizeth Ramirez APRN.CNP - 09/03/2023 3:30 PM Harley Kincaid Jr., DPM - 07/29/2023 10:46 AM Harley Kincaid Jr., DPM - 05/27/2023 2:24 PM EST Note Date & Type Note Facility 09-03-2023 Note HNO ID: [id number] Author: LIZETH RAMIREZ APRN.CNP Service: ? Author Type: Nurse Practitioner Type: Progress Notes Filed: 09/03/2023 16:08 Note Text: Lining Scrubber offered: Patient declines. Va is a 72 year old who presents for an annual gynecologic exam without complaints. She recently got in an accident with her Mule and is being followed by ortho. Postmenopausal: Yes since early 50s. Denies PMB. 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 History Comments: Sexual Activity: Not Currently; Male; HUBANDS VASECTOMY Contraception: Surgical PAST MEDICAL HISTORY Diagnosis Date Arrhythmia Cardiac dysrhythmia, unspecified rare heart arthrymia Coronary artery disease involving [place] coronary artery of [place] heart 06/04/2018 Diaphragmatic hernia without mention of obstruction or gangrene Hiatal hernia Dysphagia, unspecified(787.20) AL (myocardial infarction) ([facility]) Myalgia and myositis, unspecified Myocardial infarct (HCC) [...] KNE CONDYLEANDPLATU MEDIALANDLAT COMPARTMENTS 03/2011 Left knee BACK SURGERY HX 05/2022 BX BREAST W/DEVICE 1ST LESION ULTRASOUND GUID [...] RIGHT OP SURGERY 11/2009 Dr. Price in [place] FOOT SURGERY HX Left 05/2016 toes straightened- hardware place hiatal hernia repair 09/2009 Dr. 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 Kirk in [place] REDUCTION OF LARGE BREAST 07/03/2014 REDUCTION OF LARGE BREAST Bilateral 07/03/2014 Breast reduction SEPTOPLASTY/SUBMUCOUS RESECJ W/WO CARTILAGE GRF Septoplasty SHOULDER SURGERY HX Right 2019 TONSILLECTOMY PRIMARY/SECONDARY Tonsillectomy FAMILY HISTORY Problem Relation Age of Onset Osteoporosis Mother other (PARKINSONS) Mother Heart Father other (Other) Sister other (SARCOID) Sister Half-sister Diabetes Sister HALF SIS Diabetes Brother Colon Cancer Brother Half-brother SOCIAL HISTORY Social History Tobacco Use Smoking status: Never Smokeless tobacco: Never Vaping Use Vaping Use: Never used Substance Use Topics Alcohol use: No Drug use: No REVIEW OF SYSTEMS Abdomen: No abdominal pain, nausea, vomiting, diarrhea, or constipation. No bloating, early satiety, indigestion, or increased flatulence. Bladder: No dysuria, gross hematuria, urinary frequency, urinary urgency, or incontinence Breast: No breast lumps, nipple d/c, overlying skin changes, redness or skin retraction Allergies and current medication updated:Yes EXAM: BP 120/80 Ht 5' 9 (1.75m) Wt 207 lb 9.6 oz (94.2kg) BMI 30.64 kg/(m2). GENERAL: pleasant, female in no apparent distress HEENT: Normocephalic, atraumatic, mucus membranes moist, and no lesions NECK: Supple, full range of motion, no adenopathy, and thyroid normal DERMATOLOGY: Normal, without lesions, non-icteric, and non-hirsute BREAST: soft, non-tender, symmetric, no dominant mass, normal nipple-areolar complex, no lymphadenopathy, and no nipple discharge CHEST: Normal inspiratory effort ABDOMEN: soft, non-tender, and no masses PELVIC: external genitalia normal, normal Bartholin's glands, urethra, [place]'s glands, no vulvar lesions, no cervical lesions, (more content not included)... [facility] 09-03-2023 Instructions Lizeth Ramirez APRN.SIGN LANGUAGE TEACHER - 09/03/2023 4:00 PM EST Lubricants and moisturizers list The akcy-sen-exhjows vaginal moisturizer and lubricant products can be confusing to sort through, especially since there are no FDA requirements for how they can be marketed or labeled. In general there are 3 categories of products: Vaginal lubricants should be used at the time of intercourse to decrease friction. Long acting vaginal moisturizers are used at least twice weekly to increase vaginal (internal) lubrication and elasticity. Vulvar moisturizers are for external use for vulvar comfort and do not impact vaginal lubrication or elasticity. Vaseline petroleum products and oils (baby oil, coconut, olive oil,) can make condoms break, so should not be used with condoms. In many women, these can cause infections. However, if you have sore spots on the vulva (outer lips), then petroleum jelly can sometimes be helpful. All of the products listed below are over the counter. Many can be bought in any drugstore or online. Also, many [employer] stores do carry high-quality lubricant products. VAGINAL LUBRICANTS: (For use during sexual activity) Lubricants should be applied to the outside and opening of the vagina at the time of sexual activity. The lubricant can also be applied to the penis or a device. Silicone based lubricants should not be used on silicone vibrators or toys. Both silicone and water based lubricants are condom compatible. If you use a water based lubricant, it is also important to choose a lubricant with low osmolality since lubricants with high osmolality increase the chance of irritation and infection. Osmolality information can be hard to find. All of the following lubricants have a low osmolality, are pH balanced, and are preservative free. WATER BASED LUBRICANTS Good Clean Love (made of organic ingredients) Pulse H2Oh! Sylk Natural System Tg PreSeed (Does not impact sperm motility and can be used if trying to conceive, also good for those with multiple sensitivities, though may not work as well) SILICONE BASED LUBRICANTS Uber lube Replens Silky Smooth Pulse Aloe-ahh Wet [place] TG Premium Personal Lubricant PINK Silicone Lubricant SLIQUID Organics silk Pulse is a hands free personal lubricant warming dispenser and is sold with water or silicone based lubricant pods that some women prefer for travel. LONG ACTING VAGINAL MOISTURIZERS: (For regular use inside vagina to maintain moisture) Long acting vaginal moisturizers should be used at least twice weekly on a regular basis. Many women find they need to use a moisturizer 3-5 times/week. In addition, it is important to not only apply the moisturizer inside the vagina, but also to apply to the vestibule (the external area surrounding the opening of the vagina). Women who are not sexually active often find that the regular use of a long acting vaginal moisturizer makes them feel more comfortable. Bush And Vine Farmer Fruit Crops beware: many lubricants are labeled as moisturizers to make them more appealing to consumers (even though they don t function as a true moisturizer). Replens Long Acting Vaginal Moisturizer (Available in all drugstores) HyaloGyn Vaginal Hydrating Gel (hybrid moisturizer, but can function as lubricant too) Revaree (hyaluronic acid) VULVAR MOISTURIZERS: (For external use) Replens Moisture Restore Comfort Gel is to be used externally for dry vulvar skin. Aquaphor can also be applied externally for comfort. Desert Arbuckle Aloe [place]: Many people are allergic to aloe, so keep this in mind with products like this that have aloe in it. Medicine Mama s V magic: Not much medical studies on this, but many patients swear by it, has oil, beeswax and honey in it- best used externally only. documented in this encounter [place] 09-03-2023 History of Presen t illness Narrative Lining Scrubber offered: Patient declines. Va is a 72 year old who presents for an annual gynecologic exam without complaints. She recently got in an accident with her Mule and is being followed by ortho. Postmenopausal: Yes since early 50s. Denies PMB. 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 History Comments: Sexual Activity: Not Currently; Male; HUBANDS VASECTOMY Contraception: Surgical PAST MEDICAL HISTORY Diagnosis Date Arrhythmia Cardiac dysrhythmia, unspecified rare heart arthrymia Coronary artery disease involving [place] coronary artery of [place] heart 06/04/2018 Diaphragmatic hernia without mention of obstruction or gangrene Hiatal hernia Dysphagia, unspecified(787.20) AL (myocardial infarction) (HCC) Myalgia and myositis, unspecified [...] SURGICAL HISTORY Procedure Laterality Date ARTHRP KNE CONDYLE&PLATU MEDIAL&LAT COMPARTMENTS 03/2011 Left knee BACK SURGERY HX 05/2022 BX BREAST W/DEVICE 1ST LESION ULTRASOUND GUID [...] RIGHT OP SURGERY 11/2009 Dr. Price in [place] FOOT SURGERY HX Left 05/2016 toes straightened- hardware place hiatal hernia repair 09/2009 Dr. Hilliard in [place] IR ENDO ABLATION VARICOSE VEIN 03/01/2015 Bilaterally IVC FILTER PLACEMENT/REMOVAL 04/01/2007 placement prior to bariatric surgery PAST SURGICAL HISTORY OF CERVICAL FUSIONX3 PAST SURGICAL HISTORY OF R KNEE FRACTURE REPAIR PAST SURGICAL HISTORY OF 08/05/06 & 09/23 FOOT SURGERY ON THE LEFT FOOT PAST SURGICAL HISTORY OF 03/2007 bariatric lapband PAST SURGICAL HISTORY OF 05/03/2015 Right Foot, bunion removal RECONSTRUCTION ROTATOR CUFF AVULSION CHRONIC 06/2009 right shoulder-Dr. Kirk in [place] REDUCTION OF LARGE BREAST 07/03/2014 REDUCTION OF LARGE BREAST Bilateral 07/03/2014 Breast reduction SEPTOPLASTY/SUBMUCOUS RESECJ W/WO CARTILAGE GRF Septoplasty SHOULDER SURGERY HX Right 2019 TONSILLECTOMY PRIMARY/SECONDARY <AGE 10 Tonsillectomy FAMILY HISTORY Problem Relation Age of Onset Osteoporosis Mother other (PARKINSONS) Mother Heart Father other (Other) Sister other (SARCOID) Sister Half-sister Diabetes Sister HALF SIS Diabetes Brother Colon Cancer Brother Half-brother SOCIAL HISTORY Social History Tobacco Use Smoking status: Never Smokeless tobacco: Never Vaping Use Vaping Use: Never used Substance Use Topics Alcohol use: No Drug use: No REVIEW OF SYSTEMS Abdomen: No abdominal pain, nausea, vomiting, diarrhea, or constipation. No bloating, early satiety, indigestion, or increased flatulence. Bladder: No dysuria, gross hematuria, urinary frequency, urinary urgency, or incontinence Breast: No breast lumps, nipple d/c, overlying skin changes, redness or skin retraction Allergies and current medication updated:Yes EXAM: BP 120/80 Ht 5' 9 (1.75m) Wt 207 lb 9.6 oz (94.2kg) BMI 30.64 kg/(m^2). GENERAL: pleasant, female in no apparent distress HEENT: Normocephalic, atraumatic, mucus membranes moist, and no lesions NECK: Supple, full range of motion, no adenopathy, and thyroid normal DERMATOLOGY: Normal, without lesions, non-icteric, and non-hirsute BREAST: soft, non-tender, symmetric, no dominant mass, normal nipple-areolar complex, no lymphadenopathy, and no nipple discharge CHEST: Normal inspiratory effort ABDOMEN: soft, non-tender, and no masses PELVIC: external genitalia normal, normal Bartholin's glands, urethra, [place]'s glands, no vulvar lesions, no cervical lesions, good vaginal support, physiologic discharge present, normal appearing perineal body and perianal region + vaginal atrophy noted to external genitalia and cervix BIMANUAL: uterus normal size, shape and consistency, no adnexal masses, and non-tender RECTOVAGINAL: deferred. NEURO: alert and oriented x3,exam grossly non-focal EXTREMITIES: normal ASSESSMENT/PLAN: 1) Health maintenance: Pap/HPV screening no longer needed Mammogram ordered Nutrition, exercise and routine health maintenance exams reviewed. Calcium/Vitamin D supplementation information provided. Colon cancer screening: up to date with screening TSH/lipids/glucose: followed by PCP 2) Follow up one year or sooner as needed Osteopenia of left hip - ICD9: 733.90, ICD10: M85.852 - Last DEXA 2020 - DXA-AXIAL SKELETON WITH VFA - BD DXA TRABECULAR BONE SCORE (TBS) Genitourinary syndrome of menopause - ICD9: 627.8, ICD10: N95.8 - Not bothered by symptoms at this time - Discussed vaginal moisturizers vs estrogen cream - To notify if symptoms become a concern Lizeth Ramirez APRN.SIGN LANGUAGE TEACHER documented in this encounter [facility] 07-29-2023 History of Presen t illness Narrative [...] chronic in nature. documented in this encounter [facility] 05-27-2023 History of Presen t illness Narrative Bilateral foot pain Patient is a 72-year-old female who comes in today for bilateral foot pain. She states she still feels very achy very sore and very uncomfortable in general. However she was not able to sisal picker her orthotic prescription she states that she [...] patient's anatomy is not amenable to an wvpy-muz-jienvzk or prefabricated device and requires a custom device. Continue taking the Celebrex as prescribed but I did recommend she down titrate the Aleve this is a lot of NSAIDs. Follow-up in 3-6 months to review orthotics and pain. Additionally could consider injectable dexamethasone to her midtarsal joint today but she declined. documented in this encounter [facility] 03-06-2022 Miscellaneous Notes March 06, 2022 PID: [id number] Va John [address] [place] [address] [address] [place] [address] Dear Ms. John, We are pleased to [...] report will be kept on file at [facility] as part of your permanent medical record and are available for your continuing care. Thank you for allowing us to help in meeting your health care needs. Sincerely, Dr. Santamaria Interpreting Radiologist [facility] (Normal over 40) documented in this encounter [facility] 03-06-2022 History of Presen t illness Narrative [...] 2022 9:56 AM documented in this encounter [facility] 03-05-2022 Miscellaneous Notes Please file order for screening mammogram. Appt tomorrow 03/06. Thank you. documented in this encounter [facility] 03-03-2022 Note HNO ID: [id number] Author: Faye Mg I, MD Service: ? Author Type: Physician Type: Progress Notes Filed: 03/03/2022 2:35 PM Note Text: NEUROSURGERY CONSULT NOTE Faye Mg MD Chair, Clinical Neurosciences Director, Spinal Neurosurgery [facility] Date of visit: March 03, 2022 Patient Name: Ms.Nancy Obed John Date of : 1950 Current Age: [age] year old Sex: female MRN/E# [id number] Last Office Visit: Visit date not found [...] rare heart arthrymia Coronary artery disease involving [place] coronary artery of [place] heart 06/04/2018 Diaphragmatic hernia without mention of obstruction or gangrene Hiatal hernia Dysphagia, unspecified(787.20) [place] (myocardial infarction) (HCC) Myalgia and myositis, unspecified [...] RIGHT OP SURGERY 11/2009 Dr. Price in [place] FOOT SURGERY HX Left 05/2016 toes straightened- hardware place hiatal hernia repair 09/2009 Dr. 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 Kirk in [place] REDUCTION OF LARGE BREAST 07/03/2014 REDUCTION OF LARGE BREAST Bilateral 07/03/2014 Breast reduction SEPTOPLASTY/SUBMUCOUS RESECJ W/WO CARTILAGE GRF Septoplasty SHOULDER SURGERY HX Right 2019 TONSILLECTOMY PRIMARY/SECONDARY Tonsillectomy FAMILY HISTORY Problem Relation Age of Onset Osteoporosis Mother other (PARKINSONS) Mother Heart Father other (Other) Sister other (SARCOID) Sister Half-sister Diabetes Sister HALF SIS Diabetes Brother Colon Cancer Brother (more content not included)... [facility] documented as of this encounter (statuses as of 03/04/2022) [facility]-29-2012 History of Past illness Narrative* Problem Noted Date Resolved Date Dyspareunia 03/17/2012 11/12/2017 Postcoital bleeding 03/17/2012 07/06/2015 documented as of this encounter (statuses as of 03/05/2022) [facility]-2012 History of Past illness Narrative* Problem Noted Date Resolved Date Dyspareunia 03/17/2012 11/12/2017 Postcoital bleeding 03/17/2012 07/06/2015 documented as of this encounter (statuses as of 03/07/2022) [facility]2012 History of Past illness Narrative* Problem Noted Date Resolved Date Dyspareunia 03/17/2012 11/12/2017 Postcoital bleeding 03/17/2012 07/06/2015 documented as of this encounter (statuses as of 03/08/2022) [facility]2012 History of Past illness Narrative* Problem Noted Date Diagnosed Date Resolved Date Dyspareunia 03/17/2012 11/12/2017 Postcoital bleeding 03/17/2012 07/06/20 15 documented as of this encounter (statuses as of 09/03/2023) [facility] note* Diagnosis Radiculopathy, lumbar region Thoracic or lumbosacral neuritis or radiculitis, unspecified documented in this encounter [facility] note* Diagnosis Encounter for screening mammogram for malignant neoplasm of breast- Primary Other screening mammogram documented in this encounter [facility] note* Diagnosis Encounter for screening mammogram for malignant neoplasm of breast Other screening mammogram documented in this encounter [facility] note* Diagnosis Post-traumatic osteoarthritis of both feet- Primary Posterior tibial tendon dysfunction (PTTD) of left lower extremity Left foot pain Pain in soft tissues of limb Arthritis of foot, left [facility]* Diagnosis Arthritis of foot, left- Primary Post-traumatic osteoarthritis of both feet Posterior tibial tendon dysfunction (PTTD) of left lower extremity [facility]* Diagnosis Encounter for gynecological examination (general) (routine) without abnormal findings- Primary Encounter for screening mammogram for breast cancer Osteopenia of left hip Genitourinary syndrome of menopause documented in this encounter [facility] for referral (narrative)* Diagnostic Procedure Only (Routine) - Closed Specialty Diagnoses / Procedures Referred By Parvez verde Referred To Contact XR IMAGING Diagnoses Radiculopathy, lumbar region Procedures XR LUMBAR MOTION 4V AP/LAT/ FLEX/EXT RADEX SPINE LUMBOSACRAL MINIMUM 4 VIEWS Faye Mg I, MD [address] [place] [address] Xr Imaging Referral ID Status Reason Start Date Expiration Date V isits Requested Visits Authorized [id number] Closed Auto-Generate d Referral 02/20/2022 03/22/[address] [facility] for referral (narrative)* Diagnostic Procedure Only (Routine) - Pending Review Specialty Diagnoses / Procedures Referred By Roxiac t Referred To Contact BR IMAGING Diagnoses Encounter for screening mammogram for malignant neoplasm of breast Procedures BARBARA SCREENING SCREENING MAMMOGRAPHY BI 2-VIEW BREAST INC Anjelica Velarde APRN.SIGN LANGUAGE TEACHER [address] [place] [address] [facility] [address] [place] [address] Referral ID Status Reason Start Date Expiration Date Visits Requested Visits Authorized [id number] Pending Review Auto-Generat ed Referral 03/05/2022 04/04/[address] [facility] for referral (narrative)* Diagnostic Procedure Only (Routine) - Closed Specialty Diagnoses / Procedures Referred By Parvez t Referred To Contact BR IMAGING Diagnoses Encounter for screening mammogram for malignant neoplasm of breast Procedures BARBARA SCREENING SCREENING MAMMOGRAPHY BI 2-VIEW BREAST INC Anjelica Velarde APRN.SIGN LANGUAGE TEACHER [address] [place] [address] [facility] [address] [place] [address] Referral ID Status Reason Start Date Expiration Date V isits Requested Visits Authorized [id number] Closed Auto-Generate d Referral 03/05/2022 04/04/[address] [facility] for referral (narrative)* Diagnostic Procedure Only (Routine) - Pending Review Specialty Diagnoses / Procedures Referred By Contac t Referred To Contact XR IMAGING Diagnoses Osteopenia of left hip Procedures DXA-AXIAL SKELETON WITH VFA DXA BONE DENSITY STUDY AXIAL SKELETON Lizeth Ramirez APRN.SIGN LANGUAGE TEACHER [address] [place] [address] [place] [address] Referral ID Status Reason Start Date Expiration Date Visits Requested Visits Authorized [id number] Pending Review Auto-Generat ed Referral 09/03/2023 10/02/2024 1 1 * Diagnostic Procedure Only (Routine) - Pending Review Specialty Diagnoses / Procedures Referred By Contac t Referred To Contact BR IMAGING Diagnoses Encounter for screening mammogram for breast cancer Procedures BARBARA SCREENING SCREENING MAMMOGRAPHY BI 2-VIEW BREAST INC CAD Lizeth Ramirez TELEPHONE STATION INSTALLER.SIGN LANGUAGE TEACHER [address] [place] [address] [facility] [address] [place] [address] Referral ID Status Reason Start Date Expiration Date Visits Requested Visits Authorized [id number] Pending Review Auto-Generat ed Referral 09/03/2023 10/02/[address] [facility] for visit Narrative* Diagnostic Procedure Only (Routine) - Closed Specialty Diagnoses / Procedures Referred By Contac t Referred To Contact XR IMAGING Diagnoses Radiculopathy, lumbar region Procedures XR LUMBAR MOTION 4V AP/LAT/ FLEX/EXT RADEX SPINE LUMBOSACRAL MINIMUM 4 VIEWS Faye Mg I, [address] [facility] [place] [address] Xr Imaging Referral ID Status Reason Start Date Expiration Date V isits Requested Visits Authorized [id number] Closed Auto-Generate d Referral 02/20/2022 03/22/[address] [facility] for visit Narrative* Diagnostic Procedure Only (Routine) - Closed Specialty Diagnoses / Procedures Referred By Contac t Referred To Contact BR IMAGING Diagnoses Encounter for screening mammogram for malignant neoplasm of breast Procedures BARBARA SCREENING SCREENING MAMMOGRAPHY BI 2-VIEW BREAST INC CAD Anjelica Renteria TELEPHONE STATION INSTALLER.SIGN LANGUAGE TEACHER [address] [place] [address] [facility] [address] [place] [address] Referral ID Status Reason Start Date Expiration Date V isits Requested Visits Authorized [id number] Closed Auto-Generate d Referral 03/05/2022 04/04/2023 1 1 [facility] Advance Directives No Advanced Directives Records FoundDocuments on File Type Date Recorded Patient Clinical Services Specialist Expl anation Advance Directive(s) 08/16/2018 2:12 PM Documents on File Type Date Recorded Patient Clinical Services Specialist Expl anation Advance Directive(s) 08/16/2018 2:12 PM [...] or prosecute any alcohol or drug abuse patient.[place] the event this information is protected by the Federal Confidentiality of Alcohol and Drug Abuse Patient Records regulations: The Federal rules restrict any use of the information to criminally investigate or prosecute any alcohol or drug abuse patient.[place] the event this information is protected by the Federal Confidentiality of Alcohol and Drug Abuse Patient Records regulations: The Federal rules restrict any use of the information to criminally investigate or prosecute any alcohol or drug abuse patient.[facility] the event this information is protected by the Federal Confidentiality of Alcohol and Drug Abuse Patient Records regulations: The Federal rules restrict any use of the information to criminally investigate or prosecute any alcohol or drug abuse patient.[facility] the event this information is protected by the Federal Confidentiality of Alcohol and Drug Abuse Patient Records regulations: The Federal rules restrict any use of the information to criminally investigate or prosecute any alcohol or drug abuse patient.[facility] Care Teams (unrecognized sec tion and content) Food Products Tester Relationship Specialty Start Date End Date Kerrie Jimenez Chi PCP - General Family Practice 03/24/13 Food Products Tester Relationship Specialty Start Date End Date Kerrie Jimenez Chi PCP - General Family Practice 03/24/13 Food Products Tester Relationship Specialty Start Date End Date Kerrie Jimenez Chi, MD [address] [phone] PCP - General Geriatric Medicine 08/27/22 Food Products Tester Relationship Specialty Start Date End Date Kerrie Jimenez Chi, MD [address] [phone] PCP - General Geriatric Medicine 08/27/22 Food Products Tester Relationship Specialty Start Date End Date Kerrie Jimenez Chi PCP - General Family Medicine 03/24/13 Reason for Visit (unrecogniz ed section and content) Reason Comments Foot Pain Right foot cramps an d arch, heel and ankle pain. Base of great nail has burning pain. Left foot has pain in the back of heel and around the ankle. Occasional muscle spasms. Reason Comments Foot Orthotics Patient is here for an orthotic check. Reason Comments [facility] INFORMATION SOURCE (unrecogn ized section and content) DATE CREATED AUTHOR AUTHOR'S ORGANIZ ATION 08/02/2023 [facility] DATE CREATED AUTHOR AUTHOR'S ORGANIZ ATION 08/11/2023 [facility] DATE CREATED AUTHOR AUTHOR'S ORGANIZ ATION 09/05/2023 [facility] FOR RECORDS PERTAINING TO PATIENTS WHO ARE [...] BE BASED ON THE PRIMARY CLINICAL RECORDS. [employer] [facility]. provides no warranty or guarantee of the accuracy or completeness of information in this document.
[2023-09-10 12:30] LABS: ALB/GLOB Ratio 1.2 RATIO (0.9-2.4); AST(SGOT) 26 U/L (15-37); Alanine Aminotransfer ALT/SGPT 42 U/L (13-56); Albumin, Serum 3.7 g/dL (3.2-5.0); Alkaline Phosphatase 120 U/L (45-117); Anion Gap 1 (5-15); BUN 15 mg/dL (7-18); BUN/Creat Ratio 19.5 RATIO (10-20); Calcium,Total 9.4 mg/dL (8.5-10.1); Chloride 111 mmol/L (98-107); Creatinine, Serum 0.77 mg/dL (0.55-1.02); EST Glomerular Filtration Rate 78 mL/min (>60); Est Glom Filt Rate - Afr Amer 94 mL/min (>60); Globulin 3.2 g/dL (2.2-4.2); Glucose 92 mg/dL (74-106); Potassium 4.1 mmol/L (3.5-5.1); Protein, Total 6.9 g/dL (6.4-8.2); Sodium Level 141 mmol/L (136-145)
== END | disposition home or self-care (01) ==
LOC: LAB 11:35
PROVIDERS: PCP Family Medicine Geriatric Medicine; Referring Provider Internal Medicine Rheumatology; Visit Provider Internal Medicine Rheumatology
DX: M06.4 Inflammatory polyarthropathy (principal); M35.00 Sjogren syndrome, unspecified; Z79.899 Other long term (current) drug therapy
CPT/HCPCS: 36415; 80053; 85025

== ENCOUNTER → 2023-09-24 | Outpatient (CLI) | payer MEDICARE, SELFPAY ==
[2023-09-24 12:47] LABS: International Normalized Ratio 1.1; Prothrombin Time (Protime)PT. 13.8 SECONDS (11.7-14.9)
[2023-09-24 12:48] LABS: Absolute Lymphocyte Count 1.46 X10^3/uL (0.83-4.51); Absolute Neutrophil Count 3.6 X10^3/uL (2.0-7.7); Basophil# 0.03 X10^3/uL; Basophil% 0.5 % (0-1); Eosinophil# 0.11 X10^3/uL; Eosinophils% 1.9 % (0-5); Hematocrit 48.8 % (37-47); Hemoglobin 15.6 g/dL (12.0-15.0); Lymphocyte # 1.46 X10^3/ul (0.83-4.51); Lymphocyte % 25.7 % (19-41); Mean Corpuscular Hgb 29.8 pg (27.0-32.0); Mean Corpuscular Volume 93.3 fL (81-99); Monocyte# 0.49 X10^3/uL; Monocyte% 8.6 % (0-10); NRBC Flagged by Analyzer 0 % (0-5); Neutrophil # 3.58 X10^3/uL (2.7-7.7); Neutrophil % 62.9 % (47-70); Platelet Count 166 K/mm3 (150-450); RBC Distribution Width CV 13.8 % (11.6-14.6); RBC Distribution Width SD 47.2 fl (35.1-43.9); Red Blood Count 5.23 M/mm3 (4.2-5.4); White Blood Count 5.7 K/mm3 (4.4-11.0)
[2023-09-24 13:02] LABS: ALB/GLOB Ratio 1.1 RATIO (0.9-2.4); AST(SGOT) 32 U/L (15-37); Alanine Aminotransfer ALT/SGPT 38 U/L (13-56); Albumin, Serum 3.7 g/dL (3.2-5.0); Alkaline Phosphatase 118 U/L (45-117); Anion Gap 8 (5-15); BUN 13 mg/dL (7-18); BUN/Creat Ratio 19.5 RATIO (10-20); Calcium,Total 9.9 mg/dL (8.5-10.1); Chloride 109 mmol/L (98-107); Creatinine, Serum 0.67 mg/dL (0.55-1.02); EST Glomerular Filtration Rate 92 mL/min (>60); Est Glom Filt Rate - Afr Amer 111 mL/min (>60); Globulin 3.3 g/dL (2.2-4.2); Glucose 99 mg/dL (74-106); Potassium 4.1 mmol/L (3.5-5.1); Sodium Level 143 mmol/L (136-145)
== END | disposition home or self-care (01) ==
LOC: POLAB3 11:03
PROVIDERS: PCP Family Medicine Geriatric Medicine; Visit Provider Family Medicine Geriatric Medicine
DX: E78.5 Hyperlipidemia, unspecified (principal); I47.10 Supraventricular tachycardia, unspecified; R06.02 Shortness of breath
CPT/HCPCS: 36415; 80053; 85025; 85610

== ENCOUNTER 2023-09-25 22:20 | Emergency (ER) | payer MEDICARE, SELFPAY ==
[2023-09-25 22:20] VITALS: BP 141/95; PULSE 64; RESP 16; TEMP 36.4; O2SAT 95; BMI 31.6
--- NOTE | 2023-09-25 22:35 | RAD_ITS ---
INDICATION: Injury/Pain EXAMINATION/TECHNIQUE: X-RAY - RIGHT XR Foot Min 3 Views COMPARISON: None. FINDINGS: No acute fracture or malalignment. Chronic fracture deformities of the first metatarsal, second proximal phalanx and third mid/distal phalanx status post ORIF with metallic screws. No evidence of hardware failure or loosening. No blastic or lytic lesions. Moderate scattered degenerative changes. The soft tissues are unremarkable. RAD/Foot min 3 Views IMPRESSION: No acute fracture or malalignment. Chronic fracture deformities of the first metatarsal, second proximal phalanx and third mid/distal phalanges status post ORIF with metallic screws. No evidence of hardware failure or loosening. Electronically Signed: Sloan Rosario MD at 23:39 EST ,
--- NOTE | 2023-09-25 22:35 | RAD_ITS ---
INDICATION: Injury/Pain EXAMINATION/TECHNIQUE: X-RAY - RIGHT XR Ankle Min 3 Views COMPARISON: None. FINDINGS: No acute fracture or malalignment. No blastic or lytic lesions. Mild scattered degenerative changes. Plantar and dorsal calcaneal enthesophytes. Mild soft tissue swelling of the ankle. RAD/Ankle min 3 Views IMPRESSION: No acute radiographic abnormalities. Electronically Signed: Sloan Rosario MD at 23:34 EST ,
--- NOTE | 2023-09-25 22:36 | ED.VIS.LOWEX ---
HPI History of Present Illness Chief Complaint: Lower Extremity Injury Informant: patient Narrative Narrative: Patient is a 72-year-old female presenting with right ankle and foot pain. Patient states she was doing some yard work on a bank today when she did feel her ankle twist a lot funny. She did only have a lot of pain at that time however as she went inside a couple hours later and rested she started to have more throbbing her ankle and foot. She took some Tylenol and try to rest and elevate it but continue to have throbbing pain. He states the pain is on the outside of it and underneath her foot. States it was felt like the muscles were balling up near the heel. Denies any other injuries. Denies associated numbness or tingling. No other complaints or concerns at this time. [facility] Medical History Back pain BMI 30.0-30.9,adult Bronchitis Cardiology follow-up encounter Chronic constipation CPAP (continuous positive airway pressure) dependence Depression Essential (primary) hypertension Family history of colon cancer GERD (gastroesophageal reflux disease) High cholesterol History of heart attack History of non-ST elevation myocardial infarction (NSTEMI) (09/09/17) History of rheumatic fever History of steroid therapy History of stress test History of thyroid nodule HLD (hyperlipidemia) Hoarseness Incomplete right bundle branch block Non-smoker Noncompliance with CPAP treatment Nonsustained ventricular tachycardia OLEKSANDR (obstructive sleep apnea) OLEKSANDR on CPAP Osteoarthritis Paroxysmal atrial fibrillation Peripheral vestibulopathy Personal history of colonic polyps Polycythemia secondary to hypoxia Presence of complete dental prosthetic device Prolonged QT interval Rheumatoid arthritis Rheumatoid arthritis Sjogren's disease Sustained ventricular tachycardia Vertigo Wears glasses Wears hearing aid Home Medications montelukast 10 mg tablet 10 mg PO DAILY Allergies 07/03/14 [History Last Taken 09/08/17] folic acid 1 mg tablet 1 mg PO DAILY@0800 Supplement 11/26/17 [History Last Taken Unknown] vit C 150 mg-vit E 30 unit-lutein 5 xc-doixkzpy-vyhuc 3 150 mg capsule (Ocuvite) 1 cap PO BID eye vitamin 11/26/17 [History Last Taken Unknown] rosuvastatin 20 mg tablet (Crestor) 20 mg PO QHS cholesterol 03/15/18 [History Last Taken Unknown] pregabalin 200 mg capsule (Lyrica) 100 mg PO QHS fibromyalgia 08/30/18 [History Last Taken Unknown] duloxetine 60 mg capsule,delayed release 60 mg PO QHS fibromyalgia #90 caps 03/17/19 [History Last Taken Unknown] Mouth device #1 ea 04/23/20 [Rx Last Taken Unknown] aspirin 81 mg tablet,delayed release 81 mg PO DAILY #30 tabs 09/19/21 [Rx Last Taken Unknown] melatonin 3 mg tablet 6 mg PO HS Insomnia 09/19/21 [History Last Taken Unknown] methotrexate sodium 2.5 mg tablet 15 mg PO TH arthritis 03/04/22 [History Last Taken Unknown] B6 1.7 mg-folic 400 mcg-B12 2.4 xxn-hliomy-abilpheqisbn oral capsule (Neuriva Plus Brain Performance) 1 cap PO BID 08/06/22 [History Last Taken Unknown] albuterol sulfate 90 mcg/actuation aerosol inhaler 2 inh inhalation 4X/DAY 08/06/22 [History Last Taken Unknown] naproxen sodium 220 mg capsule (Aleve) 220 mg PO BID PRN 10/01/22 [History Last Taken Unknown] celecoxib 100 mg capsule 100 mg PO DAILY 01/01/23 [History Last Taken Unknown] pilocarpine HCl 5 mg tablet (Salagen (pilocarpine)) 5 mg PO BID 01/01/23 [History Last Taken Unknown] metoprolol succinate 25 mg tablet,extended release 24 hr See Rx Instructions .Route .COMPLEX #180 tabs 04/13/23 [Rx Last Taken Unknown] flecainide 100 mg tablet 100 mg PO BID #180 tabs 06/15/23 [Rx Last Taken Unknown] Allergy/AdvReac Type Severity Reaction Status Date / Time morphine AdvReac Vomiting Verified 09/25/23 22:22 Family History Brother Colon cancer Diabetes Hypertension Sister Hypertension Sister Diabetes Hypertension Son Afib Surgical History deviated septum repair History of back surgery History of electrophysiologic study (10/26/86) History of left heart catheterization (09/09/17) History of left knee replacement History of lumbar laminectomy History of repair of hiatal hernia History of right shoulder replacement (04/2019) Hx of total shoulder replacement LAP-BAND surgery status Right knee cap repair S/P cervical spinal fusion S/P foot surgery, left S/P right rotator cuff repair Social History household members: spouse housing: house pets and animals: Yes pets and animals: dog(s) Smoking Status: Never smoker Electronic Cigarette Use: not used second hand exposure: No alcohol intake: never substance use type: does not use caffeine: No what type of physical activity do you participate in: walking frequency: 1-2 times per week duration: 15-30 minutes/day seatbelt use: always do you feel safe at home: Yes ROS ROS ED Constitutional Constitutional ED: Denies chills or fever(s) Musculoskeletal Musculoskeletal: Reports other Details: Right ankle and foot pain ; Denies arthralgias or myalgias Integumentary Denies Abrasions or rash Neurologic Neurologic: Denies paresthesias or weakness Hematologic/Lymphatic Hematologic/Lymphatic: Denies easy bleeding or easy bruising EXAM Physical Exam Const Vital Signs: 09/25/23 22:20 09/26/23 00:11 Temperature 97.6 F L 98.6 F Temperature Source Temporal Pulse Rate 64 76 Respiratory Rate 16 12 Blood Pressure 141/95 H 133/96 H Blood Pressure Mean 110 108 Pulse Ox 95 100 Oxygen Delivery Method Room Air Positive well nourished and well developed General Appearance ED: well developed and NAD HEENT Reports moist mucous membranes Chest Wall inspection of chest normal Resp normal respiratory effort and clear to auscultation bilaterally Cardio regular rate and regular rhythm Cardio Narrative: 2+ bilateral DP pulses Extremity normal to inspection and full ROM Extremity Narrative: No edema appreciated. No pinpoint bony tenderness but she does have some tenderness inferior and posterior to the right lateral malleolus as well as some vague tenderness to the right heel and proximal arch. No obvious deformity appreciated. Normal Huerta test. No tenderness palpation over the fibular head. Neuro oriented x3 and moves all extremities Sensorium / Orientation: alert Motor Exam: Negative for general weakness Psych mental status grossly normal Skin no wounds Rashes: no rashes MDM MDM MDM Narrative Medical decision making narrative: Patient evaluated for right ankle pain. Did twist her ankle but then the pain slowly progressed later in the evening. No obvious deformity on exam. Differential includes ankle fracture, foot fracture, ankle sprain and foot sprain. X-ray of the ankle and foot reviewed by myself as well as radiology does not show any acute fracture or dislocation. Patient is given a dose of Motrin and ice pack in the emergency room. She does have improvement of her symptoms. Will treat conservatively with Brad wrap and RICE therapy. Counseled that she can take [id number]-rqp-[id number] ibuprofen for pain but she should hold her Celebrex while taking other NSAIDs. She verbalizes agreement understand this plan. Patient discharged home in stable condition. Radiography Diagnostic Testing: Clinical Impression(s) from Imaging Studies Ankle X-Ray 09/25/23 22:35 IMPRESSION: No acute radiographic abnormalities. Electronically Signed: Sloan Rosario MD at 23:34 EST , Foot X-Ray 09/25/23 22:35 IMPRESSION: No acute fracture or malalignment. Chronic fracture deformities of the first metatarsal, second proximal phalanx and third mid/distal phalanges status post ORIF with metallic screws. No evidence of hardware failure or loosening. Electronically Signed: Sloan Rosario MD at 23:39 EST , Discharge Plan Triage Chief Complaint: Lower Extremity Injury ED Provider: Rose Jacobo Dx/Rx/DC Orders Clinical Impression: Right ankle sprain Instructions: ED Bandage Elastic Wrap, ED Ankle Sprain (Adult) Prescriptions: No Action vit C 150 mg-vit E 30 unit-lutein 5 we-ibapyqxp-ggyyl 3 150 mg capsule [id number] wq-skux-zj-mg capsule 1 cap PO BID rosuvastatin [Crestor] 20 mg tablet 20 mg PO QHS melatonin 3 mg tablet 6 mg PO HS Lyrica 200 mg capsule 100 mg PO QHS duloxetine 60 mg capsule,delayed release(DR/EC) 60 mg PO QHS Qty: 90 aspirin 81 mg tablet,delayed release (DR/EC) 81 mg PO DAILY Qty: 30 0RF naproxen sodium [Aleve] 220 mg capsule 220 mg PO BID PRN pilocarpine HCl [Salagen (pilocarpine)] 5 mg tablet 5 mg PO BID celecoxib 100 mg capsule 100 mg PO DAILY montelukast 10 MG tablet 10 mg PO DAILY Patient Comments: allergies folic acid 1 mg tablet 1 mg PO DAILY@0800 Patient Comments: mineral supplement methotrexate sodium 2.5 mg tablet 15 mg PO TH Patient Comments: appetite simulant Pt takes on Thursday albuterol sulfate 90 mcg/actuation Hfa Aerosol Inhaler 2 inh INHALATION 4X/DAY Neuriva Plus Brain Performance 1.7 mg-400 mcg- 2.4 mcg Capsule 1 cap PO BID (DME) Mouth device Qty: 1 0RF Rx Instructions: As directed metoprolol succinate 25 mg tablet extended release 24 hr See Rx Instructions .ROUTE .COMPLEX Qty: 180 3RF Dose Instruction: TAKE 1 TABLET BY MOUTH TWICE A DAY FOR BLOOD PRESSURE Rx Instructions: TAKE 1 TABLET BY MOUTH TWICE A DAY FOR BLOOD PRESSURE flecainide 100 mg tablet 100 mg PO BID Qty: 180 3RF Primary Care Provider: Tony Sethi Chi Referrals: Tony Sethi Chi, MD [Primary Care Provider] - Activity Restrictions/Additional Instructions: For the next few days if you would like to alternate ibuprofen and Tylenol that is fine but please hold your Celebrex while taking other anti-inflammatories (ibuprofen or Aleve). Continue to ice and elevate your ankle. Follow-up with your primary care doctor. Disposition Disposition: Home, Self Care Discharge Date/Time: 09/26/23 00:12
[2023-09-25] MEDS: Ibuprofen 200 MG Tablet 400 MG PO (22:41)
--- OUTSIDE RECORDS SUMMARY | 2023-09-25 23:16 | XMS RPT_ITS | CCD ---
Author Name Unknown Address [address] [facility] [address] [place] [address] Organization [facility] Care Team Providers Care Supervisor Respiratory Name Role Phone Barbara, Kerrie Chi Primary Care Provider [phone] CHARLENE JR., HARLEY Admitting Unavailable BARBARA, KERRIE [...] Tamica Piña, Kerrie Chi Primary Care Provider [phone] BARBARA, KERRIE CHI Primary Care Unavailable LIZETH RAMIREZ Attending Unavailable Allergies Allergy Classification Reported Allergen(s) Allergy Type Date of Onset Reaction(s) Facility (9 sources) Morphine; Translations: [MORPHINE] Drug Allergy 08-22-2005 GI Upset, GI Intolerance [facility] (9 sources) rosuvastatin; Translations: [ROSUVASTATIN] Drug Allergy 11-11-2013 Myalgia, Unknown [facility] Medications Current Medications Medication Drug Class(es) Dates Sig (Normalized) Sig (Original) acetaminophen 500 mg oral tablet (2 sources) Start: 05-19-2019 acetaminophen (TYLENOL) 500 MG tablet Take 6 (six) tablets (3,000 mg total) by mouth . 0 05/19/2019 Active [id number] 200 actuat albuterol 0.09 mg/actuat metered dose [...] 15:38-0500 Body height 175.3 cm Lizeth Ramirez APRN.CREATIVE PERFUMER Work Phone: [facility] 09-03-2023 15:38-0500 Body weight 94.17 kg Lizeth Ramirez CLINICAL ASSESSMENT MANAGER.CREATIVE PERFUMER Work Phone: [facility] 09-03-2023 15:38-0500 Diastolic blood pressure 80 mm[Hg] Lizeth Ramirez CLINICAL ASSESSMENT MANAGER.CREATIVE PERFUMER Work Phone: [facility] 09-03-2023 15:38-0500 Systolic blood pressure 120 mm[Hg] Lizeth Ramirez CLINICAL ASSESSMENT MANAGER.CREATIVE PERFUMER Work Phone: [facility] 07-29-2023 10:29-0500 Body temperature 97.3 [degF] Harley Charlene Jr., DPM Work Phone: [facility] 07-29-2023 10:29-0500 Diastolic blood pressure 79 mm[Hg] Harley Charlene Jr., DPM Work Phone: [facility] 07-29-2023 10:29-0500 Heart rate 67 /min Harley Charlene Jr., DPM Work Phone: [facility] 07-29-2023 10:29-0500 Systolic blood pressure 137 mm[Hg] Harley Charlene Jr., DPM Work Phone: [facility] 05-27-2023 13:58-0500 Diastolic blood pressure 72 mm[Hg] Harley Charlene Jr., DPM Work Phone: [facility] 05-27-2023 13:58-0500 Heart rate 57 /min Harley Charlene Jr., DPM Work Phone: [facility] 05-27-2023 13:58-0500 Systolic blood pressure 120 mm[Hg] Harley Charlene Jr., DPM Work Phone: [facility] 05-27-2023 13:53-0500 Body temperature 98.2 [degF] Harley Charlene Jr., DPM Work Phone: [facility] Encounters Encounter Date Encounter Type Care Provider Facility Start: 09-03-2023 End: 09-03-2023 ambulatory KERRIE CHI BARBARA Facility:[facility] Start: 09-03-2023 End: 09-03-2023 Patient encounter procedure Lizeth Ramirez CHRIS.CREATIVE PERFUMER Work Phone: OB/Gynecology Procedures Date Procedure Procedure Detail Performing Clinician Start: 08-08-2022 Colonoscopy Harley murdock Jr., DPM Work Phone: Start: 03-06-2022 End: 03-06-2022 Screening mammography bi 2-view breast inc cad Anjelica Renteria CREATIVE PERFUMER Work Phone: Start: 12-14-2020 Mammography Xr Food Science Technician Start: 11-12-2018 Colonoscopy Xr Food Science Technician Plan of Treatment Date Care Activity Detail Author Start: 08-08-2032 Screening for malignant neoplasm of colon [facility] Start: 07-29-2023 End: 07-29-2023 Patient encounter procedure 07/29/2023 10:15 AM EST Office Visit [facility] [address] [place] [id number] Harley Byrd Jr., DPM [address] [place] [address] [facility] Start: 07-20-2023 Advance Directive Discussion Advance Directive Discussion [facility] Start: 07-20-2023 Depression Assessment Depression Assessment [facility] Start: 03-20-2023 COVID-19 Vaccine () COVID-19 Vaccine () [facility] Start: 03-20-2023 Influenza vaccination [facility] Start: 03-06-[address] [facility] Start: 03-06-2023 Screening for malignant neoplasm of breast [facility] Start: 03-20-2022 Influenza vaccination INFLUENZA (#1) [facility] Start: 12-14-[address] [facility] Start: 11-12-[address] [facility] Start: 11-12-2021 COLORECTAL CANCER SCREENING COLORECTAL CANCER SCREENING [facility] Start: 11-12-2021 Screening for malignant neoplasm of colon [facility] Start: 09-12-2021 COVID-19 VACCINE (4 - Booster for Moderna series) COVID-19 VACCINE (4 - Booster for Moderna series) [facility] Start: 07-20-2021 ADVANCE DIRECTIVE DISCUSSION ADVANCE DIRECTIVE DISCUSSION [facility] Start: 2013 Fall risk assessment Falls Risk Assessment [facility] Start: 2008 RSV Vaccine (1 - 1-dose 60+ series) RSV Vaccine (1 - 1-dose 60+ series) [facility] Start: 1998 Screening for malignant neoplasm of colon Flexible sigmoidoscopy [facility] Start: 1993 COLOGUARD (FIT-DNA) COLOGUARD (FIT-DNA) [facility] Start: [address] [facility] Start: 1993 FECAL OCCULT BLOOD FECAL OCCULT BLOOD [facility] Start: 1993 Screening for malignant neoplasm of colon [facility] Start: [address] [facility] Start: 10-07-1967 SHINGRIX VACCINE (1 of 2) SHINGRIX VACCINE (1 of 2) [facility] Start: 10-07-[address] [facility] Start: 1966 ANNUAL PCP TEAM CHRONIC DISEASE VISIT ANNUAL PCP TEAM CHRONIC DISEASE VISIT [facility] Start: 1966 Hepatitis B surface antibody level LDL CHOLESTEROL [facility] Start: 1966 HEPATITIS C SCREENING HEPATITIS C SCREENING [facility] Start: 1966 Hepatitis C screening Hepatitis C Screening [facility] Start: 1960 Adult depression screening assessment [facility] Start: 1958 3 comp foot exam completed DIABETIC FOOT EXAM [facility] Start: 1958 Diabetic foot examination Diabetic Foot Exam [facility] Start: 1958 Glaucoma screening Dilated Retinal Exam [facility] Start: 1958 Hepatitis B screening URINE ALBUMIN:CREATININE RATIO [facility] Start: 1958 Hepatitis C antibody, confirmatory test DILATED RETINAL EXAM [facility] Start: 1954 PNEUMOCOCCAL: 65+ (1 - PCV) PNEUMOCOCCAL: 65+ (1 - PCV) [facility] Start: 1953 Hemoglobin A1c measurement HbA1C [facility] Start: 1953 Hemoglobin A1c/Hemoglobin.total in Blood HBA1C [facility] Start: 10-07-1951 History and physical examination, annual for health maintenance Wellness Visit [facility] Start: 1948 Screening for malignant neoplasm of colon [facility] Start: 1948 Screening for osteoporosis Dexa Scan [facility] Start: 1948 Tetanus vaccination Tetanus: Every 10yrs [facility] End: 10-02-2024 BD DXA TRABECULAR BONE SCORE (TBS) BD DXA TRABECULAR BONE SCORE (TBS) Radiology Routine Osteopenia of left hip 1 Occurrences starting 09/03/2023 until 10/02/2024 [facility] Work Phone: Immunizations Immunization Date Immunization Notes Care Provider Fernando perez 06-20-2021 Moderna SARS-CoV-2 Vaccination Harley Byrd Jr., DPM Work Phone: [facility] 03-06-2021 influenza, injectabl e, quadrivalent, contains preservative Harley Byrd Jr., DPM Work Phone: [facility] 03-06-2021 influenza virus vacc ine, unspecified formulation Lizeth Ramirez APRN.CREATIVE PERFUMER Work Phone: [facility] 02-28-2020 influenza, injectabl e, quadrivalent, contains preservative Harley Byrd Jr., DPM Work Phone: [facility] 05-02-2019 zoster vaccine recombinant Harley Byrd Jr., DPM Work Phone: [facility] 02-28-2019 influenza, seasonal, injectable, preservative free Harley Byrd Jr., DPM Work Phone: [facility] 02-24-2019 influenza, injectabl e, quadrivalent, contains preservative Harley Byrd Jr., DPM Work Phone: [facility] 12-16-2018 zoster vaccine recombinant Harley Byrd Jr., DPM Work Phone: [facility] 03-30-2017 influenza, injectabl e, quadrivalent, contains preservative Harley Byrd Jr., DPM Work Phone: [facility] 06-19-2014 pneumococcal polysaccharide vaccine, 23 valent Harley Byrd Jr., DPM Work Phone: [facility] 06-19-2014 pneumococcal vaccine , unspecified formulation Harley Rangelbob Lehman, DPM Work Phone: [facility] 04-19-2014 influenza, seasonal, injectable, preservative free Harley Rangelbob Lehman, DPM Work Phone: [facility] 08-02-2013 pneumococcal conjuga te vaccine, 13 valent Harleyrae Byrd Jr., DPM Work Phone: [facility] 06-04-2009 novel influenza-H1N1 -09, preservative-free, injectable Harley Charlene Lehman, DPM Work Phone: [facility] Payers Date Payer Category Payer Private Health Insurance [id number] 2021 Medicare [id number] 2021 Medicare [id number] 1950 Unknown [id number] [id number]. [id number] 1950 Unknown [id number] 2.16. [id number] 1950 Unknown [id number] 2.16. [id number] 1950 Unknown [id number] 2.16. [id number] 1950 Unknown [id number] 2.16. [id number] 1950 Unknown [id number] 2.16.8 [id number] 1950 Unknown [id number] [id number] 1950 Unknown [id number] [id number] Social History Date Type Detail Facility Start: 03-03-2022 End: 08-27-2022 Tobacco smoking status NHIS Never smoked tobacco [facility] Start: 03-03-2022 End: 08-27-2022 Tobacco use and exposure Smokeless tobacco non-user [facility] Start: 03-03-2022 End: 09-03-2023 Alcohol intake Current non-drinker of alcohol (finding) [facility] Start: 1950 Sex Assigned At Not on file [facility] Start: 02-21-2022 End: 03-03-2022 Exposure to SARS-CoV-2 (event) Not sure [facility] Start: 05-27-2023 End: 07-29-2023 Alcohol intake Lifetime non-drinker (finding) [facility] Start: 06-24-2020 End: 08-27-2022 History of Social function [facility] Start: 06-24-2020 End: 08-27-2022 Tobacco use panel [facility] National Score (1-10 0), lower number is lower risk Not on file [facility] Clinical Notes 03-17-2012 to 09-03-2023 Patient InstructionsLizeth Ramirez APRN.CNP - 09/03/2023 3:30 PM Harley Kincaid Jr., DPM - 07/29/2023 10:46 AM Harley Kincaid Jr., DPM - 05/27/2023 2:24 PM EST Note Date & Type Note Facility 09-03-2023 Note HNO ID: [id number] Author: LIZETH RAMIREZ APRN.CNP Service: ? Author Type: Nurse Practitioner Type: Progress Notes Filed: 09/03/2023 16:08 Note Text: Head Of Maintenance offered: Patient declines. 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 History LMP: Postmenopausal Age at Menarche: Age at First : Age at Menopause: [employer] Officer History Comments: Sexual Activity: Not Currently; Male; HUBANDS VASECTOMY Contraception: Surgical PAST MEDICAL HISTORY Diagnosis Date Arrhythmia Cardiac dysrhythmia, unspecified rare heart arthrymia Coronary artery disease involving [place] coronary artery of [place] heart 06/04/2018 Diaphragmatic hernia without mention of obstruction or gangrene Hiatal hernia Dysphagia, unspecified(787.20) [place] (myocardial infarction) ([facility]) Myalgia and myositis, unspecified Myocardial [...] RIGHT OP SURGERY 11/2009 Dr. Price in [place] FOOT SURGERY HX Left 05/2016 toes straightened- hardware place hiatal hernia repair 09/2009 Dr. Hilliard in [place] IR ENDO ABLATION VARICOSE VEIN 03/01/2015 Bilaterally [...] AVULSION CHRONIC 06/2009 right shoulder-Dr. Kirk in [place] REDUCTION OF LARGE BREAST 07/03/2014 REDUCTION OF [...] external genitalia normal, normal Bartholin's glands, urethra, [place]'s glands, no vulvar lesions, no cervical lesions, (more content not included)... [facility] 09-03-2023 Instructions Lizeth Ramirez APRN.CREATIVE PERFUMER - 09/03/2023 4:00 PM EST Lubricants and moisturizers list The tumi-pmh-azagfsx vaginal moisturizer and lubricant products can be [...] in any drugstore or online. Also, many [employer] stores do carry high-quality lubricant products. VAGINAL [...] lube Replens Silky Smooth Pulse Aloe-ahh Wet [place] TG Premium Personal Lubricant PINK Silicone Lubricant [...] vaginal moisturizer makes them feel more comfortable. Machine Operator General beware: many lubricants are labeled as moisturizers [...] also be applied externally for comfort. [place] Aloe [place]: Many people are allergic to aloe, so keep this in mind with products like this that have aloe in it. Medicine Mama s V magic: Not much medical studies on this, but many patients swear by it, has oil, beeswax and honey in it- best used externally only. documented in this encounter [facility] 09-03-2023 History of Presen t illness Narrative Head Of Maintenance offered: Patient declines. 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 History LMP: Postmenopausal Age at Menarche: Age at First : Age at Menopause: [employer] Officer History Comments: Sexual Activity: Not Currently; Male; HUBANDS VASECTOMY Contraception: Surgical PAST MEDICAL HISTORY Diagnosis Date Arrhythmia Cardiac dysrhythmia, unspecified rare heart arthrymia Coronary artery disease involving [place] coronary artery of [place] heart 06/04/2018 Diaphragmatic hernia without mention of obstruction or gangrene Hiatal hernia Dysphagia, unspecified(787.20) [place] (myocardial infarction) (HCC) Myalgia and myositis, unspecified [...] RIGHT OP SURGERY 11/2009 Dr. Price in [place] FOOT SURGERY HX Left 05/2016 toes straightened- hardware place hiatal hernia repair 09/2009 Dr. Hilliard in [place] ENDO ABLATION VARICOSE VEIN 03/01/2015 Bilaterally [...] AVULSION CHRONIC 06/2009 right shoulder-Dr. Kirk in [place] REDUCTION OF LARGE BREAST 07/03/2014 REDUCTION OF [...] external genitalia normal, normal Bartholin's glands, urethra, [place]'s glands, no vulvar lesions, no cervical lesions, [...] if symptoms become a concern Lizeth Ramirez APRN.CREATIVE PERFUMER documented in this encounter [facility] 07-29-2023 History of Presen t illness Narrative [...] chronic in nature. documented in this encounter [facility] 05-27-2023 History of Presen t illness Narrative Bilateral foot pain Patient is a 72-year-old female who comes in today for bilateral foot pain. She states she still feels very achy very sore and very uncomfortable in general. However she was not able to pick up man her orthotic prescription she states that she [...] patient's anatomy is not amenable to an qiep-pav-fnsajai or prefabricated device and requires a custom device. Continue taking the Celebrex as prescribed but I did recommend she down titrate the Aleve this is a lot of NSAIDs. Follow-up in 3-6 months to review orthotics and pain. Additionally could consider injectable dexamethasone to her midtarsal joint today but she declined. documented in this encounter [facility] 03-06-2022 Miscellaneous Notes March 06, 2022 PID: [id number] Va John [address] [place] [address] [address] [place] [address] Dear Ms. John, We are pleased to [...] report will be kept on file at [facility] as part of your permanent medical record and are available for your continuing care. Thank you for allowing us to help in meeting your health care needs. Sincerely, Dr. Santamaria Interpreting Radiologist [facility] (Normal over 40) documented in this encounter [facility] 03-06-2022 History of Presen t illness [...] 2022 9:56 AM documented in this encounter [facility] 03-05-2022 Miscellaneous Notes Please file order for screening mammogram. Appt tomorrow 03/06. Thank you. documented in this encounter [facility] 03-03-2022 Note HNO ID: [id number] Author: Faye Mg I, MD Service: ? Author Type: Physician Type: Progress Notes Filed: 03/03/2022 2:35 PM Note Text: NEUROSURGERY CONSULT NOTE Faye Mg MD Chair, Clinical Neurosciences Director, Spinal Neurosurgery [facility] Date of visit: March 03, 2022 Patient Name: Ms.Nancy Obed John Date of : 1950 Current Age: [age] year old Sex: female MRN/E# [id number] Last Office Visit: Visit date not found [...] obstruction or gangrene Hiatal hernia Dysphagia, unspecified(787.20) [place] (myocardial infarction) (HCC) Myalgia and myositis, unspecified [...] RIGHT OP SURGERY 11/2009 Dr. Price in [place] FOOT SURGERY HX Left 05/2016 toes straightened- hardware place hiatal hernia repair 09/2009 Dr. Hilliard in [place] ENDO ABLATION VARICOSE VEIN 03/01/2015 Bilaterally [...] AVULSION CHRONIC 06/2009 right shoulder-Dr. Kirk in [place] REDUCTION OF LARGE BREAST 07/03/2014 REDUCTION OF LARGE BREAST Bilateral 07/03/2014 Breast reduction SEPTOPLASTY/SUBMUCOUS RESECJ W/WO CARTILAGE GRF Septoplasty SHOULDER SURGERY HX Right 2019 TONSILLECTOMY PRIMARY/SECONDARY Tonsillectomy FAMILY HISTORY Problem Relation Age of Onset Osteoporosis Mother other ([place]) Mother Heart Father other (Other) Sister other (SARCOID) Sister Half-sister Diabetes Sister HALF SIS Diabetes Brother Colon Cancer Brother (more content not included)... [facility] documented as of this encounter (statuses as of 03/04/2022) [facility] History of Past illness Narrative* Problem Noted Date Resolved Date Dyspareunia 03/17/2012 11/12/2017 Postcoital bleeding 03/17/2012 07/06/2015 documented as of this encounter (statuses as of 03/05/2022) [facility] History of Past illness Narrative* Problem Noted Date Resolved Date Dyspareunia 03/17/2012 11/12/2017 Postcoital bleeding 03/17/2012 07/06/2015 documented as of this encounter (statuses as of 03/07/2022) [facility] History of Past illness Narrative* Problem Noted Date Resolved Date Dyspareunia 03/17/2012 11/12/2017 Postcoital bleeding 03/17/2012 07/06/2015 documented as of this encounter (statuses as of 03/08/2022) [facility] History of Past illness Narrative* Problem Noted Date Diagnosed Date Resolved Date Dyspareunia 03/17/2012 11/12/2017 Postcoital bleeding 03/17/2012 07/06/20 15 documented as of this encounter (statuses as of 09/03/2023) [facility] note* Diagnosis Radiculopathy, lumbar region Thoracic or lumbosacral neuritis or radiculitis, unspecified documented in this encounter [facility] note* Diagnosis Encounter for screening mammogram for malignant neoplasm of breast- Primary Other screening mammogram documented in this encounter [facility] note* Diagnosis Encounter for screening mammogram for malignant neoplasm of breast Other screening mammogram documented in this encounter [facility] note* Diagnosis Post-traumatic osteoarthritis of both feet- Primary Posterior tibial tendon dysfunction (PTTD) of left lower extremity Left foot pain Pain in soft tissues of limb Arthritis of foot, left [facility]* Diagnosis Arthritis of foot, left- Primary Post-traumatic osteoarthritis of both feet Posterior tibial tendon dysfunction (PTTD) of left lower extremity documented [facility]* Diagnosis Encounter for gynecological examination (general) (routine) without abnormal findings- Primary Encounter for screening mammogram for breast cancer Osteopenia of left hip Genitourinary syndrome of menopause documented in this encounter [facility] for referral (narrative)* Diagnostic Procedure Only (Routine) - Closed Specialty Diagnoses / Procedures Referred By Parvez verde Referred To Contact XR IMAGING Diagnoses Radiculopathy, lumbar region Procedures XR LUMBAR MOTION 4V AP/LAT/ FLEX/EXT RADEX SPINE LUMBOSACRAL MINIMUM 4 VIEWS Faye Mg I, MD [address] [place] [address] Xr Imaging Referral ID Status Reason Start Date Expiration Date V isits Requested Visits Authorized [id number] Closed Auto-Generate d Referral 02/20/2022 03/22/2023 1 1 [facility] for referral (narrative)* Diagnostic Procedure Only (Routine) - Pending Review Specialty Diagnoses / Procedures Referred By Roxiac t Referred To Contact BR IMAGING Diagnoses Encounter for screening mammogram for malignant neoplasm of breast Procedures BARBARA SCREENING SCREENING MAMMOGRAPHY BI 2-VIEW BREAST INC Anjelica Velarde APRN.CREATIVE PERFUMER [address] [place] [address] [facility] [address] [place] [address] Referral ID Status Reason Start Date Expiration Date Visits Requested Visits Authorized [id number] Pending Review Auto-Generat ed Referral 03/05/2022 04/04/2023 1 1 [facility] for referral (narrative)* Diagnostic Procedure Only (Routine) - Closed Specialty Diagnoses / Procedures Referred By Parvez t Referred To Contact BR IMAGING Diagnoses Encounter for screening mammogram for malignant neoplasm of breast Procedures BARBARA SCREENING SCREENING MAMMOGRAPHY BI 2-VIEW BREAST INC Anjelica Velarde APRN.CREATIVE PERFUMER [address] [place] [address] [facility] [address] [place] [address] Referral ID Status Reason Start Date Expiration Date V isits Requested Visits Authorized [id number] Closed Auto-Generate d Referral 03/05/2022 04/04/2023 1 1 [facility] for referral (narrative)* Diagnostic Procedure Only (Routine) - Pending Review Specialty Diagnoses / Procedures Referred By Contac t Referred To Contact XR IMAGING Diagnoses Osteopenia of left hip Procedures DXA-AXIAL SKELETON WITH VFA DXA BONE DENSITY STUDY AXIAL SKELETON Lizeth Ramirez APRN.CREATIVE PERFUMER [address] [place] [address] [place] [id number] Referral ID Status Reason Start Date Expiration Date Visits Requested Visits Authorized [id number] Pending Review Auto-Generat ed Referral 09/03/2023 10/02/2024 1 1 * Diagnostic Procedure Only (Routine) - Pending Review Specialty Diagnoses / Procedures Referred By Contac t Referred To Contact BR IMAGING Diagnoses Encounter for screening mammogram for breast cancer Procedures BARBARA SCREENING SCREENING MAMMOGRAPHY BI 2-VIEW BREAST INC CAD Lizeth Ramirez CLINICAL ASSESSMENT MANAGER.CREATIVE PERFUMER [address] [place] [address] [facility] [address] [place] [address] Referral ID Status Reason Start Date Expiration Date Visits Requested Visits Authorized [id number] Pending Review Auto-Generat ed Referral 09/03/2023 10/02/2024 1 1 [facility] for visit Narrative* Diagnostic Procedure Only (Routine) - Closed Specialty Diagnoses / Procedures Referred By Contac t Referred To Contact XR IMAGING Diagnoses Radiculopathy, lumbar region Procedures XR LUMBAR MOTION 4V AP/LAT/ FLEX/EXT RADEX SPINE LUMBOSACRAL MINIMUM 4 VIEWS Faye Mg I, [address] [facility] [place] [address] Xr Imaging Referral ID Status Reason Start Date Expiration Date V isits Requested Visits Authorized [id number] Closed Auto-Generate d Referral 02/20/2022 03/22/2023 1 1 [facility] for visit Narrative* Diagnostic Procedure Only (Routine) - Closed Specialty Diagnoses / Procedures Referred By Contac t Referred To Contact BR IMAGING Diagnoses Encounter for screening mammogram for malignant neoplasm of breast Procedures BARBARA SCREENING SCREENING MAMMOGRAPHY BI 2-VIEW BREAST INC CAD Anjelica Renteria CLINICAL ASSESSMENT MANAGER.CREATIVE PERFUMER [address] [place] [address] [facility] [address] [place] [address] Referral ID Status Reason Start Date Expiration Date V isits Requested Visits Authorized [id number] Closed Auto-Generate d Referral 03/05/2022 04/04/[address] 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 the event this information is protected by the Federal Confidentiality of Alcohol and Drug Abuse Patient Records regulations: The Federal rules restrict any use of the information to criminally investigate or prosecute any alcohol or drug abuse patient.[facility] the event this information is protected by the Federal Confidentiality of Alcohol and Drug Abuse Patient Records regulations: The Federal rules restrict any use of the information to criminally investigate or prosecute any alcohol or drug abuse patient.[facility] the event this information is protected by the Federal Confidentiality of Alcohol and Drug Abuse Patient Records regulations: The Federal rules restrict any use of the information to criminally investigate or prosecute any alcohol or drug abuse patient.[facility] the event this information is protected by the Federal Confidentiality of Alcohol and Drug Abuse Patient Records regulations: The Federal rules restrict any use of the information to criminally investigate or prosecute any alcohol or drug abuse patient.[facility] Care Teams (unrecognized sec tion and content) Supervisor Respiratory Relationship Specialty Start Date End Date Kerrie Jimenez Chi PCP - General Family Practice 03/24/13 Supervisor Respiratory Relationship Specialty Start Date End Date Kerrie Jimenez Chi PCP - General Family Practice 03/24/13 Supervisor Respiratory Relationship Specialty Start Date End Date Kerrie Jimenez Chi, MD [address] [phone] PCP - General Geriatric Medicine 08/27/22 Supervisor Respiratory Relationship Specialty Start Date End Date Kerrie Jimenez Chi, MD [address] [phone] PCP - General Geriatric Medicine 08/27/22 Supervisor Respiratory Relationship Specialty Start Date End Date Kerrie [...] DATE CREATED AUTHOR AUTHOR'S ORGANIZ ATION 08/02/2023 [facility] DATE CREATED AUTHOR AUTHOR'S ORGANIZ ATION 08/11/2023 [facility] [employer] ([place]) DATE CREATED AUTHOR AUTHOR'S ORGANIZ ATION 09/05/2023 [facility] FOR RECORDS PERTAINING TO PATIENTS [...] BE BASED ON THE PRIMARY CLINICAL RECORDS. [facility]. provides no warranty or guarantee of the accuracy or completeness of information in this document.
[2023-09-26 00:11] VITALS: BP 133/96; PULSE 76; RESP 12; TEMP 37; O2SAT 100
== END 2023-09-26 00:12 | disposition home or self-care (01) ==
PROVIDERS: Emergency Provider Emergency Medicine; PCP Family Medicine Geriatric Medicine; Visit Provider Emergency Medicine
DX: S93.401A Sprain of unspecified ligament of right ankle, initial encounter (principal); I25.2 Old myocardial infarction; G47.33 Obstructive sleep apnea (adult) (pediatric); X58.XXXA Exposure to other specified factors, initial encounter
CPT/HCPCS: 73610; 73630; 99282

== ENCOUNTER → 2023-11-02 | Outpatient (CLI) | payer MEDICARE, SELFPAY ==
[2023-11-02 10:31] LABS: Absolute Lymphocyte Count 1.43 X10^3/uL (0.83-4.51); Absolute Neutrophil Count 3.1 X10^3/uL (2.0-7.7); Basophil# 0.01 X10^3/uL; Basophil% 0.2 % (0-1); Eosinophil# 0.09 X10^3/uL; Eosinophils% 1.7 % (0-5); Hematocrit 48.2 % (37-47); Hemoglobin 15.7 g/dL (12.0-15.0); Lymphocyte # 1.43 X10^3/ul (0.83-4.51); Lymphocyte % 27.6 % (19-41); Mean Corp Hgb Conc 32.6 g/dL (32-36); Mean Corpuscular Hgb 30.6 pg (27.0-32.0); Mean Platelet Vol. 10.1 fl (6.2-12.0); Monocyte% 9.6 % (0-10); NRBC Flagged by Analyzer 0 % (0-5); Neutrophil # 3.14 X10^3/uL (2.7-7.7); Neutrophil % 60.5 % (47-70); Platelet Count 161 K/mm3 (150-450); RBC Distribution Width CV 13.2 % (11.6-14.6); Red Blood Count 5.13 M/mm3 (4.2-5.4); White Blood Count 5.2 K/mm3 (4.4-11.0)
[2023-11-02 11:27] LABS: Vitamin D,25 Hydroxy 26.2 ng/mL
[2023-11-02 11:34] LABS: ALB/GLOB Ratio 1.1 RATIO (0.9-2.4); AST(SGOT) 29 U/L (15-37); Alanine Aminotransfer ALT/SGPT 43 U/L (13-56); Albumin, Serum 3.4 g/dL (3.2-5.0); Alkaline Phosphatase 109 U/L (45-117); Anion Gap 6 (5-15); BUN 12 mg/dL (7-18); BUN/Creat Ratio 16.9 RATIO (10-20); Calcium,Total 9.2 mg/dL (8.5-10.1); Chloride 108 mmol/L (98-107); Creatinine, Serum 0.71 mg/dL (0.55-1.02); EST Glomerular Filtration Rate 85 mL/min (>60); Est Glom Filt Rate - Afr Amer 103 mL/min (>60); Globulin 3.2 g/dL (2.2-4.2); Glucose 98 mg/dL (74-106); Potassium 4.1 mmol/L (3.5-5.1); Protein, Total 6.6 g/dL (6.4-8.2); Sodium Level 142 mmol/L (136-145); Thyroid Stim Hormone (TSH) 0.72 uIU/mL (0.358-3.74)
== END | disposition home or self-care (01) ==
LOC: LAB 09:29
PROVIDERS: PCP Family Medicine Geriatric Medicine; Visit Provider Internal Medicine Rheumatology
DX: M06.4 Inflammatory polyarthropathy (principal); M79.7 Fibromyalgia; E55.9 Vitamin D deficiency, unspecified; R53.83 Other fatigue; Z79.899 Other long term (current) drug therapy
CPT/HCPCS: 36415; 80053; 82306; 84443; 85025

== ENCOUNTER → 2024-01-22 | Outpatient (CLI) | payer MEDICARE, SELFPAY ==
[2024-01-22 11:20] LABS: Absolute Lymphocyte Count 1.53 X10^3/uL (0.83-4.51); Absolute Neutrophil Count 3.2 X10^3/uL (2.0-7.7); Basophil# 0.01 X10^3/uL; Basophil% 0.2 % (0-1); Eosinophil# 0.13 X10^3/uL; Eosinophils% 2.4 % (0-5); Hematocrit 45.6 % (37-47); Hemoglobin 14.9 g/dL (12.0-15.0); Lymphocyte # 1.53 X10^3/ul (0.83-4.51); Lymphocyte % 28.4 % (19-41); Mean Corp Hgb Conc 32.7 g/dL (32-36); Mean Corpuscular Hgb 30.4 pg (27.0-32.0); Mean Corpuscular Volume 93.1 fL (81-99); Mean Platelet Vol. 10.3 fl (6.2-12.0); Monocyte# 0.49 X10^3/uL; Monocyte% 9.1 % (0-10); NRBC Flagged by Analyzer 0 % (0-5); Neutrophil % 59.5 % (47-70); Platelet Count 162 K/mm3 (150-450); RBC Distribution Width CV 14.5 % (11.6-14.6); RBC Distribution Width SD 49.4 fl (35.1-43.9); White Blood Count 5.4 K/mm3 (4.4-11.0)
[2024-01-22 11:59] LABS: ALB/GLOB Ratio 1.2 RATIO (0.9-2.4); AST(SGOT) 32 U/L (15-37); Alanine Aminotransfer ALT/SGPT 43 U/L (13-56); Albumin, Serum 3.7 g/dL (3.2-5.0); Alkaline Phosphatase 123 U/L (45-117); Anion Gap 6 (5-15); BUN 15 mg/dL (7-18); BUN/Creat Ratio 22.9 RATIO (10-20); Calcium,Total 9.5 mg/dL (8.5-10.1); Chloride 109 mmol/L (98-107); Creatinine, Serum 0.66 mg/dL (0.55-1.02); EST Glomerular Filtration Rate 93 mL/min (>60); Est Glom Filt Rate - Afr Amer 113 mL/min (>60); Globulin 3.1 g/dL (2.2-4.2); Glucose 109 mg/dL (74-106); Protein, Total 6.8 g/dL (6.4-8.2); Sodium Level 141 mmol/L (136-145)
== END | disposition home or self-care (01) ==
LOC: LAB 10:56
PROVIDERS: PCP Family Medicine Geriatric Medicine; Referring Provider Internal Medicine Rheumatology; Visit Provider Internal Medicine Rheumatology
DX: M06.4 Inflammatory polyarthropathy (principal); Z79.899 Other long term (current) drug therapy; M79.7 Fibromyalgia; M35.00 Sjogren syndrome, unspecified; M17.0 Bilateral primary osteoarthritis of knee; M18.0 Bilateral primary osteoarthritis of first carpometacarpal joints; M65.341 Trigger finger, right ring finger; M18.12 Unilateral primary osteoarthritis of first carpometacarpal joint, left hand; M18.11 Unilateral primary osteoarthritis of first carpometacarpal joint, right hand
CPT/HCPCS: 36415; 80053; 85025

== ENCOUNTER → 2024-02-10 | Outpatient (CLI) | payer MEDICARE, SELFPAY ==
--- NOTE | 2024-02-10 13:44 | ECHOCS_ITS ---
Reason For Study: DYSPNEA Procedure This was a 2D Doppler, Color Flow transthoracic echocardiogram. The study was technically difficult. Due to body habitus. Contrast injection was performed. Exam performed in department. Left Ventricle Normal left ventricle. Left ventricular systolic function is normal. Stage 1 diastolic dysfunction. The left ventricular ejection fraction is 65 %. No regional wall motion abnormalities noted. Right Ventricle Normal RV size. Normal systolic function. Atria Normal left atrium. Normal right atrium. Mitral Valve Normal mitral valve. Tricuspid Valve Normal tricuspid valve. Mild (1+) tricuspid valve insufficiency. Pulmonary artery systolic pressure is 33 mmHg. Aortic Valve Trisinus/trileaflet aortic valve. Pulmonic Valve The pulmonic valve is not well visualized. Great Vessels Normal aortic root. Pericardium/Pleural No pericardial effusion. Medication 22 gauge I.V. with prn adaptor inserted into right arm. Diluted definity 1.5ml given slow IV push to enhance endocardial definition. MMode/2D Measurements & Calculations LVIDd: 5.4 cm IVSd: 1.0 cm Ao root diam: 3.1 cm LVIDs: 3.4 cm LVPWd: 1.0 cm RVDd: 3.7 cm FS: 37.9 % LAV(MOD-bp): 42.8 ml LVAd ap4: 29.5 cm2 SV(MOD-sp4): 67.6 ml LAV(MOD-bp) Indexed: 20.5 ml/m2 LVLd ap4: 7.7 cm LAV(MOD-sp2): 42.3 ml EDV(MOD-sp4): 92.2 ml LAV(MOD-sp4): 42.5 ml EDV(sp4-el): 96.3 ml LVAs ap4: 14.0 cm2 LVLs ap4: 6.5 cm ESV(MOD-sp4): 24.6 ml ESV(sp4-el): 25.6 ml EF(MOD-sp4): 73.3 % EF(sp4-el): 73.4 % SV(sp4-el): 70.7 ml LA A4 area: 16.6 cm2 LA dimension(2D): 4.4 cm RA A4 area: 15.4 cm2 TAPSE: 2.3 cm Time Measurements MV dec time: 0.30 sec Doppler Measurements & Calculations MV E max carrington: 67.5 cm/sec Lat Peak E' Carrington: 4.9 cm/sec Med Peak E' Carrington: 6.2 cm/sec MV A max carrington: 77.6 cm/sec E/E' lat: 13.8 E/E' med: 10.9 MV E/A: 0.87 MV V2 max: 102.2 cm/sec MV P1/2t max carrington: 91.8 cm/sec Ao V2 max: 158.6 cm/sec MV max P.2 mmHg MV P1/2t: 95.5 msec Ao max P.1 mmHg MV V2 mean: 51.5 cm/sec MV dec slope: 281.5 cm/sec2 Ao V2 mean: 100.5 cm/sec MV mean P.3 mmHg MVA(P1/2t): 2.3 cm2 Ao mean P.7 mmHg MV V2 VTI: 29.8 cm Ao V2 VTI: 31.0 cm AV (velocity ratio): 0.68 LV V1 max: 87.5 cm/sec PA V2 max: 88.1 cm/sec TR max carrington: 271.6 cm/sec LV V1 max P.1 mmHg PA V2 mean: 63.9 cm/sec TR max P.5 mmHg LV V1 mean P.6 mmHg LV V1 mean: 60.6 cm/sec LV V1 VTI: 21.2 cm ECHO/Echo Complete W/ Contrast Interpretation Summary Normal left ventricle. Left ventricular systolic function is normal. Stage 1 diastolic dysfunction. The left ventricular ejection fraction is 65 %. Contrast injection was performed. Referring Physician: Nigel Li M.D. Performed By: Luz Elena Carrillo RDCS, RVT
== END | disposition home or self-care (01) ==
LOC: CVS 13:43
PROVIDERS: PCP Family Medicine Geriatric Medicine; Referring Provider Nurse Practitioner Gerontology; Visit Provider Nurse Practitioner Gerontology
DX: R06.09 Other forms of dyspnea (principal)
CPT/HCPCS: 93306; Q9957; A4216; C8929

== ENCOUNTER 2024-02-12 16:45 | Emergency (ER) | payer MEDICARE, SELFPAY ==
[2024-02-12 16:45] VITALS: BP 147/71; PULSE 16; RESP 84; TEMP 36.2; O2SAT 100
--- NOTE | 2024-02-12 17:03 | ED.VIS.BACK ---
HPI <SHANNON Rojas - Last Filed: 02/12/24 21:39> History of Present Illness Chief Complaint: Back Narrative Narrative: Patient presenting today due to pain to her left lateral rib cage after a mechanical fall that occurred this afternoon. She was in her flower bed when she tripped over a rock and landed on her back and left side. She did not hit her head, there was no LOC, she denies any other injury, she is able to ambulate [facility] <SHANNON Rojas - Last Filed: 02/12/24 21:39> [facility] Medical History History of thyroid nodule OLEKSANDR on CPAP Noncompliance with CPAP treatment Presence of complete dental prosthetic device Wears hearing aid Wears glasses History of steroid therapy Rheumatoid arthritis High cholesterol Back pain Chronic constipation Non-smoker CPAP (continuous positive airway pressure) dependence Hoarseness History of rheumatic fever History of stress test Cardiology follow-up encounter History of heart attack Peripheral vestibulopathy Vertigo History of non-ST elevation myocardial infarction (NSTEMI) (09/09/17) Incomplete right bundle branch block Essential (primary) hypertension Family history of colon cancer Personal history of colonic polyps BMI 30.0-30.9,adult Prolonged QT interval Sustained ventricular tachycardia Nonsustained ventricular tachycardia Depression GERD (gastroesophageal reflux disease) Rheumatoid arthritis Osteoarthritis Polycythemia secondary to hypoxia OLEKSANDR (obstructive sleep apnea) Bronchitis Sjogren's disease Paroxysmal atrial fibrillation HLD (hyperlipidemia) Home Medications ?Medication ?Instructions ?Recorded ?Last Taken ?Type montelukast 10 mg tablet 10 mg PO DAILY Allergies 07/03/14 09/08/17 History folic acid 1 mg tablet 1 mg PO DAILY@0800 Supplement 11/26/17 Unknown History vit C 150 mg-vit E 30 unit-lutein 1 cap PO BID eye vitamin 11/26/17 Unknown History 5 fl-ccfyehss-bkslw 3 150 mg capsule (Ocuvite) rosuvastatin 20 mg tablet (Crestor) 20 mg PO QHS cholesterol 03/15/18 Unknown History duloxetine 60 mg capsule,delayed 60 mg PO QHS fibromyalgia #90 caps 03/17/19 Unknown History release Mouth device #1 ea 04/23/20 Unknown Rx aspirin 81 mg tablet,delayed 81 mg PO DAILY #30 tabs 09/19/21 Unknown Rx release melatonin 3 mg tablet 6 mg PO HS Insomnia 09/19/21 Unknown History methotrexate sodium 2.5 mg tablet 15 mg PO TH arthritis 03/04/22 Unknown History B6 1.7 mg-folic 400 mcg-B12 2.4 1 cap PO BID 08/06/22 Unknown History ofn-ubhhwa-qglumywqbsax oral capsule (Neuriva Plus Brain Performance) albuterol sulfate 90 mcg/actuation 2 inh inhalation 4X/DAY 08/06/22 Unknown History aerosol inhaler naproxen sodium 220 mg capsule 220 mg PO BID PRN 10/01/22 Unknown History (Aleve) celecoxib 100 mg capsule 100 mg PO DAILY 01/01/23 Unknown History pilocarpine HCl 5 mg tablet 5 mg PO BID 01/01/23 Unknown History (Salagen (pilocarpine)) flecainide 100 mg tablet 100 mg PO BID #180 tabs 06/15/23 Unknown Rx mometasone 50 mcg/actuation HFA inhalation 01/14/24 Unknown History aerosol inhaler (Asmanex HFA) acetaminophen 500 mg oral powder 500 mg PO Q6H PRN 01/22/24 Unknown History packet (Tylenol Extra Strength) magnesium 200 mg tablet 200 mg PO DAILY 01/22/24 Unknown History metoprolol succinate 25 mg 25 mg PO BID for blood pressure 02/04/24 Unknown Rx tablet,extended release 24 hr #180 TABLETS Allergy/AdvReac Type Severity Reaction Status Date / Time morphine AdvReac Vomiting Verified 02/12/24 16:45 Family History Brother Colon cancer Diabetes Hypertension Sister Hypertension Sister Diabetes Hypertension Son Afib Surgical History History of back surgery Hx of total shoulder replacement History of lumbar laminectomy History of right shoulder replacement (04/2019) History of left heart catheterization (09/09/17) History of electrophysiologic study (10/26/86) History of repair of hiatal hernia S/P cervical spinal fusion deviated septum repair S/P foot surgery, left S/P right rotator cuff repair Right knee cap repair History of left knee replacement LAP-BAND surgery status Social History household members: spouse housing: house pets and animals: Yes pets and animals: dog(s) Smoking Status: Never smoker Electronic Cigarette Use: not used second hand exposure: No alcohol intake: never substance use type: does not use caffeine: No what type of physical activity do you participate in: walking frequency: 1-2 times per week duration: 15-30 minutes/day seatbelt use: always do you feel safe at home: Yes ROS <SHANNON Rojas - Last Filed: 02/12/24 21:39> ROS ED Constitutional Constitutional ED: Denies chills or fever(s) Cardiovascular Cardiovascular: Denies chest pain Respiratory/Chest Respiratory/Chest: Denies dyspnea Gastrointestinal Gastrointestinal: Denies abdominal pain, nausea or vomiting Musculoskeletal Musculoskeletal: Reports back pain; Denies neck pain Integumentary Denies Abrasions Neurologic Neurologic: Denies headache(s) or weakness EXAM <SHANNON Rojas - Last Filed: 02/12/24 21:39> Physical Exam Const Vital Signs: 02/12/24 16:45 Temperature 97.2 F L Temperature Source Temporal Pulse Rate 16 L Respiratory Rate 84 H Blood Pressure 147/71 H Blood Pressure Mean 96 Pulse Ox 100 Oxygen Delivery Method Room Air Positive well nourished, well developed and no apparent distress General Appearance ED: well developed HEENT Reports normocephalic and head/scalp atraumatic Mouth ED: Yes moist mucous membranes normal Eyes PERRL and EOMs intact bilaterally Neck full ROM and supple General: Negative for tenderness Chest Wall inspection of chest normal Resp normal respiratory effort and clear to auscultation bilaterally Resp Narrative: Pain palpation to the left lateral rib cage, no ecchymosis, no crepitus Cardio regular rate and regular rhythm GI soft to palpation and non-tender Back/Spine normal ROM, normal to inspection and no thoracic nor lumbar tenderness Extremity normal to inspection and full ROM Neuro oriented x3, CN's II-XII intact bilaterally, moves all extremities, no focal motor deficits and no sensory deficits noted Sensorium / Orientation: awake and alert Psych mental status grossly normal and thought process normal Skin no rashes or lesions noted and no wounds <Dr. Max Aguilar MD - Last Filed: 02/13/24 00:32> Physical Exam Const Vital Signs: 02/12/24 16:45 Temperature 97.2 F L Temperature Source Temporal Pulse Rate 16 L Respiratory Rate 84 H Blood Pressure 147/71 H Blood Pressure Mean 96 Pulse Ox 100 Oxygen Delivery Method Room Air [facility] <SHANNON Rojas - Last Filed: 02/12/24 21:39> [facility] Narrative Medical decision making narrative: Patient presenting today with pain to her left lateral and posterior rib cage after mechanical fall that occurred this afternoon. She did not hit her head, she has no tenderness to her cervical, thoracic, or lumbar spine. X-ray of the left ribs will be obtained to rule out fracture. I did offer analgesia, she declines. X-ray shows no evidence of rib fracture. She will be treated for rib contusion with supportive care measures, she can take Tylenol as needed for pain. She will be discharged home in stable condition. Radiography X-Ray: Read by ED Physician Diagnostic Testing: Clinical Impression(s) from Imaging Studies Ribs w/Chest X-Ray 02/12/24 17:25 IMPRESSION: No evidence of displaced rib fracture. Electronically Signed: Kayden Driver DO at 20:06 EDT , <Dr. Max Aguilar MD - Last Filed: 02/13/24 00:32> [facility] Radiography Diagnostic Testing: Clinical Impression(s) from Imaging Studies Ribs w/Chest X-Ray 02/12/24 17:25 IMPRESSION: No evidence of displaced rib fracture. Electronically Signed: Kayden Driver DO at 20:06 EDT , Treatment and Re-Evaluation Narrative: I have personally performed a face to face assessment of the patient and have reviewed the ZAID Note. I performed a substantive portion of the visit including all aspects of the following. My conti findings include: History is patient fell against her left posterior rib cage in the pain is radiating all the way around to her left inframammary area. No dyspnea but it hurts to breathe and move. No other injuries. Exam is tender more in the lateral and left anterior lateral rib cage along #8 or 9 underneath the breast, no step-off, no crepitance, no splinting with deep inspiration. No spinal tenderness. No sternal tenderness. No subcostal abdominal tenderness. Medical Decison Making 5 view x-ray series of the left rib cage and a PA chest show no pneumothorax or obvious displaced rib fracture on my interpretation. Radiology in agreement. Patient offered pain medication, reassured, advised to continue taking easy deep breaths. Other additions or changes: [None] Discharge Plan Triage Chief Complaint: Back ED Midlevel Provider: Diane Isaac ED Provider: Max Aguilar Dx/Rx/DC Orders Clinical Impression: Fall, Contusion of rib Instructions: ED Rib Contusion or Minor Fracture Prescriptions: No Action vit C-vit N-bedysh-lrg-om-3 [Ocuvite] 132-10-9-150 qt-sqxs-yc-mg capsule 1 cap PO BID rosuvastatin [Crestor] 20 mg tablet 20 mg PO QHS melatonin 3 mg tablet 6 mg PO HS duloxetine 60 mg capsule,delayed release(DR/EC) 60 mg PO QHS Qty: 90 aspirin 81 mg tablet,delayed release (DR/EC) 81 mg PO DAILY Qty: 30 0RF naproxen sodium [Aleve] 220 mg capsule 220 mg PO BID PRN Asmanex HFA 50 mcg/actuation HFA aerosol inhaler inhalation pilocarpine HCl [Salagen (pilocarpine)] 5 mg tablet 5 mg PO BID celecoxib 100 mg capsule 100 mg PO DAILY magnesium 200 mg tablet 200 mg PO DAILY Tylenol Extra Strength 500 mg powder in packet 500 mg PO Q6H PRN montelukast 10 MG tablet 10 mg PO DAILY Patient Comments: allergies folic acid 1 mg tablet 1 mg PO DAILY@0800 Patient Comments: mineral supplement methotrexate sodium 2.5 mg tablet 15 mg PO TH Patient Comments: appetite simulant Pt takes on Thursday albuterol sulfate 90 mcg/actuation Hfa Aerosol Inhaler 2 inh INHALATION 4X/DAY Neuriva Plus Brain Performance 1.7 mg-400 mcg- 2.4 mcg Capsule 1 cap PO BID (DME) Mouth device Qty: 1 0RF Rx Instructions: As directed flecainide 100 mg tablet 100 mg PO BID Qty: 180 3RF metoprolol succinate 25 mg tablet extended release 24 hr 25 mg PO BID Qty: 180 3RF Primary Care Provider: Tony Sethi Chi Referrals: Tony Sethi Chi, MD [Primary Care Provider] - 5-7 Days Activity Restrictions/Additional Instructions: Follow-up with your PCP and return for any worsening of your symptoms. Print Language: Mexican Disposition Disposition: Home, Self Care Discharge Date/Time: 02/12/24 19:53
--- NOTE | 2024-02-12 17:25 | RAD_ITS ---
INDICATION: L rib pain EXAMINATION/TECHNIQUE: X-RAY - XR Ribs Unilateral W/ PA Chest Min 3 Views COMPARISON: FINDINGS: SOFT TISSUES: No soft tissue swelling or gas. BONES: No displaced fracture. No sclerotic or destructive changes observed. Right shoulder prosthesis. VISUALIZED LUNGS: Clear. No pneumothorax. RAD/Ribs Uni Min 3V w/PA Chest IMPRESSION: No evidence of displaced rib fracture. Electronically Signed: Kayden Driver DO at 20:06 EDT ,
[2024-02-12] MEDS: Acetaminophen 325 MG Tablet 650 MG PO (18:32)
== END 2024-02-12 19:53 | disposition home or self-care (01) ==
PROVIDERS: Emergency Provider Emergency Medicine; PCP Family Medicine Geriatric Medicine; Visit Provider Emergency Medicine
DX: S20.212A Contusion of left front wall of thorax, initial encounter (principal); W01.0XXA Fall on same level from slipping, tripping and stumbling without subsequent striking against object, initial encounter; Y92.017 Garden or yard in single-family (private) house as the place of occurrence of the external cause; I10 Essential (primary) hypertension; E78.00 Pure hypercholesterolemia, unspecified; Z79.899 Other long term (current) drug therapy
CPT/HCPCS: 71101; 99282

== ENCOUNTER → 2024-02-18 | Outpatient (CLI) | payer MEDICARE, SELFPAY ==
[2024-02-18 12:23] LABS: Absolute Lymphocyte Count 1.38 X10^3/uL (0.83-4.51); Absolute Neutrophil Count 4.2 X10^3/uL (2.0-7.7); Basophil# 0.03 X10^3/uL; Basophil% 0.5 % (0-1); Eosinophil# 0.22 X10^3/uL; Eosinophils% 3.4 % (0-5); Hematocrit 47.3 % (37-47); Hemoglobin 15.4 g/dL (12.0-15.0); Lymphocyte # 1.38 X10^3/ul (0.83-4.51); Lymphocyte % 21.5 % (19-41); Mean Corp Hgb Conc 32.6 g/dL (32-36); Mean Corpuscular Hgb 30.5 pg (27.0-32.0); Mean Corpuscular Volume 93.7 fL (81-99); Mean Platelet Vol. 10.4 fl (6.2-12.0); Monocyte# 0.59 X10^3/uL; Monocyte% 9.2 % (0-10); NRBC Flagged by Analyzer 0 % (0-5); Neutrophil # 4.15 X10^3/uL (2.7-7.7); Neutrophil % 64.6 % (47-70); Platelet Count 180 K/mm3 (150-450); RBC Distribution Width CV 14.3 % (11.6-14.6); RBC Distribution Width SD 48.6 fl (35.1-43.9); Red Blood Count 5.05 M/mm3 (4.2-5.4); White Blood Count 6.4 K/mm3 (4.4-11.0)
[2024-02-18 12:36] LABS: Prothrombin Time (Protime)PT. 13.3 SECONDS (11.7-14.9)
[2024-02-18 12:37] LABS: Partial Thromboplast Time 27.7 Seconds (24.1-36.2)
[2024-02-18 12:49] LABS: ALB/GLOB Ratio 1.1 RATIO (0.9-2.4); AST(SGOT) 25 U/L (15-37); Alanine Aminotransfer ALT/SGPT 29 U/L (13-56); Albumin, Serum 3.6 g/dL (3.2-5.0); Alkaline Phosphatase 125 U/L (45-117); Anion Gap 4 (5-15); BUN 18 mg/dL (7-18); BUN/Creat Ratio 23.7 RATIO (10-20); Calcium,Total 9.9 mg/dL (8.5-10.1); Chloride 108 mmol/L (98-107); Creatinine, Serum 0.76 mg/dL (0.55-1.02); EST Glomerular Filtration Rate 79 mL/min (>60); Est Glom Filt Rate - Afr Amer 95 mL/min (>60); Globulin 3.3 g/dL (2.2-4.2); Glucose 93 mg/dL (74-106); Potassium 3.9 mmol/L (3.5-5.1); Protein, Total 6.9 g/dL (6.4-8.2); Sodium Level 140 mmol/L (136-145)
[2024-02-22 16:45] LABS: Magnesium 2.3 mg/dL (1.6-2.6)
[2024-02-22 17:03] LABS: Hemoglobin A1c 5.6 % (3.8-5.6)
== END | disposition home or self-care (01) ==
LOC: POLAB3 11:05
PROVIDERS: Anesthesiology; Orthopaedic Surgery; PCP Family Medicine Geriatric Medicine; Visit Provider Family Medicine Geriatric Medicine
DX: R06.02 Shortness of breath (principal); R53.83 Other fatigue; E78.5 Hyperlipidemia, unspecified; Z01.818 Encounter for other preprocedural examination
CPT/HCPCS: 36415; 80053; 83036; 83735; 85025; 85610; 85730

== ENCOUNTER 2024-03-29 09:30 | Outpatient (RCR) | payer MEDICARE, SELFPAY ==
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
--- NOTE | 2024-03-29 15:00 | HP.PTDCSUM ---
Discharge Summary D/C summary: It has been my pleasure to treat KRIS JOHN referred by Dr. Arsh Garces DO, with the diagnosis of R KNEE OA for a total of 6 visit(s). Discharge Date: 03/29/24 Please see the following information for a summary of their discharge status. Subjective Subjective: PATIENT STATES THAT IS THE BEST MY LEGS AND KNEES HAVE FELT IN A LONG TIME. I LOVED THOSE STRETCHES WITH THE NOODLE IN THE WATER. SHE STATE THE LAST POOL SESSION WENT REALLY WELL AND SHE IS HOPING AFTER HER incision IS HEALED SHE WILL BE ABLE TO REHAB IN THE POOL AFTER SURGERY. SHE REPORTS HER TKR SURGERY WAS APPROVED AND PENDING 04/19/24. STATES IN THE MEAN TIME IS HAVING HEART SURGERY 04/04/24 AND SHE IS GOING TO NEED TO HELP HIM. Pain L knee: Pain Intensity (Out of 10): 1 R knee: Pain Intensity (Out of 10): 2 Overall Improvement % Improvement: 10 Objective Objective/Function: THIS PATIENT HAS DONE WELL WITH JUST A FEW POOL VISITS. SHE IS ALSO INDEP WITH HEP. SHE IS EXHIBITING INCREASED STRENGTH AND ROM EVIDENCED BY MEASUREMENTS BELOW: 30 SEC STS TEST: 6 WITH R UE ASSIST. TU.66 WITHOUT AD. R knee flexion AROM: 136 DEG R knee ext: -10 DEG R knee flex MMT; 19.3, L 23.5 LBS PEAK FORCE R knee ext MMT 21.9, L 23.3 LBS R hip MMT: 16.4, L 16.6 LBS B ankle MMT 5/5 OTHER: PATIENT REPORTS SHE DOES NOT DO STEPS BECAUSE SHE HAS A LIFT. SHE ALSO REPORTS SHE HAS A CANE AND A WALKER AND KNOWS HOW TO USE THEM/DOES NOT NEED TRAINING. Goals Goal 1:: PATIENT WILL DEMONSTRATE HEEL TOE GAIT PATTERN IN PREPARATION FOR POST OP PROPER PATTERNING. Goal Progress: Goal Met Goal 2:: INCREASE R KNEE AROM Goal Progress: Goal Met Goal 3:: INCREASE R LE STRENGTH Goal Progress: Goal Met Goal 4:: PATIENT WILL BE INDEP WITH R TKR EX PROGRAM IN PREPARATION FOR POST OP KNEE REHAB Goal 5:: PATIENT WILL DEMONSTRATE PROPER USE OF AD'S (WALKER AND CANE) ON LEVEL SURFACES AND UP AND DOWN STEPS IN PREPARATION FOR POST OP KNEE REHAB. Goal Progress: Addressed Plan Plan: AQUATIC THERAPY 2X'S A WK X 4-6 WKS FOR R KNEE PAIN RELIEF, ROM, STRETCHING AND STRENGTHENING. GAIT TRAINING. INSTRUCT PATIENT IN PROPER HEEL TOE GAIT PATTERN PWB ON LEVEL SURFACES AND UP AND DOWN STEPS WITH CANE AND WALKER IN PREPARATION FOR POST OP TKR REHAB. INSTRUCT IN POST OP TKR EXERCISE PROTOCOL FOR HEP. D/C Information d/c sentence: If there are questions or concerns regarding this patient's physical therapy, please feel free to call me at [phone]. Thank you for the referral of this patient. Sincerely, Irina Urrutia, PT, Cert MDT Balance/Gait/Functional tests Balance/Special Test Scores Tug Test: <20 sec.=mostly independent WOMAC Total Score: 49 WOMAC Percentage: 48.9600 Improvement % Improvement: 10
== END 2024-03-29 19:00 | disposition home or self-care (01) ==
LOC: PT 09:30
PROVIDERS: PCP Family Medicine Geriatric Medicine; Referring Provider Orthopaedic Surgery; Visit Provider Orthopaedic Surgery
DX: M17.11 Unilateral primary osteoarthritis, right knee (principal)
CPT/HCPCS: 97113; 97162; 97530

== ENCOUNTER → 2024-04-13 | Outpatient (CLI) | payer MEDICARE, SELFPAY | END | disposition home or self-care (01) | LOC: POLAB3 14:27 | PROVIDERS: PCP Family Medicine Geriatric Medicine; Visit Provider Family Medicine Geriatric Medicine | DX: R68.83 Chills (without fever) (principal) | CPT/HCPCS: 87631 ==

== ENCOUNTER 2024-04-19 14:30 | Observation (INO) | payer MEDICARE, SELFPAY ==
[2024-02-27 10:41] LABS: Fructosamine 245 umol/L (0-285)
[2024-04-19] VITALS (17 sets, daily range): BP systolic 87–140; BP diastolic 50–75; PULSE 56–102; RESP 13–18; TEMP 36.1–36.6; O2SAT 94–100; BMI 29.4; BMI 30.5
[2024-04-19] MEDS: Lactated Ringers 1,000 ML 125 ML IV ×2 (09:36→13:28)
[2024-04-19] MEDS: Magnesium 1 GM over 15 mins IV (09:37)
[2024-04-19] MEDS: Scopolamine 1mg/72hr Patch 1 PATCH TD (09:37)
[2024-04-19] MEDS: Gabapentin 600 MG Tablet PO (09:38)
[2024-04-19] MEDS: Acetaminophen 500 MG Tablet 1000 MG PO ×2 (09:38→22:29)
[2024-04-19] MEDS: Celecoxib 200 MG Capsule 400 MG PO (09:39)
--- NOTE | 2024-04-19 10:05 | PRE.ANES_ITS ---
ASA Classification* ASA Classification ASA Classification: 3 Assessment & Plan Anesthesia* Anesthesia Assessment Anesthesia Assessment: Discussed sedation and/or anesthesia options, risks, benefits, and alternatives with patient/parents/legal guardian/POA. Questions invited. The patient/parents/legal guardian/POA seems to understand and agrees to proceed with anesthesia plan. Reviewed the physical assessment, medical history, allergy history and patient home medications list prior to surgery/procedure/anesthetic and documented any changes. Performed airway and anesthesia risk assessments. Anesthesia Type Anesthesia Type: General History Source History Obtained from:: Patient and Chart Anesthesia Focused Assessment* Temperature: 97 F Pulse Rate: 102 Blood Pressure: 100/75 Respiratory Rate: 18 Pulse Ox: 100 Oxygen Delivery Method: Room Air Airway Assessment Mouth opens: >3 cm Mallampati Score: II Teeth Condition: Caps/Crowns (Multiple crowns all tight.) Neck Range of motion (ROM): Limited ROM (Decreased extension. multiple cervical fusions. 2 different surgeries. C3-C6) Focused Labs Anesthesia Preop lab: CBC WBC 6.4 K/mm3 (4.4-11.0) 02/18/24 11:05 RBC 5.05 M/mm3 (4.2-5.4) 02/18/24 11:05 Hgb 15.4 g/dL (12.0-15.0) H 02/18/24 11:05 Hct 47.3 % (37-47) H 02/18/24 11:05 Plt Count 180 K/mm3 (150-450) 02/18/24 11:05 CHEMISTRY Potassium 3.9 mmol/L (3.5-5.1) 02/18/24 11:05 Sodium 140 mmol/L (136-145) 02/18/24 11:05 Magnesium 2.3 mg/dL (1.6-2.6) 02/18/24 11:05 BUN 18 mg/dL (7-18) 02/18/24 11:05 Creatinine 0.76 mg/dL (0.55-1.02) 02/18/24 11:05 Glucose 93 mg/dL (74-106) 02/18/24 11:05 POC Glucose 101 mg/dL (70-110) 05/18/19 07:13 TSH 0.72 uIU/mL (0.358-3.74) 11/02/23 09:32 COAG PT 13.3 SECONDS (11.7-14.9) 02/18/24 11:05 Pre-Assessment Diagnosis/Proposed Procedure Planned Operative Procedure(s): RIGHT TOTAL KNEE ARTHROPLASTY Anesthesia History 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 When Was Last Pacemaker Check QUESTION #4 FULL TEXT: You/Your Family Experience fever (hyperthermia) with Anesthesia Last Oral Intake Last Oral intake: Last Oral Intake NPO since 00:00 04/19/24 09:41 Meds taken in AM with sips of Yes 04/19/24 09:41 water? 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 program director: PONV - teenage program director Female Yes 02/22/24 15:30 HX of Motion Sickness No 02/22/24 15:30 HX of N/V After Surgery No 02/22/24 15:30 Non-Smoker Yes 02/22/24 15:30 Duration of Surgery greater Yes 02/22/24 15:30 than 60 minutes Number of Risk Factors 3 02/22/24 15:30 PONV Score Moderate Risk 02/22/24 15:30 Height & Weight Height & Weight: Anesthesia: Height & Weight Height 5 ft 9 in 04/19/24 09:41 Weight: 90.356 kg 04/19/24 09:41 Body Mass Index (BMI) 29.4 04/19/24 09:41 Respiratory Assessment Respiratory Assessment - teenage program director: Respiratory Tract Infection Hx - teenage program director Hx Respiratory Tract Infection No 02/22/24 15:30 Any additional information?: Yes Hx Respiratory Tract Infection: Yes (took an antibiotic one week ago for early signs of sore throat/allergies.) STOP Sleep Apnea STOP Sleep Apnea - teenage program director: STOP Sleep Apnea - teenage program director Hx Hypertension Yes: CONTROLLED WITH MEDS 03/11/24 11:20 Hx Sleep Apnea Yes 02/22/24 15:30 CPAP Yes 02/22/24 15:30 BIPAP No 02/22/24 15:30 Do you snore loudly (louder than talking or can be heard Do you often feel tired/ fatigued/ sleepy during daytime? Has anyone observed you stop breathing during sleep? STOP Results Positive 02/22/24 15:30 QUESTION #5 FULL TEXT : Do you snore loudly (louder than talking or can be heard through closed doors)? 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 Specify any problems Hx of Preganancy in last 3 No 02/22/24 15:30 Months Nurse Filling Out Transfusion DSCHRIBER 02/22/24 15:30 & Questions: Date: 02/22/24 02/22/24 15:30 Time: 15:32 02/22/24 15:30 Patient unable to answer at this time (ie. confused, unrespo /Reproduction History /Reproductive History - teenage program director: /Reproductive Hx- teenage program director Hx Now No 02/22/24 15:30 Gestational Age (in weeks): EDC: Hx Hx Para Hx Section SAB No 02/22/24 15:30 Active Medications Active Medications: Current Medications Generic Name Dose Route Start Last Admin Trade Name Freq PRN Reason Stop Dose Admin Acetaminophen 1,000 mg 04/19/24 10:55 04/19/24 09:38 Acetaminophen 500 Mg Tablet PO 04/19/24 10:56 1,000 mg X1 ONE Administration Celecoxib 400 mg 04/19/24 10:55 04/19/24 09:39 Celecoxib 200 Mg Capsule PO 04/19/24 10:56 400 mg X1 ONE Administration Dexamethasone Sodium Phosphate 10 mg 04/19/24 10:55 Dexamethasone 10 Mg/Ml Vial IV 04/19/24 10:56 X1 ONE Gabapentin 600 mg 04/19/24 10:55 04/19/24 09:38 Gabapentin 600 Mg Tablet PO 04/19/24 10:56 600 mg X1 ONE Administration Cefazolin Sodium 2 gm/ Sodium 110 mls @ 150 mls/hr 04/19/24 10:55 Chloride IV 04/19/24 11:38 PREOP ONE Tranexamic Acid 1,000 mg/ 110 mls @ 660 mls/hr 04/19/24 10:55 Sodium Chloride IV 04/19/24 11:04 X1 ONE Tranexamic Acid 1,000 mg/ 110 mls @ 660 mls/hr 04/19/24 10:55 Sodium Chloride IV 04/19/24 11:04 X1 ONE Lactated Ringer's 1,000 mls @ 125 mls/hr 04/19/24 10:55 04/19/24 09:36 IV 04/19/24 18:54 125 mls/hr .Q8H CORAL Administration Magnesium Sulfate 1 gm/ 102 mls @ 408 mls/hr 04/19/24 10:55 04/19/24 09:56 Dextrose IV 04/19/24 11:09 Infused X1 ONE Infusion Insulin Human Lispro 1 - 6 unit 04/19/24 10:55 Insulin Lispro 100 Unit/Ml Insuln.Pen SC Q4H PRN PRN BG>/= 180, SEE PROTOCOL Protocol Scopolamine HBr 1 patch 04/19/24 10:55 04/19/24 09:37 Scopolamine 1mg/72hr Patch TD 04/19/24 10:56 1 patch X1 ONE Administration PFSH Medical History Fibromyalgia Fatty liver Easy bruising History of pain when walking History of echocardiogram History of thyroid nodule OLEKSANDR on CPAP Noncompliance with CPAP treatment Presence of complete dental prosthetic device Wears hearing aid Wears glasses Rheumatoid arthritis High cholesterol Back pain Chronic constipation Non-smoker CPAP (continuous positive airway pressure) dependence History of rheumatic fever History of stress test Cardiology follow-up encounter History of heart attack Peripheral vestibulopathy Vertigo History of non-ST elevation myocardial infarction (NSTEMI) (09/09/17) Incomplete right bundle branch block Essential (primary) hypertension Family history of colon cancer Personal history of colonic polyps BMI 30.0-30.9,adult Prolonged QT interval Sustained ventricular tachycardia Nonsustained ventricular tachycardia GERD (gastroesophageal reflux disease) Rheumatoid arthritis Osteoarthritis Polycythemia secondary to hypoxia OLEKSANDR (obstructive sleep apnea) Bronchitis Sjogren's disease Paroxysmal atrial fibrillation HLD (hyperlipidemia) Home Medications ?Medication ?Instructions ?Recorded ?Last Taken ?Type montelukast 10 mg tablet 10 mg PO DAILY Allergies 07/03/14 04/18/24 History folic acid 1 mg tablet 1 mg PO DAILY@0800 Supplement 11/26/17 04/12/24 History vit C 150 mg-vit E 30 unit-lutein 1 cap PO BID eye vitamin 11/26/17 04/18/24 History 5 pr-vwjgssxp-mxamg 3 150 mg capsule (Ocuvite) rosuvastatin 20 mg tablet (Crestor) 20 mg PO QHS cholesterol 03/15/18 04/18/24 History duloxetine 60 mg capsule,delayed 60 mg PO QHS fibromyalgia #90 caps 03/17/19 04/17/24 History release Mouth device #1 ea 04/23/20 Unknown Rx aspirin 81 mg tablet,delayed 81 mg PO DAILY SUPPLEMENT #30 tabs 09/19/21 04/14/24 Rx release melatonin 3 mg tablet 3 mg PO HS Insomnia 09/19/21 04/18/24 History methotrexate sodium 2.5 mg tablet 15 mg PO SA arthritis 03/04/22 04/02/24 History albuterol sulfate 90 mcg/actuation 2 inh inhalation Q4H PRN PRN 08/06/22 Unknown History aerosol inhaler shortness of breath or wheezing celecoxib 100 mg capsule 100 mg PO DAILY ARTHRITIS 01/01/23 04/12/24 History pilocarpine HCl 5 mg tablet 5 mg PO BID DRY MOUTH 01/01/23 04/19/24 07:00 History (Salagen (pilocarpine)) flecainide 100 mg tablet 100 mg PO BID HEART #180 tabs 06/15/23 04/19/24 07:00 Rx mometasone 50 mcg/actuation HFA 2 puff inhalation .Q12 PRN PRN 01/14/24 04/19/24 History aerosol inhaler (Asmanex HFA) shortness of breath magnesium 200 mg tablet 200 mg PO DAILY SUPPLEMENT 01/22/24 04/18/24 History metoprolol succinate 25 mg 25 mg PO BID for blood pressure 02/04/24 04/19/24 07:00 Rx tablet,extended release 24 hr #180 TABLETS pregabalin 100 mg capsule 100 mg PO QHS SLEEP 02/22/24 04/17/24 History Allergy/AdvReac Type Severity Reaction Status Date / Time morphine AdvReac Vomiting Verified 04/08/24 11:12 Family History Brother Colon cancer Diabetes Hypertension Sister Hypertension Sister Diabetes Hypertension Son Afib Surgical History Hx of colonoscopy History of back surgery Hx of total shoulder replacement History of lumbar laminectomy History of right shoulder replacement (04/2019) History of left heart catheterization (09/09/17) History of electrophysiologic study (10/26/86) History of repair of hiatal hernia S/P cervical spinal fusion deviated septum repair S/P foot surgery, left S/P right rotator cuff repair Right knee cap repair History of left knee replacement LAP-BAND surgery status Social History household members: spouse housing: house pets and animals: Yes pets and animals: dog(s) Smoking Status: Never smoker Electronic Cigarette Use: not used second hand exposure: No alcohol intake: never substance use type: does not use caffeine: No what type of physical activity do you participate in: walking frequency: 1-2 times per week duration: 15-30 minutes/day seatbelt use: always do you feel safe at home: Yes Review of Systems (Anesthesia) ROS Narrative System reviewed and no additional complaints, except as documented.
--- NOTE | 2024-04-19 10:10 | HP.PCM_ITS ---
History and Physical Date of Admission: 04/19/24 [facility] [address] [place] [address] OFFICE VISIT Date of Service: 01/22/24 MR#: [id number] Acct: [id number] Name: KRIS JOHN I Rep #: [id number] : 1950 Provider: Dr. Arsh Garces DO Age/Sex: 73/F Location: [facility] Status: Signed Intake Vital Signs 01/13/2414:02 01/21/2409:47 Height 5 ft 9 in 5 ft 9 in Weight: 206 lb 206 lb 2 oz BMI 30.4 30.4 BP 108/71 Blood Pressure Location Lt brachial Position Sitting Respiration 18 Pulse 67 Pulse Source Monitor Intake Visit Reasons: RIGHT KNEE Accompanied by: Self Is patient in pain?: Yes Pain scale (1-10): 2 Allergies morphine Adverse Reaction (Verified 01/22/24 09:49) Vomiting Medications ?Medication ?Instructions ?Recorded ?Confirmed ?Type montelukast 10 mg tablet 10 mg PO DAILY Allergies 07/03/14 01/22/24 History folic acid 1 mg tablet 1 mg PO DAILY@0800 Supplement 11/26/17 01/22/24 History vit C 150 mg-vit E 30 unit-lutein 1 cap PO BID eye vitamin 11/26/17 01/22/24 History 5 pf-qajkgycs-kjbmg 3 150 mg capsule (Ocuvite) rosuvastatin 20 mg tablet (Crestor) 20 mg PO QHS cholesterol 03/15/18 01/22/24 History duloxetine 60 mg capsule,delayed 60 mg PO QHS fibromyalgia #90 caps 03/17/19 01/22/24 History release Mouth device #1 ea 04/23/20 01/14/24 Rx aspirin 81 mg tablet,delayed 81 mg PO DAILY #30 tabs 09/19/21 01/22/24 Rx release melatonin 3 mg tablet 6 mg PO HS Insomnia 09/19/21 01/22/24 History methotrexate sodium 2.5 mg tablet 15 mg PO TH arthritis 03/04/22 01/22/24 History B6 1.7 mg-folic 400 mcg-B12 2.4 1 cap PO BID 08/06/22 01/22/24 History jbv-mvfhgz-rpbbdpydvqty oral capsule (Neuriva Plus Brain Performance) albuterol sulfate 90 mcg/actuation 2 inh inhalation 4X/DAY 08/06/22 01/22/24 History aerosol inhaler naproxen sodium 220 mg capsule 220 mg PO BID PRN 10/01/22 01/14/24 History (Aleve) celecoxib 100 mg capsule 100 mg PO DAILY 01/01/23 01/22/24 History pilocarpine HCl 5 mg tablet 5 mg PO BID 01/01/23 01/22/24 History (Salagen (pilocarpine)) flecainide 100 mg tablet 100 mg PO BID #180 tabs 06/15/23 01/22/24 Rx metoprolol succinate 25 mg 25 mg PO BID 01/14/24 01/22/24 History tablet,extended release 24 hr mometasone 50 mcg/actuation HFA inhalation 01/14/24 01/22/24 History aerosol inhaler (Asmanex HFA) acetaminophen 500 mg oral powder 500 mg PO Q6H PRN 01/22/24 01/22/24 History packet (Tylenol Extra Strength) magnesium 200 mg tablet 200 mg PO DAILY 01/22/24 01/22/24 History Have you fallen in the past year?: Yes PFSH Medical History History of thyroid nodule OLEKSANDR on CPAP Noncompliance with CPAP treatment Presence of complete dental prosthetic device Wears hearing aid Wears glasses History of steroid therapy Rheumatoid arthritis High cholesterol Back pain Chronic constipation Non-smoker CPAP (continuous positive airway pressure) dependence Hoarseness History of rheumatic fever History of stress test Cardiology follow-up encounter History of heart attack Peripheral vestibulopathy Vertigo History of non-ST elevation myocardial infarction (NSTEMI) (09/09/17) Incomplete right bundle branch block Essential (primary) hypertension Family history of colon cancer Personal history of colonic polyps BMI 30.0-30.9,adult Prolonged QT interval Sustained ventricular tachycardia Nonsustained ventricular tachycardia Depression GERD (gastroesophageal reflux disease) Rheumatoid arthritis Osteoarthritis Polycythemia secondary to hypoxia OLEKSANDR (obstructive sleep apnea) Bronchitis Sjogren's disease Paroxysmal atrial fibrillation HLD (hyperlipidemia) Surgical History History of back surgery Hx of total shoulder replacement History of lumbar laminectomy History of right shoulder replacement (04/2019) History of left heart catheterization (09/09/17) History of electrophysiologic study (10/26/86) History of repair of hiatal hernia S/P cervical spinal fusion deviated septum repair S/P foot surgery, left S/P right rotator cuff repair Right knee cap repair History of left knee replacement LAP-BAND surgery status Family History Brother Colon cancer Diabetes HypertensionSister HypertensionSister Diabetes HypertensionSon Afib Social History household members: spouse housing: house pets and animals: Yes pets and animals: dog(s) Smoking Status: Never smoker Electronic Cigarette Use: not used second hand exposure: No alcohol intake: never substance use type: does not use caffeine: No what type of physical activity do you participate in: walking frequency: 1-2 times per week duration: 15-30 minutes/day seatbelt use: always do you feel safe at home: Yes HPI RIGHT KNEE Details: This documentation accurately reflects the service provided and the decisions made by me, Dr. Arsh Garces, DO 01/22/24 0947. Part of today?s visit was documented by [ ], acting as scribe. KRIS JOHN is a 73 year old F with a medical history significant for sleep apnea atrial fibrillation hypertension history of V. tach on methotrexate here today for Right knee pain Patient knee has bothered her for a long time. Patient states she fracture her patella in 2000 she did have surgery by Dr. Ma and claims this was her only surgery on that knee we do not have records. She reports no postoperative complications She subsequently has developed knee arthrosis and has been treated with cortisone and viscosupplementation. She has had relief from the cortisone injection however she has not had this in a long time she did recently have a viscosupplementation in September that did not provide any relief this was provided by another orthopedic group. She has not done any physical therapy. The knee has been getting worse the past 3 years She did have a left total knee arthroplasty by Dr. Ma 13 years ago and states she did well. Ortho Exam General General: Yes no acute distress Neurologic: Yes alert and Yes oriented x3 Psychologic: Yes reasonable and appropriate Right Knee Skin/Wound: Yes CDI, No erythema, No ecchymosis and No swelling Knee ROM: No ROM-Extension -20 to 0 (5) and Yes ROM-Flexion 0-140 (120) Examination: Yes Med jt line tenderness and Yes Lat jt line tenderness Stability: NML: Anterior Drawer, NML: Curry, NML: Posterior Drawer, NML: Valgus 0, NML: Valgus 30, NML: Varus 0 and NML: Varus 30 Patella Translation: 1 Patella Grind: Yes KNEE: anterior abrasions from recent fall no signs of infection long midline incision from previous surgery Left Knee Patella Translation: 1 Head: Normocephalic Atraumatic Chest: symmetrical rise, non-labored breathing, no audible wheeze Abdomen: no guarding, non-rigid Supplemental Info 10/06/2023 x-ray right knee on disc: Moderate patellofemoral medial compartment arthrosis with joint space narrowing and spurring worse on flexion view Coding Level of Care Code Off vis,new,level 3 Diagnoses Methotrexate, nursing home, current use Z79.899 Tachycardia R00.0 Primary osteoarthritis of right knee M17.11 Osteoarthritis type: primary Incomplete right bundle branch block I45.10 Paroxysmal atrial fibrillation I48.0 Essential (primary) hypertension I10 Pure hypercholesterolemia E78.00; E78.0 Hyperlipidemia type: pure hypercholesterolemia Assessment and Plan Assessment and Plan (1) Methotrexate, nursing home, current use: Status: Chronic (2) Tachycardia: Status: Acute (3) Osteoarthritis of right knee: Status: Acute Qualifiers: Osteoarthritis type: primary Qualified Code(s): M17.11 - Unilateral primary osteoarthritis, right knee (4) Incomplete right bundle branch block: Status: Chronic (5) Paroxysmal atrial fibrillation: Status: Chronic (6) Essential (primary) hypertension: Status: Chronic (7) HLD (hyperlipidemia): Status: Chronic Qualifiers: Hyperlipidemia type: pure hypercholesterolemia Qualified Code(s): E78.00 - Pure hypercholesterolemia, unspecified; E78.0 - Pure hypercholesterolemia Plan I am not sure exactly what she had done on her right knee patella fracture as there is no hardware in the knee and she had no second surgery for any removal. We will attempt to retrieve these records however it was approximately 23 years ago so we might not be able to recover them. regardless she has developed subsequent knee arthrosis patellofemoral and medial and has tried and failed viscosupplementation and corticosteroid injections and anti-inflammatory medication. We did review risk benefits and alternatives of surgical versus nonsurgical intervention she is not interested in any conservative measures at this time she wishes to proceed with a total knee arthroplasty. She does have multiple medical comorbidities including cardiac history with a history of ventricular tachycardia and she needs to be an admission procedure. We do need to obtain medical and cardiac clearance CT scan for MAKOplasty She is not interested in iovera I would like her to stop the methotrexate for 2 weeks preoperatively in addition to all NSAIDs for 1 week preoperatively Risks, benefits and alternatives of surgery reviewed including but not limited to bleeding, infection, nerve, artery and/or tissue damage, fracture, VTE, mechanical feel of the knee, continued pain, stiffness and expected post- operative course. Follow up 2 week post op or sooner if pain, swelling, numbness or associated symptoms, or concerns develop. All questions answered. Patient in agreement of plan. Tentative surgery date March 08, 2024 admission Clinical Quality Measures Falls Risk Screening/Assistive Devices Have you fallen in the past year?: Yes 01/22/24 1103 <Electronically signed by Arsh Garces DO> Date Arsh Garces DO Cosigndonte Signature: Date (if applicable) CC: ~ I have examined the patient and the H&P has been reviewed. There are no clinical changes since date of exam.
[2024-04-19 10:29] LABS: Bedside Glucose 90 mg/dL (74-106)
--- NOTE | 2024-04-19 10:55 | KNEE_PTH ---
PATIENT: KRIS JOHN I LOC: MS3 U#:[id number] AGE/SX: 73/F ROOM: NV312 RE04/19/[address]: Dr. Arsh Garces DO : 1950 BED: 1 DIS: 04/20/2024 SPEC #: [id number] RECD: 04/19/24 18:13 STATUS: VANESSA REGIS #: [id number] GAGE: 04/19/24 10:[address]: Arsh Garces DEPT: SURGICAL PATHOLOGY RECD BY: Ashley Flannery ENTERED: 04/20/24 10:07 SP TYPE: TOTAL KNEE OTHR DR: Dr. Tony Sethi MD Tissues: Knee, NOS Procedures: Decalcification bone/plaque Surgery Specimen Level IV HEADER OPERATION: Right total knee replacement PRE-OP DIAGNOSIS: Osteoarthritis of right knee TISSUE SUBMITTED: Bone and tissue right knee MICROSCOPIC DIAGNOSIS Bone and soft tissue, right knee, total knee replacement/resection: Pieces of bone with degenerative osteoarthritic changes. SJ: 04/25/2024 MICROSCOPIC DESCRIPTION Slides are reviewed. GROSS DESCRIPTION Received is one container designated bone and soft tissue right knee. The specimen consists of multiple fragments of gilbert-yellow bone measuring in aggregate 13.0 x 10.0 x 3.0 cm. No soft tissue is identified. A number of bony fragments contain articular surfaces consistent with tibial plateau and femoral condyle and displaying prominent osteophyte formation, eburnation and bone erosion. Paper Folding Machine Operator sections are submitted in one cassette after decalcification. 04/20/2024 TC:5 CPT: 10768, 48079
[2024-04-19] MEDS: Cefazolin 2 GM in 0.9% Normal Saline (100mL Bag) 100 ML IV ×2 (12:01→18:08)
[2024-04-19] MEDS: dexAMETHasone 10 MG/ML Vial IV (12:10)
[2024-04-19] MEDS: TXA 1000mg in NS100 100ml (IVPB at Incision) 660 MG IV (12:10)
[2024-04-19] MEDS: TXA 1000mg in NS100 100ml (IVPB at Closure) 660 MG IV (13:01)
[2024-04-19] MEDS: Bupivacaine 0.5% PF 10 ML VIAL (13:33)
[2024-04-19] MEDS: 0.9% Normal Saline (Pres. free 10 ML Vial (13:33)
[2024-04-19] MEDS: Epinephrine (1 mg/ml) 1 MG/ML VIAL (13:34)
[2024-04-19] MEDS: dexAMETHasone 4 MG/ML Vial (13:34)
--- NOTE | 2024-04-19 14:28 | RAD_ITS ---
STUDY: X-RAY - RIGHT KNEE REASON FOR EXAM: Female, 73 years old. Post op -- AP and Lateral xray of operative knee in PACU TECHNIQUE: 2 view(s) of the knee. COMPARISON: Comparison is made with prior study dated January 17, 2020. FINDINGS: Normal visualized distal femur. Normal visualized proximal tibia and fibula. Normal proximal tibiofibular articulation. The patient is status post total knee replacement. There is good alignment. Postoperative soft tissue changes. RAD/Knee 1 or 2 Views IMPRESSION: Status post total knee replacement. There is good alignment. Postoperative soft tissue changes. Electronically Signed: Markos Purdy MD at 15:13 EDT ,
--- NOTE | 2024-04-19 14:37 | OP.PCM_ITS ---
Operative Report Date of Procedure: 04/19/24 Preoperative diagnosis: Right knee DJD history of patella fracture Postoperative diagnosis: Same Procedure: Right total knee arthroplasty Implant: [employer] triathlon cemented femoral component size3, cemented tibial baseplate size 3, cemented asymmetric patella size 35, polyethylene X3 size 12 CS Anesthesia: General with adductor canal block Tourniquet time: 2 minutes at 300 mmHg Complications: None Condition: Stable to PACU Estimated blood loss: 175 cc Supply Chain Procurement Manager: Alvarez Alonso Indication for procedure: This is a 73 with long standing degenerative joint disease of the knee who has failed conservative treatment and wished to proceed with elective total knee arthroplasty. Risk benefits and alternatives were reviewed including; risk of bleeding, infection, nerve artery and tissue damage, continued pain, postoperative stiffness, venous thromboembolism, need for postoperative rehabilitation, mechanical feel to the knee, and expected postoperative course. Procedure: The patient was met in the preoperative holding area. The operative extremity was identified by both patient and physician and was marked. Patient was met by anesthesia. An adductor canal block was placed by anesthesia postoperatively the patient was brought back to the operating room on a wheeled cart and transferred to the operating table in the supine position. Anesthesia was started. A well-padded tourniquet was placed on the operative extremity. The patient was prepped and draped in the usual sterile fashion. A timeout was called to ensure the proper patient procedure and extremity were being contemplated. An Esmarch was used to exsanguinate the extremity. The tourniquet was inflated. A 10 blade scalpel was used to make a midline incision down through the skin and subcutaneous tissue. Skin retractors placed. Bovie was used to perform meticulous hemostasis. full-thickness flaps were elevated medial and lateral along the joint capsule. A deep blade scalpel was used to perform a medial parapatellar arthrotomy. The knee was brought to full extension. A Bovie was used to release the soft tissues off the most proximal aspect of the medial tibial plateau a three-quarter inch curved osteotome was also used for this process. The infrapatellar fat pad was excised. The fat pad was excised partially anterior lateral portion the anterior medial was elevated from the femur. the patella was everted. The knee was brought into flexion. An intramedullary drill was used followed by flexible intramedullary guide kathie. The distal femoral cutting block was placed and set to remove 8 mm of bone and 5 degrees of valgus. The block was secured with pins and an oscillating saw was used to complete the distal femoral cut. During this, and all bony cuts retractors were used to protect the collateral ligaments. At this point a femoral sizer was used to measure the AP dimension of the femur. The sizer block was pinned parallel to the epicondylar access for external rotation. The sizing block was removed and the appropriately sized 4-in-1 cutting block was placed over the previously made pinholes. It was checked with an reji wing and the block was secured with pins. An oscillating saw was used to complete the anterior cut followed by the posterior cut followed by the posterior chamfer cut followed by the anterior chamfer cut. The block was removed as well as the fragments. A ronguer was used to remove excess osteophytes. The medial and lateral meniscus were excised as well as the ACL. At this point a PCL retractor was placed and an intramedullary drill was passed down the tibial canal followed by a solid intramedullary guide kathie. The tibial cutting block was attached and set to remove 9 mm of bone from the high side. This was checked with an external alignment drop kathie for slope and tilt. It was pinned into place. An oscillating saw was used to complete the tibial plateau cut and the block was removed. A large osteotome was used to elevate the fragment and a Nan and a Bovie were used to free the fragment from the surrounding soft tissue. A rongeur was once again used to remove osteophytes a lamina curtain worker was used to evaluate the posterior capsular structures. A three-quarter inch curved osteotome was used to remove posterior osteophytes. A spacer block was inserted in both extension and flexion to ensure adequate spacing. Trials were inserted full extension and flexion were achieved in varus and valgus stability throughout range of motion were seen, balancing techniques were performed. At this point the attention was turned towards the patella. A caliper was used to ensure sufficient bone stock to remove 10 mm of bone. A reamer was used to perform this task. Lug holes were made for the appropriate-sized patella. The patella trial was inserted and there was good patellar tracking with knee range of motion. The tibial baseplate was allowed to float into rotation and was marked on the tibial plateau with a Bovie. Lug holes were made in the femur and trials were removed. The tibial baseplate was then sized and its preparation was completed with a fin punch. The knee was thoroughly irrigated. A posterior capsular injection was performed with our standard cocktail. The knee was brought into flexion and irrigated again. The tibial baseplate was cemented. Excess cement was removed with curettes. The polyethylene component was inserted. The femoral component was cemented. The knee was brought into full extension and placed on a bump. The patellar component was cemented. At this point a Betadine rinse was placed and thoroughly irrigated after a few minutes. This was followed by an Iricept rinse which was allowed to sit for 1 minute and then thoroughly irrigated.At this point all gloves were changed. The knee was thoroughly irrigated the joint capsule was closed with #1 Ethibond. Tourniquet was let down followed by 0 Vicryl and 2-0 Vicryl in the subcutaneous tissues. followed by raymundo in the skin. Dressing was applied in the form of Mepilex silver dressing web roll and an Brad wrap from the foot to the groin. The patient tolerated the procedure well, all counts were correct patient was brought back to the PACU in stable condition.
--- NOTE | 2024-04-19 14:42 | PCM.POST.ANE ---
Anesthesia: Postop Eval I Current Vital Signs Temperature: 97.1 F Pulse Rate: 67 Blood Pressure: 87/59 Respiratory Rate: 16 Pulse Ox: 99 Oxygen Delivery Method: Room Air Assessment Airway patent: Yes Spontaneous unlabored respirations: Yes Mental status: Awake and Calm nausea: No Vomiting: No Anesthesia Complication: No Fluid Hydration Crystalloid volume administer (ml): 600 Total IV fluid infused: 600 Progress Note Anesthesia document: Postop Eval 1 completed: Yes
[2024-04-19] MEDS: 0.9% Normal Saline (1000mL) 1,000 ML 125 ML IV (16:40)
--- NOTE | 2024-04-19 16:46 | POSTOPAN2_ITS ---
Anesthesia Postop Eval I Sum Postop Eval Completion status Anesthesia document: Postop Eval 1 completed: Yes Anesthesia Postop Eval I Summary Anesthesia Postop Eval I Summary: Anesthesia Postop Eval I: Assessment Summary Airway patent Yes 04/19/24 14:43 [email or web address] Spontaneous unlabored Yes 04/19/24 14:43 [email or web address] [email or web address] respirations Mental status Awake,Calm 04/19/24 14:43 [email or web address] nausea No 04/19/24 14:43 [email or web address] [email or web address] Vomiting No 04/19/24 14:43 [email or web address] Anesthesia Postop Eval I: Fluid Summary Crystalloid volume administer 600 04/19/24 14:43 [email or web address] (ml) Colloids volume administered ( ml) Blood Product volume administered (ml) Total IV fluid infused 600 04/19/24 14:43 [email or web address] Anesthesia Postop Eval I: Summary Notes Anesthesia Complication No 04/19/24 14:43 [email or web address] Anesthesia Complication Comment: Post-operative progress note Anesthesia: Postop Eval II Evaluation Mental status: Awake and Calm Pain Level: 2 nausea: No Vomiting: No Complications Anesthesia Complication: No
--- NOTE | 2024-04-19 16:46 | PCM.POSTANE2 ---
Anesthesia Postop Eval I Sum Postop Eval Completion status Anesthesia document: Postop Eval 1 completed: Yes Anesthesia Postop Eval I Summary Anesthesia Postop Eval I Summary: Anesthesia Postop Eval I: Assessment Summary Airway patent Yes 04/19/24 14:43 RAND BUTTING MACHINE [email or web address] Spontaneous unlabored Yes 04/19/24 14:43 RAND BUTTING MACHINE [email or web address] respirations Mental status Awake,Calm 04/19/24 14:43 RAND BUTTING MACHINE [email or web address] nausea No 04/19/24 14:43 RAND BUTTING MACHINE [email or web address] Vomiting No 04/19/24 14:43 RAND BUTTING MACHINE [email or web address] Anesthesia Postop Eval I: Fluid Summary Crystalloid volume administer 600 04/19/24 14:43 RAND BUTTING MACHINE [email or web address] (ml) Colloids volume administered ( ml) Blood Product volume administered (ml) Total IV fluid infused 600 04/19/24 14:43 RAND BUTTING MACHINE [email or web address] Anesthesia Postop Eval I: Summary Notes Anesthesia Complication No 04/19/24 14:43 RAND BUTTING MACHINE [email or web address] Anesthesia Complication Comment: Post-operative progress note Anesthesia: Postop Eval II Evaluation Mental status: Awake and Calm Pain Level: 2 nausea: No Vomiting: No Complications Anesthesia Complication: No
[2024-04-19] MEDS: oxyCODONE 5 MG Tablet PO (19:58)
[2024-04-19] MEDS: Pregabalin 50 MG Capsule 100 MG PO (22:28)
[2024-04-19] MEDS: DULoxetine Hcl 60 MG Capsule PO (22:28)
[2024-04-19] MEDS: Atorvastatin Calcium 40 MG Tablet PO (22:28)
[2024-04-19] MEDS: Metoprolol(XL)Succ 25 MG Tablet PO (22:29)
[2024-04-19] MEDS: Pilocarpine HCl 5 MG Tablet PO (22:29)
[2024-04-19] MEDS: MELATONIN 3 MG TABLET PO (22:29)
[2024-04-19] MEDS: Senna/Docusate Sodium 1 Tablet 2 TABLET PO (22:29)
[2024-04-20 00:07] VITALS: BP 96/60; PULSE 58; RESP 16; TEMP 36.8; O2SAT 96
[2024-04-20] MEDS: Cefazolin 2 GM in 0.9% Normal Saline (100mL Bag) 100 ML IV ×2 (00:09→05:05)
[2024-04-20 04:00] VITALS: BP 105/52; PULSE 56; RESP 16; TEMP 36.6; O2SAT 98
[2024-04-20] MEDS: Acetaminophen 500 MG Tablet 1000 MG PO (05:07)
[2024-04-20] MEDS: APIXABAN 2.5 MG TABLET (WCH) PO (05:07)
[2024-04-20 07:25] LABS: Hemoglobin 12.2 g/dL (12.0-15.0); Mean Corp Hgb Conc 32.1 g/dL (32-36); Mean Corpuscular Hgb 30.9 pg (27.0-32.0); Mean Corpuscular Volume 96.2 fL (81-99); Mean Platelet Vol. 11.2 fl (6.2-12.0); Platelet Count 158 K/mm3 (150-450); RBC Distribution Width CV 13.6 % (11.6-14.6); RBC Distribution Width SD 48.3 fl (35.1-43.9); Red Blood Count 3.95 M/mm3 (4.2-5.4); White Blood Count 13.8 K/mm3 (4.4-11.0)
[2024-04-20 07:41] VITALS: BP 100/62; PULSE 50; RESP 16; TEMP 36.6; O2SAT 96
[2024-04-20 07:50] LABS: Anion Gap 5 (5-15); BUN 13 mg/dL (7-18); BUN/Creat Ratio 19.3 RATIO (10-20); Calcium,Total 8.6 mg/dL (8.5-10.1); Chloride 109 mmol/L (98-107); Creatinine, Serum 0.67 mg/dL (0.55-1.02); EST Glomerular Filtration Rate 90 mL/min (>60); Est Glom Filt Rate - Afr Amer 109 mL/min (>60); Estimated Creatinine Clearance 74.13 ml/min; Glucose 135 mg/dL (74-106); Potassium 4.1 mmol/L (3.5-5.1); Sodium Level 140 mmol/L (136-145)
[2024-04-20] MEDS: Magnesium Chloride 64 MG Delay Rel.Tablet 128 MG PO (10:20)
[2024-04-20] MEDS: Senna/Docusate Sodium 1 Tablet 2 TABLET PO (10:20)
[2024-04-20] MEDS: Pilocarpine HCl 5 MG Tablet PO (10:20)
[2024-04-20 10:21] VITALS: PULSE 50
[2024-04-20] MEDS: Montelukast 10 MG Tablet PO (10:23)
--- NOTE | 2024-04-20 11:13 | CASEMGMT ---
Addendum entered by Vi Burkett 04/20/24 12:43: TC to [facility] Retail pharmacy, pt cost of nisha is $41.16. Original Note: MALLY PARIKH Assessment: Face to Face with pt for initial transition planning/care coordination assessment. MALLY PARIKH introduced self and role at [facility], pt voices understanding and consents to assessment. Pt is A&O x4 and answers all questions appropriately at this time. Pt sitting up in chair in no distress. Care providers, pharmacy, and demographics verified/updated. Admitting Dx: R TKR Strata Score: 2 PCP:[facility] Specialists:[facility], ortho; [facility], rheum; [facility] pulm; [facility], cardio; [facility], pod Preferred Pharmacy: [facility] Retail Insurance: [id number] [facility] Prescription Benefit: yes LNOK: Jean-Paul Xavier, ; August Xavier, son Living Arrangements: Pt lives with in a two story home with a couple of steps to enter with a rail. Pt reports prior to surgery she was I in ADLs and her and her split IADLs. Pt denies concerns at home. Transportation: Pt drives self and denies concerns with transportation. Pt will transport pt until she can drive again. DME:FWW, shower chair, stair lift, CPAP HHC/SNF:Pt has had HHC but is unsure of the name of the agency, denies SNF stays. Pt states no concerns with going home at time of dc. Pt has outpt therapy set up for tomorrow at [facility]. Pt states no further concerns/needs. CM to follow. Advised pt to ask CM if any further question/concerns/needs arise, voices understanding. Pt Goal: Home with outpt therapy Plan: Home with outpt therapy Jc BAL CM
--- NOTE | 2024-04-20 12:16 | PCM.PN.ORT ---
Subjective Subjective Seen and examined. Doing well. No complaints or concerns. No fevers chills nausea vomit shortness of breath or chest pain. Objective Data Objective Data Vital Signs: Vital Signs Temp Pulse Resp BP Pulse Ox O2 Del Method O2 Flow Rate 97.8 F 50 L 16 100/62 96 Room Air 2 04/20/24 07:41 04/20/24 10:21 04/20/24 07:41 04/20/24 07:41 04/20/24 07:41 04/20/24 07:41 04/19/24 16:21 Oxygen Flow Rate (L/min) 2 Oxygen Delivery Method Room Air Weight: 207 lb 0.225 oz Body Mass Index (BMI) 30.5 Intake & Output: Intake and Output for Last 24 Hours 04/18/24 04/19/24 04/20/24 23:59 23:59 23:59 Intake Total 2184.08 / 2784.08 2119 Balance 2184.08 / 2784.08 2119 Lab / Micro Data 04/20/24 06:01 04/20/24 06:01 Labs: Laboratory Results - last 24 hr 04/20/24 06:01: WBC 13.8 H, RBC 3.95 L, Hgb 12.2, Hct 38.0, MCV 96.2, MCH 30.9, MCHC 32.1, RDW Std Deviation 48.3 H, RDW Coeff of Mauricio 13.6, Plt Count 158, MPV 11.2, Sodium 140, Potassium 4.1, Chloride 109 H, Carbon Dioxide 26.0, Anion Gap 5, BUN 13, Creatinine 0.67, Estim Creat Clear Calc 74.13, Est GFR (MDRD) Af Amer 109, Est GFR (MDRD) Non-Af 90, BUN/Creatinine Ratio 19.3, Glucose 135 H, Calcium 8.6 Micro: Microbiology 02/25/24 09:31 Swab (Method) Nasal Screen MRSA/MSSA - Final Radiography Diagnostic Testing: Radiology Impression Knee X-Ray 04/19/24 14:28 IMPRESSION: Status post total knee replacement. There is good alignment. Postoperative soft tissue changes. Electronically Signed: Markos Purdy MD at 15:13 EDT , Physical Exam Const alert, oriented x3 and no apparent distress Extremity Extremity Narrative: Right lower extremity dressing clean dry intact compartments soft neurovascular intact EHL tibialis anterior gastrocsoleus intact sensation light touch palpable pedal pulse Assessment & Plan Assessment/Plan (1) S/P total knee arthroplasty: QUALIFIERS: Laterality: right Qualified Code(s): Z96.651 - Presence of right artificial knee joint PLAN: Plan Postop day #1 right total knee arthroplasty PT OT weightbearing as tolerated encourage full knee extension and flexion multiple times a day to prevent stiffnes DVT prophylaxis SCDs RANDY hose Eliquis 2.5 mg twice daily for 2 weeks DC home start outpatient physical therapy Follow-up in the office 2 weeks or sooner if any questions or concerns patient is comfortable being discharged home today
--- NOTE | 2024-04-20 12:18 | DCINST_ITS ---
Discharge Instructions Diet Discharge Diet: No restrictions Activity Weight Bearing Status: Full weight bearing Dressing / Incision Call your doctor if you observe: Shortness of breath and Chest pain Additional Dressing/Incision Instructions:: Ice and elevate lower extremities 2 weeks while not ambulating. Ambulation is encouraged. Weight bearing as tolerated. Use assistive devise for stability. Encourage FULL knee extension and flexion 1 time EVERY time you get up and down and MULTIPLE times per day. No showering until 5 days postop. remove the dressing prior to shower and gently wash with warm water and antibacterial soap then pat dry and place abdominal pad (or plain gauze) and RANDY hose over top. This is to be done daily. Do not submerge for 3 weeks. If not showering daily after 5 days postop then you must clean incision and change dressing daily. Do not allow animals near the incision area. Keep clean. Follow anti-coagulation recommendations as prescribed. Do not take any NSAIDs while on blood thinner. Do not take any additional narcotic pain medication other than what was prescribed on your surgery day without discussing with physician. Narcotic medication can be addictive. Do not drink alcohol while taking narcotics. Supplement narcotic prescription with acetaminophen 1000 mg 4 times a day. Start physical therapy. If you are not currently scheduled for physical therapy or you are unsure of appointment time please call office [facility] to arrange. Call Dr. Garces with any concerns. Follow Up Care Please Follow Up With: Arsh Garces DO When: 2 weeks Test Results: Test results from this visit will be discussed in further detail at your follow- up appointment, if applicable. Discharge Plan Admission Admit Date/Time: 04/19/24 14:30 Primary Reason for Your Visit: Right total knee arthroplasty Attending Provider: Arsh Garces Primary Care Provider: Tony Sethi Chi Discharge Orders/Prescriptions Prescriptions: New acetaminophen 500 mg tablet 1,000 mg PO Q6H Qty: 90 0RF Eliquis 2.5 mg tablet 2.5 mg PO BID Qty: 28 0RF oxycodone 5 mg tablet 5 - 10 mg PO Q6H PRN (Reason: pain) 7 Days Qty: 60 0RF Continued vit C-vit B-zwwpyi-[id number]-om-3 [Ocuvite] [id number] jf-neuw-jt-mg capsule 1 cap PO BID rosuvastatin [Crestor] 20 mg tablet 20 mg PO QHS melatonin 3 mg tablet 3 mg PO HS duloxetine 60 mg capsule,delayed release(DR/EC) 60 mg PO QHS Qty: 90 Asmanex HFA 50 mcg/actuation HFA aerosol inhaler 2 puff inhalation .Q12 PRN PRN (Reason: shortness of breath) pilocarpine HCl [Salagen (pilocarpine)] 5 mg tablet 5 mg PO BID magnesium 200 mg tablet 200 mg PO DAILY montelukast 10 MG tablet 10 mg PO DAILY Patient Comments: allergies folic acid 1 mg tablet 1 mg PO DAILY@0800 Patient Comments: mineral supplement albuterol sulfate 90 mcg/actuation Hfa Aerosol Inhaler 2 inh INHALATION Q4H PRN PRN (Reason: shortness of breath or wheezing) pregabalin 100 mg capsule 100 mg PO QHS (DME) Mouth device Qty: 1 0RF Rx Instructions: As directed flecainide 100 mg tablet 100 mg PO BID Qty: 180 3RF metoprolol succinate 25 mg tablet extended release 24 hr 25 mg PO BID Qty: 180 3RF Held aspirin 81 mg tablet,delayed release (DR/EC) 81 mg PO DAILY Qty: 30 0RF Hold Instructions: Resume on 04/22/24. celecoxib 100 mg capsule 100 mg PO DAILY Hold Instructions: Until the day after the completion of blood thinner. methotrexate sodium 2.5 mg tablet 15 mg PO SA Hold Instructions: Resume on 05/07/24. Patient Comments: appetite simulant Pt takes on Thursday Referrals / Follow Up: Tony Sethi Chi, MD [Primary Care Provider] - Disposition Disposition (needs filled in before D/C Order can be placed): Home, Self Care
== END 2024-04-20 13:04 | disposition home or self-care (01) ==
LOC: SDC 15:21 → MS3 15:21
PROVIDERS: Admitting Provider Orthopaedic Surgery; PCP Family Medicine Geriatric Medicine; Referring Provider Orthopaedic Surgery; Visit Provider Orthopaedic Surgery
PROC: (CPT 27447; principal; 2024-04-19 10:30)
DX: M17.11 Unilateral primary osteoarthritis, right knee (principal); I48.0 Paroxysmal atrial fibrillation; I45.10 Unspecified right bundle-branch block; I10 Essential (primary) hypertension; E78.00 Pure hypercholesterolemia, unspecified; Z79.899 Other long term (current) drug therapy; Z79.82 Long term (current) use of aspirin; R00.0 Tachycardia, unspecified
CPT/HCPCS: 27447; 01402; 64447; 36415; 73560; 80048; 82962; 82985; 85027; 86850; 86900; 86901; 87081; 88305; 88311; 94668; 96361; 96365; 96366; 97162; 97166; 99221; C1776; J7030; J7120; G0378; J2405; J3475; J3490

== ENCOUNTER → 2024-04-27 | Outpatient (CLI) | payer MEDICARE, SELFPAY ==
[2024-04-27 10:26] LABS: Absolute Lymphocyte Count 1.41 X10^3/uL (0.83-4.51); Absolute Neutrophil Count 5.6 X10^3/uL (2.0-7.7); Basophil# 0.03 X10^3/uL; Basophil% 0.4 % (0-1); Eosinophil# 0.15 X10^3/uL; Eosinophils% 1.9 % (0-5); Hematocrit 37.8 % (37-47); Hemoglobin 12.1 g/dL (12.0-15.0); Lymphocyte # 1.41 X10^3/ul (0.83-4.51); Lymphocyte % 17.8 % (19-41); Mean Corpuscular Hgb 30.8 pg (27.0-32.0); Mean Corpuscular Volume 96.2 fL (81-99); Mean Platelet Vol. 9.5 fl (6.2-12.0); Monocyte# 0.64 X10^3/uL; Monocyte% 8.1 % (0-10); NRBC Flagged by Analyzer 0 % (0-5); Neutrophil # 5.63 X10^3/uL (2.7-7.7); Neutrophil % 71.2 % (47-70); Platelet Count 267 K/mm3 (150-450); RBC Distribution Width SD 49.1 fl (35.1-43.9); Red Blood Count 3.93 M/mm3 (4.2-5.4); White Blood Count 7.9 K/mm3 (4.4-11.0)
[2024-04-27 11:21] LABS: AST(SGOT) 35 U/L (15-37); Alanine Aminotransfer ALT/SGPT 49 U/L (13-56); Albumin, Serum 3.5 g/dL (3.2-5.0); Alkaline Phosphatase 121 U/L (45-117); Anion Gap 6 (5-15); BUN 13 mg/dL (7-18); BUN/Creat Ratio 18.1 RATIO (10-20); Calcium,Total 9.9 mg/dL (8.5-10.1); Chloride 106 mmol/L (98-107); Creatinine, Serum 0.72 mg/dL (0.55-1.02); EST Glomerular Filtration Rate 84 mL/min (>60); Est Glom Filt Rate - Afr Amer 102 mL/min (>60); Globulin 3.5 g/dL (2.2-4.2); Glucose 98 mg/dL (74-106); Potassium 3.4 mmol/L (3.5-5.1); Sodium Level 138 mmol/L (136-145)
== END | disposition home or self-care (01) ==
LOC: LAB 10:07
PROVIDERS: PCP Family Medicine Geriatric Medicine; Referring Provider Internal Medicine Rheumatology; Visit Provider Internal Medicine Rheumatology
DX: M06.4 Inflammatory polyarthropathy (principal); M79.7 Fibromyalgia; M35.00 Sjogren syndrome, unspecified; M17.0 Bilateral primary osteoarthritis of knee; M18.0 Bilateral primary osteoarthritis of first carpometacarpal joints; M65.341 Trigger finger, right ring finger; Z79.899 Other long term (current) drug therapy
CPT/HCPCS: 36415; 80053; 85025

== ENCOUNTER → 2024-05-19 | Outpatient (CLI) | payer MEDICARE, SELFPAY ==
--- NOTE | 2024-05-19 11:50 | US_ITS ---
EXAM: US SOFT TISSUES HEAD AND NECK, THYROID CLINICAL INDICATION: NODULE TECHNIQUE: Greyscale and color doppler imaging was performed of the thyroid gland. COMPARISON: No relevant prior studies available. FINDINGS: LEFT THYROID LOBE: Spongiform nodule measuring 1.0 x 0.9 x 0.6 cm left lobe of the thyroid. Large heterogeneous dominant nodule left lobe of the thyroid measures 3.8 x 3.1 x 3.1 cm is heterogeneous hypoechoic, wider than tall, smooth, without echogenic foci. This does not appear to be changed since the previous exam. The left lobe of the thyroid lobe measures 5.4 x 3.1 x 2.9 cm. RIGHT THYROID LOBE: Cystic nodule measuring 0.6 x 0.3 x 0.4 cm right lobe of the thyroid. Solid nodule measuring 0.8 x 0.6 x 0.5 cm right lobe of the thyroid is solid, isoechoic, wider than tall, smooth, without echogenic foci. The right lobe of thyroid lobe measures 4.9 x 1.8 x 1.9 cm. ISTHMUS: Unremarkable. No thyroid nodules are present. The isthmus measures 0.5 cm in thickness. US/Thyroid IMPRESSION: 1. Cystic nodule measuring 0.6 x 0.3 x 0.4 cm right lobe of the thyroid. TI-RADS points: 0. TI-RADS category: TR1. This nodule is benign and no FNA or follow-up is necessary. 2. Solid nodule measuring 0.8 x 0.6 x 0.5 cm right lobe of the thyroid is solid, isoechoic, wider than tall, smooth, without echogenic foci. TI-RADS points: 3. TI-RADS category: TR3. This nodule is mildly suspicious but no FNA or follow-up is necessary given the small size of this nodule. 3. Spongiform nodule measuring 1.0 x 0.9 x 0.6 cm left lobe of the thyroid. TI-RADS points: 0. TI-RADS category: TR1. This nodule is benign and no FNA or follow-up is necessary. 4. Large heterogeneous dominant nodule left lobe of the thyroid measures 3.8 x 3.1 x 3.1 cm is heterogeneous hypoechoic, wider than tall, smooth, without echogenic foci. This does not appear to be changed since the previous exam. TI-RADS points: 4. TI-RADS category: TR4. This nodule is moderately suspicious. Recommend FNA evaluation if this has not already been performed. No change since previous exam. Electronically Signed: Nigel Martinez MD at 23:57 EDT ,
== END | disposition home or self-care (01) ==
LOC: US 11:49
PROVIDERS: PCP Family Medicine Geriatric Medicine; Referring Provider Surgery; Visit Provider Surgery
DX: E04.1 Nontoxic single thyroid nodule (principal)
CPT/HCPCS: 76536

== ENCOUNTER → 2024-05-23 | Outpatient (CLI) | payer MEDICARE, SELFPAY ==
[2024-05-23 10:57] LABS: Absolute Neutrophil Count 5.1 X10^3/uL (2.0-7.7); Basophil# 0.01 X10^3/uL; Basophil% 0.1 % (0-1); Eosinophil# 0.11 X10^3/uL; Eosinophils% 1.5 % (0-5); Hematocrit 43.2 % (37-47); Hemoglobin 13.9 g/dL (12.0-15.0); Lymphocyte % 22.7 % (19-41); Mean Corp Hgb Conc 32.2 g/dL (32-36); Mean Corpuscular Hgb 30.7 pg (27.0-32.0); Mean Corpuscular Volume 95.4 fL (81-99); Mean Platelet Vol. 10.1 fl (6.2-12.0); Monocyte# 0.57 X10^3/uL; Monocyte% 7.6 % (0-10); NRBC Flagged by Analyzer 0 % (0-5); Neutrophil # 5.05 X10^3/uL (2.7-7.7); Neutrophil % 67.6 % (47-70); Platelet Count 191 K/mm3 (150-450); RBC Distribution Width CV 13.7 % (11.6-14.6); RBC Distribution Width SD 47.9 fl (35.1-43.9); Red Blood Count 4.53 M/mm3 (4.2-5.4); White Blood Count 7.5 K/mm3 (4.4-11.0)
[2024-05-23 11:21] LABS: Vitamin D,25 Hydroxy 22.8 ng/mL
[2024-05-23 11:35] LABS: ALB/GLOB Ratio 1.1 RATIO (0.9-2.4); AST(SGOT) 24 U/L (15-37); Alanine Aminotransfer ALT/SGPT 34 U/L (13-56); Albumin, Serum 3.7 g/dL (3.2-5.0); Alkaline Phosphatase 154 U/L (45-117); Anion Gap 6 (5-15); BUN 17 mg/dL (7-18); BUN/Creat Ratio 24.3 RATIO (10-20); Calcium,Total 9.5 mg/dL (8.5-10.1); Chloride 109 mmol/L (98-107); EST Glomerular Filtration Rate 87 mL/min (>60); Est Glom Filt Rate - Afr Amer 105 mL/min (>60); Globulin 3.4 g/dL (2.2-4.2); Glucose 104 mg/dL (74-106); Potassium 4.4 mmol/L (3.5-5.1); Protein, Total 7.1 g/dL (6.4-8.2); Sodium Level 141 mmol/L (136-145); Thyroid Stim Hormone (TSH) 0.623 uIU/mL (0.358-3.740)
== END | disposition home or self-care (01) ==
LOC: POLAB3 10:37
PROVIDERS: PCP Family Medicine Geriatric Medicine; Referring Provider Family Medicine Geriatric Medicine; Visit Provider Family Medicine Geriatric Medicine
DX: R53.83 Other fatigue (principal); E55.9 Vitamin D deficiency, unspecified
CPT/HCPCS: 36415; 80053; 82306; 84443; 85025

== ENCOUNTER → 2024-06-13 | Outpatient (CLI) | payer MEDICARE, SELFPAY ==
--- NOTE | 2024-06-13 08:26 | MRI_ITS ---
STUDY: MRI LUMBAR SPINE WITHOUT CONTRAST REASON FOR EXAM: Female, 73 years old. Mid to low back pain and bilateral leg pain. TECHNIQUE: Standardized fat and water weighted pulse sequences were obtained in the sagittal and axial planes. COMPARISON: MRI lumbar spine without contrast 05/21/2018. FINDINGS: T11-T12: Normal endplates. Minimal disc space height narrowing. Prominent midline disc protrusion is unchanged. Normal facet joints. Normal central canal and bilateral lateral recesses. Normal bilateral intervertebral neuroforamina. T12-L1: Normal endplates. Normal disc height, hydration and morphology. Prominent bridging anterior marginal spurs. Normal bilateral facet joints. Normal central canal and bilateral lateral recesses. Normal bilateral intervertebral neural foramina. Normal lumbar lordosis. There is no substantial scoliosis. Normal conus medullaris that terminates at the T12-L1 disc space level. L1-2: Normal endplates. Minimal disc space height narrowing. Prominent asymmetric posterior bulging annulus, left side greater than right is unchanged. Postsurgical absence of the spinous processes and lamina. Capacious thecal sac. Normal bilateral lateral recesses. Mild stenosis of the bilateral intervertebral neuroforamina are unchanged. Small right renal parenchymal cyst is visible at this level. L2-3: Moderate amount of Modic type I degenerative vertebral marrow edema underneath the vertebral endplates, greater towards the left side. Pronounced disc space height narrowing. Mild degenerative retrolisthesis of L2 on L3. Prominent left posterior paramedian and slightly caudal disc protrusion. Improvement of severe flattening central canal stenosis following posterior laminectomy decompression surgery. Capacious central canal. Moderate stenosis of the left lateral recess. Normal right lateral recess. Moderate stenosis of the bilateral intervertebral neuroforamina, previously mild stenosis. L3-4: Normal endplates. Pronounced posterior disc space height narrowing and mild degenerative anterolisthesis of L3 on L4. Small posterior bulging annulus. Improvement of pronounced flattening central canal stenosis following posterior laminectomy decompression surgery. Capacious central canal. Normal bilateral lateral recesses. Moderately pronounced stenosis of the right intervertebral neuroforamen is unchanged. Normal left intervertebral neuroforamen. L4-5: Mild Modic type II degenerative vertebral marrow fat infiltration underneath the vertebral endplates. Pronounced disc space height narrowing. Mild degenerative anterolisthesis of L4 on L5. Capacious central canal due to posterior laminectomy decompression surgery. Normal bilateral lateral recesses. [id number] bilateral degenerative facet arthropathy. Mild stenosis of the bilateral intervertebral neuroforamina are unchanged. L5-S1: Minimal Modic type II degenerative vertebral marrow fat infiltration underneath endplates. Mild bilateral degenerative facet arthropathy. Capacious thecal sac. Normal bilateral lateral recesses. Moderately pronounced stenosis of the right intervertebral neuroforamen and moderate stenosis of the left intervertebral neuroforamen are unchanged. Normal visualized sacral ala. Normal visualized paraspinous soft tissue structures. MRI/Spine Lumbar (Routine) IMPRESSION: 1. Moderate L2-L3 intervertebral osteochondritis (Modic type I) and prominent left posterior paramedian and slightly caudal disc protrusion causing moderate stenosis of the left lateral recess are new findings. No obvious associated nerve root displacement but there is improvement of severe flattening central canal stenosis following posterior laminectomy decompression surgery. 2. Prominent L1-L2 asymmetric posterior bulging annulus, left side greater than the right side and mild stenosis of the bilateral intervertebral neuroforamina are unchanged. 3. Prominent T11-T12 posterior midline disc protrusion is unchanged. 4. Moderately pronounced stenosis of the right L5-S1 intervertebral neuroforamen and moderate stenosis of the left intervertebral neuroforamen are unchanged. 5. Mild degenerative anterolisthesis of L4 on L5 and mild stenosis of the bilateral intervertebral neuroforamina are unchanged. 6. Small L3-L4 posterior bulging annulus and moderately pronounced stenosis of the right intervertebral neural foramen are unchanged. There is improvement of pronounced flattening central canal stenosis following posterior laminectomy decompression surgery. Electronically Signed: Ezra Urban MD at 9:38 EST ,
== END | disposition home or self-care (01) ==
PROVIDERS: PCP Family Medicine Geriatric Medicine; Referring Provider Student in an Organized Health Care Education/Training Program; Visit Provider Student in an Organized Health Care Education/Training Program
DX: M51.369 Other intervertebral disc degeneration, lumbar region without mention of lumbar back pain or lower extremity pain (principal)
CPT/HCPCS: 72148

== ENCOUNTER 2024-06-20 10:30 | Outpatient (RCR) | payer MEDICARE, SELFPAY ==
--- NOTE | 2024-04-25 08:27 | HP.PTEVAL_ITS ---
Patient's Visit Information Visit Information Visit Information: KRIS JOHN is a 73 year old F referred to Physical Therapy by Dr. Arsh Garces DO with a diagnosis of R TKA, DOS: 04/19/24. Date of Evaluation: 04/22/24 Physical Therapist: Matty Doran DPT Visit Plan Frequency: 3x /Week Duration: 6 Weeks Plan: 1) Progressive ROM to 0-0-120deg. HS stretching. 2) edema control with vaso and ice. 3) muscle activation progressing to concentric/functional strengthening. 4) gait training with progression to LRD Subjective Subjective: Pt. is here today for her initial evaluation with diagnosis of R TKE, DOS: 04/19/24. Pt. reports overall doing well. Pt. arrives with use of FWW. Pt. reports icing and doing HEP as prescribed. Pt. reports no calf pain, no signs of infection, no blurred vision. Pt. has been doing some quad sets and trying to work on bending and straightening her knee. Pt. lives with her . Pt. has I with all mobility prior to surgery. Pt. has a history of L TKA and also had a lumbar fusion. Pt. is doing okay with sleeping, but still having some difficulty getting comfortable. Pt. is hopeful to get back to all levels of mobility and ADLs without issues. Pain R knee: Pain Intensity (Out of 10): 4 Pain Intensity Range: 2 and 7 Objective Objective: POSTURE: Pt. has decent posture in stance. Equal wt. shift, good TKE during stance phase. Uses FWW for stability. PALPATION: Pt. has bandage on incision still, to take off this weekend. No signs of redness. 2 cm difference at mid patella with circumference. NEURO: Pt. has normal sensation and normal DTR of B achilles. Pt. is able to rise on heels and toes without issues. ROM: R knee: 0-5-91deg. Pt. has pain with end ranges of motions. Slight tightness in B HS. MMT: L knee: ext 28#, flexion 21#; hip: flex 24#, abd 17#. R knee: ext 0#, flex 3#; hip: flex 0#, abd 5#. GAIT: pt. is able to ambulate with decent TKE during stance phase, not fully. Pt. has limited knee flexion during swing. Uses FWW throughout gait pattern STAIRS: Pt. is able to negotiate with 2 HR with step to pattern. 30sec sit to stand: 8 with use of UEs. TUsec with FWW. Balance/Special Test Scores WOMAC Total Score: 72 WOMAC Percentatge: 25.0000 Goals Goal 1:: LTG: Pt. to be I with HEP. Goal Time Frame: 4-6 Weeks Goal 2:: STG: PT. to have improved R knee ROM to 0-0-120deg allowing for increased ability to complete all ADLs. Goal Time Frame: 2-4 Weeks Goal 3:: LTG: Pt. to complete TUG with time less than 10sec without use of AD. Goal Time Frame: 4-6 Weeks Goal 4:: LTG: Pt. to negotiate 1 flight of stairs with 1 HR with reciprocal pattern, Goal Time Frame: 4-6 Weeks Goal 5:: LTG: Pt. to have symmetrical strength between BLEs. Goal Time Frame: 6-8 Weeks Goal 6:: LTG: Pt. to complete 30sec sit to stand rep test with at least 15 reps. Goal Time Frame: 4-6 Weeks Rehabilitation Potential Physical Therapy Diagnosis: Pt. has signs and symptoms consistent with R TKA with DOS: 04/19/24. Pt. has marked hypomobility, weakness, difficulty walking. pt. would benefit from PT to address the above limitations progressing back to all functional mobility without issues. Rehabilitation Potential: Excellent Anticipated Interventions Patient/Client Instruction: Educate patient on: Condition, Plan of Care, Risk F actors and Benefits of Fitness Program For the Purpose of:: To foster healthy habits, To improve decision making, To facilitate caregiver knowledge, To improve self management, To prevent re-injury and To improve ability to perform tasks related to life management Therapeutic Exercise to Include: Strength training, Power training, Body mechanics, Postural training, Flexibilty training, Gait and locomotor training, Passive ROM and Active ROM For the Purpose of:: To decrease pain, To decrease swelling/inflammation, To increase ROM, To improve nutrient delivery to tissue, To increase oxygenation perfusion, To improve muscle performance and motor function, To improve ability to perform ADL's, To increase tolerance to activity/condition/position, To improve performance and independence with ADL's, To improve health of tissue, To decrease soft tissue restriction and To increase flexibility/ROM Manual Therapy Techniques to Include: Scar massage, Mobilization and Soft tissue mobilization For the Purpose of:: To decrease pain, To decrease swelling/inflammation and To increase oxygenation perfusion Cryotherapy (ice pack, ice massage): Yes Vasopneumatic device: Yes For the Purpose of:: To decrease pain, To decrease swelling/inflammation and To increase ROM Text: Thank you for the opportunity to evaluate your patient. For Medicare and Medicare HMO plans, please review the plan of care and approve it. It will need to be FAXED BACK to us at [phone] for Medicare purposes. For Medicare only, by signing this I certify the plan of care. Please let me know if there are questions or concerns regarding this plan of care. Physician Signature: Date:
--- NOTE | 2024-06-06 10:40 | HP.PTREVAL ---
Re-Evaluation Intro: Dr. Arsh Garces, DO, It has been my pleasure to treat VA JOHN over the last 18 visits for R TKA, DOS: 04/19/24. Please see the progress note below for an update on the physical therapy plan of care! Subjective Subjective: Pt. reports overall doing well. No major issues. Pt. is pleased with progress. Objective Objective/Function: ROM: 0-3-124deg. MMT: R knee: ext 20.1#, flexion 19.7#; hip; flexion 17.2# LLE: knee ext 31.7#, flexion 23.1#, hip: flexion 21.8# GAIT: Pt is ambulating without Ad. Pt. had good pattern. Slight loss of TKE during stance phase, but had good knee flexion during swing phase. STAIRS: Pt. is able to negotiate with 1 HR with reciprocal pattern. She has some marked functional weakness with ascending/descending during R loading phase. Overall Va is doing well overall. I would like her to work on further strengthening. and work on full extension of her knee. Plan Plan Plan: 1) progress functional strengthening, gait endurance and normal gait pattern. 2) Cont. to work on regianing full extension as well. Balance/Gait/Functional tests Balance/Special Test Scores TUG Test Time Seconds: 14.1 Tug Test: <20 sec.=mostly independent 30 Second Chair Rise Test Seconds: 14 6 Minute Walk Test: Pt. ambulated for 4:43 min and went 864 feet without Ad WOMAC Total Score: 48 WOMAC Percentage: 50.0000 Goals Goals Goal 1:: LTG: Pt. to be I with HEP. Goal Time Frame: 4-6 Weeks Goal Progress: Progressing Goal 2:: STG: PT. to have improved R knee ROM to 0-0-120deg allowing for increased ability to complete all ADLs. Goal Time Frame: 2-4 Weeks Goal Progress: Progressing Goal 3:: LTG: Pt. to complete TUG with time less than 10sec without use of AD. Goal Time Frame: 4-6 Weeks Goal Progress: Progressing Goal 4:: LTG: Pt. to negotiate 1 flight of stairs with 1 HR with reciprocal pattern, Goal Time Frame: 4-6 Weeks Goal Progress: Progressing Goal 5:: LTG: Pt. to have symmetrical strength between BLEs. Goal Time Frame: 6-8 Weeks Goal Progress: Progressing Goal 6:: LTG: Pt. to complete 30sec sit to stand rep test with at least 15 reps. Goal Time Frame: 4-6 Weeks Goal Progress: Progressing Anticipated Interventions Anticipated Interventions Patient/Client Instruction: Educate patient on: Condition, Plan of Care, Risk Factors and Benefits of Fitness Program For the Purpose of:: To foster healthy habits, To improve decision making, To facilitate caregiver knowledge, To improve self management, To prevent re-injury and To improve ability to perform tasks related to life management Therapeutic Exercise to Include: Strength training, Power training, Body mechanics, Postural training, Flexibilty training, Gait and locomotor training, Passive ROM and Active ROM For the Purpose of:: To decrease pain, To decrease swelling/inflammation, To increase ROM, To improve nutrient delivery to tissue, To increase oxygenation perfusion, To improve muscle performance and motor function, To improve ability to perform ADL's, To increase tolerance to activity/condition/position, To improve performance and independence with ADL's, To improve health of tissue, To decrease soft tissue restriction and To increase flexibility/ROM Manual Therapy Techniques to Include: Scar massage, Mobilization and Soft tissue mobilization For the Purpose of:: To decrease pain, To decrease swelling/inflammation and To increase oxygenation perfusion Cryotherapy (ice pack, ice massage): Yes Vasopneumatic device: Yes For the Purpose of:: To decrease pain, To decrease swelling/inflammation and To increase ROM Re-Evaluation Ending Re-evaluation ending: Please do not hesitate to contact me at [phone] by phone or if you have questions or concerns regarding this new plan of care! Sincerely, Matty Doran DPT
--- NOTE | 2024-06-20 11:30 | HP.PTREVAL ---
Re-Evaluation Intro: Dr. Arsh Garces, DO, It has been my pleasure to treat KRIS JOHN over the last 24 visits for R TKA, DOS: 04/19/24. Please see the progress note below for an update on the physical therapy plan of care! Subjective Subjective: Pt. reports no pain currently. Pt. pleased. Objective Objective/Function: Pt is overall doing well. She is mostly I with her gym exercises and is overall doing well. She can get TKE, but some mild soreness to get there. Pt. is overall pleased. She is going to complete HEP x3 per week in gym on her own for the next 2-3 weeks. If she has any issues she is to contact PT. If not I will DC back to physician. Plan Plan Plan: Pt. to complete exercises on her own at local gym. Pt. to trial on her own for 2-3 weeks then contact PT to see how it is going. If going well I will DC at that point in time Balance/Gait/Functional tests Balance/Special Test Scores TUG Test Time Seconds: 14.1 Tug Test: <20 sec.=mostly independent 30 Second Chair Rise Test Seconds: 14 6 Minute Walk Test: Pt. ambulated for 4:43 min and went 864 feet without Ad WOMAC Total Score: 0 WOMAC Percentage: 100 Goals Goals Goal 1:: LTG: Pt. to be I with HEP. Goal Time Frame: 4-6 Weeks Goal Progress: Goal Met Goal 2:: STG: PT. to have improved R knee ROM to 0-0-120deg allowing for increased ability to complete all ADLs. Goal Time Frame: 2-4 Weeks Goal Progress: Goal Met Goal 3:: LTG: Pt. to complete TUG with time less than 10sec without use of AD. Goal Time Frame: 4-6 Weeks Goal Progress: Goal Met Goal 4:: LTG: Pt. to negotiate 1 flight of stairs with 1 HR with reciprocal pattern, Goal Time Frame: 4-6 Weeks Goal Progress: Goal Met Goal 5:: LTG: Pt. to have symmetrical strength between BLEs. Goal Time Frame: 6-8 Weeks Goal Progress: Goal Met Goal 6:: LTG: Pt. to complete 30sec sit to stand rep test with at least 15 reps. Goal Time Frame: 4-6 Weeks Goal Progress: Goal Met Anticipated Interventions Anticipated Interventions Patient/Client Instruction: Educate patient on: Condition, Plan of Care, Risk Factors and Benefits of Fitness Program For the Purpose of:: To foster healthy habits, To improve decision making, To facilitate caregiver knowledge, To improve self management, To prevent re-injury and To improve ability to perform tasks related to life management Therapeutic Exercise to Include: Strength training, Power training, Body mechanics, Postural training, Flexibilty training, Gait and locomotor training, Passive ROM and Active ROM For the Purpose of:: To decrease pain, To decrease swelling/inflammation, To increase ROM, To improve nutrient delivery to tissue, To increase oxygenation perfusion, To improve muscle performance and motor function, To improve ability to perform ADL's, To increase tolerance to activity/condition/position, To improve performance and independence with ADL's, To improve health of tissue, To decrease soft tissue restriction and To increase flexibility/ROM Manual Therapy Techniques to Include: Scar massage, Mobilization and Soft tissue mobilization For the Purpose of:: To decrease pain, To decrease swelling/inflammation and To increase oxygenation perfusion Cryotherapy (ice pack, ice massage): Yes Vasopneumatic device: Yes For the Purpose of:: To decrease pain, To decrease swelling/inflammation and To increase ROM Re-Evaluation Ending Re-evaluation ending: Please do not hesitate to contact me at [phone] by phone or if you have questions or concerns regarding this new plan of care! Sincerely, MERI RicardoT
== END 2024-06-20 19:00 | disposition home or self-care (01) ==
LOC: PT 10:30
PROVIDERS: PCP Family Medicine Geriatric Medicine; Referring Provider Orthopaedic Surgery; Visit Provider Orthopaedic Surgery
DX: M17.11 Unilateral primary osteoarthritis, right knee (principal); Z96.651 Presence of right artificial knee joint
CPT/HCPCS: 97016; 97110; 97140; 97150; 97161; 97530

== ENCOUNTER → 2024-07-15 | Outpatient (CLI) | payer MEDICARE, SELFPAY ==
[2024-07-15 14:08] LABS: Absolute Lymphocyte Count 1.44 X10^3/uL (0.83-4.51); Absolute Neutrophil Count 4.9 X10^3/uL (2.0-7.7); Basophil# 0.01 X10^3/uL; Basophil% 0.1 % (0-1); Eosinophil# 0.12 X10^3/uL; Eosinophils% 1.7 % (0-5); Hematocrit 46.9 % (37-47); Hemoglobin 14.8 g/dL (12.0-15.0); Lymphocyte # 1.44 X10^3/ul (0.83-4.51); Lymphocyte % 20.7 % (19-41); Mean Corp Hgb Conc 31.6 g/dL (32-36); Mean Corpuscular Hgb 29.6 pg (27.0-32.0); Mean Corpuscular Volume 93.8 fL (81-99); Mean Platelet Vol. 10.1 fl (6.2-12.0); Monocyte# 0.49 X10^3/uL; NRBC Flagged by Analyzer 0 % (0-5); Neutrophil # 4.88 X10^3/uL (2.7-7.7); Neutrophil % 70.2 % (47-70); Platelet Count 183 K/mm3 (150-450); RBC Distribution Width CV 13.9 % (11.6-14.6); RBC Distribution Width SD 46.9 fl (35.1-43.9)
[2024-07-15 15:04] LABS: AST(SGOT) 32 U/L (15-37); Alanine Aminotransfer ALT/SGPT 47 U/L (13-56); Albumin, Serum 3.7 g/dL (3.2-5.0); Alkaline Phosphatase 129 U/L (45-117); Anion Gap 6 (5-15); BUN 14 mg/dL (7-18); BUN/Creat Ratio 15.2 RATIO (10-20); Calcium,Total 9.7 mg/dL (8.5-10.1); Chloride 108 mmol/L (98-107); Creatinine, Serum 0.92 mg/dL (0.55-1.02); EST Glomerular Filtration Rate 63 mL/min (>60); Est Glom Filt Rate - Afr Amer 76 mL/min (>60); Globulin 3.6 g/dL (2.2-4.2); Glucose 96 mg/dL (74-106); Potassium 3.8 mmol/L (3.5-5.1); Protein, Total 7.3 g/dL (6.4-8.2); Sodium Level 142 mmol/L (136-145)
== END | disposition home or self-care (01) ==
LOC: LAB 13:33
PROVIDERS: PCP Family Medicine Geriatric Medicine; Referring Provider Internal Medicine Rheumatology; Visit Provider Internal Medicine Rheumatology
DX: M06.4 Inflammatory polyarthropathy (principal); M79.7 Fibromyalgia; M35.00 Sjogren syndrome, unspecified; M17.0 Bilateral primary osteoarthritis of knee; M18.0 Bilateral primary osteoarthritis of first carpometacarpal joints; M65.341 Trigger finger, right ring finger; Z96.652 Presence of left artificial knee joint
CPT/HCPCS: 36415; 80053; 85025

== ENCOUNTER → 2024-10-11 | Outpatient (CLI) | payer MEDICARE, SELFPAY ==
[2024-10-11 15:59] LABS: Absolute Lymphocyte Count 1.67 X10^3/uL (0.83-4.51); Absolute Neutrophil Count 2.5 X10^3/uL (2.0-7.7); Basophil# 0.03 X10^3/uL; Basophil% 0.6 % (0-1); Eosinophil# 0.16 X10^3/uL; Eosinophils% 3.3 % (0-5); Hematocrit 46.2 % (37-47); Hemoglobin 15.1 g/dL (12.0-15.0); Lymphocyte # 1.67 X10^3/ul (0.83-4.51); Lymphocyte % 34.6 % (19-41); Mean Corp Hgb Conc 32.7 g/dL (32-36); Mean Corpuscular Hgb 30.2 pg (27.0-32.0); Mean Corpuscular Volume 92.4 fL (81-99); Mean Platelet Vol. 11.8 fl (6.2-12.0); Monocyte% 10.4 % (0-10); NRBC Flagged by Analyzer 0 % (0-5); Neutrophil # 2.46 X10^3/uL (2.7-7.7); Neutrophil % 50.9 % (47-70); Platelet Count 131 K/mm3 (150-450); RBC Distribution Width CV 15.1 % (11.6-14.6); RBC Distribution Width SD 51.2 fl (35.1-43.9); White Blood Count 4.8 K/mm3 (4.4-11.0)
[2024-10-11 17:16] LABS: ALB/GLOB Ratio 1.7 RATIO (0.9-2.4); AST(SGOT) 36 U/L (<=31); Alanine Aminotransfer ALT/SGPT 30 U/L (<=34); Albumin, Serum 4.3 g/dL (3.4-4.8); Alkaline Phosphatase 129 U/L (35-104); Anion Gap 12 (5-15); BUN 14 mg/dL (4-19); BUN/Creat Ratio 20.1 RATIO (10-20); Calcium,Total 10.1 mg/dL (7.6-11.0); Carbon Dioxide 23.9 mmol/L (21.0-32.0); Chloride 105 mmol/L (98-108); EST Glomerular Filtration Rate 89 (>60); Globulin 2.5 g/dL (2.2-4.2); Glucose 100 mg/dL (70-99); Potassium 4.2 mmol/L (3.3-5.1); Protein, Total 6.8 g/dL (5.9-8.4); Sodium Level 141 mmol/L (133-145); Total Bilirubin 0.56 mg/dL (0.00-1.30)
[2024-10-11 17:27] LABS: Thyroid Stim Hormone (TSH) 0.926 uIU/mL (0.300-4.200); Vitamin B12 517 pg/mL (180-914)
[2024-10-15 18:07] LABS: Folate, Hemolysate Test > 620.0 ng/mL (Not Estab.); Folate, RBC (Hct) Test 47.3 % (34.0-46.6); Folates, RBC Test > 1311 ng/mL (>498); Free Kappa Light Chains 13.9 mg/L (3.3-19.4); Free Lambda Light Chains 14.4 mg/L (5.7-26.3); Vitamin B1, Thiamine 286.3 nmol/L (66.5-200.0)
== END | disposition home or self-care (01) ==
LOC: MTLAB 09:29
PROVIDERS: PCP Family Medicine Geriatric Medicine; Referring Provider Psychiatry & Neurology Neurology; Visit Provider Psychiatry & Neurology Neurology
DX: M06.4 Inflammatory polyarthropathy (principal); M79.7 Fibromyalgia; E04.1 Nontoxic single thyroid nodule; G31.84 Mild cognitive impairment of uncertain or unknown etiology; G57.90 Unspecified mononeuropathy of unspecified lower limb; Z79.899 Other long term (current) drug therapy
CPT/HCPCS: 36415; 80053; 82607; 82747; 83883; 84425; 84439; 84443; 85014; 85025; 85027

== ENCOUNTER → 2024-10-24 | Outpatient (CLI) | payer MEDICARE, SELFPAY ==
--- NOTE | 2024-10-24 12:30 | MRI_ITS ---
PROCEDURE: Noncontrast MRI of the brain. 10/24/2024 REASON FOR EXAM: MILD COGNITIVE IMPAIRMENT TECHNIQUE: Multi planar, multisequence MRI images of the brain were obtained without the use of IV contrast. COMPARISON: None available FINDINGS: Bones of the calvarium are intact. The included upper cervical spinal cord is unremarkable. Orbits, sella, and parasellar structures show no specific abnormality. Paranasal sinuses and mastoid air cells are clear. Major basilar intracranial flow voids are present. Prominence of the cortical sulci and ventricular system, compatible with [id number] brain parenchymal atrophy. No extra-axial fluid collection or midline shift. Garcia-white matter differentiation is maintained. Basilar cisterns are clear. No cerebellopontine angle mass lesion. No areas of restricted diffusion. The cerebellar tonsils are low lying, extending to the level of the foramen magnum. There are moderate patchy areas of increased T2/FLAIR signal involving the deep, subcortical, and periventricular white matter of the cerebral hemispheres, as well as the central renee. MRI/Brain without Contrast IMPRESSION: [id number] brain parenchymal atrophy. No acute intraparenchymal abnormal ity. Moderate patchy white matter hyperintensities in the cerebral hemispheres and c entral renee, which may be on the basis of chronic small-vessel ischemic disease. Reading Location: [facility]
== END | disposition home or self-care (01) ==
PROVIDERS: PCP Family Medicine Geriatric Medicine; Referring Provider Psychiatry & Neurology Neurology; Visit Provider Psychiatry & Neurology Neurology
DX: G31.84 Mild cognitive impairment of uncertain or unknown etiology (principal)
CPT/HCPCS: 70551

== ENCOUNTER → 2024-10-25 | Outpatient (CLI) | payer MEDICARE, SELFPAY | END | disposition home or self-care (01) | LOC: PSN 08:31 | PROVIDERS: PCP Family Medicine Geriatric Medicine; Referring Provider Nurse Practitioner Family; Visit Provider Nurse Practitioner Family | DX: R05.9 Cough, unspecified (principal) | CPT/HCPCS: 94060; 94726; 94729 ==

== ENCOUNTER → 2024-11-28 | Outpatient (CLI) | payer MEDICARE, SELFPAY ==
[2024-11-28 13:32] LABS: Absolute Lymphocyte Count 1.69 X10^3/uL (0.83-4.51); Absolute Neutrophil Count 3.9 X10^3/uL (2.0-7.7); Basophil# 0.02 X10^3/uL; Basophil% 0.3 % (0-1); Eosinophil# 0.15 X10^3/uL; Eosinophils% 2.4 % (0-5); Hematocrit 46.4 % (37-47); Hemoglobin 15.2 g/dL (12.0-15.0); Lymphocyte # 1.69 X10^3/ul (0.83-4.51); Lymphocyte % 26.8 % (19-41); Mean Corp Hgb Conc 32.8 g/dL (32-36); Mean Corpuscular Hgb 30.5 pg (27.0-32.0); Mean Corpuscular Volume 93.2 fL (81-99); Mean Platelet Vol. 10.5 fl (6.2-12.0); Monocyte# 0.51 X10^3/uL; Monocyte% 8.1 % (0-10); NRBC Flagged by Analyzer 0 % (0-5); Neutrophil # 3.92 X10^3/uL (2.7-7.7); Neutrophil % 62.1 % (47-70); Platelet Count 178 K/mm3 (150-450); RBC Distribution Width CV 14.1 % (11.6-14.6); RBC Distribution Width SD 47.9 fl (35.1-43.9); Red Blood Count 4.98 M/mm3 (4.2-5.4); White Blood Count 6.3 K/mm3 (4.4-11.0)
[2024-11-28 14:20] LABS: ALB/GLOB Ratio 1.7 RATIO (0.9-2.4); AST(SGOT) 33 U/L (<=31); Alanine Aminotransfer ALT/SGPT 32 U/L (<=34); Albumin, Serum 4.4 g/dL (3.4-4.8); Alkaline Phosphatase 122 U/L (35-104); Anion Gap 10 (5-15); BUN 15 mg/dL (4-19); BUN/Creat Ratio 21.3 RATIO (10-20); Calcium,Total 9.9 mg/dL (7.6-11.0); Carbon Dioxide 25.7 mmol/L (21.0-32.0); Chloride 104 mmol/L (98-108); Creatinine, Serum 0.69 mg/dL (0.70-1.20); EST Glomerular Filtration Rate 90 (>60); Globulin 2.6 g/dL (2.2-4.2); Glucose 107 mg/dL (70-99); Potassium 4.8 mmol/L (3.3-5.1); Protein, Total 6.9 g/dL (5.9-8.4); Sodium Level 140 mmol/L (133-145); Thyroid Stim Hormone (TSH) 0.606 uIU/mL (0.300-4.200); Total Bilirubin 0.55 mg/dL (0.00-1.30); Vitamin D,25 Hydroxy 41.7 ng/mL (30-100)
== END | disposition home or self-care (01) ==
LOC: LAB 12:06
PROVIDERS: PCP Family Medicine Geriatric Medicine; Referring Provider Family Medicine Geriatric Medicine; Visit Provider Family Medicine Geriatric Medicine
DX: E55.9 Vitamin D deficiency, unspecified (principal); R53.83 Other fatigue
CPT/HCPCS: 36415; 80053; 82306; 84443; 85025

== ENCOUNTER → 2024-12-15 | Outpatient (CLI) | payer MEDICARE, SELFPAY ==
[2024-12-15 12:51] LABS: Absolute Lymphocyte Count 1.34 X10^3/uL (0.83-4.51); Absolute Neutrophil Count 3.3 X10^3/uL (2.0-7.7); Basophil# 0.02 X10^3/uL; Basophil% 0.4 % (0-1); Eosinophil# 0.15 X10^3/uL; Eosinophils% 2.8 % (0-5); Hematocrit 45.2 % (37-47); Hemoglobin 14.9 g/dL (12.0-15.0); Lymphocyte # 1.34 X10^3/ul (0.83-4.51); Lymphocyte % 25.3 % (19-41); Mean Corpuscular Hgb 30.7 pg (27.0-32.0); Mean Corpuscular Volume 93.2 fL (81-99); Mean Platelet Vol. 10.1 fl (6.2-12.0); Monocyte# 0.45 X10^3/uL; Monocyte% 8.5 % (0-10); NRBC Flagged by Analyzer 0 % (0-5); Neutrophil # 3.32 X10^3/uL (2.7-7.7); Neutrophil % 62.6 % (47-70); Platelet Count 173 K/mm3 (150-450); RBC Distribution Width SD 48.2 fl (35.1-43.9); Red Blood Count 4.85 M/mm3 (4.2-5.4); White Blood Count 5.3 K/mm3 (4.4-11.0)
[2024-12-15 13:32] LABS: ALB/GLOB Ratio 1.3 RATIO (0.9-2.4); AST(SGOT) 49 U/L (<=31); Alanine Aminotransfer ALT/SGPT 52 U/L (<=34); Albumin, Serum 3.9 g/dL (3.4-4.8); Alkaline Phosphatase 114 U/L (35-104); Anion Gap 13 (5-15); BUN 16 mg/dL (4-19); BUN/Creat Ratio 23.5 RATIO (10-20); Carbon Dioxide 24.4 mmol/L (21.0-32.0); Chloride 102 mmol/L (98-108); Creatinine, Serum 0.66 mg/dL (0.70-1.20); EST Glomerular Filtration Rate 91 (>60); Globulin 2.9 g/dL (2.2-4.2); Glucose 130 mg/dL (70-99); Potassium 4.2 mmol/L (3.3-5.1); Protein, Total 6.9 g/dL (5.9-8.4); Sodium Level 139 mmol/L (133-145); Total Bilirubin 0.48 mg/dL (0.00-1.30)
== END | disposition home or self-care (01) ==
LOC: LAB 12:00
PROVIDERS: PCP Family Medicine Geriatric Medicine; Referring Provider Internal Medicine Rheumatology; Visit Provider Internal Medicine Rheumatology
DX: M06.4 Inflammatory polyarthropathy (principal); M79.7 Fibromyalgia; Z79.899 Other long term (current) drug therapy
CPT/HCPCS: 36415; 80053; 85025

== ENCOUNTER 2024-12-19 09:27 | Day surgery (SDC) | payer MEDICARE, SELFPAY ==
--- NOTE | 2024-12-09 10:17 | PAT.ANESEVAL ---
Pre-Assessment Diagnosis/Proposed Procedure Planned Operative Procedure(s): INSERTION SPINAL CORD STIMULATOR 2 LEADS Anesthesia History Anesthesia History - lozenge dough mixer: Anesthesia History - lozenge dough mixer Hx Hospitalization No 12/09/24 08:47 Any Problems With Anesthesia No 12/09/24 08:47 Cholinesterase deficiency No 12/09/24 08:47 You/Your Family Experience No 12/09/24 08:47 fever (hyperthermia) with Relationship Recent Exposure to Contagious No 07/27/24 13:28 Disease Does patient have nerve No 12/09/24 08:47 stimulator Patient instructed to have device shut off --Does patient have Pacemaker or ICD? When Was Last Pacemaker Check QUESTION #4 FULL TEXT: You/Your Family Experience fever (hyperthermia) with Anesthesia Last Oral Intake Last Oral intake: Last Oral Intake NPO since Meds taken in AM with sips of water? Meds patient instructed to take am of surgery PONV PONV - lozenge dough mixer: PONV - lozenge dough mixer Female Yes 12/09/24 08:47 HX of Motion Sickness No 12/09/24 08:47 HX of N/V After Surgery No 12/09/24 08:47 Non-Smoker Yes 12/09/24 08:47 Duration of Surgery greater Yes 12/09/24 08:47 than 60 minutes Number of Risk Factors 3 12/09/24 08:47 PONV Score Moderate Risk 12/09/24 08:47 Height & Weight Height & Weight: Anesthesia: Height & Weight Height 5 ft 9 in 11/24/24 14:31 Respiratory Assessment Respiratory Assessment - lozenge dough mixer: Respiratory Tract Infection Hx - lozenge dough mixer Hx Respiratory Tract Infection No 12/09/24 08:47 STOP Sleep Apnea STOP Sleep Apnea - lozenge dough mixer: STOP Sleep Apnea - lozenge dough mixer Hx Hypertension Yes: CONTROLLED WITH MED 12/09/24 08:47 Hx Sleep Apnea Yes 12/09/24 08:47 CPAP Yes 12/09/24 08:47 BIPAP No 12/09/24 08:47 Do you snore loudly (louder than talking or can be heard Do you often feel tired/ fatigued/ sleepy during daytime? Has anyone observed you stop breathing during sleep? STOP Results Positive 12/09/24 08:47 QUESTION #5 FULL TEXT : Do you snore loudly (louder than talking or can be heard through closed doors)? Tobacco Use History Tobacco Use History - lozenge dough mixer: Tobacco Use History - lozenge dough mixer Tobacco Use Smoking Status Never smoker 12/09/24 08:47 Hx Tobacco Use No 12/09/24 08:47 Years Smoking Packs Smoked per Day Smoking Cessation Date was within the last 15 years Hx Smoking Cessation Date Hx Smoking Cessation Counseling Hematologic Medial History Hematologic Hx - lozenge dough mixer: Hematologic Medical Hx - kettle chipper Hx of Blood Transfusion No 12/09/24 08:47 Hx of Transfusion in last 3 No 12/09/24 08:47 Months Date of Last Transfusion (if within last 3 months) Ever experience any problems No 12/09/24 08:47 with transfusion(s)? Specify any problems Hx of Preganancy in last 3 No 12/09/24 08:47 Months Nurse Filling Out Transfusion DSCHRIBER 12/09/24 08:47 & Questions: Date: 12/09/24 12/09/24 08:47 Time: 08:48 12/09/24 08:47 Patient unable to answer at this time (ie. confused, unrespo /Reproduction History /Reproductive History - lozenge dough mixer: /Reproductive Hx- lozenge dough mixer Hx Now No 12/09/24 08:47 Gestational Age (in weeks): EDC: Hx Hx Para Hx Section SAB No 12/09/24 08:47 PFSH Medical History (Updated 12/09/24 @ 08:53 by Alma Brice) Fibromyalgia Fatty liver History of pain when walking History of echocardiogram History of thyroid nodule Presence of complete dental prosthetic device Wears hearing aid Wears glasses Rheumatoid arthritis High cholesterol Back pain Chronic constipation Non-smoker CPAP (continuous positive airway pressure) dependence History of rheumatic fever History of stress test Cardiology follow-up encounter History of heart attack Peripheral vestibulopathy Vertigo History of non-ST elevation myocardial infarction (NSTEMI) (09/09/17) Incomplete right bundle branch block Essential (primary) hypertension Family history of colon cancer Personal history of colonic polyps Prolonged QT interval Sustained ventricular tachycardia Nonsustained ventricular tachycardia GERD (gastroesophageal reflux disease) Osteoarthritis Polycythemia secondary to hypoxia Bronchitis Sjogren's disease Paroxysmal atrial fibrillation Home Medications ?Medication ?Instructions ?Recorded ?Last Taken ?Type montelukast 10 mg tablet 10 mg PO DAILY Allergies 07/03/14 04/18/24 History folic acid 1 mg tablet 1 mg PO DAILY@0800 Supplement 11/26/17 04/12/24 History duloxetine 60 mg capsule,delayed 60 mg PO QHS fibromyalgia #90 caps 03/17/19 04/17/24 History release Mouth device #1 ea 04/23/20 Unknown Rx aspirin 81 mg tablet,delayed 81 mg PO DAILY SUPPLEMENT #30 tabs 09/19/21 04/14/24 Rx release celecoxib 100 mg capsule 100 mg PO DAILY ARTHRITIS 01/01/23 04/12/24 History pilocarpine HCl 5 mg tablet 5 mg PO BID DRY MOUTH 01/01/23 04/19/24 07:00 History (Salagen (pilocarpine)) magnesium 200 mg tablet 200 mg PO DAILY SUPPLEMENT 01/22/24 04/18/24 History metoprolol succinate 25 mg 25 mg PO BID for blood pressure 02/04/24 04/19/24 07:00 Rx tablet,extended release 24 hr #180 TABLETS flecainide 100 mg tablet 100 mg PO BID HEART #180 tabs 06/08/24 Unknown Rx melatonin 3 mg tablet 6 mg PO HS Insomnia 10/06/24 Unknown History methotrexate sodium 2.5 mg tablet 12.5 mg PO TH 10/06/24 Unknown History cholecalciferol (vitamin D3) 1,250 1,250 mcg PO QWEEK #12 caps 10/07/24 Unknown Rx mcg (50,000 unit) capsule buspirone 5 mg tablet 5 mg PO BID Anxiety #60 tabs 11/24/24 Unknown Rx pregabalin 75 mg capsule 75 mg PO QHS 11/24/24 Unknown History Allergy/AdvReac Type Severity Reaction Status Date / Time morphine AdvReac Vomiting Verified 12/09/24 08:42 Family History Brother Colon cancer Diabetes Hypertension Sister Hypertension Sister Diabetes Hypertension Son Afib Surgical History (Updated 12/09/24 @ 08:53 by Alma Brice) History of total right knee replacement Hx of colonoscopy History of back surgery Hx of total shoulder replacement History of lumbar laminectomy History of right shoulder replacement (04/2019) History of left heart catheterization (09/09/17) History of electrophysiologic study (10/26/86) History of repair of hiatal hernia S/P cervical spinal fusion deviated septum repair S/P foot surgery, left S/P right rotator cuff repair Right knee cap repair History of left knee replacement LAP-BAND surgery status Social History household members: spouse housing: house pets and animals: Yes pets and animals: dog(s) Smoking Status: Never smoker Electronic Cigarette Use: not used second hand exposure: No alcohol intake: never substance use type: does not use caffeine: No what type of physical activity do you participate in: walking frequency: 1-2 times per week duration: 15-30 minutes/day seatbelt use: always do you feel safe at home: Yes Audit: Pertinent Findings Pertinent Findings EKG Perinent findings: 10/01/2022. Sinus rhythm low voltage. Negative T waves. May be normal but possible anterior septal anterior ischemia. Stress test pertinent findings: 03/28/2022. Normal perfusion stress test. EF 64%. Echo (EF%) pertinent findings: 02/10/2024. EF 65% normal function. Heart catheterization pertinent findings: 09/09/2017. Indication. Unstable angina. Conclusions normal coronary arteries. Normal left ventricular systolic function. Consider evaluation of gastric banding removal which may be causing pain. Consult pertinent findings: Cardiology 01/14/2024. Paroxysmal atrial fibrillation. Chronic. Continue flecainide and metoprolol. Nonsustained ventricular tachycardia. Patient denies any recurrence. Dyspnea on exertion. Acute. Would like to obtain echocardiogram to assess left ventricular function. Recommendation Anesthesia Recommendation Anesthesia recommendation: OPTIMIZED for anesthesia
[2024-12-19] VITALS (8 sets, daily range): BP systolic 103–111; BP diastolic 43–67; PULSE 57–67; RESP 14–16; TEMP 36.6–36.8; O2SAT 94–99; BMI 30.6
[2024-12-19] MEDS: Lactated Ringers 1,000 ML 15 ML IV (10:11)
--- NOTE | 2024-12-19 10:30 | PRE.ANES_ITS ---
ASA Classification* ASA Classification ASA Classification: 3 (pAF on flecanide and metoprolol, OLEKSANDR, HTN, Sjogerns, RA, fibromyalgia, anxiety) Assessment & Plan Anesthesia* Anesthesia Assessment Anesthesia Assessment: Discussed sedation and/or anesthesia options, risks, benefits, and alternatives with patient/parents/legal guardian/POA. Questions invited. The patient/parents/legal guardian/POA seems to understand and agrees to proceed with anesthesia plan. Reviewed the physical assessment, medical history, allergy history and patient home medications list prior to surgery/procedure/anesthetic and documented any changes. Performed airway and anesthesia risk assessments. Anesthesia Type Anesthesia Type: MAC History Source History Obtained from:: Patient and Chart Anesthesia Focused Assessment* Temperature: 97.8 F Pulse Rate: 57 Blood Pressure: 110/61 Respiratory Rate: 16 Pulse Ox: 99 Oxygen Delivery Method: Room Air Airway Assessment Mouth opens: >3 cm Mallampati Score: III Teeth Condition: Intact Neck Range of motion (ROM): Full ROM Focused Labs Anesthesia Preop lab: CBC WBC 5.3 K/mm3 (4.4-11.0) 12/15/24 12:07 12/15/24 RBC 4.85 M/mm3 (4.2-5.4) 12/15/24 12:12/15/24 Hgb 14.9 g/dL (12.0-15.0) 12/15/24 12:07 12/15/24 Hct 45.2 % (37-47) 12/15/24 12:07 12/15/24 Plt Count 173 K/mm3 (150-450) 12/15/24 12:07 12/15/24 CHEMISTRY Potassium 4.2 mmol/L (3.3-5.1) 12/15/24 12:07 12/15/24 Sodium 139 mmol/L (133-145) 12/15/24 12:07 12/15/24 Magnesium 2.3 mg/dL (1.6-2.6) 02/18/24 11:05 02/18/24 BUN 16 mg/dL (4-19) 12/15/24 12:07 12/15/24 Creatinine 0.66 mg/dL (0.70-1.20) L 12/15/24 12:07 Glucose 130 mg/dL (70-99) H 12/15/24 12:07 12/15/24 POC Glucose 90 mg/dL (74-106) 04/19/24 09:19 04/19/24 TSH 0.606 uIU/mL (0.300-4.200) 11/28/24 11:40 11/17 09/13 COAG PT 13.3 SECONDS (11.7-14.9) 02/18/24 11:05 Pre-Assessment Diagnosis/Proposed Procedure Planned Operative Procedure(s): INSERTION SPINAL CORD STIMULATOR 2 LEADS Anesthesia History Anesthesia History - it project coordinator: Anesthesia History - it project coordinator Hx Hospitalization No 12/09/24 08:47 Any Problems With Anesthesia No 12/09/24 08:47 Cholinesterase deficiency No 12/09/24 08:47 You/Your Family Experience No 12/09/24 08:47 fever (hyperthermia) with Relationship Recent Exposure to Contagious No 12/19/24 10:07 Disease Does patient have nerve No 12/09/24 08:47 stimulator Patient instructed to have device shut off --Does patient have Pacemaker No 12/19/24 10:07 or ICD? When Was Last Pacemaker Check QUESTION #4 FULL TEXT: You/Your Family Experience fever (hyperthermia) with Anesthesia Last Oral Intake Last Oral intake: Last Oral Intake NPO since 07:45 12/19/24 10:07 Meds taken in AM with sips of Yes 12/19/24 10:07 water? Meds patient instructed to take am of surgery PONV PONV - it project coordinator: PONV - it project coordinator Female Yes 12/09/24 08:47 HX of Motion Sickness No 12/09/24 08:47 HX of N/V After Surgery No 12/09/24 08:47 Non-Smoker Yes 12/09/24 08:47 Duration of Surgery greater Yes 12/09/24 08:47 than 60 minutes Number of Risk Factors 3 12/09/24 08:47 PONV Score Moderate Risk 12/09/24 08:47 Height & Weight Height & Weight: Anesthesia: Height & Weight Height 5 ft 9 in 12/19/24 10:07 Weight: 94 kg 12/19/24 10:07 Body Mass Index (BMI) 30.6 12/19/24 10:07 Respiratory Assessment Respiratory Assessment - it project coordinator: Respiratory Tract Infection Hx - it project coordinator Hx Respiratory Tract Infection No 12/09/24 08:47 STOP Sleep Apnea STOP Sleep Apnea - it project coordinator: STOP Sleep Apnea - it project coordinator Hx Hypertension Yes: CONTROLLED WITH MED 12/09/24 08:47 Hx Sleep Apnea Yes 12/09/24 08:47 CPAP Yes 12/09/24 08:47 BIPAP No 12/09/24 08:47 Do you snore loudly (louder than talking or can be heard Do you often feel tired/ fatigued/ sleepy during daytime? Has anyone observed you stop breathing during sleep? STOP Results Positive 12/09/24 08:47 QUESTION #5 FULL TEXT : Do you snore loudly (louder than talking or can be heard through closed doors)? Tobacco Use History Tobacco Use History - it project coordinator: Tobacco Use History - it project coordinator Tobacco Use Smoking Status Never smoker 12/09/24 08:47 Hx Tobacco Use No 12/09/24 08:47 Years Smoking Packs Smoked per Day Smoking Cessation Date was within the last 15 years Hx Smoking Cessation Date Hx Smoking Cessation Counseling Hematologic Medial History Hematologic Hx - it project coordinator: Hematologic Medical Hx - receiving teller Hx of Blood Transfusion No 12/09/24 08:47 Hx of Transfusion in last 3 No 12/09/24 08:47 Months Date of Last Transfusion (if within last 3 months) Ever experience any problems No 12/09/24 08:47 with transfusion(s)? Specify any problems Hx of Preganancy in last 3 No 12/09/24 08:47 Months Nurse Filling Out Transfusion DSCHRIBER 12/09/24 08:47 & Questions: Date: 12/09/24 12/09/24 08:47 Time: 08:48 12/09/24 08:47 Patient unable to answer at this time (ie. confused, unrespo /Reproduction History /Reproductive History - it project coordinator: /Reproductive Hx- it project coordinator Hx Now No 12/09/24 08:47 Gestational Age (in weeks): EDC: Hx Hx Para Hx Section SAB No 12/09/24 08:47 Active Medications Active Medications: Current Medications Generic Name Dose Route Start Last Admin Trade Name Freq PRN Reason Stop Dose Admin Lactated Ringer's 1,000 mls @ 15 mls/hr 12/19/24 09:30 12/19/24 10:11 IV 15 mls/hr .Q48H CORAL Administration Cefazolin Sodium 2 gm/ Sodium 110 mls @ 150 mls/hr 12/19/24 10:15 Chloride IV 12/19/24 10:58 X1 ONE PFSH Medical History (Updated 12/09/24 @ 08:53 by Alam Brice) Fibromyalgia Fatty liver History of pain when walking History of echocardiogram History of thyroid nodule Presence of complete dental prosthetic device Wears hearing aid Wears glasses Rheumatoid arthritis High cholesterol Back pain Chronic constipation Non-smoker CPAP (continuous positive airway pressure) dependence History of rheumatic fever History of stress test Cardiology follow-up encounter History of heart attack Peripheral vestibulopathy Vertigo History of non-ST elevation myocardial infarction (NSTEMI) (09/09/17) Incomplete right bundle branch block Essential (primary) hypertension Family history of colon cancer Personal history of colonic polyps Prolonged QT interval Sustained ventricular tachycardia Nonsustained ventricular tachycardia GERD (gastroesophageal reflux disease) Osteoarthritis Polycythemia secondary to hypoxia Bronchitis Sjogren's disease Paroxysmal atrial fibrillation Home Medications ?Medication ?Instructions ?Recorded ?Last Taken ?Type montelukast 10 mg tablet 10 mg PO DAILY Allergies 04/18/24 History folic acid 1 mg tablet 1 mg PO DAILY@0800 Supplemen t 11/26/17 04/12/24 History duloxetine 60 mg capsule,delayed 60 mg PO QHS fibromya lgia #90 caps 03/17/19 04/17/24 History release Mouth device #1 ea 04/23/20 Unknown Rx aspirin 81 mg tablet,delayed 81 mg PO DAILY SUPPLEMENT #30 tabs 09/19/21 04/14/24 Rx release celecoxib 100 mg capsule 100 mg PO DAILY ARTHRITIS 04/12/24 History pilocarpine HCl 5 mg tablet 5 mg PO BID DRY MOUTH 12/1812/19/24 07:45 History (Salagen (pilocarpine)) magnesium 200 mg tablet 200 mg PO DAILY SUPPLEMENT 0 01/22/24 04/18/24 History metoprolol succinate 25 mg 25 mg PO BID for blood pres sure 02/04/24 12/19/24 07:45 Rx tablet,extended release 24 hr #180 TABLETS flecainide 100 mg tablet 100 mg PO BID HEART #180 tab s 06/08/24 12/19/24 07:45 Rx melatonin 3 mg tablet 6 mg PO HS Insomnia 10/06/24 Unknown History methotrexate sodium 2.5 mg tablet 12.5 mg PO TH Unknown History cholecalciferol (vitamin D3) 1,250 1,250 mcg PO QWEEK #12 caps 10/07/24 Unknown Rx mcg (50,000 unit) capsule buspirone 5 mg tablet 5 mg PO BID Anxiety #60 tabs 11/24/24 12/19/24 07:45 Rx pregabalin 75 mg capsule 75 mg PO QHS 11/24/24 Unknow n History Allergy/AdvReac Type Severity Reaction Status Date / Time morphine AdvReac Vomiting Verified 12/19/24 10:05 Family History Brother Colon cancer Diabetes Hypertension Sister Hypertension Sister Diabetes Hypertension Son Afib Surgical History (Updated 12/09/24 @ 08:53 by Alma Brice) History of total right knee replacement Hx of colonoscopy History of back surgery Hx of total shoulder replacement History of lumbar laminectomy History of right shoulder replacement (04/2019) History of left heart catheterization (09/09/17) History of electrophysiologic study (10/26/86) History of repair of hiatal hernia S/P cervical spinal fusion deviated septum repair S/P foot surgery, left S/P right rotator cuff repair Right knee cap repair History of left knee replacement LAP-BAND surgery status Social History household members: spouse housing: house pets and animals: Yes pets and animals: dog(s) Smoking Status: Never smoker Electronic Cigarette Use: not used second hand exposure: No alcohol intake: never substance use type: does not use caffeine: No what type of physical activity do you participate in: walking frequency: 1-2 times per week duration: 15-30 minutes/day seatbelt use: always do you feel safe at home: Yes Review of Systems (Anesthesia) ROS Narrative System reviewed and no additional complaints, except as documented. Physical Exam Const alert, oriented x3 and average body habitus Resp normal respiratory effort, normal air movement and clear to auscultation bilaterally Cardio regular rate, regular rhythm, no murmurs and diaphoretic
[2024-12-19] MEDS: Cefazolin 2 GM in 0.9% Normal Saline (100mL Bag) 100 ML IV (11:04)
--- NOTE | 2024-12-19 11:10 | RAD_ITS ---
EXAM: XR Lumbosacral Spine, 2 or 3 Views CLINICAL INDICATION: IMPLANT X 2 LEADS AT THE THORACOLUMBAR LEVEL AND SPINAL CORD STIM TECHNIQUE: Frontal and lateral views of the lumbar spine and sacrum. COMPARISON: No relevant prior studies available. FINDINGS: VERTEBRAE: Unremarkable. No acute fracture. Normal alignment. SACRUM/COCCYX: Unremarkable as visualized. No acute fracture. DISC SPACES: No acute findings. No significant narrowing. SOFT TISSUES: Unremarkable. OTHER FINDINGS: Fluoroscopic images were used intraoperatively. Total radiation dose 120.96 mGy. Total fluoroscopy time 254.1 seconds. 8 total images were obtained. RAD/Lumbar Spine 2 or 3 Views IMPRESSION: Fluoroscopic guidance was used intraoperatively. Please refer to the operative note for further details. Reading [facility]
[2024-12-19] MEDS: Lidocaine 2% (20 ml mdv) 20 ML Vial (12:14)
[2024-12-19] MEDS: Bupivacaine Mpf 0.5% 30 ML VIAL (12:14)
[2024-12-19] MEDS: Bacitracin 500 UNITS/GM PACKET (12:15)
--- NOTE | 2024-12-19 12:19 | OP.PCM_ITS ---
Operative Report (Standard) Operative Information Date of Procedure: 12/19/24 Pre-Operative Diagnosis: Lumbosacral radiculopathy, lumbosacral spinal stenosis with neurogenic claudication, postlaminectomy syndrome of the lumbar spine Post-Operative Diagnosis: Lumbosacral radiculopathy, lumbosacral spinal stenosis with neurogenic claudication, postlaminectomy syndrome of the lumbar spine Surgery/Procedure Performed: 0 searchlight operator: Yes Steak Sauce Maker: Shane Fairbanks Tasks completed by physical therapy assistant: Opening & closing Additional executive assistant to president?: No Type of Anesthesia: Local MAC RN Documented Start/Stop Times: Operation Date: 12/19/24 11:15 Case Time Into Pre-Op 12/19/24 09:28 Out of Pre-Op 12/19/24 11:00 Anesthesia Start 12/19/24 11:01 Into Room 12/19/24 11:01 Procedure Start 12/19/24 11:17 Procedure Start Time: 12:21 Procedure Stop Time: 12:37 Select all DRAINS/GRAFTS/IMPLANTS that apply: None Estimated Blood Loss: <10 ML Fluids Replaced: 800 ml Specimen collected: No Description of surgery: Surgery/Procedure Performed:: 1. Spinal cord stimulator thoracolumbar leads placement x2 #2 spinal cord stimulator Medtronic inceptiv generator placement at the right gluteal region #3 spinal cord stimulator generator pocket creation at the right gluteal region #4 spinal cord stimulator simple programming, 5- intraoperative fluoroscopic interpretation ANESTHESIA: MAC COMPLICATIONS: None BLOOD LOSS: Minimal Implanted device: Spinal cord stimulator lead [id number] lot number [id number], lead #2 [id number] lot number [id number] Medtronic spinal cord stimulator generator inceptiv serial number [id number] PROCEDURE IN DETAIL: History and physical today was reviewed. Risks and benefits of procedure explained. The patient understood, agreed to procedure, informed consent was obtained. IV inserted per routine protocol. The patient was taken to the operat ing room, placed in the prone position with a pillow positioned underneath the abdomen. A 2 g of Ancef IV piggyback was infused per anesthesia. The lower back and right gluteal area was prepped and draped in a sterile fashion using iodine x3 Ioban was placed. The C-arm was brought in position for AP view at the T11- L1 vertebral bodies under direct visualization fluoroscopy on a true AP view the T12-L1 interlaminar space was identified skin and subcutaneous tissue and size approximately 10 cc of a mix of 2% lidocaine and 0.25% Marcaine using a 25-gauge regular needle followed by a 25-gauge 3-1/2 inch spinal needle towards the interlaminar space at T12-L1, the skin and subcutaneous tissue were then anesthetized and using an 11-gauge blade was then taken down to the skin and subcutaneous tissue using a 14-gauge 3-1/2 inch Touhy needle provided by the [employer] kit the needle was passed through the skin towards the interlaminar space at T12-L1 and a paramedian approach the needle was then advanced under direct visualization fluoroscopy towards the interlaminar space at T12-L1 olpo-rp-kstmsyjslu technique was then carried to air towards the interlaminar space at T12-L1 once the tip of the needle was in the epidural space and loss of resistance was encountered to air and after confirmation of AP as well as oblique view of the spinal cord stimulator lead was then advanced under direct visualization fluoroscopy to be at the tip of the lead at T8 and the bottom of the lead around mid T10 after confirmation of AP as well as lateral view to confirm correct placement of the lead in the posterior compartment of the epidural space the previous procedure was then repeated to a level above at T11-12 interlaminar space the second lead was then inserted under direct visualization with fluoroscopy to be at the mid T8 and mid T10 area the leads were were then connected to the external neurostimulator and patient was then awakened to confirm satisfactory coverage of the painful area once satisfactory coverage was then achieved the stylette of each needle was then removed and the skin and subcutaneous tissue on to the left of the paramedian needles was then anesthetized with a total of 10 cc of the previous mixture of 0.25% Marcaine and 2% lidocaine using a 11-blade a vertical 1 inch incision was then taken down through the skin and subcutaneous tissue towards the fascia making sure hemostasis was then maintained via cautery, the right gluteal area was anesthetized with the same above mixture a total of 20 cc were used anesthetize the skin and subcutaneous tissue skin and subcutaneous tissue were then taken down with 11-gauge blade down to the fascia approximately 6 cm horizontal incision was then taken down hemostasis was maintained with cautery as well as pressure, at the vertical incision spinal cord stimulator lead was then advanced into place and the Touhy needle was then removed at the same time with the advancement of the lead into the epidural space once the needles were then removed the spinal cord stimulator leads were then secured with a 5 winged anchor down to the fascia under direct visualization and fluoroscopy using a 2-0 silk to the fascia, the spinal cord stimulator leads were then passed through the above incision and secured using the biwing and sutured down with a 2-0 silk to the fascia at that level the spinal cord stimulator leads were then tunneled via a tunneler provided by the [employer] kit towards the previously incised spinal cord stimulator battery at the right gluteal region, the spinal cord stimulator leads were then attached to the spinal cord stimulator conceptive generator make ensure that the top lead is attached to the top position from 0-7 electrodes and the bottom from 8-15 electrodes once impedance was then checked to be in the proper average number the INCEPTIV battery was then inserted into the pocket and impedance with when checked again the pocket was then inspected to confirm hemostasis in place, the inceptiv battery was then secured to the fascia using a 2-0 silk to the upper eyes of the battery confirming an upward writing of the inceptiv facing posterior, once complete confirmation the battery was then placed in the position and the the mid paramedian and the gluteal incisions were then closed primarily through a 0 Vicryl in an interrupted fashion followed by 3-0 Vicryl in a running fashion followed by a 4- 0 Monocryl to the skin, hemostasis was then maintained during the procedure the skin was then covered with a Steri-Strips and bacitracin patient was then returned into the supine position in a stable condition and returned to recovery in a stable condition patient experienced no signs or symptoms of intrathecal or intravascular injection patient experienced no paresthesia the procedure was completed without any apparent difficulty any complication the patient appeared to tolerate well, motor as well as sensory function was unchanged from prior to the procedure. ESTIMATED BLOOD LOSS: Minimal less than 10 mL ASSESSMENT AND PLAN: This is a 74-year-old female with lumbosacral radiculopathy lumbosacral degenerative disc disease lumbosacral spinal stenosis with neurogenic cl audication, postlaminectomy syndrome of the lumbar spine status post 1. Spinal cord stimulator thoracolumbar leads placement x2 #2 spinal cord stimulator Medtronic inceptiv generator placement #3 spinal cord stimulator generator pocket creation at the right gluteal region #4 spinal cord stimulator simple programming, 5-intraoperative fluoroscopic interpretation patient will continue her current medications a prescription was provided to the patient Keflex 500 mg 1 p.o. every 8 hours for 7 days, tramadol 50 mg 1 p.o. q. for hours as needed for postop pain control, postop instruction were given in writing to the patient and her as well as verbally and in writing, patient will follow approximately 1 week for reevaluation Surgical Findings: 0 Complications Complications: No Admit VTE Documentation VTE Present on Admission: No VTE Mechan Device Prophylaxis: None VTE Pharm Prophylaxis ordered?: No
--- NOTE | 2024-12-19 12:58 | PCM.POST.ANE ---
Anesthesia: Postop Eval I Current Vital Signs Temperature: 98.2 F Pulse Rate: 67 Blood Pressure: 111/43 Respiratory Rate: 14 Pulse Ox: 95 Oxygen Delivery Method: Room Air Assessment Airway patent: Yes Spontaneous unlabored respirations: Yes Mental status: Awake and Calm nausea: No Vomiting: No Anesthesia Complication: No Fluid Hydration Crystalloid volume administer (ml): 800 Total IV fluid infused: 800 Progress Note Anesthesia document: Postop Eval 1 completed: Yes
--- NOTE | 2024-12-19 13:06 | PCM.POSTANE2 ---
Anesthesia Postop Eval I Sum Postop Eval Completion status Anesthesia document: Postop Eval 1 completed: Yes Anesthesia Postop Eval I Summary Anesthesia Postop Eval I Summary: Anesthesia Postop Eval I: Assessment Summary Airway patent Yes 12/19/24 12:59 [email or web address] Spontaneous unlabored Yes 12/19/24 12:59 [email or web address] respirations Mental status Awake,Calm 12/19/24 12:59 [email or web address] nausea No 12/19/24 12:59 [email or web address] Vomiting No 12/19/24 12:59 [email or web address] Anesthesia Postop Eval I: Fluid Summary Crystalloid volume administer 800 12/19/24 12:59 [email or web address] (ml) Colloids volume administered ( ml) Blood Product volume administered (ml) Total IV fluid infused 800 12/19/24 12:59 [email or web address] Anesthesia Postop Eval I: Summary Notes Anesthesia Complication No 12/19/24 12:59 [email or web address] Anesthesia Complication Comment: Post-operative progress note Anesthesia: Postop Eval II Evaluation Mental status: Awake Pain Level: 0 nausea: No Vomiting: No Complications Anesthesia Complication: No
== END 2024-12-19 13:36 | disposition home or self-care (01) ==
LOC: SDC 09:27 → AC 09:28
PROVIDERS: PCP Family Medicine Geriatric Medicine; Referring Provider Anesthesiology Pain Medicine; Visit Provider Anesthesiology Pain Medicine
PROC: (CPT 63685; principal; 2024-12-19 11:00)
DX: M51.17 Intervertebral disc disorders with radiculopathy, lumbosacral region (principal); M96.1 Postlaminectomy syndrome, not elsewhere classified; M48.07 Spinal stenosis, lumbosacral region; I10 Essential (primary) hypertension; Z79.82 Long term (current) use of aspirin; Z79.899 Other long term (current) drug therapy
CPT/HCPCS: 63685; 63650; 72100; 76000; C1778; J2405

== ENCOUNTER → 2024-12-28 | Outpatient (CLI) | payer MEDICARE, SELFPAY ==
--- NOTE | 2024-12-28 14:18 | NEURO ---
NCS and/or EMG Patient Report Ordering Doctor: Jass Felton DATE OF SERVICE: 12/28/24 Va presents with complaints of numbness and tingling in both feet. She has a history of low back pain with a recent spinal cord stimulator implant. Electrodiagnostic findings: Right peroneal motor nerve demonstrates normal distal latency, amplitude and conduction velocity. Left peroneal motor nerve demonstrates normal distal latency with reduced amplitude and normal conduction velocity. Tibial motor response within normal limits on the right side. Borderline reduced left tibial motor conduction velocity. Absent right sural response. Normal left sural response. Normal superficial peroneal response bilaterally. Prolonged H?reflexes noted bilaterally. Normal tibial F?wave bilaterally. Normal right peroneal F?wave. Needle EMG testing was performed the lower limbs. All muscles tested showed no evidence of denervation with normal motor unit action potentials. Electrodiagnostic impression: This is an abnormal study of the lower limbs 1. 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 2. No electrodiagnostic evidence is noted for lumbosacral radiculopathy. Multi Select Codes Neurology Neurology Interp Codes: 99365-79 Musc test done w/n test comp (interp) (2) and 60226-47 Nrv cndj test 9-10 studies (interp)
== END | disposition home or self-care (01) ==
LOC: PSN 11:34
PROVIDERS: PCP Family Medicine Geriatric Medicine; Referring Provider Psychiatry & Neurology Neurology; Visit Provider Psychiatry & Neurology Neurology
DX: R20.2 Paresthesia of skin (principal); G62.9 Polyneuropathy, unspecified
CPT/HCPCS: 95886; 95911

== ENCOUNTER → 2025-01-10 | Outpatient (CLI) | payer MEDICARE, SELFPAY ==
[2025-01-10 13:11] LABS: ALB/GLOB Ratio 1.7 RATIO (0.9-2.4); AST(SGOT) 31 U/L (<=31); Alanine Aminotransfer ALT/SGPT 27 U/L (<=34); Albumin, Serum 4.3 g/dL (3.4-4.8); Alkaline Phosphatase 124 U/L (35-104); Anion Gap 10 (5-15); BUN 12 mg/dL (4-19); BUN/Creat Ratio 17.3 RATIO (10-20); Carbon Dioxide 27.7 mmol/L (21.0-32.0); Chloride 105 mmol/L (98-108); Creatinine, Serum 0.69 mg/dL (0.70-1.20); EST Glomerular Filtration Rate 90 (>60); Globulin 2.5 g/dL (2.2-4.2); Glucose 100 mg/dL (70-99); Potassium 4.5 mmol/L (3.3-5.1); Protein, Total 6.8 g/dL (5.9-8.4); Sodium Level 142 mmol/L (133-145); Total Bilirubin 0.64 mg/dL (0.00-1.30)
== END | disposition home or self-care (01) ==
LOC: LAB 11:50
PROVIDERS: PCP Family Medicine Geriatric Medicine; Referring Provider Internal Medicine Rheumatology; Visit Provider Internal Medicine Rheumatology
DX: M06.4 Inflammatory polyarthropathy (principal); M79.7 Fibromyalgia; M35.00 Sjogren syndrome, unspecified; M17.0 Bilateral primary osteoarthritis of knee; M18.0 Bilateral primary osteoarthritis of first carpometacarpal joints; M65.341 Trigger finger, right ring finger; M18.12 Unilateral primary osteoarthritis of first carpometacarpal joint, left hand; M18.11 Unilateral primary osteoarthritis of first carpometacarpal joint, right hand; Z96.653 Presence of artificial knee joint, bilateral; Z79.899 Other long term (current) drug therapy
CPT/HCPCS: 36415; 80053

== ENCOUNTER → 2025-02-23 | Outpatient (CLI) | payer MEDICARE, SELFPAY | END | disposition home or self-care (01) | LOC: POLAB3 14:56 | PROVIDERS: PCP Family Medicine Geriatric Medicine; Visit Provider Family Medicine Geriatric Medicine | DX: R68.83 Chills (without fever) (principal) | CPT/HCPCS: 87631 ==

== ENCOUNTER → 2025-03-29 | Outpatient (CLI) | payer MEDICARE, SELFPAY ==
[2025-03-29 16:11] LABS: AST(SGOT) 31 U/L (<=31); Alanine Aminotransfer ALT/SGPT 22 U/L (<=34); Albumin, Serum 4.2 g/dL (3.4-4.8); Alkaline Phosphatase 116 U/L (35-104); Anion Gap 10 (5-15); BUN 11 mg/dL (4-19); BUN/Creat Ratio 17.6 RATIO (10-20); Calcium,Total 10.0 mg/dL (7.6-11.0); Carbon Dioxide 23.8 mmol/L (21.0-32.0); Chloride 106 mmol/L (98-108); Globulin 2.9 g/dL (2.2-4.2); Glucose 90 mg/dL (70-99); Potassium 4.1 mmol/L (3.3-5.1)
== END | disposition home or self-care (01) ==
LOC: LAB 14:45
PROVIDERS: PCP Family Medicine Geriatric Medicine; Referring Provider Internal Medicine Rheumatology; Visit Provider Internal Medicine Rheumatology
DX: M06.4 Inflammatory polyarthropathy (principal); M79.7 Fibromyalgia; M35.00 Sjogren syndrome, unspecified; Z79.899 Other long term (current) drug therapy
CPT/HCPCS: 36415; 80053

== ENCOUNTER → 2025-04-19 | Outpatient (CLI) | payer MEDICARE, SELFPAY ==
--- NOTE | 2025-04-19 10:42 | MRI_ITS ---
PROCEDURE: SPINE CERVICAL (ROUTINE) 04/19/2025 REASON FOR EXAM: NECK PAIN; INTERMITTENT WEAKNESS IN ARMS TECHNIQUE: Procedure Code: MRISPC Modality: MR Procedure: SPINE CERVICAL (ROUTINE) Multiplanar and multisequence images were obtained without IV contrast administration. COMPARISON: CT February 2022. FINDINGS: C2-C3: Vertebral bodies: Negative. Disk Space: Disc desiccation mild loss of disc height. Negative for Modic changes. Facet Joints: Moderate bilateral facet joint hypertrophy. Neural foramina: Mild bilateral neural foraminal narrowing Spinal Canal: Negative for central spinal narrowing. C3-C4: Vertebral bodies: Negative. Disk Space: Disc desiccation. Mild loss of disc height. Mild diffuse disc bulge. Negative for Modic changes. Facet Joints: Mild bilateral facet joint hypertrophy. Neural foramina: Moderate bilateral neural foraminal narrowing Spinal Canal: Negative for central spinal narrowing. C4-C5: Vertebral bodies: Anterior plates and screws with interbody fusion. Disk Space: Fused . posterior osteophyte disc complex. Facet Joints: Right facet joint fused. Mild hypertrophy left facet. Neural foramina: Negative for neural foraminal narrowing Spinal Canal: Negative for central spinal narrowing. C5-C6: Vertebral bodies: Orthopedic plates and screws at C5. Disk Space: Fused. Negative for Modic changes. Facet Joints: Mild bilateral facet joint hypertrophy. Neural foramina: Negative for neural foraminal narrowing Spinal Canal: Negative for central spinal narrowing. C6-C7: Vertebral bodies: Fused. Disk Space: Fused Facet Joints: Partially fused with moderate bilateral facet joint hypertrophy. Neural foramina: Bilateral perineural cysts. Slight bilateral neural foraminal narrowing Spinal Canal: Negative for central spinal narrowing. C7 through T2: Degenerative disc and facet disease at these levels mild bilateral neural foramina head C7-T1 and moderate bilateral T1-T2. Central disc protrusion at T1-T2. Adjacent spinal cord intact. Spinal cord: Normal. No abnormal T2 signal. Posterior fossa and cerebellar tonsils negative. MRI/Spine Cervical (Routine) IMPRESSION: Previous fusion cervical spine C4-C7. Degenerative changes most prominent C7-T1 and T1-T2. Reading Location: [id number]
== END | disposition home or self-care (01) ==
PROVIDERS: PCP Family Medicine Geriatric Medicine; Referring Provider Psychiatry & Neurology Neurology; Visit Provider Psychiatry & Neurology Neurology
DX: M54.2 Cervicalgia (principal); R29.898 Other symptoms and signs involving the musculoskeletal system
CPT/HCPCS: 72141

== ENCOUNTER → 2025-04-25 | Outpatient (CLI) | payer MEDICARE, SELFPAY ==
[2025-04-25 12:55] LABS: Hematocrit 46.2 % (37-47); Hemoglobin 15.4 g/dL (12.0-15.0); Immature Granulocytes Count 0.020 X10^3/uL (0.0-0.0); Mean Corp Hgb Conc 33.3 g/dL (32-36); Mean Corpuscular Volume 90.2 fL (81-99); Mean Platelet Vol. 10.6 fl (6.2-12.0); NRBC Flagged by Analyzer 0 % (0-5); Platelet Count 161 K/mm3 (150-450); RBC Distribution Width CV 13.4 % (11.6-14.6); RBC Distribution Width SD 44.3 fl (35.1-43.9); Red Blood Count 5.12 M/mm3 (4.2-5.4); White Blood Count 5.6 K/mm3 (4.4-11.0)
[2025-04-25 14:24] LABS: AST(SGOT) 47 U/L (<=31); Alanine Aminotransfer ALT/SGPT 82 U/L (<=34); Albumin, Serum 4.2 g/dL (3.4-4.8); Alkaline Phosphatase 124 U/L (35-104); Anion Gap 10 (5-15); BUN 14 mg/dL (4-19); BUN/Creat Ratio 19.6 RATIO (10-20); Calcium,Total 9.9 mg/dL (7.6-11.0); Carbon Dioxide 27.3 mmol/L (21.0-32.0); Chloride 103 mmol/L (98-108); Globulin 2.6 g/dL (2.2-4.2); Glucose 94 mg/dL (70-99); Potassium 4.6 mmol/L (3.3-5.1)
== END | disposition home or self-care (01) ==
LOC: LAB 11:59
PROVIDERS: PCP Family Medicine Geriatric Medicine; Referring Provider Internal Medicine Rheumatology; Visit Provider Internal Medicine Rheumatology
DX: M06.4 Inflammatory polyarthropathy (principal); Z79.899 Other long term (current) drug therapy
CPT/HCPCS: 36415; 80053; 85025

== ENCOUNTER → 2025-05-23 | Outpatient (CLI) | payer MEDICARE, SELFPAY ==
--- NOTE | 2025-05-23 11:50 | US_ITS ---
PROCEDURE: US/Thyroid
== END | disposition home or self-care (01) ==
LOC: US 11:41
PROVIDERS: PCP Family Medicine Geriatric Medicine; Referring Provider Surgery; Visit Provider Surgery
DX: E04.1 Nontoxic single thyroid nodule (principal)
CPT/HCPCS: 76536

== ENCOUNTER → 2025-05-26 | Outpatient (CLI) | payer MEDICARE, SELFPAY ==
--- NOTE | 2025-05-26 13:15 | CYSPIN_PTH ---
PATIENT: KRIS JOHN I LOC: [facility] U#:[id number] AGE/SX: 74/F ROOM: RE05/26/[address]: Dr. Nigel Zimmer MD : [id number] BED: DIS: 05/26/2025 SPEC #: [id number] RECD: 05/26/25 15:31 STATUS: [facility] REQ #: [id number] GAGE: 05/26/25 13:[address]: Nigel Zimmer DEPT: CYTOLOGY RECD BY: Michael Hoffmann ENTERED: 05/29/25 08:15 SP TYPE: CYSPIN FL OTHR DR: Dr. Tony Sethi MD Tissues: A - Thyroid gland, NOS Procedures: Pap Stain (control) Special Stain Group II Diff Quik Stain (control) Cytospin Fluid Cytology Other HEADER OPERATION: Fine needle aspiration of left thyroid nodule PRE-OP DIAGNOSIS: Left thyroid nodule TISSUE SUBMITTED: A- Left thyroid nodule CYTOLOGY GROSS A. Received is 30 ml of light-pink cytolyt with particles and 4 slides labeled with the patient's name and and designated per the requisition as Left thyroid nodule. Submitted for cytology and cytospin. Mr 05/29/2025 CPT: 82733,46119
== END | disposition home or self-care (01) ==
LOC: LABSPEC 15:39
PROVIDERS: PCP Family Medicine Geriatric Medicine; Referring Provider Surgery; Visit Provider Surgery
DX: E04.1 Nontoxic single thyroid nodule (principal)
CPT/HCPCS: 88108; 88161; 88313

== ENCOUNTER → 2025-06-07 | Outpatient (CLI) | payer MEDICARE, SELFPAY ==
[2025-06-07 11:21] LABS: Hematocrit 44.9 % (37-47); Hemoglobin 15.1 g/dL (12.0-15.0); Immature Granulocytes Count 0.020 X10^3/uL (0.0-0.0); Mean Corp Hgb Conc 33.6 g/dL (32-36); Mean Corpuscular Volume 89.6 fL (81-99); Mean Platelet Vol. 10.6 fl (6.2-12.0); NRBC Flagged by Analyzer 0 % (0-5); Platelet Count 159 K/mm3 (150-450); RBC Distribution Width CV 13.4 % (11.6-14.6); RBC Distribution Width SD 43.9 fl (35.1-43.9); Red Blood Count 5.01 M/mm3 (4.2-5.4); White Blood Count 5.5 K/mm3 (4.4-11.0)
[2025-06-07 12:20] LABS: AST(SGOT) 31 U/L (<=31); Alanine Aminotransfer ALT/SGPT 25 U/L (<=34); Albumin, Serum 4.2 g/dL (3.4-4.8); Alkaline Phosphatase 119 U/L (35-104); Anion Gap 11 (5-15); BUN 13 mg/dL (4-19); BUN/Creat Ratio 21.1 RATIO (10-20); Calcium,Total 9.8 mg/dL (7.6-11.0); Carbon Dioxide 24.6 mmol/L (21.0-32.0); Chloride 107 mmol/L (98-108); Globulin 2.7 g/dL (2.2-4.2); Glucose 116 mg/dL (70-99); Potassium 4.2 mmol/L (3.3-5.1); Vitamin D,25 Hydroxy 50.5 ng/mL (30-100)
[2025-06-07 19:12] LABS: Xtra Tube Kwok EXTRA TUBE
== END | disposition home or self-care (01) ==
LOC: POLAB3 11:12
PROVIDERS: PCP Family Medicine Geriatric Medicine; Visit Provider Family Medicine Geriatric Medicine
DX: E55.9 Vitamin D deficiency, unspecified (principal); R53.83 Other fatigue
CPT/HCPCS: 36415; 80053; 82306; 84443; 85025

== ENCOUNTER → 2025-07-10 | Outpatient (CLI) | payer MEDICARE, SELFPAY ==
--- NOTE | 2025-07-10 17:15 | CT_ITS ---
PROCEDURE: SOFT TISSUE NECK WITH CONTRAST 07/10/2025 REASON FOR EXAM: DYSPHAGIA, COMPRESSION TECHNIQUE: Procedure Code: CTNEW Modality: CT Procedure: SOFT TISSUE NECK WITH CONTRAST CONTRAST: Isovue-300 VOLUME: 36 mL One or more dose reduction techniques were used (e.g., Automated exposure control, adjustment of the mA and/or kV according to patient size, use of iterative reconstruction technique). RADIATION DOSE SUMMARY: DLP: 515.29 mGycm COMPARISON: CT neck 03/13/2022, thyroid ultrasound 05/23/2025 FINDINGS: Beam hardening artifact from dental amalgam obscures adjacent anatomy in the oral cavity, limiting assessment. Aerodigestive tract: The floor of mouth, base of tongue, nasopharynx, oropharynx, hypopharynx, and larynx appear overall symmetric without evidence of nodular or masslike enhancement. The visualized trachea is clear. The nasal cavity is unobstructed. No prevertebral soft tissue swelling. Salivary glands: (Major): The submandibular glands and parotid glands appear within normal limits. Thyroid gland: Redemonstrated asymmetrically enlarged left thyroid gland with bulging into the retroclavicular region. 2.5 x 2.0 cm left thyroid nodule. The thyroid gland appears unremarkable on CT. Lymph nodes: There is no evidence of pathologic cervical lymphadenopathy. Vasculature: The common carotid, cervical internal carotid, and cervical vertebral arteries opacify with intravenously administered contrast. Atherosclerotic calcification of the carotid bulbs and visualized carotid siphons. Paranasal sinuses: The paranasal sinuses are predominantly clear. Orbits: Bilateral ocular lens replacements. Intracranial/cranium: The partially visualized intracranial contents appear overall within normal limits for the patient's stated age, although assessment is limited due to technique (e.g. the [id number]). Cervical spine: Ankylosing of C4-C7 vertebral bodies. Anterior fusion of C4 and C5. Cervical spondylosis. Lung apices: The visualized lung apices are predominantly clear. CT/Soft Tissue Neck WITH Contrast IMPRESSION: 1. Redemonstrated asymmetrically enlarged left thyroid gland and heterogeneous left thyroid nodule measuring up to 2.5 cm. This is better characterized on prior thyroid ultrasound. 2. No other dominant neck mass. 3. No pathologic cervical lymphadenopathy. 4. Ankylosing of C4-C7 vertebral bodies. C4-C5 anterior fusion. Reading Location: [id number]
== END | disposition home or self-care (01) ==
LOC: CT 16:55
PROVIDERS: PCP Family Medicine Geriatric Medicine; Referring Provider Surgery; Visit Provider Surgery
DX: E04.1 Nontoxic single thyroid nodule (principal)
CPT/HCPCS: 70491; Q9967

== ENCOUNTER → 2025-07-17 | Outpatient (CLI) | payer MEDICARE, SELFPAY ==
[2025-07-17 13:35] LABS: Hematocrit 46.3 % (37-47); Hemoglobin 15.7 g/dL (12.0-15.0); Immature Granulocytes Count 0.010 X10^3/uL (0.0-0.0); Mean Corp Hgb Conc 33.9 g/dL (32-36); Mean Corpuscular Volume 87.0 fL (81-99); Mean Platelet Vol. 10.9 fl (6.2-12.0); NRBC Flagged by Analyzer 0 % (0-5); Platelet Count 176 K/mm3 (150-450); RBC Distribution Width CV 12.7 % (11.6-14.6); RBC Distribution Width SD 39.9 fl (35.1-43.9); Red Blood Count 5.32 M/mm3 (4.2-5.4); White Blood Count 7.0 K/mm3 (4.4-11.0)
[2025-07-17 14:11] LABS: AST(SGOT) 39 U/L (<=31); Alanine Aminotransfer ALT/SGPT 29 U/L (<=34); Albumin, Serum 4.3 g/dL (3.4-4.8); Alkaline Phosphatase 114 U/L (35-104); Anion Gap 11 (7-18); BUN 13 mg/dL (4-19); BUN/Creat Ratio 17.3 RATIO (10-20); Calcium,Total 9.9 mg/dL (7.6-11.0); Carbon Dioxide 24.4 mmol/L (20.0-29.0); Chloride 106 mmol/L (96-106); Globulin 2.7 g/dL (2.2-4.2); Glucose 110 mg/dL (70-99); Potassium 4.7 mmol/L (3.5-5.1)
== END | disposition home or self-care (01) ==
LOC: LAB 12:37
PROVIDERS: PCP Family Medicine Geriatric Medicine; Referring Provider Internal Medicine Rheumatology; Visit Provider Internal Medicine Rheumatology
DX: M06.4 Inflammatory polyarthropathy (principal); M79.7 Fibromyalgia; Z79.899 Other long term (current) drug therapy
CPT/HCPCS: 36415; 80053; 85025